=== PATIENT | male | born 1980 | race American Indian/Alaskan Native ===

== ENCOUNTER 2017-05-19 17:45 | Emergency (ER) | payer MEDICAID, OTHER ==
[2017-05-19 17:52] VITALS: BP 133/86
--- NOTE | 2017-05-19 18:24 | EDM.PDOC ---
ED HPI GENERAL MEDICAL PROBLEM - General Chief Complaint: Lower Extremity Injury/Pain Stated Complaint: [facility] Time Seen by Provider: 05/19/17 18:10 Source of Information: Reports: Patient, Provider History Limitations: Reports: No Limitations - History of Present Illness INITIAL COMMENTS - FREE TEXT/NARRATIVE: This 36 yo male patient was brought to the ED by [facility] due to swelling, pain and redness in his right lower extremity. The patient was seen in the [facility] prior to transport by Dr. Vale (Podiatry). The patient reports he noticed some swelling starting on his medial right foot on Thursday Evening. Since that time the patient has noticed increased swelling and redness to his foot and ankle. The patient denies any history of trauma or injury to the area. Dr. Vale reports the patient had a CBC, BMP, x-rays (negative for fractures) of his ankle and and ultrasound of the right lower extremity (negative for blood clots). Dr. Vale diagnosed the patient with compartment syndrome, but also reported some question about the quality of the ultrasound results. Dr. Vale transferred care of the patient to [facility] in [place] for continued evaluation and management. The CBC results demonstrated a WBC of 4.7 ( 65.9% neut). Onset: Gradual Onset Date: 05/17/17 Duration: Constant, Getting Worse Location: Reports: Lower Extremity, Right Quality: Reports: Ache, Dull Severity: Moderate Improves with: Reports: None Worsens with: Reports: None Associated Symptoms: Reports: No Other Symptoms Right Lower Leg Pain Score (Numeric/FACES): 6 - Related Data Allergies Allergy/AdvReac Type Severity Reaction Status Date / Time aspirin Allergy Cannot Verified 05/19/17 18:41 Remember cephalexin Allergy Rash Verified 05/19/17 17:45 Home Meds: Home Meds . [No Known Home Meds] 03/30/15 [History] Past Medical History - Past Health History Medical/Surgical History: Denies Medical/Surgical History Social & Family History - Tobacco Use Smoking Status *Q: Former Smoker Years of Tobacco use: 20 Used Tobacco, but Quit: Yes Month Tobacco Last Used: apr Second Hand Smoke Exposure: No - Alcohol Use Days Per Week of Alcohol Use: 3 Number of Drinks Per Day: 2 Total Drinks Per Week: 6 - Recreational Drug Use Recreational Drug Use: No Review of Systems - Review of Systems Review Of Systems: ROS reveals no pertinent complaints other than HPI. ED EXAM, GENERAL - Physical Exam Exam: See Below Exam Limited By: No Limitations General Appearance: Alert, WD/WN, Mild Distress Eye Exam: Bilateral Eye: EOMI, Normal Inspection, PERRL Ears: Normal External Exam, Normal Canal, Hearing Grossly Normal, Normal TMs Nose: Normal Inspection, Normal Mucosa, No Blood Throat/Mouth: Normal Inspection, Normal Lips, Normal Teeth, Normal Gums, Normal Oropharynx, Normal Voice, No Airway Compromise Head: Atraumatic, Normocephalic Neck: Normal Inspection, Supple, Non-Tender, Full Range of Motion Respiratory/Chest: No Respiratory Distress, Lungs Clear, Normal Breath Sounds, No Accessory Muscle Use, Chest Non-Tender Cardiovascular: Normal Peripheral Pulses, Regular Rate, Rhythm, No Edema, No Gallop, No JVD, No Murmur, No Rub GI/Abdominal: Normal Bowel Sounds, Soft, Non-Tender, No Organomegaly, No Distention, No Abnormal Bruit, No Mass (Male) Exam: Deferred Rectal (Males) Exam: Deferred Back Exam: Normal Inspection, Full Range of Motion, NT Extremities: Leg Pain (right lower extremity with erythema from the medial foot through the knee) Neurological: Alert, Oriented, CN II-XII Intact, Normal Cognition, Normal Reflexes, No Motor/Sensory Deficits Psychiatric: Normal Affect, Normal Mood Skin Exam: Erythema (right lower extremity), Increased Warmth (right lower extremity) Lymphatic: No Adenopathy Course - Vital Signs Last Recorded V/S: Last Vital Signs Temp 35.8 C 05/19/17 17:51 Pulse 84 05/19/17 17:51 Resp 16 05/19/17 17:51 BP 133/86 05/19/17 17:51 Pulse Ox 98 05/19/17 17:51 - Orders/Labs/Meds Labs: Laboratory Tests 05/19/17 Range/Units 18:10 D-Dimer, Quantitative 649 H (0-400) ng/mL Departure - Departure Time of Disposition: 18:55 Disposition: DC/Tfer to Acute Hospital 02 Condition: Fair Clinical Impression: Right leg swelling - Discharge Information Forms: Interfacility Transfer EMTALA Care Plan Goals: Discussed the examination, lab, x-ray and ultrasound results with Dr. Quinteros ([facility] in [place]). Dr. Quinteros accepted the patient for continued evaluation and management. The patient will be transported by [facility].
== END 2017-05-19 19:15 ==
LOC: DL.ED 17:45
DX: R22.41 Localized swelling, mass and lump, right lower limb (principal); Z88.6 Allergy status to analgesic agent; Z88.1 Allergy status to other antibiotic agents; Z87.891 Personal history of nicotine dependence
CPT/HCPCS: 36415; 85379; 99283

== ENCOUNTER 2018-08-16 17:34 | Emergency (ER) | payer OTHER ==
[2018-08-16 18:05] VITALS: BP 140/80
== END 2018-08-16 19:00 | disposition left against medical advice (07) ==
LOC: DL.ED 17:34
DX: Z53.21 Procedure and treatment not carried out due to patient leaving prior to being seen by health care provider (principal)

== ENCOUNTER → 2019-04-15 | Outpatient (CLI) | payer MEDICAID ==
--- NOTE | 2019-04-15 15:54 | US ---
Clinical history: 38-year-old male with calf pain, swelling and tenderness. Interpretation: No sign of deep vein thrombosis right lower extremity but there is evidence of superficial venous thrombosis (SVT) greater saphenous vein below the knee (greater saphenous vein proximally, above the knee, is patent). Several large inguinal lymph nodes right groin. No Astudillo's cyst or popliteal artery aneurysm. No sign of intraluminal echogenic thrombus and normal compressibility deep veins of the right thigh, knee and calf with satisfactory augmentation and venous waveforms demonstrated respectively in the posterior tibial/peroneal veins of the right calf, popliteal vein behind the right knee, and proximally in the femoral veins of the right thigh/groin. CONCLUSION: Superficial vein thrombosis right calf. *No DVT right lower extremity.
== END ==
LOC: DL.US 13:24
PROVIDERS: ATTEND Nurse Practitioner Family
DX: M79.661 Pain in right lower leg (principal); M79.89 Other specified soft tissue disorders; I82.4Z1 Acute embolism and thrombosis of unspecified deep veins of right distal lower extremity
CPT/HCPCS: 93971

== ENCOUNTER 2019-08-13 08:49 | Emergency (ER) | payer MEDICAID ==
[~2019-08-13 08:49] MED LIST: Sodium Chloride 0.9% 10 ML Syringe FLUSH PRN
[2019-08-13] MEDS ORDERED: Octreotide 100 MCG/ML SDV IVPUSH ONE (08:55)
[2019-08-13] MEDS ORDERED: Octreotide 500 MCG in Sodium Chloride 0.9% 250 ML IV SCH (09:00)
--- NOTE | 2019-08-13 09:08 | EDM.PDOC ---
ED HPI GENERAL MEDICAL PROBLEM - General Chief Complaint: Gastrointestinal Problem Stated Complaint: AMBULANCE Time Seen by Provider: 08/13/19 08:54 Source of Information: Reports: Patient, EMS, EMS Notes Reviewed, Family, RN, RN Notes Reviewed History Limitations: Reports: No Limitations - History of Present Illness INITIAL COMMENTS - FREE TEXT/NARRATIVE: Pt to ER per [facility] with c/o coughing up dark red/black blood this morning. Patient states he has a hx of upper GI bleeding, esophageal varices, and has bands in the esophagus. Pt is unsure when the last time this happened was. Patient states hx of ulcers on both legs that he has been dealing with for 2 years. Also states hx of asthma. States he used to drink large amounts of alcohol, but denies drinking alcohol recently. Onset: Today, Sudden - Related Data Allergies Allergy/AdvReac Type Severity Reaction Status Date / Time aspirin Allergy Cannot Verified 09/12/18 19:07 Remember cephalexin Allergy Rash Verified 09/12/18 19:07 clindamycin Allergy Cannot Verified 08/13/19 08:55 Remember Home Meds: Home Meds . [No Known Home Meds] 03/30/15 [History] Past Medical History - Past Health History Medical/Surgical History: Denies Medical/Surgical History HEENT History: Reports: None Cardiovascular History: Reports: Hypertension Respiratory History: Reports: Asthma Gastrointestinal History: Reports: GERD, GI Bleed, Other (See Below) Other Gastrointestinal History: acities, esophageal varices Genitourinary History: Reports: Chronic Renal Insuffiency, Other (See Below) Other Genitourinary History: chronic kidney disease Neurological History: Reports: None Psychiatric History: Reports: None Hematologic History: Reports: Anemia Immunologic History: Reports: None Oncologic (Cancer) History: Reports: None Dermatologic History: Reports: Cellulitis, Psoriasis - Past Surgical History Cardiovascular Surgical History: Reports: Other (See Below) Other Cardiovascular Surgeries/Procedures: chronic edema with leg ulcers Social & Family History - Caffeine Use Caffeine Use: Reports: Soda ED ROS GENERAL - Review of Systems Review Of Systems: ROS reveals no pertinent complaints other than HPI. ED EXAM, GI/ABD - Physical Exam Exam: See Below Exam Limited By: No Limitations General Appearance: Alert, WD/WN, Mild Distress Eyes: Bilateral: Normal Appearance (Scleral icterus), EOMI Ears: Normal External Exam, Hearing Grossly Normal Nose: Normal Inspection Throat/Mouth: Normal Inspection, Normal Voice, No Airway Compromise, Other ( Dark blood in the back of the throat) Head: Atraumatic, Normocephalic Neck: Normal Inspection, Supple, Non-Tender, Full Range of Motion Respiratory/Chest: No Respiratory Distress, Lungs Clear, Normal Breath Sounds, No Accessory Muscle Use, Chest Non-Tender Cardiovascular: Normal Peripheral Pulses, Regular Rate, Rhythm, No Edema, No Gallop, No JVD, No Murmur, No Rub GI/Abdominal Exam: Normal Bowel Sounds, Non-Tender, Distended, Other (Firm). No : Soft (Male) Exam: Deferred Rectal (Males) Exam: Deferred Back Exam: Normal Inspection, Full Range of Motion, NT Extremities: Normal Capillary Refill, Limited Range of Motion, Other (Bilateral legs wrapped in WIL[place] wraps, patient states ulcers to both legs for 2 years) Neurological: Alert, Oriented, CN II-XII Intact, Normal Cognition, Normal Gait, Normal Reflexes, No Motor/Sensory Deficits Psychiatric: Normal Affect, Normal Mood Skin Exam: Warm, Dry, Intact, No Rash, Jaundice Lymphatic: No Adenopathy Course - Vital Signs Last Recorded V/S: Last Vital Signs Temp 99.1 F 08/13/19 10:08 Pulse 118 H 08/13/19 10:08 Resp 16 08/13/19 10:08 BP 123/65 08/13/19 10:08 Pulse Ox 98 08/13/19 08:54 - Orders/Labs/Meds Orders: Active Orders 24 hr Category Date Time Status Peripheral IV Care [RC] . DIRECTED Care 08/13/19 08:46 Active Peripheral IV Insertion Adult [OM.PC] Stat Ot 08/13/19 08:45 Ordered Transfuse Red Blood Cells [COMM] Stat Ot 08/13/19 08:45 Ordered Labs: Laboratory Tests 08/13/19 08/13/19 08/13/19 Range/Units 09:04 09:04 09:04 WBC 10.0 (5.0-10.0) 10^3/uL RBC 2.39 L (4.6-6.2) 10^6/uL Hgb 6.1 L* D (14.0-18.0) g/dL Hct 20.1 L* (40.0-54.0) % MCV 84.1 (80-100) fL MCH 25.5 L (27.0-34.0) pg MCHC 30.3 L (33.0-35.0) g/dL Plt Count 61 L (150-450) 10^3/uL Neut % (Auto) 73.3 (42.2-75.2) % Lymph % (Auto) 13.3 L (20.5-50.1) % [place] % (Auto) 10.7 H (2-8) % Eos % (Auto) 2.3 (1.0-3.0) % Baso % (Auto) 0.4 (0.0-1.0) % PT 21.0 H (9.0-12.0) SEC INR 2.1 H (0.9-1.2) Sodium 138 (135-145) mmol/L Potassium 3.1 L (3.6-5.0) mmol/L Chloride 106 (101-111) mmol/L Carbon Dioxide 22.0 (21.0-31.0) mmol/L Anion Gap 13.1 BUN 9 (7-18) mg/dL Creatinine 0.9 (0.6-1.3) mg/dL Est Cr Clr Drug Dosing TNP Estimated GFR (MDRD) > 60 BUN/Creatinine Ratio 10.00 Glucose 204 H (74-105) mg/dL Calcium 6.9 L D (8.4-10.2) mg/dl Total Bilirubin 3.3 H (0.2-1.0) mg/dL AST 110 H (10-42) IU/L ALT 37 (10-60) IU/L Alkaline Phosphatase 79 (42-121) IU/L Total Protein 6.4 L (6.7-8.2) g/dl Albumin 1.4 L (3.2-5.5) g/dl Globulin 5.0 Albumin/Globulin Ratio 0.28 Ethyl Alcohol 232 mg/dL Blood Type Gel Antibody Screen Crossmatch 08/13/19 Range/Units 09:04 WBC (5.0-10.0) 10^3/uL RBC (4.6-6.2) 10^6/uL Hgb (14.0-18.0) g/dL Hct (40.0-54.0) % MCV (80-100) fL MCH (27.0-34.0) pg MCHC (33.0-35.0) g/dL Plt Count (150-450) 10^3/uL Neut % (Auto) (42.2-75.2) % Lymph % (Auto) (20.5-50.1) % [place] % (Auto) (2-8) % Eos % (Auto) (1.0-3.0) % Baso % (Auto) (0.0-1.0) % PT (9.0-12.0) SEC INR (0.9-1.2) Sodium (135-145) mmol/L Potassium (3.6-5.0) mmol/L Chloride (101-111) mmol/L Carbon Dioxide (21.0-31.0) mmol/L Anion Gap BUN (7-18) mg/dL Creatinine (0.6-1.3) mg/dL Est Cr Clr Drug Dosing Estimated GFR (MDRD) BUN/Creatinine Ratio Glucose (74-105) mg/dL Calcium (8.4-10.2) mg/dl Total Bilirubin (0.2-1.0) mg/dL AST (10-42) IU/L ALT (10-60) IU/L Alkaline Phosphatase (42-121) IU/L Total Protein (6.7-8.2) g/dl Albumin (3.2-5.5) g/dl Globulin Albumin/Globulin Ratio Ethyl Alcohol mg/dL Blood Type O POSITIVE Gel Antibody Screen Negative Crossmatch See Detail Meds: Medications Discontinued Medications Generic Name Dose Route Start Last Admin Trade Name Freq PRN Reason Stop Dose Admin Octreotide Acetate 500 mcg/ 255 mls @ 20 mls/hr 08/13/19 09:00 08/13/19 09:11 Sodium Chloride IV 20 mls/hr ASDIRECTED AMIE Administration Octreotide Acetate 100 mcg 08/13/19 08:55 08/13/19 09:02 Sandostatin IVPUSH 08/13/19 08:56 100 mcg ONETIME ONE Administration Sodium Chloride 10 ml 08/13/19 08:45 08/13/19 09:02 Saline Flush FLUSH 10 ml ASDIRECTED PRN Administration Keep Vein Open Departure - Departure Time of Disposition: 10:15 Disposition: DC/Tfer to Acute Hospital 02 Condition: Poor, Serious Clinical Impression: Upper GI bleed Esophageal varices Qualifiers: Esophageal varices type: unspecified type Esophageal varices bleeding: with bleeding Qualified Code(s): I85.01 - Esophageal varices with bleeding Anemia Qualifiers: Anemia type: unspecified type Qualified Code(s): D64.9 - Anemia, unspecified - Discharge Information *PRESCRIPTION DRUG MONITORING PROGRAM REVIEWED*: No *COPY OF PRESCRIPTION DRUG MONITORING REPORT IN PATIENT NARCISA: No Referrals: PCP,None [Primary Care Provider] - Forms: ED Department Discharge, Interfacility Transfer [facility] - My Orders Last 24 Hours: My Active Orders 08/13/19 08:45 Peripheral IV Insertion Adult [OM.PC] Stat Transfuse Red Blood Cells [COMM] Stat 08/13/19 08:46 Peripheral IV Care [RC] . DIRECTED - Assessment/Plan Last 24 Hours: My Active Orders 08/13/19 08:45 Peripheral IV Insertion Adult [OM.PC] Stat Transfuse Red Blood Cells [COMM] Stat 08/13/19 08:46 Peripheral IV Care [RC] . DIRECTED
[2019-08-13 09:31] LABS: ANION GAP 13.1; CHLORIDE,CL 106 mmol/L (101-111); SODIUM,NA 138 mmol/L (135-145)
[2019-08-13 10:08] VITALS: BP 123/65; PULSE 118
== END 2019-08-13 10:30 ==
LOC: DL.ED 08:49
DX: I85.01 Esophageal varices with bleeding (principal); I13.10 Hypertensive heart and chronic kidney disease without heart failure, with stage 1 through stage 4 chronic kidney disease, or unspecified chronic kidney disease; N18.9 Chronic kidney disease, unspecified; D63.8 Anemia in other chronic diseases classified elsewhere; Z88.1 Allergy status to other antibiotic agents; Z88.8 Allergy status to other drugs, medicaments and biological substances
CPT/HCPCS: 36415; 36430; 80053; 80320; 85025; 85610; 86850; 86900; 86901; 86920; 86922; 96365; 96376; 99285; G0390; J2354; J7050; P9016; G0480

== ENCOUNTER 2020-04-06 12:43 | Emergency (ER) | payer MEDICARE, MEDICAID ==
[2020-04-06 12:56] VITALS: BP 127/77; PULSE 97
--- NOTE | 2020-04-06 13:04 | EDM.PDOC ---
ED HPI GENERAL MEDICAL PROBLEM - General Chief Complaint: Lower Extremity Injury/Pain Stated Complaint: LEG INFECTED Time Seen by Provider: 04/06/20 13:04 Source of Information: Reports: Patient, Old Records, RN, RN Notes Reviewed History Limitations: Reports: No Limitations - History of Present Illness INITIAL COMMENTS - FREE TEXT/NARRATIVE: Pt presents to ER from home by POV after he called the clinic and was sent here for left leg feeling like getting infection. The patient states his left thigh is painful to touch, feels hot, looks red and is exactly the same as when he developed cellulitis in the past. He has psoriasis which is not currently under treatment. He rates pain 9/10. He took 325mg of Tylenol at 1000HRS today. Onset: Gradual Duration: Constant, Getting Worse Location: Reports: Lower Extremity, Left Quality: Reports: Ache Severity: Severe Worsens with: Reports: None Associated Symptoms: Reports: No Other Symptoms Treatments DELPHI PROGRAMMER: Reports: Acetaminophen Left Leg Pain Score (Numeric/FACES): 9 - Related Data Allergies Allergy/AdvReac Type Severity Reaction Status Date / Time aspirin Allergy Cannot Verified 04/06/20 12:56 Remember cephalexin Allergy Rash Verified 04/06/20 12:56 clindamycin Allergy Cannot Verified 04/06/20 12:56 Remember Home Meds: Home Meds . [No Known Home Meds] 03/30/15 [History] Past Medical History - Past Health History Medical/Surgical History: Denies Medical/Surgical History HEENT History: Reports: None Cardiovascular History: Reports: Hypertension Respiratory History: Reports: Asthma Gastrointestinal History: Reports: GERD, GI Bleed, Other (See Below) Other Gastrointestinal History: acities, esophageal varices Genitourinary History: Reports: Chronic Renal Insuffiency, Other (See Below) Other Genitourinary History: chronic kidney disease Musculoskeletal History: Reports: None Neurological History: Reports: None Psychiatric History: Reports: None Endocrine/Metabolic History: Reports: Obesity/BMI 30+ Hematologic History: Reports: Anemia Immunologic History: Reports: None Oncologic (Cancer) History: Reports: None Dermatologic History: Reports: Cellulitis, Psoriasis - Past Surgical History Head Surgeries/Procedures: Reports: None Cardiovascular Surgical History: Reports: Other (See Below) Other Cardiovascular Surgeries/Procedures: chronic edema with leg ulcers Social & Family History - Tobacco Use Smoking Status *Q: Never Smoker Second Hand Smoke Exposure: No - Caffeine Use Caffeine Use: Reports: Soda - Recreational Drug Use Recreational Drug Use: No - Living Situation & Occupation Living situation: Reports: with Family Review of Systems - Review of Systems Review Of Systems: Comprehensive ROS is negative, except as noted in HPI. ED EXAM, GENERAL - Physical Exam Exam: See Below Exam Limited By: No Limitations General Appearance: Alert, WD/WN, No Apparent Distress Eye Exam: Bilateral Eye: Normal Inspection (No scleral icterus) Head: Atraumatic, Normocephalic Neck: Normal Inspection Respiratory/Chest: No Respiratory Distress, Lungs Clear, Normal Breath Sounds, No Accessory Muscle Use, Chest Non-Tender Cardiovascular: Regular Rate, Rhythm, No Edema GI/Abdominal: Normal Bowel Sounds, Soft, Non-Tender Back Exam: Normal Inspection Extremities: Normal Range of Motion, No Pedal Edema. No: Joint Swelling, Maycol' s Sign Neurological: Alert, Oriented, No Motor/Sensory Deficits Psychiatric: Normal Mood Skin Exam: Warm, Dry, Other (Chronic plaque psoriasis. Left medial and anterior thight with increased warmth, tenderness, and erythema, no abscess.) Lymphatic: No Adenopathy Course - Vital Signs Last Recorded V/S: Last Vital Signs Temp 97.8 F 04/06/20 12:49 Pulse 97 04/06/20 12:49 Resp 16 04/06/20 12:49 BP 127/77 04/06/20 12:49 Pulse Ox 100 04/06/20 12:49 - Orders/Labs/Meds Orders: Active Orders 24 hr Category Date Time Status LACTIC ACID [CHEM] Stat Lab 04/06/20 13:26 Received Labs: Laboratory Tests 04/06/20 04/06/20 Range/Units 13:26 13:26 WBC 4.5 L (5.0-10.0) 10^3/uL RBC 3.64 L (4.6-6.2) 10^6/uL Hgb 9.1 L D (14.0-18.0) g/dL Hct 28.4 L (40.0-54.0) % MCV 78.0 L D (80-100) fL MCH 25.0 L (27.0-34.0) pg MCHC 32.0 L (33.0-35.0) g/dL Plt Count 53 L (150-450) 10^3/uL Neut % (Auto) 69.6 (42.2-75.2) % Lymph % (Auto) 13.7 L (20.5-50.1) % [place] % (Auto) 15.2 H (2-8) % Eos % (Auto) 1.3 (1.0-3.0) % Baso % (Auto) 0.2 (0.0-1.0) % C-Reactive Protein 7.0 H (0.0-0.9) mg/dL Meds: Medications Discontinued Medications Generic Name Dose Route Start Last Admin Trade Name Freq PRN Reason Stop Dose Admin Doxycycline Hyclate 100 mg 04/06/20 13:43 Vibramycin PO 04/06/20 13:44 ONETIME ONE Trimethoprim/Sulfamethoxazole 1 tab 04/06/20 13:44 Septra Ds PO 04/06/20 13:45 ONETIME ONE Departure - Departure Time of Disposition: 13:48 Disposition: Home, Self-Care 01 Condition: Good Clinical Impression: Cellulitis of left thigh, Pancytopenia, History of psoriasis - Discharge Information *PRESCRIPTION DRUG MONITORING PROGRAM REVIEWED*: Not Applicable *COPY OF PRESCRIPTION DRUG MONITORING REPORT IN PATIENT NARCISA: Not Applicable Instructions: Cellulitis, Adult, [id number] Forms: ED Department Discharge Additional Instructions: Rx: Bactrim DS Rx: Doxycycline 100mg Rx: Bactroban Ointment Follow up in clinic in 3 to 5 days for recheck of leg and blood count ( pancytopenia). Sepsis Event Note - Evaluation Sepsis Screening Result: No Definite Risk - Focused Exam Vital Signs: Vital Signs Temp Pulse Resp BP Pulse Ox 04/06/20 12:49 97.8 F 97 16 127/77 100 Date Exam was Performed: 04/06/20 Time Exam was Performed: 13:53 - My Orders Last 24 Hours: My Active Orders 04/06/20 13:26 LACTIC ACID [CHEM] Stat - Assessment/Plan Last 24 Hours: My Active Orders 04/06/20 13:26 LACTIC ACID [CHEM] Stat
[2020-04-06] MEDS ORDERED: Doxycycline 100 MG Cap PO ONE (13:43)
[2020-04-06] MEDS ORDERED: Sulfamethoxazole/Trimethoprim 800-160 MG Tab PO ONE (13:44)
== END 2020-04-06 14:03 | disposition home or self-care (01) ==
LOC: DL.ED 12:43
DX: L03.116 Cellulitis of left lower limb (principal); D61.818 Other pancytopenia; J45.909 Unspecified asthma, uncomplicated; I12.9 Hypertensive chronic kidney disease with stage 1 through stage 4 chronic kidney disease, or unspecified chronic kidney disease; N18.9 Chronic kidney disease, unspecified; E66.9 Obesity, unspecified; Z68.38 Body mass index [BMI] 38.0-38.9, adult; Z87.2 Personal history of diseases of the skin and subcutaneous tissue; Z88.6 Allergy status to analgesic agent; Z88.1 Allergy status to other antibiotic agents
CPT/HCPCS: 36415; 83605; 85025; 86140; 99283; A9270

== ENCOUNTER 2020-05-21 17:24 | Emergency (ER) | payer MEDICARE, MEDICAID ==
[2020-05-21 17:36] VITALS: BP 125/65; PULSE 98
--- NOTE | 2020-05-21 17:50 | EDM.PDOC ---
<Lynnette Ho - Last Filed: 05/21/20 18:46> ED HPI GENERAL MEDICAL PROBLEM - General Chief Complaint: Skin Complaint Stated Complaint: POSSIBLE STAFF INFECTION Time Seen by Provider: 05/21/20 17:50 Source of Information: Reports: Patient, Family, RN, RN Notes Reviewed History Limitations: Reports: No Limitations - History of Present Illness INITIAL COMMENTS - FREE TEXT/NARRATIVE: Patient presents to ER with complaint of pain, erythema, swelling to the right lower extremity for the past 2 days. Patient states he does have a history of eczema, with plaques on the knees. Patient states he has had cellulitis of the lower extremities in the past, states he generally tries to keep them wrapped. Patient also states he has had a blood clot in the right lower leg in the past. Patient admits to history of esophageal varices with banding, as well as cirrhosis of the liver. Patient states he does not currently drink alcohol. Patient admits to fever and chills beginning last night. Denies any nausea, vomiting, diarrhea. Onset: Gradual Left Leg Pain Score (Numeric/FACES): 5 - Related Data Allergies Allergy/AdvReac Type Severity Reaction Status Date / Time aspirin Allergy Cannot Verified 05/21/20 17:30 Remember cephalexin Allergy Rash Verified 05/21/20 17:30 clindamycin Allergy Cannot Verified 05/21/20 17:30 Remember Home Meds: Home Meds . [No Known Home Meds] 03/30/15 [History] Past Medical History - Past Health History Medical/Surgical History: Denies Medical/Surgical History HEENT History: Reports: None Cardiovascular History: Reports: Hypertension Respiratory History: Reports: Asthma Gastrointestinal History: Reports: Cirrhosis, GERD, GI Bleed, Other (See Below) Other Gastrointestinal History: acities, esophageal varices Genitourinary History: Reports: Chronic Renal Insuffiency, Other (See Below) Other Genitourinary History: chronic kidney disease Musculoskeletal History: Reports: None Neurological History: Reports: None Psychiatric History: Reports: Addiction Endocrine/Metabolic History: Reports: Obesity/BMI 30+ Hematologic History: Reports: Anemia Immunologic History: Reports: None Oncologic (Cancer) History: Reports: None Dermatologic History: Reports: Cellulitis, Psoriasis - Infectious Disease History Infectious Disease History: Reports: None - Past Surgical History Head Surgeries/Procedures: Reports: None Cardiovascular Surgical History: Reports: Other (See Below) Other Cardiovascular Surgeries/Procedures: chronic edema with leg ulcers Social & Family History - Family History Family Medical History: Noncontributory - Tobacco Use Smoking Status *Q: Current Every Day Smoker Years of Tobacco use: 20 Packs/Tins Daily: 1 - Caffeine Use Caffeine Use: Reports: Soda - Recreational Drug Use Recreational Drug Use: No - Living Situation & Occupation Living situation: Reports: with Family ED ROS GENERAL - Review of Systems Review Of Systems: Comprehensive ROS is negative, except as noted in HPI. ED EXAM, SKIN/RASH Exam: See Below Exam Limited By: No Limitations General Appearance: Alert, WD/WN, Mild Distress Eye Exam: Bilateral Eye: EOMI, Normal Inspection Ears: Normal External Exam, Hearing Grossly Normal Nose: Normal Inspection Throat/Mouth: Normal Inspection, Normal Voice, No Airway Compromise Head: Atraumatic, Normocephalic Neck: Normal Inspection, Supple, Non-Tender, Full Range of Motion Respiratory/Chest: No Respiratory Distress, No Accessory Muscle Use, Chest Non-Tender, Crackles (Left upper and lower lobes), Rhonchi (Left upper and lower lobes) Cardiovascular: Normal Peripheral Pulses, Regular Rate, Rhythm, No Edema, No Gallop, No JVD, No Murmur, No Rub Peripheral Pulses: 2+: Dorsalis Pedis (L), Dorsalis Pedis (R) GI/Abdominal: Normal Bowel Sounds, Soft, Non-Tender (Male) Exam: Deferred Rectal (Males) Exam: Deferred Back Exam: Normal Inspection, Full Range of Motion, NT Extremities: Leg Pain (Right lower leg), Increased Warmth (Right lower leg), Redness (Right lower leg) Neurological: Alert, Oriented, CN II-XII Intact, Normal Cognition, Normal Reflexes, No Motor/Sensory Deficits Psychiatric: Normal Affect, Normal Mood Skin: Warm, Dry, Intact, Erythema (Right lower leg), Increased Warmth (Right lower leg), Other Location, Skin: Lower Extremity, Right Associated features: Warmth, Tenderness, Swelling, Inflammation Lymphatic: No Adenopathy Course - Radiology Interpretation Free Text/Narrative:: Chest x-ray: PROCEDURE INFORMATION: Exam: XR Chest, 2 Views Exam date and time: 05/21/2020 6:04 PM Age: 39 years old Clinical indication: Other: Rhonchi/crackles TECHNIQUE: Imaging protocol: XR of the chest Views: 2 views. COMPARISON: CR Chest 1V Frontal 09/12/2018 7:39 PM FINDINGS: Lungs: Patchy airspace opacity present within the right lung base consistent with pneumonia. Mild bilateral hyperinflation. Pleural space: Unremarkable. No pleural effusion. No pneumothorax. Heart/Mediastinum: Unremarkable. No cardiomegaly. Bones/joints: Developmental changes of the upper left ribs again noted. IMPRESSION: 1. Patchy airspace opacity present within the right lung base consistent with pneumonia. 2. Mild bilateral hyperinflation. Thank you for allowing us to participate in the care of your patient. Dictated and Authenticated by: Ambrosio Gardner DO 05/21/2020 6:36 PM Central Time ([place] & [place]) See radiologist report - Re-Assessments/Exams Free Text/Narrative Re-Assessment/Exam: 05/21/20 18:46 Patient care turned over to TATE Reese, upon shift change. Departure - Departure Disposition: Home, Self-Care 01 Clinical Impression: Cellulitis of right lower extremity without foot - Discharge Information Instructions: Cellulitis, Adult, [id number] Forms: ED Department Discharge Care Plan Goals: The patient was advised of the examination and lab results during the visit. The patient was given an oral dose of Augmentin while in th eED. The patient was discharged with a script for Augmentin (875/125) #20to take 1 by mouth 2 times per day for 10 days. The patient was encouraged to follow-up with his primary ca re facility within the week. If the patient has any additional symptoms or concerns, the patient should either return to the emergency department or visit his primary care facility. Sepsis Event Note (ED) - Evaluation Sepsis Screening Result: No Definite Risk <Yann Balderrama - Last Filed: 05/21/20 19:58> Course - Vital Signs Last Recorded V/S: Last Vital Signs Temp 37.4 C 05/21/20 17:33 Pulse 98 05/21/20 17:33 Resp 16 05/21/20 17:33 BP 125/65 05/21/20 17:33 Pulse Ox 99 05/21/20 17:33 - Orders/Labs/Meds Orders: Active Orders 24 hr Category Date Time Status Peripheral IV Care [RC] . DIRECTED Care 05/21/20 18:03 Active CULTURE BLOOD [BC] Stat Lab 05/21/20 18:12 Received CULTURE BLOOD [BC] Stat Lab 05/21/20 18:17 Received REFLEX LACTIC ACID YES OR NO [CHEM] Routine Lab 05/21/20 18:51 Received Amoxicillin/Clavulanate K [Augmentin 875 MG/125 MG] Med 05/21/20 19:54 Once 1 tab PO ONETIME ONE Sodium Chloride 0.9% [Saline Flush] Med 05/21/20 18:01 Active 10 ml FLUSH ASDIRECTED PRN Blood Culture x2 Reflex Set [OM.PC] Stat Oth 05/21/20 18:03 Ordered Peripheral IV Insertion Adult [OM.PC] Stat Oth 05/21/20 18:01 Ordered Medication Orders Sodium Chloride (Saline Flush) 10 ml FLUSH ASDIRECTED PRN PRN Reason: Keep Vein Open Last Admin: 05/21/20 18:50 Dose: 10 ml Documented by: M[place] Labs: Laboratory Tests 05/21/20 05/21/20 05/21/20 Range/Units 18:12 18:12 18:12 WBC 3.9 L (5.0-10.0) 10^3/uL RBC 4.22 L (4.6-6.2) 10^6/uL Hgb 10.7 L D (14.0-18.0) g/dL Hct 33.7 L (40.0-54.0) % MCV 79.9 L (80-100) fL MCH 25.4 L (27.0-34.0) pg MCHC 31.8 L (33.0-35.0) g/dL Plt Count 39 L* (150-450) 10^3/uL Neut % (Auto) 75.1 (42.2-75.2) % Lymph % (Auto) 11.0 L (20.5-50.1) % Patrick % (Auto) 13.1 H (2-8) % Eos % (Auto) 0.5 L (1.0-3.0) % Baso % (Auto) 0.3 (0.0-1.0) % D-Dimer, Quantitative 1050 H (0-400) ng/mL Sodium 135 L (136-145) mmol/L Potassium 3.4 L (3.5-5.1) mmol/L Chloride 101 (98-107) mmol/L Carbon Dioxide 26 (21-32) mmol/L Anion Gap 11.4 (7-13) mEq/L BUN 13 (7-18) mg/dL Creatinine 1.17 (0.70-1.30) mg/dL Est Cr Clr Drug Dosing 77.68 mL/min Estimated GFR (MDRD) > 60 BUN/Creatinine Ratio 11.1 (No establ ref range) Glucose 93 (74-99) mg/dL Lactic Acid (0.4-2.0) mmol/L Calcium 8.1 L (8.5-10.1) mg/dL Total Bilirubin 3.8 H (0.2-1.0) mg/dL AST 79 H (15-37) U/L ALT 51 (16-63) U/L Alkaline Phosphatase 88 (46-116) U/L B-Natriuretic Peptide 114 H (0-100) pg/ml Total Protein 7.5 (6.4-8.2) g/dL Albumin 2.0 L (3.4-5.0) g/dL Globulin 5.5 Albumin/Globulin Ratio 0.36 06/22/20 Range/Units 18:12 WBC (5.0-10.0) 10^3/uL RBC (4.6-6.2) 10^6/uL Hgb (14.0-18.0) g/dL Hct (40.0-54.0) % MCV (80-100) fL MCH (27.0-34.0) pg MCHC (33.0-35.0) g/dL Plt Count (150-450) 10^3/uL Neut % (Auto) (42.2-75.2) % Lymph % (Auto) (20.5-50.1) % Patrick % (Auto) (2-8) % Eos % (Auto) (1.0-3.0) % Baso % (Auto) (0.0-1.0) % D-Dimer, Quantitative (0-400) ng/mL Sodium (136-145) mmol/L Potassium (3.5-5.1) mmol/L Chloride (98-107) mmol/L Carbon Dioxide (21-32) mmol/L Anion Gap (7-13) mEq/L BUN (7-18) mg/dL Creatinine (0.70-1.30) mg/dL Est Cr Clr Drug Dosing mL/min Estimated GFR (MDRD) BUN/Creatinine Ratio (No establ ref range) Glucose (74-99) mg/dL Lactic Acid 2.6 H* (0.4-2.0) mmol/L Calcium (8.5-10.1) mg/dL Total Bilirubin (0.2-1.0) mg/dL AST (15-37) U/L ALT (16-63) U/L Alkaline Phosphatase (46-116) U/L B-Natriuretic Peptide (0-100) pg/ml Total Protein (6.4-8.2) g/dL Albumin (3.4-5.0) g/dL Globulin Albumin/Globulin Ratio Meds: Medications Generic Name Dose Route Start Last Admin Trade Name Freq PRN Reason Stop Dose Admin Sodium Chloride 10 ml 05/21/20 18:01 05/21/20 18:50 Saline Flush FLUSH 10 ml ASDIRECTED PRN Administration Keep Vein Open Departure - Departure Time of Disposition: 19:57 Condition: Fair - Discharge Information *PRESCRIPTION DRUG MONITORING PROGRAM REVIEWED*: Not Applicable *COPY OF PRESCRIPTION DRUG MONITORING REPORT IN PATIENT NARCISA: Not Applicable Sepsis Event Note (ED) - Focused Exam Vital Signs: Vital Signs Temp Pulse Resp BP Pulse Ox 05/21/20 17:33 37.4 C 98 16 125/65 99 - My Orders Last 24 Hours: My Active Orders 05/21/20 19:54 Amoxicillin/Clavulanate K [Augmentin 875 MG/125 MG] 1 tab PO ONETIME ONE - Assessment/Plan Last 24 Hours: My Active Orders 05/21/20 19:54 Amoxicillin/Clavulanate K [Augmentin 875 MG/125 MG] 1 tab PO ONETIME ONE
[2020-05-21] MEDS ORDERED: Sodium Chloride 0.9% 10 ML Syringe FLUSH PRN (18:01)
--- NOTE | 2020-05-21 18:37 | CR ---
PROCEDURE INFORMATION: Exam: XR Chest, 2 Views Exam date and time: 05/21/2020 6:04 PM Age: 39 years old Clinical indication: Other: Rhonchi/crackles TECHNIQUE: Imaging protocol: XR of the chest Views: 2 views. COMPARISON: CR Chest 1V Frontal 09/12/2018 7:39 PM FINDINGS: Lungs: Patchy airspace opacity present within the right lung base consistent with pneumonia. Mild bilateral hyperinflation. Pleural space: Unremarkable. No pleural effusion. No pneumothorax. Heart/Mediastinum: Unremarkable. No cardiomegaly. Bones/joints: Developmental changes of the upper left ribs again noted. IMPRESSION: 1. Patchy airspace opacity present within the right lung base consistent with pneumonia. 2. Mild bilateral hyperinflation.
[2020-05-21 18:44] LABS: ANION GAP 11.4 mEq/L (7-13); CHLORIDE,CL 101 mmol/L (98-107); SODIUM,NA 135 mmol/L (136-145)
--- NOTE | 2020-05-21 19:51 | US ---
PROCEDURE INFORMATION: Exam: US Duplex Right Lower Extremity Veins, Limited Exam date and time: 05/21/2020 7:22 PM Age: 39 years old Clinical indication: Edema, localized and swelling (edema) of limb and other: Redness, d-dimer 1050; Lower extremity, right; Additional info: Rle swelling, redness, ddimer 1050 TECHNIQUE: Imaging protocol: Real-time Duplex ultrasound of the Right Lower Extremity with 2-D anderson scale, color Doppler flow and spectral waveform analysis with image documentation. Limited exam was focused on the right lower extremity veins. COMPARISON: No relevant prior studies available. FINDINGS: Right deep veins: Unremarkable. The common femoral, femoral, proximal profunda femoral and popliteal veins are patent without thrombus. Normal Doppler waveforms. Normal compressibility and/or augmentation response. Right superficial veins: Unremarkable. Saphenofemoral junction is patent without thrombus. Soft tissues: Mild lymphadenopathy is present measuring up to 2.8 cm. IMPRESSION: 1. No evidence of deep vein thrombosis. 2. Mild lymphadenopathy.
[2020-05-21] MEDS ORDERED: Amoxicillin/Clavulanate K 875-125 MG Tab PO ONE (19:54)
== END 2020-05-21 20:06 | disposition home or self-care (01) ==
LOC: DL.ED 17:24
DX: L03.115 Cellulitis of right lower limb (principal); J45.909 Unspecified asthma, uncomplicated; I12.9 Hypertensive chronic kidney disease with stage 1 through stage 4 chronic kidney disease, or unspecified chronic kidney disease; N18.9 Chronic kidney disease, unspecified; E66.9 Obesity, unspecified; F17.210 Nicotine dependence, cigarettes, uncomplicated; Z88.6 Allergy status to analgesic agent; Z88.1 Allergy status to other antibiotic agents; Z68.37 Body mass index [BMI] 37.0-37.9, adult
CPT/HCPCS: 36415; 71046; 80053; 83605; 83880; 85025; 85379; 87040; 93971; 99284; A9270

== ENCOUNTER 2020-08-27 07:49 | Emergency (ER) | payer MEDICARE, MEDICAID, OTHER ==
[2020-08-27 08:21] VITALS: BP 129/57; PULSE 106
[2020-08-27] MEDS ORDERED: Sodium Chloride 0.9% 1,000 ML IV ONE (08:41)
[2020-08-27] MEDS ORDERED: Sodium Chloride 0.9% 10 ML Syringe FLUSH PRN (08:43)
--- NOTE | 2020-08-27 09:05 | EDM.PDOC ---
ED HPI GENERAL MEDICAL PROBLEM - General Chief Complaint: Gastrointestinal Problem Stated Complaint: diarrhea Time Seen by Provider: 08/27/20 08:15 Source of Information: Reports: Patient History Limitations: Reports: No Limitations - History of Present Illness INITIAL COMMENTS - FREE TEXT/NARRATIVE: Patient comes emergency department today from home with complaints of diarrhea. Over the past 4 hours the patient has had quite a bit of increased to his diarrhea. To the point where he is unable to control it and continent of stool. He does have a known history of alcoholic cirrhosis. Also known history of upper GI bleed due to esophageal varices. He has had multiple bouts of diarrhea in the past 24 hours. He has not noticed any blood in his stool. He has no abdominal pain. No nausea or vomiting. His appetite is been okay. No fever but subjective chills. He has been taking his lactulose as prescribed. No other changes in his medications. He has not been on antibiotics recently. Nor has he had any travel outside of his normal area. Said no chest pain shortness of breath or difficulty breathing. No cough or congestion. No palpitations. He does not complain of any generalized weakness. He denies any syncope. No lightheadedness or dizziness. - Related Data Allergies Allergy/AdvReac Type Severity Reaction Status Date / Time aspirin Allergy Cannot Verified 08/27/20 08:20 Remember cephalexin Allergy Rash Verified 08/27/20 08:20 clindamycin Allergy Cannot Verified 08/27/20 08:20 Remember Home Meds: Home Meds . [No Known Home Meds] 03/30/15 [History] Past Medical History - Past Health History Medical/Surgical History: Denies Medical/Surgical History HEENT History: Reports: None Cardiovascular History: Reports: Hypertension Respiratory History: Reports: Asthma Gastrointestinal History: Reports: Cirrhosis, GERD, GI Bleed, Other (See Below) Other Gastrointestinal History: acities, esophageal varices Genitourinary History: Reports: Chronic Renal Insuffiency, Other (See Below) Other Genitourinary History: chronic kidney disease Musculoskeletal History: Reports: None Neurological History: Reports: None Psychiatric History: Reports: Addiction Endocrine/Metabolic History: Reports: Obesity/BMI 30+ Hematologic History: Reports: Anemia Immunologic History: Reports: None Oncologic (Cancer) History: Reports: None Dermatologic History: Reports: Cellulitis, Psoriasis - Infectious Disease History Infectious Disease History: Reports: None - Past Surgical History Head Surgeries/Procedures: Reports: None Cardiovascular Surgical History: Reports: Other (See Below) Other Cardiovascular Surgeries/Procedures: chronic edema with leg ulcers Social & Family History - Family History Family Medical History: Noncontributory - Tobacco Use Smoking Status *Q: Never Smoker - Caffeine Use Caffeine Use: Reports: Soda - Recreational Drug Use Recreational Drug Use: No - Living Situation & Occupation Living situation: Reports: with Family ED ROS GENERAL - Review of Systems Review Of Systems: Comprehensive ROS is negative, except as noted in HPI. ED EXAM, GI/ABD - Physical Exam Exam: See Below Text/Narrative:: scleral icterus Exam Limited By: No Limitations General Appearance: Alert, WD/WN, No Apparent Distress, Obese Ears: Normal External Exam Nose: Normal Inspection Head: Atraumatic, Normocephalic Respiratory/Chest: No Respiratory Distress, Lungs Clear, Normal Breath Sounds, No Accessory Muscle Use, Chest Non-Tender Cardiovascular: Normal Peripheral Pulses, Regular Rate, Rhythm, No Murmur GI/Abdominal Exam: Normal Bowel Sounds, Distended, Hepatomegaly, Other (firm no fluid wave. ). No: Rebound, Tender, Hernia (Male) Exam: Deferred Rectal (Males) Exam: Deferred Extremities: Normal Capillary Refill, Pedal Edema (2+ pitting edema to the lower extremities with open none infectious sores on the lower extremities. ) Neurological: Alert, Oriented Psychiatric: Normal Affect, Normal Mood Skin Exam: Warm, Intact, Normal Color, Rash (He has multiple scattered areas of psoriasis on his lower extremities as well as his abd. ) Course - Vital Signs Last Recorded V/S: Last Vital Signs Temp 98.8 F 08/27/20 08:20 Pulse 106 H 08/27/20 08:20 Resp 14 08/27/20 08:20 BP 129/57 L 08/27/20 08:20 Pulse Ox 100 08/27/20 08:20 - Orders/Labs/Meds Orders: Active Orders 24 hr Category Date Time Status CLOSTRIDIUM DIFFICILE TOX RFLX [MREF] Stat Lab 08/27/20 09:16 Ordered Isolation [COMM] Stat Oth 08/27/20 09:16 Active Peripheral IV Insertion Adult [OM.PC] Stat Oth 08/27/20 08:38 Ordered Labs: Laboratory Tests 09/28/20 09/28/20 09/28/20 Range/Units 08:35 09:00 09:00 WBC 5.4 (5.0-10.0) 10^3/uL RBC 2.93 L (4.6-6.2) 10^6/uL Hgb 8.6 L D (14.0-18.0) g/dL Hct 27.3 L (40.0-54.0) % MCV 93.2 D (80-100) fL MCH 29.4 (27.0-34.0) pg MCHC 31.5 L (33.0-35.0) g/dL Plt Count 36 L* (150-450) 10^3/uL Neut % (Auto) 85.6 H (42.2-75.2) % Lymph % (Auto) 5.7 L (20.5-50.1) % [place] % (Auto) 8.3 H (2-8) % Eos % (Auto) 0.2 L (1.0-3.0) % Baso % (Auto) 0.2 (0.0-1.0) % PT (9.0-12.0) SEC INR (0.9-1.2) APTT (22.0-34.0) SEC Sodium 135 L (136-145) mmol/L Potassium 3.0 L (3.5-5.1) mmol/L Chloride 101 (98-107) mmol/L Carbon Dioxide 24 (21-32) mmol/L Anion Gap 13.0 (7-13) mEq/L BUN 7 (7-18) mg/dL Creatinine 1.28 (0.70-1.30) mg/dL Est Cr Clr Drug Dosing TNP Estimated GFR (MDRD) > 60 BUN/Creatinine Ratio 5.5 (No establ ref range) Glucose 111 H (74-99) mg/dL Lactic Acid (0.4-2.0) mmol/L Calcium 7.7 L (8.5-10.1) mg/dL Magnesium 1.5 L (1.8-2.4) mg/dL Total Bilirubin 6.3 H (0.2-1.0) mg/dL AST 101 H (15-37) U/L ALT 43 (16-63) U/L Alkaline Phosphatase 91 (46-116) U/L Ammonia (11-32) umol/L C-Reactive Protein 5.3 H (0.0-0.9) mg/dL Total Protein 7.6 (6.4-8.2) g/dL Albumin 1.7 L (3.4-5.0) g/dL Globulin 5.9 Albumin/Globulin Ratio 0.29 Lipase 53 L (73-393) U/L Ethyl Alcohol < 3 (0) mg/dL SARS CoV-2 RNA Rapid CYNTHIA Negative (NEGATIVE) 08/27/20 08/27/20 08/27/20 Range/Units 09:00 09:00 09:00 WBC (5.0-10.0) 10^3/uL RBC (4.6-6.2) 10^6/uL Hgb (14.0-18.0) g/dL Hct (40.0-54.0) % MCV (80-100) fL MCH (27.0-34.0) pg MCHC (33.0-35.0) g/dL Plt Count (150-450) 10^3/uL Neut % (Auto) (42.2-75.2) % Lymph % (Auto) (20.5-50.1) % [place] % (Auto) (2-8) % Eos % (Auto) (1.0-3.0) % Baso % (Auto) (0.0-1.0) % PT 22.2 H (9.0-12.0) SEC INR 2.4 H (0.9-1.2) APTT 35.3 H (22.0-34.0) SEC Sodium (136-145) mmol/L Potassium (3.5-5.1) mmol/L Chloride (98-107) mmol/L Carbon Dioxide (21-32) mmol/L Anion Gap (7-13) mEq/L BUN (7-18) mg/dL Creatinine (0.70-1.30) mg/dL Est Cr Clr Drug Dosing Estimated GFR (MDRD) BUN/Creatinine Ratio (No establ ref range) Glucose (74-99) mg/dL Lactic Acid 3.5 H* (0.4-2.0) mmol/L Calcium (8.5-10.1) mg/dL Magnesium (1.8-2.4) mg/dL Total Bilirubin (0.2-1.0) mg/dL AST (15-37) U/L ALT (16-63) U/L Alkaline Phosphatase (46-116) U/L Ammonia 53 H (11-32) umol/L C-Reactive Protein (0.0-0.9) mg/dL Total Protein (6.4-8.2) g/dL Albumin (3.4-5.0) g/dL Globulin Albumin/Globulin Ratio Lipase (73-393) U/L Ethyl Alcohol (0) mg/dL SARS CoV-2 RNA Rapid CYNTHIA (NEGATIVE) 08/27/20 Range/Units 15:44 WBC (5.0-10.0) 10^3/uL RBC (4.6-6.2) 10^6/uL Hgb (14.0-18.0) g/dL Hct (40.0-54.0) % MCV (80-100) fL MCH (27.0-34.0) pg MCHC (33.0-35.0) g/dL Plt Count (150-450) 10^3/uL Neut % (Auto) (42.2-75.2) % Lymph % (Auto) (20.5-50.1) % [place] % (Auto) (2-8) % Eos % (Auto) (1.0-3.0) % Baso % (Auto) (0.0-1.0) % PT (9.0-12.0) SEC INR (0.9-1.2) APTT (22.0-34.0) SEC Sodium 136 (136-145) mmol/L Potassium 3.9 (3.5-5.1) mmol/L Chloride 104 (98-107) mmol/L Carbon Dioxide 26 (21-32) mmol/L Anion Gap 9.9 (7-13) mEq/L BUN 9 (7-18) mg/dL Creatinine 1.25 (0.70-1.30) mg/dL Est Cr Clr Drug Dosing TNP Estimated GFR (MDRD) > 60 BUN/Creatinine Ratio 7.2 (No establ ref range) Glucose 120 H (74-99) mg/dL Lactic Acid (0.4-2.0) mmol/L Calcium 7.7 L (8.5-10.1) mg/dL Magnesium 2.0 (1.8-2.4) mg/dL Total Bilirubin 5.9 H (0.2-1.0) mg/dL AST 98 H (15-37) U/L ALT 43 (16-63) U/L Alkaline Phosphatase 89 (46-116) U/L Ammonia (11-32) umol/L C-Reactive Protein (0.0-0.9) mg/dL Total Protein 7.8 (6.4-8.2) g/dL Albumin 1.6 L (3.4-5.0) g/dL Globulin 6.2 Albumin/Globulin Ratio 0.26 Lipase (73-393) U/L Ethyl Alcohol (0) mg/dL SARS CoV-2 RNA Rapid CYNTHIA (NEGATIVE) Meds: Medications Discontinued Medications Generic Name Dose Route Start Last Admin Trade Name Freq PRN Reason Stop Dose Admin Sodium Chloride 1,000 mls @ 999 mls/hr 08/27/20 08:41 08/27/20 09:04 Normal Saline IV 08/27/20 09:41 999 mls/hr .BOLUS ONE Administration Magnesium Sulfate 2 gm/ Premix 50 mls @ 25 mls/hr 08/27/20 09:42 08/27/20 10:06 IV 08/27/20 11:41 25 mls/hr ONETIME ONE Administration Potassium Chloride/Sodium Chloride 1,000 mls @ 250 mls/hr 08/27/20 09:45 08/27/20 10:50 Normal Saline With 40 Meq Kcl IV 250 mls/hr ASDIRECTED AMIE Infusion Potassium Chloride 40 meq 08/27/20 12:00 Potassium Chloride Solution PO TIDMEALS AMIE Potassium Chloride 40 meq 08/27/20 10:39 08/27/20 11:12 Potassium Chloride Solution PO 08/27/20 10:40 40 meq NOW STA Administration Sodium Chloride 10 ml 08/27/20 08:43 08/27/20 09:04 Saline Flush FLUSH 10 ml ASDIRECTED PRN Administration Keep Vein Open - Re-Assessments/Exams Free Text/Narrative Re-Assessment/Exam: 08/27/20 10:02 Labs drawn. IV NS 1 liter wide open. Stool culture pending. Ammonia minimally elevated in the mid 50's. No previous Ammonia level to compare. His T Tio is elevated from baseline of the mid 3's to 6.8. Ast elevating. Hgb down 2 points in the last 3 months to 8.6. Potassium 3.0 and magnesium 1.5. Lactic acid 3.5 aprox. NS with 40kcl at 125mls/hr and magnesium 2 gram piggy back. Hemoccult negative. I called and spoke with Dr. Ayaan hendrickson in [place] and relayed my concerns as above and unknown cause for diarrhea and my concern of worsening liver failure sequelae. Without the presence or signs of GI bleed no fever and no abd pain. Dr. Ford guidance at this time is hydrate replace electrolytes and send home on Loperamide for diarrhea. Still get the stool studies and have follow up with PCP in the next 2 days. Oral potassium 40meq once in the ED. 08/27/20 18:09 The patient received the entire bag of NS with Kcl. He had a few stools here and they were hemoccult negative per nursing and stool culture obtained. Repeat electrolyte shows improvement of his K as well as magnesium. He is still without abd pain or fever. He does feel much better. He was able to urinate while he was here nursing did not get a urine sample although. We will discharge home with close follow up with PCP for recheck of labs in 2 days. He is comfortable with this plan and his questions answered. Departure - Departure Time of Disposition: 11:30 Disposition: Home, Self-Care 01 Clinical Impression: Hypokalemia, Hypomagnesemia Diarrhea Qualifiers: Diarrhea type: unspecified type Qualified Code(s): R19.7 - Diarrhea, unspecified Anemia Qualifiers: Anemia type: unspecified type Qualified Code(s): D64.9 - Anemia, unspecified Alcoholic cirrhosis of liver Qualifiers: Ascites presence: unspecified Qualified Code(s): K70.30 - Alcoholic cirrhosis of liver without ascites - Discharge Information Instructions: Hypomagnesemia, Hypokalemia, Diarrhea, Adult, [id number] Referrals: PCP,None [Primary Care Provider] - Forms: ED Department Discharge Additional Instructions: Lots of fluids over the next few days especially electrolyte containing materials such as Gatorade and or Powerade. Eat a banana a day. No dairy products until the resolution of diarrhea for 48 hrs. Yogurt with live cultures is the only dairy that is okay until symptoms have resolved. Potassium tabs 1 tablet daily for the next 5 days. RX given to the patient start 08/28/20. Magnesium Oxide, 1 tablet daily for the next 5 days. RX given to the patient. Start 08/28/20. OTC Loperamide Immodium as per OTC instructions for the diarrhea. We sent home stool collection supplies to get a stool culture. Please return NICKY so that we can analyze the stool. Return to the ED if new or worsening symptoms. Especially the development of a fever or abdominal pain. Follow up with your PCP in the next two days for recheck. Sepsis Event Note (ED) - Evaluation Sepsis Screening Result: No Definite Risk - Focused Exam Vital Signs: Vital Signs Temp Pulse Resp BP Pulse Ox 08/27/20 08:20 98.8 F 106 H 14 129/57 L 100 - My Orders Last 24 Hours: My Active Orders 08/27/20 08:38 Peripheral IV Insertion Adult [OM.PC] Stat 08/27/20 09:16 CLOSTRIDIUM DIFFICILE TOX RFLX [MREF] Stat Isolation [COMM] Stat - Assessment/Plan Last 24 Hours: My Active Orders 08/27/20 08:38 Peripheral IV Insertion Adult [OM.PC] Stat 08/27/20 09:16 CLOSTRIDIUM DIFFICILE TOX RFLX [MREF] Stat Isolation [COMM] Stat
[2020-08-27 09:27] LABS: CHLORIDE,CL 101 mmol/L (98-107); SODIUM,NA 135 mmol/L (136-145)
[2020-08-27] MEDS ORDERED: Magnesium Sulfate/Water 2 GM in Premix Bag 1 BAG IV ONE (09:42)
[2020-08-27 09:44] LABS: PTT,PARTIAL THROMBOPLSTIN TIME 35.3 SEC (22.0-34.0)
[2020-08-27] MEDS ORDERED: Sodium Chloride 0.9% with KCl 1,000 ML IV SCH (09:45)
[2020-08-27] MEDS ORDERED: Potassium Chloride 10% 20 MEQ/15 ML Soln 15 ML UD Cup PO STA (10:39)
[2020-08-27] MEDS ORDERED: Potassium Chloride 10% 20 MEQ/15 ML Soln 15 ML UD Cup PO SCH (12:00)
[2020-08-27 16:10] LABS: ANION GAP 9.9 mEq/L (7-13); CHLORIDE,CL 104 mmol/L (98-107); SODIUM,NA 136 mmol/L (136-145)
== END 2020-08-27 16:50 | disposition home or self-care (01) ==
LOC: DL.ED 07:49
DX: R19.7 Diarrhea, unspecified (principal); E87.6 Hypokalemia; E83.42 Hypomagnesemia; D64.9 Anemia, unspecified; K70.30 Alcoholic cirrhosis of liver without ascites; I12.9 Hypertensive chronic kidney disease with stage 1 through stage 4 chronic kidney disease, or unspecified chronic kidney disease; N18.9 Chronic kidney disease, unspecified; J45.909 Unspecified asthma, uncomplicated; Z20.828 Contact with and (suspected) exposure to other viral communicable diseases; Z88.6 Allergy status to analgesic agent; Z88.1 Allergy status to other antibiotic agents
CPT/HCPCS: 36415; 80053; 80307; 82140; 82272; 83605; 83690; 83735; 85025; 85610; 85730; 86140; 87324; 87493; 96361; 96365; 96366; 96368; 99284; A9270; J3475; J3480; J7030; U0002

== ENCOUNTER 2020-08-30 19:12 | Emergency (ER) | payer MEDICARE, MEDICAID ==
--- NOTE | 2020-08-30 19:35 | EDM.PDOC ---
ED HPI GENERAL MEDICAL PROBLEM - General Chief Complaint: Respiratory Problem Stated Complaint: HARD FOR PATIENT TO BREATH/SOB Time Seen by Provider: 08/30/20 19:34 Source of Information: Reports: Patient, RN, RN Notes Reviewed History Limitations: Reports: No Limitations - History of Present Illness INITIAL COMMENTS - FREE TEXT/NARRATIVE: Patient presents to ER with significant other with complaint of shortness of breath. Patient states he woke up this morning beginning to feel short of breath. States he feels when he takes a few steps, it is like running a marathon. States lower extremities are very swollen, and painful to walk on. Also states abdomen is more distended than usual, feels as though it is pushing up on his lungs. Patient denies any exposure to COVID. Denies chest pains, nausea, vomiting, diarrhea. Patient states he does have more stools than normal, states he uses lactulose for his alcoholic cirrhosis of the liver. Patient was seen in the ER on 08/27/2020 for increased diarrhea. Stool cultures were obtained. Patient was Hemoccult negative at that time. Also hypo- magnesium, and hypo-kalemia. Patient was given IV magnesium and potassium and discharged home. Patient denies any blood in vomit or stool. Denies any fevers. States he is cold all the time. Patient has psoriasis, with plaque and sores on the arms and legs. Patient states he was switched from Medicaid to Medicare, and they no longer pay for his leg wraps. Significant other states she takes care of his legs, and they have not been improving as well since he has not had his wraps. Onset: Today, Gradual Bilateral Lower Leg Pain Score (Numeric/FACES): 8 - Related Data Allergies Allergy/AdvReac Type Severity Reaction Status Date / Time aspirin Allergy Cannot Verified 08/30/20 20:32 Remember cephalexin Allergy Rash Verified 08/30/20 20:32 clindamycin Allergy Cannot Verified 08/30/20 20:32 Remember Home Meds: Home Meds . [Unable to Verify Home Med List] 08/30/20 [History] Past Medical History - Past Health History Medical/Surgical History: Denies Medical/Surgical History HEENT History: Reports: None Cardiovascular History: Reports: Hypertension Respiratory History: Reports: Asthma Gastrointestinal History: Reports: Cirrhosis, GERD, GI Bleed, Other (See Below) Other Gastrointestinal History: acities, esophageal varices Genitourinary History: Reports: Chronic Renal Insuffiency, Other (See Below) Other Genitourinary History: chronic kidney disease Musculoskeletal History: Reports: None Neurological History: Reports: None Psychiatric History: Reports: Addiction Endocrine/Metabolic History: Reports: Obesity/BMI 30+ Hematologic History: Reports: Anemia Immunologic History: Reports: None Oncologic (Cancer) History: Reports: None Dermatologic History: Reports: Cellulitis, Psoriasis - Infectious Disease History Infectious Disease History: Reports: None - Past Surgical History Head Surgeries/Procedures: Reports: None Cardiovascular Surgical History: Reports: Other (See Below) Other Cardiovascular Surgeries/Procedures: chronic edema with leg ulcers Social & Family History - Family History Family Medical History: Noncontributory - Caffeine Use Caffeine Use: Reports: Soda - Living Situation & Occupation Living situation: Reports: with Family ED ROS GENERAL - Review of Systems Review Of Systems: Comprehensive ROS is negative, except as noted in HPI. ED EXAM, GENERAL - Physical Exam Exam: See Below Exam Limited By: No Limitations General Appearance: Alert, WD/WN, Mild Distress Eye Exam: Bilateral Eye: EOMI, Other (Scleral Icterus) Ears: Normal External Exam, Hearing Grossly Normal Nose: Normal Inspection Throat/Mouth: Normal Inspection, Normal Voice, No Airway Compromise Head: Atraumatic, Normocephalic Neck: Normal Inspection, Supple, Non-Tender, Full Range of Motion Respiratory/Chest: No Accessory Muscle Use, Chest Non-Tender, Decreased Breath Sounds, Crackles (bases bilaterally) Cardiovascular: Normal Peripheral Pulses, Tachycardia, Other (bilateral lower leg edema +3-4 pitting) Peripheral Pulses: 1+: Dorsalis Pedis (L), Dorsalis Pedis (R), 2+: Radial (L), Radial (R) GI/Abdominal: Normal Bowel Sounds, Distended, Tender (RUQ), Other (firm) (Male) Exam: Deferred Rectal (Males) Exam: Deferred Back Exam: Normal Inspection, Full Range of Motion, NT Extremities: Pedal Edema (+3-4 pedal edema), Leg Pain (bilateral lower legs) Neurological: Alert, Oriented, CN II-XII Intact, Normal Cognition Psychiatric: Normal Affect, Normal Mood Skin Exam: Other (psoriasis, several areas of open wounds on arms and legs) Lymphatic: No Adenopathy Course - Vital Signs Last Recorded V/S: Last Vital Signs Temp 99.3 F 08/30/20 19:43 Pulse 109 H 08/30/20 19:43 Resp 16 08/30/20 19:43 BP 154/76 H 08/30/20 19:43 Pulse Ox 98 08/30/20 19:43 - Orders/Labs/Meds Orders: Active Orders 24 hr Category Date Time Status EKG Documentation Completion [RC] STAT Care 08/30/20 19:52 Active DRUG SCREEN URINE BIORAD [URCHEM] Stat Lab 08/30/20 19:53 Ordered UA RFX GENEVA AND CULT IF INDIC [URIN] Stat Lab 08/30/20 19:53 Ordered Potassium Chloride [KCL 20 MEQ in Water 100 ML] 20 meq Med 08/30/20 20:33 Active Premix Bag 1 bag IV ONETIME Medication Orders Potassium Chloride 20 meq/ (Premix) 100 mls @ 50 mls/hr IV ONETIME ONE Stop: 08/30/20 22:32 Last Admin: 08/30/20 20:38 Dose: 50 mls/hr Documented by: [place] Labs: Laboratory Tests 08/30/20 08/30/20 08/30/20 Range/Units 19:35 19:35 19:35 WBC 8.0 (5.0-10.0) 10^3/uL RBC 3.18 L (4.6-6.2) 10^6/uL Hgb 9.4 L (14.0-18.0) g/dL Hct 29.5 L (40.0-54.0) % MCV 92.8 (80-100) fL MCH 29.6 (27.0-34.0) pg MCHC 31.9 L (33.0-35.0) g/dL Plt Count 58 L (150-450) 10^3/uL Neut % (Auto) 73.4 (42.2-75.2) % Lymph % (Auto) 8.1 L (20.5-50.1) % [place] % (Auto) 16.2 H (2-8) % Eos % (Auto) 2.0 (1.0-3.0) % Baso % (Auto) 0.3 (0.0-1.0) % Add Manual Diff Yes Neutrophils % (Manual) 75 (42-75) % Band Neutrophils % 10 % Lymphocytes % (Manual) 11 L (20-50) % Atypical Lymphs % 0 % Monocytes % (Manual) 1 L (2-8) % Eosinophils % (Manual) 2 (1-3) % Basophils % (Manual) 0 Metamyelocytes % 1 Platelet Estimate Marked dec Hypochromasia 1+ slight Poikilocytosis 1+ slight PT 16.3 H (9.0-12.0) SEC INR 1.7 H (0.9-1.2) Sodium 132 L (136-145) mmol/L Potassium 3.0 L (3.5-5.1) mmol/L Chloride 99 (98-107) mmol/L Carbon Dioxide 25 (21-32) mmol/L Anion Gap 11.0 (7-13) mEq/L BUN 10 (7-18) mg/dL Creatinine 1.27 (0.70-1.30) mg/dL Est Cr Clr Drug Dosing 70.84 mL/min Estimated GFR (MDRD) > 60 BUN/Creatinine Ratio 7.9 (No establ ref range) Glucose 111 H (74-99) mg/dL Calcium 7.6 L (8.5-10.1) mg/dL Magnesium 1.8 (1.8-2.4) mg/dL Total Bilirubin 8.9 H (0.2-1.0) mg/dL AST 78 H (15-37) U/L ALT 39 (16-63) U/L Alkaline Phosphatase 120 H (46-116) U/L Troponin I 0.025 (0.000-0.056) ng/mL B-Natriuretic Peptide 477 H (0-100) pg/ml Total Protein 8.3 H (6.4-8.2) g/dL Albumin 1.8 L (3.4-5.0) g/dL Globulin 6.5 Albumin/Globulin Ratio 0.28 Ethyl Alcohol < 3 (0) mg/dL Meds: Medications Generic Name Dose Route Start Last Admin Trade Name Freq PRN Reason Stop Dose Admin Potassium Chloride 20 meq/ 100 mls @ 50 mls/hr 08/30/20 20:33 08/30/20 20:38 Premix IV 08/30/20 22:32 50 mls/hr ONETIME ONE Administration Discontinued Medications Generic Name Dose Route Start Last Admin Trade Name Freq PRN Reason Stop Dose Admin Potassium Chloride/Dextrose/Sod Cl 1,000 mls @ 150 mls/hr 08/30/20 20:30 D5 1/2 Ns W/ 20 Meq/L Kcl IV ASDIRECTED AMIE Potassium Chloride 40 meq 08/30/20 20:26 08/30/20 20:36 Klor-Con 10 PO 08/30/20 20:27 40 meq ONETIME ONE Administration - Radiology Interpretation Free Text/Narrative:: Chest xray: PROCEDURE INFORMATION: Exam: XR Chest, 1 View Exam date and time: 08/30/2020 8:08 PM Age: 40 years old Clinical indication: Shortness of breath; Additional info: SOB TECHNIQUE: Imaging protocol: XR of the chest Views: 1 view. COMPARISON: CR Chest 2V 05/21/2020 6:04 PM FINDINGS: Lungs: Low lung volumes causes crowding of the bronchovascular structures. Bilateral perihilar haziness and streaky-like opacities. Mild segmental bronchial wall thickening. Remainder of the lungs are clear. Pleural space: Unremarkable. No pleural effusion. No pneumothorax. Heart/Mediastinum: Cardiomediastinal silhouette is magnified due to technique. Bones/joints: No acute abnormality or aggressive osseous lesion. IMPRESSION: Bilateral perihilar findings may be related to artifact from crowding of bronchovascular structures versus an acute viral illness in the appropriate clinical setting. Thank you for allowing us to participate in the care of your patient. Dictated and Authenticated by: Gordo Renae MD 08/30/2020 8:31 PM Central Time ([place] & [place]) See rad report - Re-Assessments/Exams Free Text/Narrative Re-Assessment/Exam: 08/30/20 21:03 Discussed patient case with Dr. Helm who agreed to accept the patient for transfer to [facility] in [place]. Departure - Departure Time of Disposition: 21:38 Disposition: DC/Tfer to Acute Hospital 02 Condition: Fair Clinical Impression: Ascites due to alcoholic cirrhosis, Hypokalemia - Discharge Information *PRESCRIPTION DRUG MONITORING PROGRAM REVIEWED*: No *COPY OF PRESCRIPTION DRUG MONITORING REPORT IN PATIENT NARCISA: No Forms: ED Department Discharge, Interfacility Transfer [facility] Sepsis Event Note (ED) - Focused Exam Vital Signs: Vital Signs Temp Pulse Resp BP Pulse Ox 08/30/20 19:43 99.3 F 109 H 16 154/76 H 98 - My Orders Last 24 Hours: My Active Orders 08/30/20 19:52 EKG Documentation Completion [RC] STAT 08/30/20 19:53 DRUG SCREEN URINE BIORAD [URCHEM] Stat UA RFX GENEVA AND CULT IF INDIC [URIN] Stat 08/30/20 20:33 Potassium Chloride [KCL 20 MEQ in Water 100 ML] 20 meq Premix Bag 1 bag IV ONETIME - Assessment/Plan Last 24 Hours: My Active Orders 08/30/20 19:52 EKG Documentation Completion [RC] STAT 08/30/20 19:53 DRUG SCREEN URINE BIORAD [URCHEM] Stat UA RFX GENEVA AND CULT IF INDIC [URIN] Stat 08/30/20 20:33 Potassium Chloride [KCL 20 MEQ in Water 100 ML] 20 meq Premix Bag 1 bag IV ONETIME
[2020-08-30 19:44] VITALS: BP 154/76; PULSE 109
[2020-08-30 20:14] LABS: CHLORIDE,CL 99 mmol/L (98-107); SODIUM,NA 132 mmol/L (136-145)
[2020-08-30] MEDS ORDERED: Potassium Chloride 10 MEQ Tab.ER PO ONE (20:26)
[2020-08-30] MEDS ORDERED: D5 1/2 NS w/ 20 mEq/L KCl 1,000 ML IV SCH (20:30)
--- NOTE | 2020-08-30 20:31 | CR ---
PROCEDURE INFORMATION: Exam: XR Chest, 1 View Exam date and time: 08/30/2020 8:08 PM Age: 40 years old Clinical indication: Shortness of breath; Additional info: SOB TECHNIQUE: Imaging protocol: XR of the chest Views: 1 view. COMPARISON: CR Chest 2V 05/21/2020 6:04 PM FINDINGS: Lungs: Low lung volumes causes crowding of the bronchovascular structures. Bilateral perihilar haziness and streaky-like opacities. Mild segmental bronchial wall thickening. Remainder of the lungs are clear. Pleural space: Unremarkable. No pleural effusion. No pneumothorax. Heart/Mediastinum: Cardiomediastinal silhouette is magnified due to technique. Bones/joints: No acute abnormality or aggressive osseous lesion. IMPRESSION: Bilateral perihilar findings may be related to artifact from crowding of bronchovascular structures versus an acute viral illness in the appropriate clinical setting.
[2020-08-30] MEDS ORDERED: Potassium Chloride 20 MEQ in Premix Bag 1 BAG IV ONE (20:33)
== END 2020-08-30 22:00 ==
LOC: DL.ED 19:12
DX: K70.31 Alcoholic cirrhosis of liver with ascites (principal); E87.6 Hypokalemia; J45.909 Unspecified asthma, uncomplicated; I12.9 Hypertensive chronic kidney disease with stage 1 through stage 4 chronic kidney disease, or unspecified chronic kidney disease; N18.9 Chronic kidney disease, unspecified; E66.9 Obesity, unspecified; Z88.6 Allergy status to analgesic agent; Z88.1 Allergy status to other antibiotic agents; Z68.41 Body mass index [BMI] 40.0-44.9, adult
CPT/HCPCS: 36415; 71045; 80053; 80307; 83735; 83880; 84484; 85025; 85610; 93005; 96365; 99285; A9270; J3480; 99284

== ENCOUNTER 2020-10-06 02:24 | Emergency (ER) | payer MEDICAID, MEDICARE ==
[2020-10-06 02:33] VITALS: BP 151/77; PULSE 115
[2020-10-06] MEDS ORDERED: Amoxicillin/Clavulanate K 875-125 MG Tab PO ONE (02:39)
--- NOTE | 2020-10-06 02:44 | EDM.PDOC ---
ED HPI GENERAL MEDICAL PROBLEM - General Chief Complaint: Wound Recheck Stated Complaint: RIGHT LEG ON FIRE, CELLULITUS Time Seen by Provider: 10/06/20 02:35 Source of Information: Reports: Patient History Limitations: Reports: No Limitations - History of Present Illness INITIAL COMMENTS - FREE TEXT/NARRATIVE: This 40 yo male patient reports to the ED with right lower extremity swelling, redness and pain. The patient reports his symptoms started yesterday and have been getting worse. The patient has a history of cellulitis in his lower extremities and eczema. The patient reports the last antibiotic improved his symptoms quickly (augmentin). 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) Right Leg Pain Score (Numeric/FACES): 7 - Related Data Allergies Allergy/AdvReac Type Severity Reaction Status Date / Time aspirin Allergy Cannot Verified 10/06/20 02:33 Remember cephalexin Allergy Rash Verified 10/06/20 02:33 clindamycin Allergy Cannot Verified 10/06/20 02:33 Remember Home Meds: Home Meds Cyclobenzaprine [Flexeril] 10 mg PO TID PRN 10/06/20 [History] Furosemide [Lasix] 40 mg PO TID 10/06/20 [History] Gabapentin [Neurontin] 100 mg PO TID 10/06/20 [History] Lactulose 30 ml PO DAILY 10/06/20 [History] Pantoprazole Sodium [Protonix] 40 mg PO DAILY 10/06/20 [History] Potassium Chloride [Klor-Con 10] 40 meq PO DAILY 10/06/20 [History] Spironolactone [Aldactone] 100 mg PO DAILY 10/06/20 [History] oxyCODONE 5 mg PO QID 10/06/20 [History] Past Medical History - Past Health History Medical/Surgical History: Denies Medical/Surgical History HEENT History: Reports: None Cardiovascular History: Reports: Heart Failure, Hypertension Respiratory History: Reports: Asthma Gastrointestinal History: Reports: Cirrhosis, GERD, GI Bleed, Other (See Below) Other Gastrointestinal History: acities, esophageal varices Genitourinary History: Reports: Chronic Renal Insuffiency, Other (See Below) Other Genitourinary History: chronic kidney disease Musculoskeletal History: Reports: None Neurological History: Reports: None Psychiatric History: Reports: Addiction Endocrine/Metabolic History: Reports: Obesity/BMI 30+ Hematologic History: Reports: Anemia Immunologic History: Reports: None Oncologic (Cancer) History: Reports: None Dermatologic History: Reports: Cellulitis, Psoriasis - Infectious Disease History Infectious Disease History: Reports: None - Past Surgical History Head Surgeries/Procedures: Reports: None Cardiovascular Surgical History: Reports: Other (See Below) Other Cardiovascular Surgeries/Procedures: chronic edema with leg ulcers Social & Family History - Family History Family Medical History: Noncontributory - Tobacco Use Tobacco Use Status *Q: Never Tobacco User Second Hand Smoke Exposure: No - Caffeine Use Caffeine Use: Reports: None - Recreational Drug Use Recreational Drug Use: No - Living Situation & Occupation Living situation: Reports: with Family ED ROS GENERAL - Review of Systems Review Of Systems: Comprehensive ROS is negative, except as noted in HPI. ED EXAM, SKIN/RASH Exam: See Below Exam Limited By: No Limitations General Appearance: Alert, WD/WN, Mild Distress Eye Exam: Bilateral Eye: EOMI, Normal Inspection, PERRL Ears: Normal External Exam, Normal Canal, Hearing Grossly Normal, Normal TMs Nose: Normal Inspection, Normal Mucosa, No Blood Throat/Mouth: Normal Inspection, Normal Lips, Normal Teeth, Normal Gums, Normal Oropharynx, Normal Voice, No Airway Compromise Head: Atraumatic, Normocephalic Neck: Normal Inspection, Supple, Non-Tender, Full Range of Motion Respiratory/Chest: No Respiratory Distress, Lungs Clear, Normal Breath Sounds, No Accessory Muscle Use, Chest Non-Tender Cardiovascular: Normal Peripheral Pulses, Regular Rate, Rhythm, No Edema, No Gallop, No JVD, No Murmur, No Rub GI/Abdominal: Normal Bowel Sounds, Soft, Non-Tender, No Organomegaly, No Distention, No Abnormal Bruit, No Mass (Male) Exam: Deferred Rectal (Males) Exam: Deferred Back Exam: Normal Inspection, Full Range of Motion, NT Extremities: Leg Pain (Right leg pain with erythema and ulcerations) Neurological: Alert, Oriented, CN II-XII Intact, Normal Cognition, Normal Gait, Normal Reflexes, No Motor/Sensory Deficits Psychiatric: Normal Affect, Normal Mood Skin: Erythema, Excoriations, Increased Warmth Location, Skin: Lower Extremity, Right Characteristics: Erythematous Associated features: Warmth, Tenderness, Swelling, Inflammation Lymphatic: No Adenopathy Course - Vital Signs Last Recorded V/S: Last Vital Signs Temp 36.6 C 10/06/20 02:29 Pulse 115 H 10/06/20 02:29 Resp 21 H 10/06/20 02:29 BP 151/77 H 10/06/20 02:29 Pulse Ox 100 10/06/20 02:29 - Orders/Labs/Meds Orders: Active Orders 24 hr Category Date Time Status COMPREHENSIVE METABOLIC PN,CMP [CHEM] Stat Lab 10/06/20 02:27 Ordered CULTURE BLOOD [BC] Stat Lab 10/06/20 02:27 Ordered CULTURE BLOOD [BC] Stat Lab 10/06/20 02:27 Ordered Blood Culture x2 Reflex Set [OM.PC] Stat Oth 10/06/20 02:27 Ordered Labs: Laboratory Tests 10/06/20 10/06/20 10/06/20 Range/Units 02:37 02:37 02:37 WBC 4.8 L (5.0-10.0) 10^3/uL RBC 3.24 L (4.6-6.2) 10^6/uL Hgb 9.6 L (14.0-18.0) g/dL Hct 29.3 L (40.0-54.0) % MCV 90.4 (80-100) fL MCH 29.6 (27.0-34.0) pg MCHC 32.8 L (33.0-35.0) g/dL Plt Count 48 L* (150-450) 10^3/uL Neut % (Auto) 67.9 (42.2-75.2) % Lymph % (Auto) 15.0 L (20.5-50.1) % [place] % (Auto) 14.2 H (2-8) % Eos % (Auto) 2.3 (1.0-3.0) % Baso % (Auto) 0.6 (0.0-1.0) % D-Dimer, Quantitative 742 H (0-400) ng/mL Lactic Acid 1.9 (0.4-2.0) mmol/L Meds: Medications Discontinued Medications Generic Name Dose Route Start Last Admin Trade Name Freq PRN Reason Stop Dose Admin Amoxicillin/Clavulanate Potassium 1 tab 10/06/20 02:39 10/06/20 02:44 Augmentin 875 Mg/125 Mg PO 10/06/20 02:40 1 tab ONETIME ONE Administration Departure - Departure Time of Disposition: 03:14 Disposition: Home, Self-Care 01 Condition: Fair Clinical Impression: Cellulitis Qualifiers: Site of cellulitis: extremity Site of cellulitis of extremity: lower extremity Laterality: right Qualified Code(s): L03.115 - Cellulitis of right lower limb - Discharge Information Instructions: Cellulitis, Adult, [id number] Forms: ED Department Discharge Care Plan Goals: The patient was advised of the examination and lab results during the visit. The patient was given an oral dose of Augmentin (875/125) while in the ED. The patient was discharged with a script for Augmentin (500/125) #20 to take 1 by mouth 2 times per day for 10 days. The patient was encouraged to follow-up with his primary care facility. If the patient has any additional symptoms or concerns, the patient should either return to the emergency department or visit his primary care facility. Sepsis Event Note (ED) - Evaluation Sepsis Screening Result: No Definite Risk - Focused Exam Vital Signs: Vital Signs Temp Pulse Resp BP Pulse Ox 10/06/20 02:29 36.6 C 115 H 21 H 151/77 H 100 - My Orders Last 24 Hours: My Active Orders 10/06/20 02:27 COMPREHENSIVE METABOLIC PN,CMP [CHEM] Stat CULTURE BLOOD [BC] Stat CULTURE BLOOD [BC] Stat Blood Culture x2 Reflex Set [OM.PC] Stat - Assessment/Plan Last 24 Hours: My Active Orders 10/06/20 02:27 COMPREHENSIVE METABOLIC PN,CMP [CHEM] Stat CULTURE BLOOD [BC] Stat CULTURE BLOOD [BC] Stat Blood Culture x2 Reflex Set [OM.PC] Stat
[2020-10-06 03:14] LABS: ANION GAP 11.1 mEq/L (7-13); CHLORIDE,CL 96 mmol/L (98-107); SODIUM,NA 129 mmol/L (136-145)
== END 2020-10-06 03:25 | disposition home or self-care (01) ==
LOC: DL.ED 02:24
DX: L03.115 Cellulitis of right lower limb (principal); I13.0 Hypertensive heart and chronic kidney disease with heart failure and stage 1 through stage 4 chronic kidney disease, or unspecified chronic kidney disease; I50.9 Heart failure, unspecified; N18.9 Chronic kidney disease, unspecified; J45.909 Unspecified asthma, uncomplicated; K21.9 Gastro-esophageal reflux disease without esophagitis; E66.9 Obesity, unspecified; Z88.8 Allergy status to other drugs, medicaments and biological substances; Z88.1 Allergy status to other antibiotic agents; Z68.37 Body mass index [BMI] 37.0-37.9, adult; Z79.899 Other long term (current) drug therapy
CPT/HCPCS: 36415; 80053; 83605; 85025; 85379; 87040; 99283; A9270

== ENCOUNTER 2021-01-11 14:51 | Observation (INO) | payer MEDICARE ==
[2021-01-11] MEDS ORDERED: Sodium Chloride 0.9% 10 ML Syringe FLUSH PRN (15:02)
--- NOTE | 2021-01-11 15:13 | EDM.PDOC ---
ED HPI GENERAL MEDICAL PROBLEM - General Chief Complaint: Respiratory Problem Stated Complaint: DIFFICULTY BREATHING Time Seen by Provider: 01/11/21 15:07 Source of Information: Reports: Patient, Old Records, RN, RN Notes Reviewed History Limitations: Reports: No Limitations - History of Present Illness INITIAL COMMENTS - FREE TEXT/NARRATIVE: Pt presents to ER from home by POV with c/o worsening shortness of breath and edema over the last 3 days. Pt states he underwent banding of esophageal varices on 01/08/21. Pt denies fever, chills, N/V, abdominal pain, or chest pain. He ad mits to wheezing, and a non-productive cough, but feels that he should be bringing up sputum. Onset: Gradual Duration: Constant, Getting Worse Location: Reports: Chest Quality: Reports: Ache (from coughing) Severity: Mild Improves with: Reports: None Worsens with: Reports: Other (laying flat) Associated Symptoms: Reports: No Other Symptoms Throat Pain Score (Numeric/FACES): 7 - Related Data Allergies Allergy/AdvReac Type Severity Reaction Status Date / Time aspirin Allergy Cannot Verified 01/11/21 15:02 Remember cephalexin Allergy Rash Verified 01/11/21 15:02 clindamycin Allergy Cannot Verified 01/11/21 15:02 Remember Home Meds: Home Meds Cyclobenzaprine [Flexeril] 10 mg PO TID PRN 10/06/20 [History] Furosemide [Lasix] 40 mg PO TID 10/06/20 [History] Gabapentin [Neurontin] 100 mg PO TID 10/06/20 [History] Lactulose 30 ml PO DAILY 10/06/20 [History] Pantoprazole Sodium [Protonix] 40 mg PO DAILY 10/06/20 [History] Potassium Chloride [Klor-Con 10] 40 meq PO DAILY 10/06/20 [History] Spironolactone [Aldactone] 100 mg PO DAILY 10/06/20 [History] oxyCODONE 5 mg PO QID 10/06/20 [History] Past Medical History - Past Health History Medical/Surgical History: Denies Medical/Surgical History HEENT History: Reports: None Cardiovascular History: Reports: Heart Failure, Hypertension Respiratory History: Reports: Asthma Gastrointestinal History: Reports: Cirrhosis, GERD, GI Bleed, Other (See Below) Other Gastrointestinal History: acities, esophageal varices Genitourinary History: Reports: Chronic Renal Insuffiency, Other (See Below) Other Genitourinary History: chronic kidney disease Musculoskeletal History: Reports: None Neurological History: Reports: None Psychiatric History: Reports: Addiction Endocrine/Metabolic History: Reports: Obesity/BMI 30+ Hematologic History: Reports: Anemia Immunologic History: Reports: None Oncologic (Cancer) History: Reports: None Dermatologic History: Reports: Cellulitis, Psoriasis - Infectious Disease History Infectious Disease History: Reports: None - Past Surgical History Head Surgeries/Procedures: Reports: None Cardiovascular Surgical History: Reports: Other (See Below) Other Cardiovascular Surgeries/Procedures: chronic edema with leg ulcers GI Surgical History: Reports: EGD, Other (See Below) (Banding of esophageal va rices 01/08/21) Social & Family History - Family History Family Medical History: No Pertinent Family History - Caffeine Use Caffeine Use: Reports: None - Living Situation & Occupation Living situation: Reports: with Family ED ROS GENERAL - Review of Systems Review Of Systems: Comprehensive ROS is negative, except as noted in HPI. ED EXAM, GENERAL - Physical Exam Exam: See Below Exam Limited By: No Limitations General Appearance: Alert, No Apparent Distress, Obese, Other (Chronically ill appearing) Eye Exam: Bilateral Eye: Normal Inspection (No scleral icterus) Nose: Normal Inspection, No Blood Throat/Mouth: Normal Lips, Normal Voice, No Airway Compromise Head: Atraumatic Neck: Normal Inspection, Supple, Non-Tender, Full Range of Motion Respiratory/Chest: No Respiratory Distress, No Accessory Muscle Use, Chest Non- Tender, Decreased Breath Sounds, Crackles, Rales, Wheezing. No: Rhonchi Cardiovascular: Regular Rate, Rhythm, Tachycardia, Other (+2 edema to B/L knees) GI/Abdominal: Normal Bowel Sounds, Soft, Non-Tender, Hepatomegaly. No: Guarding, Rigid, Rebound Back Exam: Normal Inspection Extremities: Normal Range of Motion, Normal Capillary Refill, Pedal Edema. No: Increased Warmth, Redness Neurological: Alert, Oriented, CN II-XII Intact, Normal Cognition, No Motor/Sensory Deficits Psychiatric: Normal Mood Skin Exam: Warm, Dry, Intact #1 Interpretation EKG Date: 01/11/21 Time: 15:16 Rhythm: Other (Sinus tach) Rate (Beats/Min): 106 [place]: Normal P-Wave: Present QRS: Normal ST-T: Normal QT: Prolonged Comparison: No Change Course - Vital Signs Last Recorded V/S: Last Vital Signs Temp 98.3 F 01/11/21 15:03 Pulse 100 01/11/21 16:27 Resp 20 01/11/21 15:03 BP 141/76 H 01/11/21 15:03 Pulse Ox 96 01/11/21 16:27 - Orders/Labs/Meds Orders: Active Orders 24 hr Category Date Time Status EKG 12 Lead [EKG Documentation Completion] [RC] STAT Care 01/11/21 15:03 Active Peripheral IV Care [RC] . DIRECTED Care 01/11/21 15:04 Active RT Aerosol Therapy [RC] ASDIRECTED Care 01/11/21 16:27 Active Sodium Chloride 0.9% [Saline Flush] Med 01/11/21 15:02 Active 10 ml FLUSH ASDIRECTED PRN Peripheral IV Insertion Adult [OM.PC] Stat Oth 01/11/21 15:03 Ordered Medication Orders Sodium Chloride (Saline Flush) 10 ml FLUSH ASDIRECTED PRN PRN Reason: Keep Vein Open Last Admin: 01/11/21 16:34 Dose: 10 ml Documented by: DELGADO Labs: Laboratory Tests 01/11/21 01/11/21 01/11/21 Range/Units 15:17 15:17 15:17 WBC 4.3 L (5.0-10.0) 10^3/uL RBC 3.17 L (4.6-6.2) 10^6/uL Hgb 8.4 L (14.0-18.0) g/dL Hct 27.0 L (40.0-54.0) % MCV 85.2 D (80-100) fL MCH 26.5 L (27.0-34.0) pg MCHC 31.1 L (33.0-35.0) g/dL Plt Count 56 L (150-450) 10^3/uL Neut % (Auto) 67.0 (42.2-75.2) % Lymph % (Auto) 18.3 L (20.5-50.1) % [place] % (Auto) 10.7 H (2-8) % Eos % (Auto) 2.6 (1.0-3.0) % Baso % (Auto) 1.4 H (0.0-1.0) % PT 16.7 H (9.0-12.0) SEC INR 1.8 H (0.9-1.2) APTT 36.1 H (22.0-34.0) SEC Sodium 136 (136-145) mmol/L Potassium 3.4 L (3.5-5.1) mmol/L Chloride 104 (98-107) mmol/L Carbon Dioxide 24 (21-32) mmol/L Anion Gap 11.4 (7-13) mEq/L BUN 11 (7-18) mg/dL Creatinine 1.02 (0.70-1.30) mg/dL Est Cr Clr Drug Dosing 88.21 mL/min Estimated GFR (MDRD) > 60 BUN/Creatinine Ratio 10.8 (No establ ref range) Glucose 85 (74-99) mg/dL Calcium 7.6 L (8.5-10.1) mg/dL Total Bilirubin 6.5 H (0.2-1.0) mg/dL AST 60 H (15-37) U/L ALT 28 (16-63) U/L Alkaline Phosphatase 138 H (46-116) U/L B-Natriuretic Peptide 17 (0-100) pg/ml Total Protein 7.6 (6.4-8.2) g/dL Albumin 1.8 L (3.4-5.0) g/dL Globulin 5.8 Albumin/Globulin Ratio 0.31 Ethyl Alcohol < 3 (0) mg/dL Meds: Medications Generic Name Dose Route Start Last Admin Trade Name Freq PRN Reason Stop Dose Admin Sodium Chloride 10 ml 01/11/21 15:02 01/11/21 16:34 Saline Flush FLUSH 10 ml ASDIRECTED PRN Administration Keep Vein Open Discontinued Medications Generic Name Dose Route Start Last Admin Trade Name Freq PRN Reason Stop Dose Admin Albuterol/Ipratropium 3 ml 01/11/21 16:27 01/11/21 16:31 Duoneb 3.0-0.5 Mg/3 Ml NEB 01/11/21 16:28 3 ml ONETIME ONE Administration Methylprednisolone Sodium Succinate 125 mg 01/11/21 16:28 01/11/21 16:34 Solu-Medrol IVPUSH 01/11/21 16:29 125 mg ONETIME ONE Administration - Radiology Interpretation Free Text/Narrative:: XR Chest: I questioned a RML infiltrate, but radiologist reports no acute process. Departure - Departure Time of Disposition: 16:38 (admitted to Dr. Borjas) Disposition: Refer to Observation Condition: Good Clinical Impression: Acute exacerbation of chronic obstructive pulmonary disease (COPD), Peripheral edema, History of cirrhosis, Edema due to hypoalbuminemia - Discharge Information *PRESCRIPTION DRUG MONITORING PROGRAM REVIEWED*: Not Applicable *COPY OF PRESCRIPTION DRUG MONITORING REPORT IN PATIENT NARCISA: Not Applicable Forms: ED Department Discharge Sepsis Event Note (ED) - Evaluation Sepsis Screening Result: No Definite Risk - Focused Exam Vital Signs: Vital Signs Temp Pulse Resp BP Pulse Ox Pulse Ox 01/11/21 16:27 100 96 01/11/21 15:03 98.3 F 108 H 20 141/76 H 99 - My Orders Last 24 Hours: My Active Orders 01/11/21 15:02 Sodium Chloride 0.9% [Saline Flush] 10 ml FLUSH ASDIRECTED PRN 01/11/21 15:03 EKG 12 Lead [EKG Documentation Completion] [RC] STAT Peripheral IV Insertion Adult [OM.PC] Stat 01/11/21 15:04 Peripheral IV Care [RC] . DIRECTED 01/11/21 16:27 RT Aerosol Therapy [RC] ASDIRECTED - Assessment/Plan Last 24 Hours: My Active Orders 01/11/21 15:02 Sodium Chloride 0.9% [Saline Flush] 10 ml FLUSH ASDIRECTED PRN 01/11/21 15:03 EKG 12 Lead [EKG Documentation Completion] [RC] STAT Peripheral IV Insertion Adult [OM.PC] Stat 01/11/21 15:04 Peripheral IV Care [RC] . DIRECTED 01/11/21 16:27 RT Aerosol Therapy [RC] ASDIRECTED
[2021-01-11 15:50] LABS: ANION GAP 11.4 mEq/L (7-13); CHLORIDE,CL 104 mmol/L (98-107); PTT,PARTIAL THROMBOPLSTIN TIME 36.1 SEC (22.0-34.0); SODIUM,NA 136 mmol/L (136-145)
--- NOTE | 2021-01-11 15:52 | CR ---
EXAMINATION: Chest 2V SEX: Male AGE: 40 years CLINICAL HISTORY: 40-year-old male with shortness of breath and increasing "edema". Comparison exam 30 August 2020. Interpretation: Better inspiratory effort in this patient with chronic deformity of the left fourth rib. Normal cardiac silhouette. No new cephalization of flow, alveolar edema or dependent pleural effusion. No new lung mass, hilar lymphadenopathy or focal lobar alveolar consolidation. No air bronchograms or new peripheral "groundglass" interstitial lung densities. No pneumothorax or pneumomediastinum. No free subdiaphragmatic air. CONCLUSION: No acute new cardiopulmonary abnormality.
[2021-01-11] MEDS ORDERED: Albuterol/Ipratropium 3.0-0.5 MG/3 ML Neb Soln NEB ONE (16:27)
[2021-01-11] MEDS ORDERED: methylPREDNISolone Sodium Succinate 125 MG/2 ML SDV IVPUSH ONE (16:28)
[2021-01-11] MEDS ORDERED: Albuterol/Ipratropium 3.0-0.5 MG/3 ML Neb Soln NEB PRN (18:43)
[2021-01-11] MEDS ORDERED: Iopamidol 612 MG/ML 100 ML Bottle IVPUSH ONE (18:53)
[2021-01-11] MEDS ORDERED: Potassium Chloride 10 MEQ Tab.ER PO ONE (18:54)
[2021-01-11] MEDS ORDERED: Temazepam 15 MG Cap PO PRN (18:58)
[2021-01-11] MEDS ORDERED: Ondansetron 4 MG Tab.DIS PO PRN (18:58)
[2021-01-11] MEDS ORDERED: Acetaminophen 325 MG Tab PO PRN (18:58)
[2021-01-11] MEDS ORDERED: Iopamidol 755 Mg/ML 100 ML Bottle IVPUSH ONE (19:01)
--- NOTE | 2021-01-11 19:11 | PCM.HP ---
H&P History of Present Illness - General Date of Service: 01/11/21 Admit Problem/Dx: Admission Diagnosis/Problem Admission Diagnosis/Problem COPD, Mild chronic obstructive pulmonary disease Source of Information: Patient, Provider - History of Present Illness Initial Comments - Free Text/Narative: 40-year-old with a history of all chronic liver cirrhosis, portal hypertension with the esophageal varices. Has a history of asthma. Patient had esophageal banding about 3 days prior to this admission. He developed cough. Some mucus production. No associated fever. Cough is moderate. No blood in sputum. Has chronic leg edema, ascites, which has been stable in the past days according to patient. Has been using Rei wraps on the lower extremities. There is moderate shortness of breath associated with the cough. In the emergency room the patient was noted to have a reasonable oxygen saturations at rest but with activity today her oxygen saturation was dropping to 88% Throat Pain Score (Numeric/FACES): 6 Bilateral Leg Pain Score (Numeric/FACES): 7 - Related Data Allergies/Adverse Reactions: Allergies Allergy/AdvReac Type Severity Reaction Status Date / Time aspirin Allergy Cannot Verified 01/11/21 15:02 Remember cephalexin Allergy Rash Verified 01/11/21 15:02 clindamycin Allergy Cannot Verified 01/11/21 15:02 Remember Home Medications: Home Meds Cyclobenzaprine [Flexeril] 10 mg PO TID PRN 10/06/20 [History] Furosemide [Lasix] 40 mg PO TID 10/06/20 [History] Gabapentin [Neurontin] 100 mg PO TID 10/06/20 [History] Lactulose 30 ml PO BID 10/06/20 [History] Pantoprazole Sodium [Protonix] 40 mg PO DAILY 10/06/20 [History] Potassium Chloride [Klor-Con 10] 40 meq PO TID 10/06/20 [History] Spironolactone [Aldactone] 100 mg PO DAILY 10/06/20 [History] oxyCODONE 5 mg PO QID PRN 10/06/20 [History] Past Medical History - Past Health History Medical/Surgical History: Denies Medical/Surgical History HEENT History: Reports: Other (See Below) Other HEENT History: wears corrective lenses Cardiovascular History: Reports: Heart Failure, Hypertension Respiratory History: Reports: Asthma Gastrointestinal History: Reports: Cirrhosis, GERD, GI Bleed, Other (See Below) Other Gastrointestinal History: acities, esophageal varices Genitourinary History: Reports: Chronic Renal Insuffiency, Other (See Below) Other Genitourinary History: chronic kidney disease Musculoskeletal History: Reports: None Neurological History: Reports: None Psychiatric History: Reports: Addiction Endocrine/Metabolic History: Reports: Obesity/BMI 30+ Hematologic History: Reports: Anemia Immunologic History: Reports: None Oncologic (Cancer) History: Reports: None Dermatologic History: Reports: Cellulitis, Psoriasis - Infectious Disease History Infectious Disease History: Reports: None - Past Surgical History Head Surgeries/Procedures: Reports: None Cardiovascular Surgical History: Reports: Other (See Below) Other Cardiovascular Surgeries/Procedures: chronic edema with leg ulcers GI Surgical History: Reports: EGD, Other (See Below) Other GI Surgeries/Procedures: bands placed on varices Social & Family History - Family History Family Medical History: No Pertinent Family History - Tobacco Use Tobacco Use Status *Q: Never Tobacco User Second Hand Smoke Exposure: Yes - Caffeine Use Caffeine Use: Reports: Soda - Recreational Drug Use Recreational Drug Use: No - Living Situation & Occupation Living situation: Reports: with Family H&P Review of Systems - Review of Systems: Review Of Systems: See Below General: Denies: Fever, Chills, Weakness Pulmonary: Reports: Shortness of Breath, Wheezing, Cough, Sputum Cardiovascular: Reports: Edema. Denies: Chest Pain Gastrointestinal: Denies: Abdominal Pain Musculoskeletal: Denies: Neck Pain Psychiatric: Denies: Confusion Neurological: Denies: Dizziness Exam - Exam Exam: See Below - Vital Signs Vital Signs: Last Vital Signs Temp 99.0 F 01/11/21 16:50 Pulse 109 H 01/11/21 16:50 Resp 22 H 01/11/21 16:50 BP 109/79 01/11/21 16:50 Pulse Ox 98 01/11/21 16:50 Weight: 264 lb 6.4 oz - Exam General: Alert, Oriented Neck: Supple Lungs: Wheezing Cardiovascular: Regular Rate, Regular Rhythm GI/Abdominal Exam: Normal Bowel Sounds, Soft, Non-Tender, Other (obese versus ascites) Extremities: Pedal Edema (bilateral 2+) Skin: Warm, Dry Neuro Extensive - Mental Status: Alert, Oriented x3, Normal Mood/Affect Psychiatric: Alert, Normal Affect, Normal Mood - Patient Data Lab Results Last 24 hrs: Laboratory Results - last 24 hr 01/11/21 01/11/21 01/11/21 Range/Units 15:17 15:17 15:17 WBC 4.3 L (5.0-10.0) 10^3/uL RBC 3.17 L (4.6-6.2) 10^6/uL Hgb 8.4 L (14.0-18.0) g/dL Hct 27.0 L (40.0-54.0) % MCV 85.2 D (80-100) fL MCH 26.5 L (27.0-34.0) pg MCHC 31.1 L (33.0-35.0) g/dL Plt Count 56 L (150-450) 10^3/uL Neut % (Auto) 67.0 (42.2-75.2) % Lymph % (Auto) 18.3 L (20.5-50.1) % Giles % (Auto) 10.7 H (2-8) % Eos % (Auto) 2.6 (1.0-3.0) % Baso % (Auto) 1.4 H (0.0-1.0) % PT 16.7 H (9.0-12.0) SEC INR 1.8 H (0.9-1.2) APTT 36.1 H (22.0-34.0) SEC Sodium 136 (136-145) mmol/L Potassium 3.4 L (3.5-5.1) mmol/L Chloride 104 (98-107) mmol/L Carbon Dioxide 24 (21-32) mmol/L Anion Gap 11.4 (7-13) mEq/L BUN 11 (7-18) mg/dL Creatinine 1.02 (0.70-1.30) mg/dL Est Cr Clr Drug Dosing 88.21 mL/min Estimated GFR (MDRD) > 60 BUN/Creatinine Ratio 10.8 (No establ ref range) Glucose 85 (74-99) mg/dL Calcium 7.6 L (8.5-10.1) mg/dL Total Bilirubin 6.5 H (0.2-1.0) mg/dL AST 60 H (15-37) U/L ALT 28 (16-63) U/L Alkaline Phosphatase 138 H (46-116) U/L B-Natriuretic Peptide 17 (0-100) pg/ml Total Protein 7.6 (6.4-8.2) g/dL Albumin 1.8 L (3.4-5.0) g/dL Globulin 5.8 Albumin/Globulin Ratio 0.31 Ethyl Alcohol < 3 (0) mg/dL SARS-CoV-2 RNA (CYNTHIA) (NEGATIVE) 01/11/21 Range/Units 16:55 WBC (5.0-10.0) 10^3/uL RBC (4.6-6.2) 10^6/uL Hgb (14.0-18.0) g/dL Hct (40.0-54.0) % MCV (80-100) fL MCH (27.0-34.0) pg MCHC (33.0-35.0) g/dL Plt Count (150-450) 10^3/uL Neut % (Auto) (42.2-75.2) % Lymph % (Auto) (20.5-50.1) % Giles % (Auto) (2-8) % Eos % (Auto) (1.0-3.0) % Baso % (Auto) (0.0-1.0) % PT (9.0-12.0) SEC INR (0.9-1.2) APTT (22.0-34.0) SEC Sodium (136-145) mmol/L Potassium (3.5-5.1) mmol/L Chloride (98-107) mmol/L Carbon Dioxide (21-32) mmol/L Anion Gap (7-13) mEq/L BUN (7-18) mg/dL Creatinine (0.70-1.30) mg/dL Est Cr Clr Drug Dosing mL/min Estimated GFR (MDRD) BUN/Creatinine Ratio (No establ ref range) Glucose (74-99) mg/dL Calcium (8.5-10.1) mg/dL Total Bilirubin (0.2-1.0) mg/dL AST (15-37) U/L ALT (16-63) U/L Alkaline Phosphatase (46-116) U/L B-Natriuretic Peptide (0-100) pg/ml Total Protein (6.4-8.2) g/dL Albumin (3.4-5.0) g/dL Globulin Albumin/Globulin Ratio Ethyl Alcohol (0) mg/dL SARS-CoV-2 RNA (CYNTHIA) Negative (NEGATIVE) Result Diagrams: 01/11/21 15:17 01/11/21 15:17 *Q Meaningful Use (ADM) - VTE *Q VTE Anticoagulation Contraindications: Medical/Procedure Contrai - Problem List (1) Acute exacerbation of extrinsic asthma SNOMED Code(s): 348673706 ICD Code: J45.901 - UNSPECIFIED ASTHMA WITH (ACUTE) EXACERBATION Status: Acute Current Visit: Yes (2) Acute bronchitis with bronchospasm SNOMED Code(s): 49104112 ICD Code: J20.9 - ACUTE BRONCHITIS, UNSPECIFIED Status: Acute Current Visit: No (3) Alcoholic cirrhosis of liver SNOMED Code(s): 230899142 ICD Code: K70.30 - ALCOHOLIC CIRRHOSIS OF LIVER WITHOUT ASCITES Status: Acute Current Visit: No Qualifiers: Ascites presence: unspecified Qualified Code(s): K70.30 - Alcoholic cirrhosis of liver without ascites (4) Ascites due to alcoholic cirrhosis SNOMED Code(s): 4919641504403851 ICD Code: K70.31 - ALCOHOLIC CIRRHOSIS OF LIVER WITH ASCITES Status: Acute Current Visit: No (5) Esophageal varices SNOMED Code(s): 71069082 ICD Code: I85.00 - ESOPHAGEAL VARICES WITHOUT BLEEDING Status: Acute Current Visit: No Qualifiers: Esophageal varices type: unspecified type Esophageal varices bleeding: with bleeding Qualified Code(s): I85.01 - Esophageal varices with bleeding (6) Hypokalemia SNOMED Code(s): 15434838 ICD Code: E87.6 - HYPOKALEMIA Status: Acute Current Visit: No (7) Pancytopenia SNOMED Code(s): 277966588 ICD Code: D61.818 - OTHER PANCYTOPENIA Status: Acute Current Visit: No (8) Peripheral edema SNOMED Code(s): 642531343 ICD Code: R60.9 - EDEMA, UNSPECIFIED Status: Acute Current Visit: No Problem List Initiated/Reviewed/Updated: Yes Orders Last 24hrs: Active Orders 24 hr Category Date Time Status Admission Diagnosis [ADT] Routine ADT 01/11/21 16:40 Ordered Patient Status [ADT] Routine ADT 01/11/21 16:40 Active Antiembolic Devices [RC] PER UNIT ROUTINE Care 01/11/21 19:00 Ordered Communication Order [RC] DAILY Care 01/11/21 18:54 Active Oxygen Therapy [RC] PRN Care 01/11/21 18:59 Ordered RT Aerosol Therapy [RC] ASDIRECTED Care 01/11/21 18:44 Active RT Aerosol Therapy [RC] ASDIRECTED Care 01/11/21 18:45 Active Up With Assistance [RC] ASDIRECTED Care 01/11/21 18:58 Ordered VTE/DVT Education [RC] PER UNIT ROUTINE Care 01/11/21 18:59 Ordered Vital Signs [RC] Q4H Care 01/11/21 18:59 Ordered Regular Diet [DIET] Diet 01/11/21 Breakfast Ordered Chest w Cont [CT] Routine Exams 01/11/21 18:51 Ordered BASIC METABOLIC PANEL,BMP [CHEM] AM Lab 01/12/21 05:15 Ordered CBC WITH AUTO DIFF [HEME] AM Lab 01/12/21 05:15 Ordered HEPATIC FUNCTION PANEL,HFP [CHEM] AM Lab 01/12/21 05:11 Ordered PROCALCITONIN [REF] Routine Lab 01/11/21 18:52 Ordered Acetaminophen [TylenoL] Med 01/11/21 18:58 Ordered 650 mg PO Q4H PRN Acetaminophen/HYDROcodone [[place] 325-10 MG] Med 01/11/21 18:58 Ordered 1 tab PO Q4H PRN Albuterol/Ipratropium [DuoNeb 3.0-0.5 MG/3 ML] Med 01/11/21 18:43 Active 3 ml NEB Q2H PRN Albuterol/Ipratropium [DuoNeb 3.0-0.5 MG/3 ML] Med 01/12/21 01:00 Active 3 ml NEB Q6HRRT Azithromycin [Zithromax] 500 mg Med 01/11/21 19:00 Ordered Sodium Chloride 0.9% [Normal Saline (AdvBag)] 250 ml IV Q24H Budesonide [Pulmicort] Med 01/12/21 07:00 Active 0.5 mg NEB BIDRT Cyclobenzaprine [Flexeril] Med 01/11/21 18:56 Ordered 10 mg PO TID PRN Dextromethorphan/guaiFENesin [Robitussin DM] Med 01/11/21 18:31 Active 5 ml PO Q4H PRN Furosemide [Lasix] Med 01/11/21 21:00 Ordered 40 mg PO TID Gabapentin [Neurontin] Med 01/11/21 21:00 Ordered 100 mg PO TID Lactulose Med 01/11/21 21:00 Ordered 30 ml PO BID Ondansetron [Zofran ODT] Med 01/11/21 18:58 Ordered 4 mg PO Q6H PRN Pantoprazole [ProTONIX] Med 01/12/21 09:00 Ordered 40 mg PO DAILY Potassium Chloride [Klor-Con 10] Med 01/11/21 21:00 Ordered 40 meq PO TID Rifaximin [Xifaxan] Med 01/11/21 21:00 Ordered 550 mg PO BID Sodium Chloride 0.9% [Saline Flush] Med 01/11/21 15:02 Active 10 ml FLUSH ASDIRECTED PRN Spironolactone [Aldactone] Med 01/12/21 09:00 Ordered 100 mg PO DAILY Temazepam [Restoril] Med 01/11/21 18:58 Ordered 15 mg PO BEDTIME PRN methylPREDNISolone Sod Succ [Solu-MEDROL] Med 01/11/21 18:45 Active 40 mg IVPUSH Q8H oxyCODONE Med 01/11/21 18:56 Ordered 5 mg PO QID PRN Anticoagulation Contraindications VTE [AST] Click to Oth 01/11/21 19:02 Ordered Edit Peripheral IV Insertion Adult [OM.PC] Stat Oth 01/11/21 15:03 Ordered Sequential Compression Device [OM.PC] Per Unit Routine Oth 01/11/21 18:59 Ordered Resuscitation Status Routine Resus Stat 01/11/21 18:58 Ordered Medication Orders Acetaminophen (Tylenol) 650 mg PO Q4H PRN PRN Reason: Pain (Mild 1-3)/fever Hydrocodone Bitart/Acetaminophen ([place] 325-10 Mg) 1 tab PO Q4H PRN PRN Reason: Pain (moderate 4-6) Albuterol/Ipratropium (Duoneb 3.0-0.5 Mg/3 Ml) 3 ml NEB Q2H PRN PRN Reason: sob Albuterol/Ipratropium (Duoneb 3.0-0.5 Mg/3 Ml) 3 ml NEB Q6HRRT AMIE Budesonide (Pulmicort) 0.5 mg NEB BIDRT AMIE Cyclobenzaprine HCl (Flexeril) 10 mg PO TID PRN PRN Reason: Muscle Spasm Furosemide (Lasix) 40 mg PO TID AMIE Gabapentin (Neurontin) 100 mg PO TID AMIE Guaifenesin/Phenylephrine HCl (Robitussin Dm) 5 ml PO Q4H PRN PRN Reason: Cough Azithromycin 500 mg/ Sodium (Chloride) 250 mls @ 250 mls/hr IV Q24H AMIE Methylprednisolone Sodium Succinate (Solu-Medrol) 40 mg IVPUSH Q8H AMIE Non-Formulary Medication (Lactulose) 30 ml PO BID AMIE Non-Formulary Medication (Spironolactone [Aldactone]) 100 mg PO DAILY AMIE Ondansetron HCl (Zofran Odt) 4 mg PO Q6H PRN PRN Reason: nausea, able to take PO Oxycodone HCl (Oxycodone) 5 mg PO QID PRN PRN Reason: Pain (severe 7-10) Pantoprazole Sodium (Protonix) 40 mg PO DAILY AMIE Potassium Chloride (Klor-Con 10) 40 meq PO TID AMIE Rifaximin (Xifaxan) 550 mg PO BID [facility] Sodium Chloride (Saline Flush) 10 ml FLUSH ASDIRECTED PRN PRN Reason: Keep Vein Open Last Admin: 01/11/21 16:34 Dose: 10 ml Documented by: DELGADO Temazepam (Restoril) 15 mg PO BEDTIME PRN PRN Reason: Sleep Assessment/Plan Comment:: Shortness of breath Acute hypoxemic respiratory failure The patient quickly desaturates with activity to oxygen saturations of 88-89% on room air On Chest x-ray there is no acute cardiopulmonary abnormality We will obtain CT chest to rule out pulmonary embolism h/o Asthma now with acute exacerbation with wheezing will treat with IV Solu-Medrol Treat with scheduled and as needed DuoNeb Start pulmicort nebulizer Check pro-calcitonin level, until it is resulted well give IV azithromycin for possible bacterial bronchitis Pancytopenia Baseline White blood cell count around 2.4, hemoglobin 9.0-9.8, platelet count 38, 45 Likely secondary to portal hypertension Well monitor blood counts 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 history of esophageal varices Total bilirubin 6.5, baseline 5.1 in October 2020 Continue Lasix and spironolactone Propranolol and nadolol in the past was used but discontinued due to shortness of breath and hypotension History of hepatic encephalopathy Continue lactulose and rifaximin Hypokalemia Well replace with oral supplement Continue spironolactone, potassium supplement with Lasix Monitor and adjust as needed Chronic lower extremity pain Continue gabapentin Lower extremity edema, likely related to chronic diastolic heart failure, portal hypertension, low albumin Last echo 08/2020 ef: 50-55%, RVSP 35 mmHg Continue diuretics Continue rei wrap Discussed limiting oral fluid intake DVT prophylaxis will be with SCDs We will not use heparin, Lovenox due to thrombocytopenia
[2021-01-11] MEDS: Gabapentin 100 MG Cap PO SCH (20:18)
[2021-01-11] MEDS: Rifaximin 550 MG Tab PO SCH (20:18)
[2021-01-11] MEDS: Furosemide 40 MG Tab PO SCH (20:18)
[2021-01-11] MEDS: Potassium Chloride 10 MEQ Tab.ER PO SCH (20:18)
[2021-01-11] MEDS: Azithromycin 500 MG in Sodium Chloride 0.9% 250 ML IV SCH (20:19)
[2021-01-11] MEDS: methylPREDNISolone Sodium Succinate 40 MG/1 ML SDV IVPUSH SCH (20:19)
[2021-01-11] MEDS: Lactulose Soln 10 GM/15 ML 30 ML UD Cup PO SCH (20:19)
--- NOTE | 2021-01-11 20:32 | CT ---
PROCEDURE INFORMATION: Exam: CT Chest With Contrast; Diagnostic Exam date and time: 01/11/2021 7:40 PM Age: 40 years old Clinical indication: Shortness of breath and other: Pain, pe study; Additional info: Hypoxemia TECHNIQUE: Imaging protocol: Diagnostic computed tomography of the chest with contrast. Radiation optimization: All CT scans at this facility use at least one of these dose optimization techniques: automated exposure control; mA and/or kV adjustment per patient size (includes targeted exams where dose is matched to clinical indication); or iterative reconstruction. Contrast material: [id number]; Contrast volume: 92 ml; Contrast route: INTRAVENOUS (IV); COMPARISON: CR Chest 2V 05/21/2020 6:04 PM FINDINGS: Limitations: Suboptimal opacification of the pulmonary arterial tree. Lungs: There are no suspicious pulmonary nodules or areas of lung consolidation. Pleural spaces: There is no significant effusion. No pneumothorax. No mass, plaque or calcification. Heart: Heart is normal in size. No pericardial effusion. Mediastinal space: Thickening of the wall of the distal esophagus at gastroesophageal junction. There are gastroesophageal varices and varicoid recanalization of umbilical vein. Aorta: No aortic aneurysm. Lymph nodes: No enlarged axillary, mediastinal, or hilar lymph nodes. Liver: Liver appears cirrhotic. Spleen: The spleen is partially a included in the field of view and is enlarged. Intraperitoneal space: Moderate amount of ascites in the visible abdomen. Bones/joints: Age appropriate. No acute fracture. No suspicious lytic or osteosclerotic lesions. Soft tissues: There is gynecomastia. IMPRESSION: 1. No pulmonary emboli are seen. 2. Thickening of the wall of the distal esophagus at gastroesophageal junction. This could be esophagitis. 3. Liver appears cirrhotic. 4. Splenomegaly. 5. Moderate amount of ascites in the visible abdomen. 6. There are gastroesophageal varices and varicoid recanalization of umbilical vein.
[2021-01-11] MEDS: oxyCODONE 5 MG Tab PO PRN (20:36)
[2021-01-11] MEDS: guaiFENesin/Dextromethorphan 100-10 MG/5 ML Soln 5 ML Cup PO PRN (23:19)
[2021-01-11] MEDS: Acetaminophen/HYDROcodone 325-10 MG Tab PO PRN (23:26)
[2021-01-11] MEDS: Cyclobenzaprine 10 MG Tab PO PRN (23:26)
[2021-01-11] MEDS: Albuterol/Ipratropium 3.0-0.5 MG/3 ML Neb Soln NEB SCH (23:27)
[2021-01-12] MEDS: Albuterol/Ipratropium 3.0-0.5 MG/3 ML Neb Soln NEB SCH ×5 (01:00→17:54)
[2021-01-12] MEDS: methylPREDNISolone Sodium Succinate 40 MG/1 ML SDV IVPUSH SCH ×4 (03:52→17:54)
[2021-01-12] MEDS: Pantoprazole 40 MG Tab.CR PO SCH (05:39)
[2021-01-12] MEDS: Budesonide 0.5 MG/2 ML Neb Susp NEB SCH ×3 (05:53→17:54)
[2021-01-12 06:35] LABS: ANION GAP 13.5 mEq/L (7-13); CHLORIDE,CL 102 mmol/L (98-107); SODIUM,NA 134 mmol/L (136-145)
[2021-01-12] MEDS: Spironolactone 25 MG Tab PO SCH (08:40)
[2021-01-12] MEDS: Lactulose Soln 10 GM/15 ML 30 ML UD Cup PO SCH ×2 (08:41→21:16)
[2021-01-12] MEDS: Potassium Chloride 10 MEQ Tab.ER PO SCH ×3 (08:41→21:14)
[2021-01-12] MEDS: Gabapentin 100 MG Cap PO SCH ×3 (08:42→21:16)
[2021-01-12] MEDS: Furosemide 40 MG Tab PO SCH ×3 (08:42→21:16)
[2021-01-12] MEDS: Rifaximin 550 MG Tab PO SCH ×2 (08:43→21:16)
[2021-01-12] MEDS: oxyCODONE 5 MG Tab PO PRN ×3 (09:36→21:15)
--- NOTE | 2021-01-12 11:24 | PCM.PN ---
- General Info Date of Service: 01/12/21 Subjective Update: less sob did not get out of bed yet no fever continued to have edema, no cp, no abd pain Functional Status: Reports: Pain Controlled - Review of Systems General: Denies: Fever Cardiovascular: Reports: Edema. Denies: Chest Pain Gastrointestinal: Denies: Abdominal Pain Genitourinary: Denies: Dysuria Neurological: Denies: Confusion - Patient Data Vitals - Most Recent: Last Vital Signs Temp 99.0 F 01/12/21 08:11 Pulse 108 H 01/12/21 08:11 Resp 20 01/12/21 08:11 BP 141/68 H 01/12/21 08:11 Pulse Ox 97 01/12/21 08:11 Weight - Most Recent: 264 lb 6.4 oz I&O - Last 24 Hours: Intake & Output 01/11/21 01/12/21 01/12/21 22:59 06:59 14:59 Intake Total 790 Balance 790 Lab Results Last 24 Hours: Laboratory Results - last 24 hr 01/11/21 01/11/21 01/11/21 Range/Units 15:17 15:17 15:17 WBC 4.3 L (5.0-10.0) 10^3/uL RBC 3.17 L (4.6-6.2) 10^6/uL Hgb 8.4 L (14.0-18.0) g/dL Hct 27.0 L (40.0-54.0) % MCV 85.2 D (80-100) fL MCH 26.5 L (27.0-34.0) pg MCHC 31.1 L (33.0-35.0) g/dL Plt Count 56 L (150-450) 10^3/uL Neut % (Auto) 67.0 (42.2-75.2) % Lymph % (Auto) 18.3 L (20.5-50.1) % Love % (Auto) 10.7 H (2-8) % Eos % (Auto) 2.6 (1.0-3.0) % Baso % (Auto) 1.4 H (0.0-1.0) % PT 16.7 H (9.0-12.0) SEC INR 1.8 H (0.9-1.2) APTT 36.1 H (22.0-34.0) SEC Sodium 136 (136-145) mmol/L Potassium 3.4 L (3.5-5.1) mmol/L Chloride 104 (98-107) mmol/L Carbon Dioxide 24 (21-32) mmol/L Anion Gap 11.4 (7-13) mEq/L BUN 11 (7-18) mg/dL Creatinine 1.02 (0.70-1.30) mg/dL Est Cr Clr Drug Dosing 88.21 mL/min Estimated GFR (MDRD) > 60 BUN/Creatinine Ratio 10.8 (No establ ref range) Glucose 85 (74-99) mg/dL Calcium 7.6 L (8.5-10.1) mg/dL Total Bilirubin 6.5 H (0.2-1.0) mg/dL Direct Bilirubin (0.0-0.2) mg/dL Indirect Bilirubin AST 60 H (15-37) U/L ALT 28 (16-63) U/L Alkaline Phosphatase 138 H (46-116) U/L B-Natriuretic Peptide 17 (0-100) pg/ml Total Protein 7.6 (6.4-8.2) g/dL Albumin 1.8 L (3.4-5.0) g/dL Globulin 5.8 Albumin/Globulin Ratio 0.31 Ethyl Alcohol < 3 (0) mg/dL SARS-CoV-2 RNA (CYNTHIA) (NEGATIVE) 01/11/21 01/12/21 01/12/21 Range/Units 16:55 06:05 06:05 WBC 5.3 (5.0-10.0) 10^3/uL RBC 3.03 L (4.6-6.2) 10^6/uL Hgb 8.1 L (14.0-18.0) g/dL Hct 26.0 L (40.0-54.0) % MCV 85.8 (80-100) fL MCH 26.7 L (27.0-34.0) pg MCHC 31.2 L (33.0-35.0) g/dL Plt Count 49 L (150-450) 10^3/uL Neut % (Auto) 86.8 H (42.2-75.2) % Lymph % (Auto) 10.1 L (20.5-50.1) % Love % (Auto) 2.7 (2-8) % Eos % (Auto) 0.0 L (1.0-3.0) % Baso % (Auto) 0.4 (0.0-1.0) % PT (9.0-12.0) SEC INR (0.9-1.2) APTT (22.0-34.0) SEC Sodium 134 L (136-145) mmol/L Potassium 3.5 (3.5-5.1) mmol/L Chloride 102 (98-107) mmol/L Carbon Dioxide 22 (21-32) mmol/L Anion Gap 13.5 H (7-13) mEq/L BUN 12 (7-18) mg/dL Creatinine 1.20 (0.70-1.30) mg/dL Est Cr Clr Drug Dosing 74.97 mL/min Estimated GFR (MDRD) > 60 BUN/Creatinine Ratio (No establ ref range) Glucose 129 H (74-99) mg/dL Calcium 7.9 L (8.5-10.1) mg/dL Total Bilirubin 5.8 H (0.2-1.0) mg/dL Direct Bilirubin 3.2 H (0.0-0.2) mg/dL Indirect Bilirubin 2.6 AST 51 H (15-37) U/L ALT 28 (16-63) U/L Alkaline Phosphatase 145 H (46-116) U/L B-Natriuretic Peptide (0-100) pg/ml Total Protein 7.8 (6.4-8.2) g/dL Albumin 1.8 L (3.4-5.0) g/dL Globulin 6.0 Albumin/Globulin Ratio 0.30 Ethyl Alcohol (0) mg/dL SARS-CoV-2 RNA (CYNTHIA) Negative (NEGATIVE) Med Orders - Current: Current Medications Acetaminophen (Tylenol) 650 mg PO Q4H PRN PRN Reason: Pain (Mild 1-3)/fever Hydrocodone Bitart/Acetaminophen ([place] 325-10 Mg) 1 tab PO Q4H PRN PRN Reason: Pain (moderate 4-6) Last Admin: 01/11/21 23:26 Dose: 1 tab Documented by: Albuterol/Ipratropium (Duoneb 3.0-0.5 Mg/3 Ml) 3 ml NEB Q2H PRN PRN Reason: sob Albuterol/Ipratropium (Duoneb 3.0-0.5 Mg/3 Ml) 3 ml NEB Q6HRRT [facility] Last Admin: 01/12/21 06:43 Dose: Not Given Documented by: Budesonide (Pulmicort) 0.5 mg NEB BIDRT [facility] Last Admin: 01/12/21 06:43 Dose: Not Given Documented by: Cyclobenzaprine HCl (Flexeril) 10 mg PO TID PRN PRN Reason: Muscle Spasm Last Admin: 01/11/21 23:26 Dose: 10 mg Documented by: Furosemide (Lasix) 40 mg PO TID [facility] Last Admin: 01/12/21 08:42 Dose: 40 mg Documented by: Gabapentin (Neurontin) 100 mg PO TID [facility] Last Admin: 01/12/21 08:42 Dose: 100 mg Documented by: Guaifenesin/Phenylephrine HCl (Robitussin Dm) 5 ml PO Q4H PRN PRN Reason: Cough Last Admin: 01/11/21 23:19 Dose: 5 ml Documented by: Azithromycin 500 mg/ Sodium (Chloride) 250 mls @ 250 mls/hr IV Q24H [facility] Last Infusion: 01/11/21 21:25 Dose: Infused Documented by: Lactulose (Cephulac) 20 gm PO BID [facility] Last Admin: 01/12/21 08:41 Dose: 20 gm Documented by: Methylprednisolone Sodium Succinate (Solu-Medrol) 40 mg IVPUSH Q8H [facility] Last Admin: 01/12/21 11:10 Dose: Not Given Documented by: Ondansetron HCl (Zofran Odt) 4 mg PO Q6H PRN PRN Reason: nausea, able to take PO Oxycodone HCl (Oxycodone) 5 mg PO QID PRN PRN Reason: Pain (severe 7-10) Last Admin: 01/12/21 09:36 Dose: 5 mg Documented by: Pantoprazole Sodium (Protonix) 40 mg PO ACBREAKFAST [facility] Last Admin: 01/12/21 05:39 Dose: 40 mg Documented by: Potassium Chloride (Klor-Con 10) 40 meq PO TID [facility] Last Admin: 01/12/21 08:41 Dose: 40 meq Documented by: Rifaximin (Xifaxan) 550 mg PO BID [facility] Last Admin: 01/12/21 08:43 Dose: 550 mg Documented by: Sodium Chloride (Saline Flush) 10 ml FLUSH ASDIRECTED PRN PRN Reason: Keep Vein Open Last Admin: 01/11/21 16:34 Dose: 10 ml Documented by: Spironolactone (Aldactone) 100 mg PO DAILY [facility] Last Admin: 01/12/21 08:40 Dose: 100 mg Documented by: Temazepam (Restoril) 15 mg PO BEDTIME PRN PRN Reason: Sleep Discontinued Medications Albuterol/Ipratropium (Duoneb 3.0-0.5 Mg/3 Ml) 3 ml NEB ONETIME ONE Stop: 01/11/21 16:28 Last Admin: 01/11/21 16:31 Dose: 3 ml Documented by: Iopamidol (Isovue-300 (61%)) 100 ml IVPUSH ONETIME ONE Stop: 01/11/21 18:54 Last Admin: 01/12/21 07:34 Dose: Not Given Documented by: Iopamidol (Isovue-370 (76%)) 100 ml IVPUSH ONETIME ONE Stop: 01/11/21 19:02 Last Admin: 01/11/21 19:10 Dose: 100 ml Documented by: Methylprednisolone Sodium Succinate (Solu-Medrol) 125 mg IVPUSH ONETIME ONE Stop: 01/11/21 16:29 Last Admin: 01/11/21 16:34 Dose: 125 mg Documented by: Potassium Chloride (Klor-Con 10) 40 meq PO ONETIME ONE Stop: 01/11/21 18:55 Last Admin: 01/11/21 23:13 Dose: Not Given Documented by: - Exam General: Alert, Oriented Neck: Supple Lungs: Rhonchi. No: Wheezing Cardiovascular: Regular Rate, Regular Rhythm GI/Abdominal Exam: Normal Bowel Sounds, Soft, Non-Tender, Other (obese and/or ascites) Back Exam: Normal Inspection Extremities: Pedal Edema Psy/Mental Status: Alert, Normal Affect, Normal Mood Sepsis Event Note - Evaluation Sepsis Screening Result: No Definite Risk - Focused Exam Vital Signs: Vital Signs Temp Pulse Resp BP BP Pulse Ox Pulse Ox 01/12/21 08:11 99.0 F 108 H 20 141/68 H 97 01/12/21 05:53 99 01/12/21 05:44 99 01/12/21 03:58 98.9 F 107 H 20 141/92 H 98 01/11/21 23:43 98.8 F 104 H 20 153/78 H 99 01/11/21 23:27 98 - Problem List & Annotations (1) Acute exacerbation of extrinsic asthma SNOMED Code(s): 071342721 Code(s): J45.901 - UNSPECIFIED ASTHMA WITH (ACUTE) EXACERBATION Status: Acute Current Visit: Yes (2) Acute bronchitis with bronchospasm SNOMED Code(s): 72759824 Code(s): J20.9 - ACUTE BRONCHITIS, UNSPECIFIED Status: Acute Current Visit: No (3) Alcoholic cirrhosis of liver SNOMED Code(s): 698828106 Code(s): K70.30 - ALCOHOLIC CIRRHOSIS OF LIVER WITHOUT ASCITES Status: Acute Current Visit: No Qualifiers: Ascites presence: unspecified Qualified Code(s): K70.30 - Alcoholic cirrhosis of liver without ascites (4) Ascites due to alcoholic cirrhosis SNOMED Code(s): 8995021243345361 Code(s): K70.31 - ALCOHOLIC CIRRHOSIS OF LIVER WITH ASCITES Status: Acute Current Visit: No (5) Esophageal varices SNOMED Code(s): 50279269 Code(s): I85.00 - ESOPHAGEAL VARICES WITHOUT BLEEDING Status: Acute Current Visit: No Qualifiers: Esophageal varices type: unspecified type Esophageal varices bleeding: with bleeding Qualified Code(s): I85.01 - Esophageal varices with bleeding (6) Hypokalemia SNOMED Code(s): 69240553 Code(s): E87.6 - HYPOKALEMIA Status: Acute Current Visit: No (7) Pancytopenia SNOMED Code(s): 834777391 Code(s): D61.818 - OTHER PANCYTOPENIA Status: Acute Current Visit: No (8) Peripheral edema SNOMED Code(s): 672859096 Code(s): R60.9 - EDEMA, UNSPECIFIED Status: Acute Current Visit: No - Problem List Review Problem List Initiated/Reviewed/Updated: Yes - My Orders Last 24 Hours: My Active Orders 01/11/21 16:40 Admission Diagnosis [ADT] Routine Patient Status [ADT] Routine 01/11/21 18:31 Dextromethorphan/guaiFENesin [Robitussin DM] 5 ml PO Q4H PRN 01/11/21 18:43 Albuterol/Ipratropium [DuoNeb 3.0-0.5 MG/3 ML] 3 ml NEB Q2H PRN 01/11/21 18:44 RT Aerosol Therapy [RC] ASDIRECTED 01/11/21 18:45 methylPREDNISolone Sod Succ [Solu-MEDROL] 40 mg IVPUSH Q8H 01/11/21 18:52 PROCALCITONIN [REF] Routine 01/11/21 18:54 Communication Order [RC] DAILY 01/11/21 18:56 Cyclobenzaprine [Flexeril] 10 mg PO TID PRN oxyCODONE 5 mg PO QID PRN 01/11/21 18:58 Up With Assistance [RC] Acetaminophen [TylenoL] 650 mg PO Q4H PRN Acetaminophen/HYDROcodone [Veneta 325-10 MG] 1 tab PO Q4H PRN Ondansetron [Zofran ODT] 4 mg PO Q6H PRN Temazepam [Restoril] 15 mg PO BEDTIME PRN Resuscitation Status Routine 01/11/21 18:59 Oxygen Therapy [RC] PRN VTE/DVT Education [RC] PER UNIT ROUTINE Vital Signs [RC] 00,04,08,12,16,20 Sequential Compression Device [OM.PC] Per Unit Routine 01/11/21 19:00 Antiembolic Devices [RC] 08,20 Azithromycin [Zithromax] 500 mg Sodium Chloride 0.9% [Normal Saline (AdvBag)] 250 ml IV Q24H 01/11/21 19:02 Anticoagulation Contraindications VTE [AST] Click to Edit 01/11/21 21:00 Furosemide [Lasix] 40 mg PO TID Gabapentin [Neurontin] 100 mg PO TID Lactulose [Cephulac] 20 gm PO BID Potassium Chloride [Klor-Con 10] 40 meq PO TID Rifaximin [Xifaxan] 550 mg PO BID 01/12/21 01:00 Albuterol/Ipratropium [DuoNeb 3.0-0.5 MG/3 ML] 3 ml NEB Q6HRRT 01/12/21 06:00 Pantoprazole [ProTONIX] 40 mg PO ACBREAKFAST 01/12/21 07:00 Budesonide [Pulmicort] 0.5 mg NEB BIDRT 01/12/21 09:00 Spironolactone [Aldactone] 100 mg PO DAILY 01/13/21 05:15 BASIC METABOLIC PANEL,BMP [CHEM] AM CBC WITH AUTO DIFF [HEME] AM - Plan Plan:: Shortness of breath Acute hypoxemic respiratory failure The patient quickly desaturates with activity to oxygen saturations of 88-89% on room air On Chest x-ray there is no acute cardiopulmonary abnormality CT chest showed no PE h/o Asthma with acute exacerbation with wheezing improving treat with IV Solu-Medrol Treat with scheduled and as needed DuoNeb cont pulmicort nebulizer Check pro-calcitonin level, until it is resulted well give IV azithromycin for possible bacterial bronchitis Pancytopenia Baseline White blood cell count around 2.4, hemoglobin 9.0-9.8, platelet count 38, 45 Likely secondary to portal hypertension Well monitor blood counts 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 history of esophageal varices Total bilirubin 6.5, baseline 5.1 in October 2020 Continue Lasix and spironolactone Propranolol and nadolol in the past was used but discontinued due to shortness of breath and hypotension History of hepatic encephalopathy Continue lactulose and rifaximin Hypokalemia resolved Continue spironolactone, potassium supplement with Lasix Monitor and adjust as needed Chronic lower extremity pain Continue gabapentin Lower extremity edema, likely related to chronic diastolic heart failure, portal hypertension, low albumin Last echo 08/2020 ef: 50-55%, RVSP 35 mmHg Continue diuretics Continue sujata wrap Discussed limiting oral fluid intake DVT prophylaxis will be with SCDs We will not use heparin, Lovenox due to thrombocytopenia
[2021-01-12] MEDS: guaiFENesin/Dextromethorphan 100-10 MG/5 ML Soln 5 ML Cup PO PRN ×2 (15:14→21:16)
[2021-01-12] MEDS: Azithromycin 500 MG in Sodium Chloride 0.9% 250 ML IV SCH ×2 (17:55→18:00)
[2021-01-12] MEDS: Benzocaine/Cetylpyridinium/Menthol Lozenge MUCMEM PRN (21:16)
[2021-01-12] MEDS: Cyclobenzaprine 10 MG Tab PO PRN (21:16)
[2021-01-13] MEDS: Albuterol/Ipratropium 3.0-0.5 MG/3 ML Neb Soln NEB SCH ×4 (00:12→21:17)
[2021-01-13] MEDS: methylPREDNISolone Sodium Succinate 40 MG/1 ML SDV IVPUSH SCH ×3 (04:21→21:16)
[2021-01-13 07:05] LABS: CHLORIDE,CL 104 mmol/L (98-107); SODIUM,NA 135 mmol/L (136-145)
[2021-01-13] MEDS: Budesonide 0.5 MG/2 ML Neb Susp NEB SCH ×2 (07:12→18:14)
[2021-01-13] MEDS: Pantoprazole 40 MG Tab.CR PO SCH (07:20)
[2021-01-13] MEDS: Rifaximin 550 MG Tab PO SCH ×2 (10:04→21:16)
[2021-01-13] MEDS: Gabapentin 100 MG Cap PO SCH ×3 (10:04→21:17)
[2021-01-13] MEDS: Spironolactone 25 MG Tab PO SCH (10:04)
[2021-01-13] MEDS: Potassium Chloride 10 MEQ Tab.ER PO SCH ×3 (10:04→21:17)
[2021-01-13] MEDS: Furosemide 40 MG Tab PO SCH ×3 (10:05→21:18)
[2021-01-13] MEDS: oxyCODONE 5 MG Tab PO PRN ×2 (10:06→16:19)
[2021-01-13] MEDS: Cyclobenzaprine 10 MG Tab PO PRN ×2 (10:06→18:14)
[2021-01-13] MEDS: Benzocaine/Cetylpyridinium/Menthol Lozenge MUCMEM PRN ×3 (10:06→21:28)
[2021-01-13] MEDS: Lactulose Soln 10 GM/15 ML 30 ML UD Cup PO SCH ×2 (10:07→21:16)
--- NOTE | 2021-01-13 12:57 | PCM.PN ---
- General Info Date of Service: 01/13/21 Admission Dx/Problem (Free Text): Admission Diagnosis/Problem Admission Diagnosis/Problem COPD, Mild chronic obstructive pulmonary disease Subjective Update: less sob has been up and trying to walk with a walker no fever continued to have edema, no cp, no abd pain tachycardia noted overnight - Review of Systems General: Reports: Weakness Pulmonary: Reports: Shortness of Breath Cardiovascular: Denies: Chest Pain Gastrointestinal: Denies: Abdominal Pain Genitourinary: Denies: Dysuria Neurological: Denies: Dizziness Psychiatric: Denies: Confusion - Patient Data Vitals - Most Recent: Last Vital Signs Temp 98.2 F 01/13/21 08:27 Pulse 114 H 01/13/21 08:27 Resp 16 01/13/21 04:21 BP 133/71 01/13/21 08:27 Pulse Ox 96 01/13/21 07:16 Weight - Most Recent: 264 lb 6.4 oz I&O - Last 24 Hours: Intake & Output 01/12/21 01/13/21 01/13/21 22:59 06:59 14:59 Intake Total 490 840 Balance 490 840 Lab Results Last 24 Hours: Laboratory Results - last 24 hr 01/13/21 01/13/21 Range/Units 06:15 06:15 WBC 11.7 H (5.0-10.0) 10^3/uL RBC 2.84 L (4.6-6.2) 10^6/uL Hgb 7.6 L (14.0-18.0) g/dL Hct 24.9 L (40.0-54.0) % MCV 87.7 (80-100) fL MCH 26.8 L (27.0-34.0) pg MCHC 30.5 L (33.0-35.0) g/dL Plt Count 50 L (150-450) 10^3/uL Neut % (Auto) 88.5 H (42.2-75.2) % Lymph % (Auto) 5.1 L (20.5-50.1) % [place] % (Auto) 6.2 (2-8) % Eos % (Auto) 0.0 L (1.0-3.0) % Baso % (Auto) 0.2 (0.0-1.0) % Sodium 135 L (136-145) mmol/L Potassium 4.0 (3.5-5.1) mmol/L Chloride 104 (98-107) mmol/L Carbon Dioxide 25 (21-32) mmol/L Anion Gap 10.0 (7-13) mEq/L BUN 14 (7-18) mg/dL Creatinine 1.10 (0.70-1.30) mg/dL Est Cr Clr Drug Dosing 81.79 mL/min Estimated GFR (MDRD) > 60 Glucose 149 H (74-99) mg/dL Calcium 7.9 L (8.5-10.1) mg/dL Med Orders - Current: Current Medications Acetaminophen (Tylenol) 650 mg PO Q4H PRN PRN Reason: Pain (Mild 1-3)/fever Hydrocodone Bitart/Acetaminophen ([place]odosia 325-10 Mg) 1 tab PO Q4H PRN PRN Reason: Pain (moderate 4-6) Last Admin: 01/11/21 23:26 Dose: 1 tab Documented by: Albuterol/Ipratropium (Duoneb 3.0-0.5 Mg/3 Ml) 3 ml NEB Q2H PRN PRN Reason: sob Albuterol/Ipratropium (Duoneb 3.0-0.5 Mg/3 Ml) 3 ml NEB TID [facility] Benzocaine/Menthol (Cepacol Sore Throat) 1 lozenge MUCMEM Q3H PRN PRN Reason: Sore Throat Last Admin: 01/13/21 10:06 Dose: 1 lozenge Documented by: Budesonide (Pulmicort) 0.5 mg NEB BIDRT [facility] Last Admin: 01/13/21 07:12 Dose: 0.5 mg Documented by: Cyclobenzaprine HCl (Flexeril) 10 mg PO TID PRN PRN Reason: Muscle Spasm Last Admin: 01/13/21 10:06 Dose: 10 mg Documented by: Furosemide (Lasix) 40 mg PO TID [facility] Last Admin: 01/13/21 10:05 Dose: 40 mg Documented by: Gabapentin (Neurontin) 100 mg PO TID [facility] Last Admin: 01/13/21 10:04 Dose: 100 mg Documented by: Guaifenesin/Phenylephrine HCl (Robitussin Dm) 5 ml PO Q4H PRN PRN Reason: Cough Last Admin: 01/12/21 21:16 Dose: 5 ml Documented by: Azithromycin 500 mg/ Sodium (Chloride) 250 mls @ 250 mls/hr IV Q24H [facility] Last Infusion: 01/12/21 19:00 Dose: Infused Documented by: Lactulose (Cephulac) 20 gm PO BID [facility] Last Admin: 01/13/21 10:07 Dose: 20 gm Documented by: Methylprednisolone Sodium Succinate (Solu-Medrol) 40 mg IVPUSH BID [facility] Ondansetron HCl (Zofran Odt) 4 mg PO Q6H PRN PRN Reason: nausea, able to take PO Oxycodone HCl (Oxycodone) 5 mg PO QID PRN PRN Reason: Pain (severe 7-10) Last Admin: 01/13/21 10:06 Dose: 5 mg Documented by: Pantoprazole Sodium (Protonix) 40 mg PO ACBREAKFAST [facility] Last Admin: 01/13/21 07:20 Dose: 40 mg Documented by: Potassium Chloride (Klor-Con 10) 40 meq PO TID [facility] Last Admin: 01/13/21 10:04 Dose: 40 meq Documented by: Rifaximin (Xifaxan) 550 mg PO BID [facility] Last Admin: 01/13/21 10:04 Dose: 550 mg Documented by: Sodium Chloride (Saline Flush) 10 ml FLUSH ASDIRECTED PRN PRN Reason: Keep Vein Open Last Admin: 01/11/21 16:34 Dose: 10 ml Documented by: Spironolactone (Aldactone) 100 mg PO DAILY [facility] Last Admin: 01/13/21 10:04 Dose: 100 mg Documented by: Temazepam (Restoril) 15 mg PO BEDTIME PRN PRN Reason: Sleep Last Admin: 01/12/21 21:15 Dose: 15 mg Documented by: Discontinued Medications Albuterol/Ipratropium (Duoneb 3.0-0.5 Mg/3 Ml) 3 ml NEB ONETIME ONE Stop: 01/11/21 16:28 Last Admin: 01/11/21 16:31 Dose: 3 ml Documented by: Albuterol/Ipratropium (Duoneb 3.0-0.5 Mg/3 Ml) 3 ml NEB Q6HRRT [facility] Last Admin: 01/13/21 07:12 Dose: 3 ml Documented by: Iopamidol (Isovue-300 (61%)) 100 ml IVPUSH ONETIME ONE Stop: 01/11/21 18:54 Last Admin: 01/12/21 07:34 Dose: Not Given Documented by: Iopamidol (Isovue-370 (76%)) 100 ml IVPUSH ONETIME ONE Stop: 01/11/21 19:02 Last Admin: 01/11/21 19:10 Dose: 100 ml Documented by: Methylprednisolone Sodium Succinate (Solu-Medrol) 125 mg IVPUSH ONETIME ONE Stop: 01/11/21 16:29 Last Admin: 01/11/21 16:34 Dose: 125 mg Documented by: Methylprednisolone Sodium Succinate (Solu-Medrol) 40 mg IVPUSH Q8H [facility] Last Admin: 01/13/21 10:11 Dose: 40 mg Documented by: Potassium Chloride (Klor-Con 10) 40 meq PO ONETIME ONE Stop: 01/11/21 18:55 Last Admin: 01/11/21 23:13 Dose: Not Given Documented by: - Exam General: Alert, Oriented Neck: Supple Lungs: Wheezing Cardiovascular: Regular Rate, Regular Rhythm, Tachycardia GI/Abdominal Exam: Normal Bowel Sounds, Soft, Non-Tender, Other (obese versus sinusitis) Extremities: Pedal Edema Neurological: No New Focal Deficit Psy/Mental Status: Alert, Normal Affect Sepsis Event Note - Evaluation Sepsis Screening Result: No Definite Risk - Focused Exam Vital Signs: Vital Signs Temp Pulse Resp BP Pulse Ox 01/13/21 08:27 98.2 F 114 H 133/71 01/13/21 07:16 116 H 96 01/13/21 04:21 16 - Problem List & Annotations (1) Acute exacerbation of extrinsic asthma SNOMED Code(s): 904127410 Code(s): J45.901 - UNSPECIFIED ASTHMA WITH (ACUTE) EXACERBATION Status: Acute Current Visit: Yes (2) Acute bronchitis with bronchospasm SNOMED Code(s): 73103732 Code(s): J20.9 - ACUTE BRONCHITIS, UNSPECIFIED Status: Acute Current Visit: No (3) Alcoholic cirrhosis of liver SNOMED Code(s): 042034107 Code(s): K70.30 - ALCOHOLIC CIRRHOSIS OF LIVER WITHOUT ASCITES Status: Acute Current Visit: No Qualifiers: Ascites presence: unspecified Qualified Code(s): K70.30 - Alcoholic cirrhosis of liver without ascites (4) Ascites due to alcoholic cirrhosis SNOMED Code(s): 3274667532210659 Code(s): K70.31 - ALCOHOLIC CIRRHOSIS OF LIVER WITH ASCITES Status: Acute Current Visit: No (5) Esophageal varices SNOMED Code(s): 25424427 Code(s): I85.00 - ESOPHAGEAL VARICES WITHOUT BLEEDING Status: Acute Current Visit: No Qualifiers: Esophageal varices type: unspecified type Esophageal varices bleeding: with bleeding Qualified Code(s): I85.01 - Esophageal varices with bleeding (6) Hypokalemia SNOMED Code(s): 38347037 Code(s): E87.6 - HYPOKALEMIA Status: Acute Current Visit: No (7) Pancytopenia SNOMED Code(s): 895957755 Code(s): D61.818 - OTHER PANCYTOPENIA Status: Acute Current Visit: No (8) Peripheral edema SNOMED Code(s): 323389125 Code(s): R60.9 - EDEMA, UNSPECIFIED Status: Acute Current Visit: No - Problem List Review Problem List Initiated/Reviewed/Updated: Yes - My Orders Last 24 Hours: My Active Orders 01/12/21 Lunch Soft Diet [DIET] 01/12/21 15:23 Benzocaine/Cetylpyrd/Menthol [Cepacol Sore Throat] 1 lozenge MUCMEM Q3H PRN 01/13/21 14:00 Albuterol/Ipratropium [DuoNeb 3.0-0.5 MG/3 ML] 3 ml NEB TID 01/13/21 21:00 methylPREDNISolone Sod Succ [Solu-MEDROL] 40 mg IVPUSH BID 01/14/21 05:15 BASIC METABOLIC PANEL,BMP [CHEM] AM CBC WITH AUTO DIFF [HEME] AM - Plan Plan:: Shortness of breath Acute hypoxemic respiratory failure The patient quickly desaturates with activity to oxygen saturations of 88-89% on room air On Chest x-ray there is no acute cardiopulmonary abnormality CT chest showed no PE h/o Asthma with acute exacerbation with wheezing improving treat with IV Solu-Medrol - taper dose Treat with scheduled and as needed DuoNeb tachycardia is related to the nebulizers, taper scheduled DuoNeb cont pulmicort nebulizer Check pro-calcitonin level, until it is resulted well give IV azithromycin for possible bacterial bronchitis Pancytopenia Baseline White blood cell count around 2.4, hemoglobin 9.0-9.8, platelet count 38, 45 Likely secondary to portal hypertension Well monitor blood counts 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 history of esophageal varices Total bilirubin 6.5, baseline 5.1 in October 2020 Continue Lasix and spironolactone Propranolol and nadolol in the past was used but discontinued due to shortness of breath and hypotension History of hepatic encephalopathy Continue lactulose and rifaximin Hypokalemia resolved Continue spironolactone, potassium supplement with Lasix Monitor and adjust as needed with diuretics Chronic lower extremity pain Continue gabapentin Lower extremity edema, likely related to chronic diastolic heart failure, portal hypertension, low albumin Last echo 08/2020 ef: 50-55%, RVSP 35 mmHg still massively fluid overloaded Continue diuretics Continue sujata wrap Discussed limiting oral fluid intake add Zaroxolyn DVT prophylaxis will be with SCDs We will not use heparin, Lovenox due to thrombocytopenia
[2021-01-13] MEDS: Metolazone 2.5 MG Tab PO SCH (13:57)
[2021-01-13] MEDS: Azithromycin 500 MG in Sodium Chloride 0.9% 250 ML IV SCH (19:47)
[2021-01-13] MEDS: guaiFENesin/Dextromethorphan 100-10 MG/5 ML Soln 5 ML Cup PO PRN (21:28)
[2021-01-14] MEDS: Pantoprazole 40 MG Tab.CR PO SCH (06:27)
[2021-01-14 06:48] LABS: ANION GAP 9.5 mEq/L (7-13); CHLORIDE,CL 98 mmol/L (98-107); SODIUM,NA 133 mmol/L (136-145)
[2021-01-14] MEDS: Metolazone 2.5 MG Tab PO SCH (08:57)
[2021-01-14] MEDS: Benzocaine/Cetylpyridinium/Menthol Lozenge MUCMEM PRN (08:57)
[2021-01-14 09:04] VITALS: BP 137/65; PULSE 112
[2021-01-14] MEDS: Budesonide 0.5 MG/2 ML Neb Susp NEB SCH (09:18)
[2021-01-14] MEDS: Albuterol/Ipratropium 3.0-0.5 MG/3 ML Neb Soln NEB SCH (09:18)
[2021-01-14] MEDS: Lactulose Soln 10 GM/15 ML 30 ML UD Cup PO SCH (09:31)
[2021-01-14] MEDS: Spironolactone 25 MG Tab PO SCH (09:31)
[2021-01-14] MEDS: Rifaximin 550 MG Tab PO SCH (09:32)
[2021-01-14] MEDS: Gabapentin 100 MG Cap PO SCH (09:32)
[2021-01-14] MEDS: Furosemide 40 MG Tab PO SCH (09:32)
[2021-01-14] MEDS: Potassium Chloride 10 MEQ Tab.ER PO SCH (09:32)
[2021-01-14] MEDS: methylPREDNISolone Sodium Succinate 40 MG/1 ML SDV IVPUSH SCH (09:34)
--- NOTE | 2021-01-14 10:54 | PCM.DCSUM1 ---
Discharge Summary - Hospital Course Free Text/Narrative:: Shortness of breath Acute hypoxemic respiratory failure The patient quickly desaturated with activity to oxygen saturations of 88-89% on room air On Chest x-ray there was no acute cardiopulmonary abnormality CT chest showed no PE resolved h/o Asthma with acute exacerbation with wheezing improving treated with IV Solu-Medrol - transition to PO Prednisone Treat with scheduled and as needed DuoNeb tachycardia is related to the nebulizers, taper scheduled DuoNeb cont pulmicort nebulizer was treated with azithromycin Pancytopenia Baseline White blood cell count around 2.4, hemoglobin 9.0-9.8, platelet count 38, 45 Likely secondary to portal hypertension monitor blood counts as out pt periodically 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 history of esophageal varices Total bilirubin 6.5, baseline 5.1 in October 2020 Continue Lasix and spironolactone Propranolol and nadolol in the past was used but discontinued due to shortness of breath and hypotension History of hepatic encephalopathy Continue lactulose and rifaximin Hypokalemia resolved Continue spironolactone, potassium supplement with Lasix Monitor and adjust as needed with diuretics Chronic lower extremity pain Continue gabapentin Lower extremity edema, likely related to chronic diastolic heart failure, portal hypertension, low albumin Last echo 08/2020 ef: 50-55%, RVSP 35 mmHg still massively fluid overloaded Continue diuretics Continue sujata wrap Discussed limiting oral fluid intake added Zaroxolyn Diagnosis: Stroke: No - Discharge Data Discharge Date: 01/14/21 Discharge Disposition: Home, Self-Care 01 Condition: Good - Referral to Home Health Primary Care Physician: Bren Saravia NP - Discharge Diagnosis/Problem(s) (1) Acute exacerbation of extrinsic asthma SNOMED Code(s): 607402007 ICD Code: J45.901 - UNSPECIFIED ASTHMA WITH (ACUTE) EXACERBATION Status: Acute Current Visit: Yes (2) Acute bronchitis with bronchospasm SNOMED Code(s): 68844457 ICD Code: J20.9 - ACUTE BRONCHITIS, UNSPECIFIED Status: Acute Current Vis it: No (3) Alcoholic cirrhosis of liver SNOMED Code(s): 622761094 ICD Code: K70.30 - ALCOHOLIC CIRRHOSIS OF LIVER WITHOUT ASCITES Status: Acute Current Visit: No Qualifiers: Ascites presence: unspecified Qualified Code(s): K70.30 - Alcoholic cirrhosis of liver without ascites (4) Ascites due to alcoholic cirrhosis SNOMED Code(s): 6857603550480396 ICD Code: K70.31 - ALCOHOLIC CIRRHOSIS OF LIVER WITH ASCITES Status: Acute Current Visit: No (5) Esophageal varices SNOMED Code(s): 37199181 ICD Code: I85.00 - ESOPHAGEAL VARICES WITHOUT BLEEDING Status: Acute Current Visit: No Qualifiers: Esophageal varices type: unspecified type Esophageal varices bleeding: with bleeding Qualified Code(s): I85.01 - Esophageal varices with bleeding (6) Hypokalemia SNOMED Code(s): 77738126 ICD Code: E87.6 - HYPOKALEMIA Status: Acute Current Visit: No (7) Pancytopenia SNOMED Code(s): 288044422 ICD Code: D61.818 - OTHER PANCYTOPENIA Status: Acute Current Visit: No (8) Peripheral edema SNOMED Code(s): 879308742 ICD Code: R60.9 - EDEMA, UNSPECIFIED Status: Acute Current Visit: No - Patient Instructions Diet: Heart Healthy Diet Activity: As Tolerated - Discharge Plan *PRESCRIPTION DRUG MONITORING PROGRAM REVIEWED*: Not Applicable *COPY OF PRESCRIPTION DRUG MONITORING REPORT IN PATIENT NARCISA: Not Applicable Prescriptions/Med Rec: Azithromycin 250 mg PO DAILY #3 tablet Albuterol/Ipratropium [DuoNeb 3.0-0.5 MG/3 ML] 3 ml NEB Q4H PRN #60 neb PRN Reason: sob Albuterol/Ipratropium [DuoNeb 3.0-0.5 MG/3 ML] 3 ml NEB TID 10 Days #30 neb guaiFENesin/Dextromethorphan [Mucus Rlf Dm ER 600-30 mg Tab] 1 each PO BID PRN #6 tab.er.12h PRN Reason: Cough predniSONE [Prednisone] 20 mg PO DAILY #11 tablet Budesonide [Pulmicort] 0.5 mg NEB BIDRT #60 neb metOLazone [Zaroxolyn] 2.5 mg PO DAILY@0830 #30 tablet Home Medications: Home Meds Cyclobenzaprine [Flexeril] 10 mg PO TID PRN 10/06/20 [History] Furosemide [Lasix] 40 mg PO TID 10/06/20 [History] Gabapentin [Neurontin] 100 mg PO TID 11/07/20 [History] Lactulose 30 ml PO BID 10/06/20 [History] Pantoprazole Sodium [Protonix] 40 mg PO DAILY 10/06/20 [History] Potassium Chloride [Klor-Con 10] 40 meq PO TID 10/06/20 [History] Spironolactone [Aldactone] 100 mg PO DAILY 10/06/20 [History] oxyCODONE 5 mg PO QID PRN 10/06/20 [History] Albuterol/Ipratropium [DuoNeb 3.0-0.5 MG/3 ML] 3 ml NEB Q4H PRN #60 neb 01/14/21 [Rx] Albuterol/Ipratropium [DuoNeb 3.0-0.5 MG/3 ML] 3 ml NEB TID 10 Days #30 neb 01/14/21 [Rx] Azithromycin 250 mg PO DAILY #3 tablet 01/14/21 [Rx] Budesonide [Pulmicort] 0.5 mg NEB BIDRT #60 neb 01/14/21 [Rx] Rifaximin [Xifaxan] 550 mg PO BID tablet 01/14/21 [Rx] guaiFENesin/Dextromethorphan [Mucus Rlf Dm ER 600-30 mg Tab] 1 each PO BID PRN #6 tab.er.12h 01/14/21 [Rx] metOLazone [Zaroxolyn] 2.5 mg PO DAILY@0830 #30 tablet 01/14/21 [Rx] predniSONE [Prednisone] 20 mg PO DAILY #11 tablet 01/14/21 [Rx] Oxygen Therapy Mode: Room Air Referrals: Miguel Chandra MD [Physician] - (in 2-3 days re: diuretics) - Discharge Summary/Plan Comment DC Time >30 min.: No - General Info Date of Service: 01/14/21 Functional Status: Reports: Pain Controlled, Tolerating Diet - Review of Systems General: Denies: Fever Pulmonary: Reports: Wheezing (less ). Denies: Shortness of Breath Cardiovascular: Denies: Chest Pain Gastrointestinal: Denies: Abdominal Pain Neurological: Reports: Confusion. Denies: Tremors Psychiatric: Denies: Confusion - Patient Data Vitals - Most Recent: Last Vital Signs Temp 99.2 F 01/14/21 08:00 Pulse 112 H 01/14/21 08:00 Resp 20 02/15/21 08:00 BP 137/65 01/14/21 08:00 Pulse Ox 97 01/14/21 08:00 Weight - Most Recent: 264 lb 6.4 oz I&O - Last 24 hours: Intake & Output 01/13/21 01/14/21 01/14/21 22:59 06:59 14:59 Intake Total 500 800 Balance 500 800 Lab Results - Last 24 hrs: Laboratory Results - last 24 hr 01/14/21 01/14/21 Range/Units 06:04 06:04 WBC 8.6 (5.0-10.0) 10^3/uL RBC 2.96 L (4.6-6.2) 10^6/uL Hgb 7.9 L (14.0-18.0) g/dL Hct 25.8 L (40.0-54.0) % MCV 87.2 (80-100) fL MCH 26.7 L (27.0-34.0) pg MCHC 30.6 L (33.0-35.0) g/dL Plt Count 48 L* (150-450) 10^3/uL Neut % (Auto) 87.7 H (42.2-75.2) % Lymph % (Auto) 5.1 L (20.5-50.1) % [place] % (Auto) 7.1 (2-8) % Eos % (Auto) 0.0 L (1.0-3.0) % Baso % (Auto) 0.1 (0.0-1.0) % Sodium 133 L (136-145) mmol/L Potassium 3.5 (3.5-5.1) mmol/L Chloride 98 (98-107) mmol/L Carbon Dioxide 29 (21-32) mmol/L Anion Gap 9.5 (7-13) mEq/L BUN 13 (7-18) mg/dL Creatinine 1.21 (0.70-1.30) mg/dL Est Cr Clr Drug Dosing 74.35 mL/min Estimated GFR (MDRD) > 60 Glucose 131 H (74-99) mg/dL Calcium 8.1 L (8.5-10.1) mg/dL Med Orders - Current: Current Medications Acetaminophen (Tylenol) 650 mg PO Q4H PRN PRN Reason: Pain (Mild 1-3)/fever Last Admin: 01/13/21 21:27 Dose: 650 mg Documented by: Hydrocodone Bitart/Acetaminophen ([place] 325-10 Mg) 1 tab PO Q4H PRN PRN Reason: Pain (moderate 4-6) Last Admin: 01/11/21 23:26 Dose: 1 tab Documented by: Albuterol/Ipratropium (Duoneb 3.0-0.5 Mg/3 Ml) 3 ml NEB Q2H PRN PRN Reason: sob Albuterol/Ipratropium (Duoneb 3.0-0.5 Mg/3 Ml) 3 ml NEB TID [facility] Last Admin: 01/14/21 09:18 Dose: 3 ml Documented by: Benzocaine/Menthol (Cepacol Sore Throat) 1 lozenge MUCMEM Q3H PRN PRN Reason: Sore Throat Last Admin: 01/14/21 08:57 Dose: 1 lozenge Documented by: Budesonide (Pulmicort) 0.5 mg NEB BIDRT [facility] Last Admin: 01/14/21 09:18 Dose: 0.5 mg Documented by: Cyclobenzaprine HCl (Flexeril) 10 mg PO TID PRN PRN Reason: Muscle Spasm Last Admin: 01/13/21 18:14 Dose: 10 mg Documented by: Furosemide (Lasix) 40 mg PO TID [facility] Last Admin: 01/14/21 09:32 Dose: 40 mg Documented by: Gabapentin (Neurontin) 100 mg PO TID [facility] Last Admin: 01/14/21 09:32 Dose: 100 mg Documented by: Guaifenesin/Phenylephrine HCl (Robitussin Dm) 5 ml PO Q4H PRN PRN Reason: Cough Last Admin: 01/13/21 21:28 Dose: 5 ml Documented by: Azithromycin 500 mg/ Sodium (Chloride) 250 mls @ 250 mls/hr IV Q24H [facility] Last Admin: 01/13/21 19:47 Dose: 250 mls/hr Documented by: Lactulose (Cephulac) 20 gm PO BID [facility] Last Admin: 01/14/21 09:31 Dose: 20 gm Documented by: Methylprednisolone Sodium Succinate (Solu-Medrol) 40 mg IVPUSH BID [facility] Last Admin: 01/14/21 09:34 Dose: 40 mg Documented by: Metolazone (Zaroxolyn) 2.5 mg PO DAILY@0830 [facility] Last Admin: 01/14/21 08:57 Dose: 2.5 mg Documented by: Ondansetron HCl (Zofran Odt) 4 mg PO Q6H PRN PRN Reason: nausea, able to take PO Oxycodone HCl (Oxycodone) 5 mg PO QID PRN PRN Reason: Pain (severe 7-10) Last Admin: 01/13/21 16:19 Dose: 5 mg Documented by: Pantoprazole Sodium (Protonix) 40 mg PO ACBREAKFAST [facility] Last Admin: 01/14/21 06:27 Dose: 40 mg Documented by: Potassium Chloride (Klor-Con 10) 40 meq PO TID [facility] Last Admin: 01/14/21 09:32 Dose: 40 meq Documented by: Rifaximin (Xifaxan) 550 mg PO BID [facility] Last Admin: 01/14/21 09:32 Dose: 550 mg Documented by: Sodium Chloride (Saline Flush) 10 ml FLUSH ASDIRECTED PRN PRN Reason: Keep Vein Open Last Admin: 01/11/21 16:34 Dose: 10 ml Documented by: Spironolactone (Aldactone) 100 mg PO DAILY [facility] Last Admin: 01/14/21 09:31 Dose: 100 mg Documented by: Temazepam (Restoril) 15 mg PO BEDTIME PRN PRN Reason: Sleep Last Admin: 01/12/21 21:15 Dose: 15 mg Documented by: Discontinued Medications Albuterol/Ipratropium (Duoneb 3.0-0.5 Mg/3 Ml) 3 ml NEB ONETIME ONE Stop: 01/11/21 16:28 Last Admin: 01/11/21 16:31 Dose: 3 ml Documented by: Albuterol/Ipratropium (Duoneb 3.0-0.5 Mg/3 Ml) 3 ml NEB Q6HRRT [facility] Last Admin: 01/13/21 07:12 Dose: 3 ml Documented by: Iopamidol (Isovue-300 (61%)) 100 ml IVPUSH ONETIME ONE Stop: 01/11/21 18:54 Last Admin: 01/12/21 07:34 Dose: Not Given Documented by: Iopamidol (Isovue-370 (76%)) 100 ml IVPUSH ONETIME ONE Stop: 01/11/21 19:02 Last Admin: 01/11/21 19:10 Dose: 100 ml Documented by: Methylprednisolone Sodium Succinate (Solu-Medrol) 125 mg IVPUSH ONETIME ONE Stop: 01/11/21 16:29 Last Admin: 01/11/21 16:34 Dose: 125 mg Documented by: Methylprednisolone Sodium Succinate (Solu-Medrol) 40 mg IVPUSH Q8H [facility] Last Admin: 01/13/21 10:11 Dose: 40 mg Documented by: Potassium Chloride (Klor-Con 10) 40 meq PO ONETIME ONE Stop: 01/11/21 18:55 Last Admin: 01/11/21 23:13 Dose: Not Given Documented by: - Exam General: Reports: Alert, Oriented Neck: Reports: Supple Lungs: Reports: Normal Respiratory Effort, Wheezing (mild b/l ) Cardiovascular: Reports: Regular Rate, Regular Rhythm GI/Abdominal Exam: Normal Bowel Sounds, Soft, Non-Tender, Other (obese / ascites) Extremities: Pedal Edema (trace to 1 +) Neurological: Reports: No New Focal Deficit Psy/Mental Status: Reports: Alert, Normal Affect, Normal Mood *Q Meaningful Use (DIS) - VTE *Q VTE Anticoagulation Contraindications: Medical/Procedure Contrai
[2021-01-14] MEDS: Acetaminophen/HYDROcodone 325-10 MG Tab PO PRN (11:44)
== END 2021-01-14 12:50 | disposition home or self-care (01) ==
LOC: DL.ED 14:51 → DL.MS 16:40 → DL.ED 16:43
PROVIDERS: ADMIT Internal Medicine; ATTEND Internal Medicine
DX: J96.01 Acute respiratory failure with hypoxia (principal); J44.1 Chronic obstructive pulmonary disease with (acute) exacerbation; I13.0 Hypertensive heart and chronic kidney disease with heart failure and stage 1 through stage 4 chronic kidney disease, or unspecified chronic kidney disease; I50.32 Chronic diastolic (congestive) heart failure; N18.9 Chronic kidney disease, unspecified; K76.6 Portal hypertension; I85.10 Secondary esophageal varices without bleeding; K70.31 Alcoholic cirrhosis of liver with ascites; G89.29 Other chronic pain; Z20.822 Contact with and (suspected) exposure to COVID-19; J45.901 Unspecified asthma with (acute) exacerbation; E87.6 Hypokalemia; D61.818 Other pancytopenia; L97.909 Non-pressure chronic ulcer of unspecified part of unspecified lower leg with unspecified severity; K21.9 Gastro-esophageal reflux disease without esophagitis; R16.1 Splenomegaly, not elsewhere classified; K22.8 Other specified diseases of esophagus; J20.9 Acute bronchitis, unspecified; E66.9 Obesity, unspecified; Z68.41 Body mass index [BMI] 40.0-44.9, adult; Z88.1 Allergy status to other antibiotic agents; Z88.8 Allergy status to other drugs, medicaments and biological substances; Z79.899 Other long term (current) drug therapy
CPT/HCPCS: 36415; 71046; 71260; 80048; 80053; 80076; 80307; 83880; 84145; 85025; 85610; 85730; 93005; 94640; 94760; 96365; 96366; 96375; 96376; 99285; A9270; G0378; J0456; J2920; J2930; J7050; Q9967; U0002; 93010; 96374; 99284; J7620-GY

== ENCOUNTER 2021-01-19 01:09 | Emergency (ER) | payer MEDICARE, OTHER ==
[2021-01-19 01:19] VITALS: BP 123/63; PULSE 108
--- NOTE | 2021-01-19 01:47 | EDM.PDOC ---
ED HPI GENERAL MEDICAL PROBLEM - General Chief Complaint: Respiratory Problem Stated Complaint: AMBULANCE Time Seen by Provider: 01/19/21 01:20 Source of Information: Reports: Patient, RN History Limitations: Reports: No Limitations - History of Present Illness INITIAL COMMENTS - FREE TEXT/NARRATIVE: ED with c/o SOB dizziness and fever 102 at home. Recent hospitalization d/c home on azithromycin and prednsione. Hx recent esophagela varice banding approximately 01/08. Breathing difficulty started after going out in cold to night . Throat Pain Score (Numeric/FACES): 8 - Related Data Allergies Allergy/AdvReac Type Severity Reaction Status Date / Time aspirin Allergy Cannot Verified 01/11/21 15:02 Remember cephalexin Allergy Rash Verified 01/11/21 15:02 clindamycin Allergy Cannot Verified 01/11/21 15:02 Remember Home Meds: Home Meds Cyclobenzaprine [Flexeril] 10 mg PO TID PRN 10/06/20 [History] Furosemide [Lasix] 40 mg PO TID 10/06/20 [History] Gabapentin [Neurontin] 100 mg PO TID 10/06/20 [History] Lactulose 30 ml PO BID 10/06/20 [History] Pantoprazole Sodium [Protonix] 40 mg PO DAILY 10/06/20 [History] Potassium Chloride [Klor-Con 10] 40 meq PO TID 10/06/20 [History] Spironolactone [Aldactone] 100 mg PO DAILY 10/06/20 [History] oxyCODONE 5 mg PO QID PRN 10/06/20 [History] Albuterol/Ipratropium [DuoNeb 3.0-0.5 MG/3 ML] 3 ml NEB Q4H PRN #60 neb 01/14/21 [Rx] Albuterol/Ipratropium [DuoNeb 3.0-0.5 MG/3 ML] 3 ml NEB TID 10 Days #30 neb [Rx] Azithromycin 250 mg PO DAILY #3 tablet 01/14/21 [Rx] Budesonide [Pulmicort] 0.5 mg NEB BIDRT #60 neb 01/14/21 [Rx] Rifaximin [Xifaxan] 550 mg PO BID tablet 01/14/21 [Rx] guaiFENesin/Dextromethorphan [Mucus Rlf Dm ER 600-30 mg Tab] 1 each PO BID PRN #6 tab.er.12h 01/14/21 [Rx] metOLazone [Zaroxolyn] 2.5 mg PO DAILY@0830 #30 tablet 01/14/21 [Rx] predniSONE [Prednisone] 20 mg PO DAILY #11 tablet 01/14/21 [Rx] Past Medical History - Past Health History Medical/Surgical History: Denies Medical/Surgical History HEENT History: Reports: Other (See Below) Other HEENT History: wears corrective lenses Cardiovascular History: Reports: Heart Failure, Hypertension Respiratory History: Reports: Asthma Gastrointestinal History: Reports: Cirrhosis, GERD, GI Bleed, Other (See Below) Other Gastrointestinal History: acities, esophageal varices Genitourinary History: Reports: Chronic Renal Insuffiency, Other (See Below) Other Genitourinary History: chronic kidney disease Musculoskeletal History: Reports: None Neurological History: Reports: None Psychiatric History: Reports: Addiction Endocrine/Metabolic History: Reports: Obesity/BMI 30+ Hematologic History: Reports: Anemia Immunologic History: Reports: None Oncologic (Cancer) History: Reports: None Dermatologic History: Reports: Cellulitis, Psoriasis - Infectious Disease History Infectious Disease History: Reports: None - Past Surgical History Head Surgeries/Procedures: Reports: None Cardiovascular Surgical History: Reports: Other (See Below) Other Cardiovascular Surgeries/Procedures: chronic edema with leg ulcers GI Surgical History: Reports: EGD, Other (See Below) Other GI Surgeries/Procedures: bands placed on varices Social & Family History - Family History Family Medical History: No Pertinent Family History - Tobacco Use Tobacco Use Status *Q: Never Tobacco User Second Hand Smoke Exposure: No - Caffeine Use Caffeine Use: Reports: Soda - Recreational Drug Use Recreational Drug Use: No - Living Situation & Occupation Living situation: Reports: with Family ED ROS GENERAL - Review of Systems Review Of Systems: Comprehensive ROS is negative, except as noted in HPI. Constitutional: Reports: Fever, Chills, Weakness Respiratory: Reports: Shortness of Breath, Cough, Sputum (white). Denies: Pleuritic Chest Pain Cardiovascular: Reports: Dyspnea on Exertion GI/Abdominal: Reports: Other (no noted increased girth with ascites) : Reports: No Symptoms Musculoskeletal: Reports: No Symptoms Skin: Reports: No Symptoms Neurological: Reports: Dizziness ED EXAM, GENERAL - Physical Exam Exam: See Below Exam Limited By: No Limitations General Appearance: Alert, No Apparent Distress Eye Exam: Bilateral Eye: EOMI, Other (icterus) Ears: Normal External Exam, Hearing Grossly Normal Throat/Mouth: Normal Voice Head: Atraumatic, Normocephalic Neck: Normal Inspection Respiratory/Chest: No Respiratory Distress, Lungs Clear Cardiovascular: Normal Peripheral Pulses, Regular Rate, Rhythm GI/Abdominal: Distended. No: Tender Extremities: Pedal Edema Neurological: Alert, Oriented, Normal Cognition Skin Exam: Warm, Dry, Other (dry flaky skin bilateral lower. ) Course - Vital Signs Last Recorded V/S: Last Vital Signs Temp 98.8 F 01/19/21 01:11 Pulse 108 H 01/19/21 01:11 Resp 24 H 01/19/21 01:11 BP 123/63 01/19/21 01:11 Pulse Ox 98 01/19/21 01:11 - Orders/Labs/Meds Orders: Active Orders 24 hr Category Date Time Status EKG Documentation Completion [RC] STAT Care 01/19/21 01:23 Active CULTURE BLOOD [BC] Stat Lab 01/19/21 01:35 Results Labs: Laboratory Tests 01/19/21 01/19/21 01/19/21 Range/Units 01:20 01:50 01:50 WBC 9.6 (5.0-10.0) 10^3/uL RBC 3.23 L (4.6-6.2) 10^6/uL Hgb 8.5 L (14.0-18.0) g/dL Hct 26.6 L (40.0-54.0) % MCV 82.4 D (80-100) fL MCH 26.3 L (27.0-34.0) pg MCHC 32.0 L (33.0-35.0) g/dL Plt Count 73 L (150-450) 10^3/uL Neut % (Auto) 78.0 H (42.2-75.2) % Lymph % (Auto) 6.8 L (20.5-50.1) % [place] % (Auto) 13.5 H (2-8) % Eos % (Auto) 1.5 (1.0-3.0) % Baso % (Auto) 0.2 (0.0-1.0) % PT Cancelled INR Cancelled D-Dimer, Quantitative 2840 H (0-400) ng/mL Sodium (136-145) mmol/L Potassium (3.5-5.1) mmol/L Chloride (98-107) mmol/L Carbon Dioxide (21-32) mmol/L Anion Gap (7-13) mEq/L BUN (7-18) mg/dL Creatinine (0.70-1.30) mg/dL Est Cr Clr Drug Dosing mL/min Estimated GFR (MDRD) BUN/Creatinine Ratio (No establ ref range) Glucose (74-99) mg/dL Lactic Acid (0.4-2.0) mmol/L Calcium (8.5-10.1) mg/dL Total Bilirubin (0.2-1.0) mg/dL AST (15-37) U/L ALT (16-63) U/L Alkaline Phosphatase (46-116) U/L Troponin I (0.000-0.056) ng/mL B-Natriuretic Peptide (0-100) pg/ml Total Protein (6.4-8.2) g/dL Albumin (3.4-5.0) g/dL Globulin Albumin/Globulin Ratio Amylase (25-115) U/L Lipase (73-393) U/L Influenza Type A RNA Negative (NEGATIVE) Influenza Type B RNA Negative (NEGATIVE) SARS-CoV-2 RNA (CYNTHIA) Negative (NEGATIVE) 01/19/21 01/19/21 01/19/21 Range/Units 01:50 01:50 03:10 WBC (5.0-10.0) 10^3/uL RBC (4.6-6.2) 10^6/uL Hgb (14.0-18.0) g/dL Hct (40.0-54.0) % MCV (80-100) fL MCH (27.0-34.0) pg MCHC (33.0-35.0) g/dL Plt Count (150-450) 10^3/uL Neut % (Auto) (42.2-75.2) % Lymph % (Auto) (20.5-50.1) % [place] % (Auto) (2-8) % Eos % (Auto) (1.0-3.0) % Baso % (Auto) (0.0-1.0) % PT 15.8 H INR 1.7 H D-Dimer, Quantitative (0-400) ng/mL Sodium 132 L (136-145) mmol/L Potassium 3.4 L (3.5-5.1) mmol/L Chloride 96 L (98-107) mmol/L Carbon Dioxide 25 (21-32) mmol/L Anion Gap 14.4 H (7-13) mEq/L BUN 11 (7-18) mg/dL Creatinine 1.03 (0.70-1.30) mg/dL Est Cr Clr Drug Dosing 87.35 mL/min Estimated GFR (MDRD) > 60 BUN/Creatinine Ratio 10.7 (No establ ref range) Glucose 104 H (74-99) mg/dL Lactic Acid 1.5 (0.4-2.0) mmol/L Calcium 7.7 L (8.5-10.1) mg/dL Total Bilirubin 5.9 H (0.2-1.0) mg/dL AST 39 H (15-37) U/L ALT 43 (16-63) U/L Alkaline Phosphatase 180 H (46-116) U/L Troponin I 0.027 (0.000-0.056) ng/mL B-Natriuretic Peptide 9 (0-100) pg/ml Total Protein 7.1 (6.4-8.2) g/dL Albumin 1.9 L (3.4-5.0) g/dL Globulin 5.2 Albumin/Globulin Ratio 0.37 Amylase 47 (25-115) U/L Lipase 120 (73-393) U/L Influenza Type A RNA (NEGATIVE) Influenza Type B RNA (NEGATIVE) SARS-CoV-2 RNA (CYNTHIA) (NEGATIVE) Meds: Medications Discontinued Medications Generic Name Dose Route Start Last Admin Trade Name Freq PRN Reason Stop Dose Admin Iopamidol 100 ml 01/19/21 02:39 Isovue-370 (76%) IVPUSH 01/19/21 02:40 ONETIME ONE Departure - Departure Time of Disposition: 04:52 Disposition: Home, Self-Care 01 Condition: Fair Clinical Impression: Elevated bilirubin, Ascites due to alcoholic cirrhosis Anemia Qualifiers: Anemia type: unspecified type Qualified Code(s): D64.9 - Anemia, unspecified - Discharge Information *PRESCRIPTION DRUG MONITORING PROGRAM REVIEWED*: No *COPY OF PRESCRIPTION DRUG MONITORING REPORT IN PATIENT NARCISA: No Instructions: Shortness of Breath, Adult, [id number], Cirrhosis Forms: ED Department Discharge Additional Instructions: use nebulizer every 4 hours as needed bland diet muccinex per label instructions tesselon 100mg one every 8 hours as needed for severe cough clinic follow up on 01/21 as sceduled Sepsis Event Note (ED) - Evaluation Sepsis Screening Result: No Definite Risk - Focused Exam Vital Signs: Vital Signs Temp Pulse Resp BP Pulse Ox 01/19/21 01:11 98.8 F 108 H 24 H 123/63 98 - My Orders Last 24 Hours: My Active Orders 01/19/21 01:23 EKG Documentation Completion [RC] STAT 01/19/21 01:35 CULTURE BLOOD [BC] Stat - Assessment/Plan Last 24 Hours: My Active Orders 01/19/21 01:23 EKG Documentation Completion [RC] STAT 01/19/21 01:35 CULTURE BLOOD [BC] Stat
--- NOTE | 2021-01-19 02:03 | CR ---
PROCEDURE INFORMATION: Exam: XR Chest, 1 View Exam date and time: 01/19/2021 1:57 AM Age: 40 years old Clinical indication: Shortness of breath; Additional info: Cough chest pain TECHNIQUE: Imaging protocol: XR of the chest Views: 1 view. COMPARISON: CT Chest w Cont 01/11/2021 7:40 PM FINDINGS: Lungs: Unremarkable. No consolidation. Pleural spaces: Unremarkable. No pleural effusion. No pneumothorax. Heart/Mediastinum: Unremarkable. No cardiomegaly. Bones/joints: Unremarkable. IMPRESSION: No acute findings.
[2021-01-19 02:29] LABS: ANION GAP 14.4 mEq/L (7-13); CHLORIDE,CL 96 mmol/L (98-107); SODIUM,NA 132 mmol/L (136-145)
[2021-01-19 02:33] LABS: CORONAVIRUS COVID-19 NAA NEGATIVE (NEGATIVE)
[2021-01-19] MEDS ORDERED: Iopamidol 755 Mg/ML 100 ML Bottle IVPUSH ONE (02:39)
--- NOTE | 2021-01-19 04:28 | CT ---
PROCEDURE INFORMATION: Exam: CT Chest With Contrast; Diagnostic Exam date and time: 01/19/2021 3:49 AM Age: 40 years old Clinical indication: Other: Pe study with abd--portal hypertension ascites; Cough and shortness of breath; Additional info: SOB cough, ddimer 2840 TECHNIQUE: Imaging protocol: Diagnostic computed tomography of the chest with contrast. Radiation optimization: All CT scans at this facility use at least one of these dose optimization techniques: automated exposure control; mA and/or kV adjustment per patient size (includes targeted exams where dose is matched to clinical indication); or iterative reconstruction. Contrast material: [id number]; Contrast volume: 100 ml; Contrast route: INTRAVENOUS (IV); COMPARISON: CT Chest w Cont 01/11/2021 7:40 PM FINDINGS: Lungs: Mild bibasilar atelectasis, worse on the right. Pleural spaces: Trace amount of right-sided pleural fluid. Heart: Mildly dilated left ventricle and left atrium. Mediastinal space: Paraesophageal varices. Aorta: Unremarkable. No aortic aneurysm. Lymph nodes: Unremarkable. No enlarged lymph nodes. Bones/joints: Unremarkable. No acute fracture. Soft tissues: Unremarkable. IMPRESSION: No significant pulmonary disease. PROCEDURE INFORMATION: Exam: CT Abdomen And Pelvis With Contrast Exam date and time: 01/19/2021 3:49 AM Age: 40 years old Clinical indication: Other: Pe study with abd--portal hypertension ascites; Cough and shortness of breath; Additional info: SOB cough, ddimer 2840 TECHNIQUE: Imaging protocol: Computed tomography of the abdomen and pelvis with contrast. Radiation optimization: All CT scans at this facility use at least one of these dose optimization techniques: automated exposure control; mA and/or kV adjustment per patient size (includes targeted exams where dose is matched to clinical indication); or iterative reconstruction. Contrast material: [id number]; Contrast volume: 100 ml; Contrast route: INTRAVENOUS (IV); COMPARISON: CT Chest w Cont 01/11/2021 7:40 PM FINDINGS: Mediastinal space: Mild distal esophageal thickening. Liver: Normal. No mass. Gallbladder and bile ducts: Normal. No calcified stones. No ductal dilation. Pancreas: Normal. No ductal dilation. Spleen: Splenomegaly. Adrenal glands: Normal. No mass. Kidneys and ureters: Normal. No hydronephrosis. Stomach and bowel: Scattered foci of bowel wall thickening likely related to the liver disease. Appendix: No evidence of appendicitis. Intraperitoneal space: Mild ascites. Moderate mesenteric edema. Vasculature: Cirrhotic liver with multiple varices, paraesophageal varices and anterior abdominal wall collaterals extending to the common femoral veins. Portal hypertension. Lymph nodes: Unremarkable. No enlarged lymph nodes. Urinary bladder: Unremarkable as visualized. Reproductive: Unremarkable as visualized. Bones/joints: Unremarkable. No acute fracture. Soft tissues: Mild anasarca. IMPRESSION: Scattered foci of bowel wall thickening likely related to the liver disease.
== END 2021-01-19 05:10 | disposition home or self-care (01) ==
LOC: DL.ED 01:09
DX: K70.31 Alcoholic cirrhosis of liver with ascites (principal); E80.6 Other disorders of bilirubin metabolism; I13.0 Hypertensive heart and chronic kidney disease with heart failure and stage 1 through stage 4 chronic kidney disease, or unspecified chronic kidney disease; N18.9 Chronic kidney disease, unspecified; I50.9 Heart failure, unspecified; D63.1 Anemia in chronic kidney disease; J45.909 Unspecified asthma, uncomplicated; K21.9 Gastro-esophageal reflux disease without esophagitis; E66.9 Obesity, unspecified; Z68.41 Body mass index [BMI] 40.0-44.9, adult; Z88.8 Allergy status to other drugs, medicaments and biological substances; Z88.1 Allergy status to other antibiotic agents; Z79.899 Other long term (current) drug therapy; Z20.822 Contact with and (suspected) exposure to COVID-19
CPT/HCPCS: 0240U; 36415; 71045; 71260; 74177; 80053; 81001; 82150; 83605; 83690; 83880; 84484; 85025; 85379; 85610; 87040; 87086; 93005; 99285; 99283; Q9967

== ENCOUNTER 2021-01-31 18:28 | Emergency (ER) | payer MEDICARE, OTHER ==
[2021-01-31 18:41] VITALS: BP 159/81; PULSE 114
--- NOTE | 2021-01-31 19:13 | EDM.PDOC ---
ED HPI GENERAL MEDICAL PROBLEM - General Chief Complaint: Respiratory Problem Stated Complaint: CANT BREATH SWOLLEN LEGS WEEZY Time Seen by Provider: 01/31/21 19:00 Source of Information: Reports: Patient History Limitations: Reports: No Limitations - History of Present Illness INITIAL COMMENTS - FREE TEXT/NARRATIVE: This 40 yo male patient reports to the ED due to increased difficulties breathing and abdominal distention. The patient reports a 30 pound weight gain in the past 3 days. The patient reports he has a history of liver failure. The patient reports he used to drink alcohol, but has quit now. The patient denies any drug use. The patient reports he has had his abdomen tapped about 1 month ago. Onset: Unknown/Unsure Duration: Day(s):, Constant, Getting Worse Location: Reports: Chest, Abdomen Quality: Reports: Other Severity: Moderate Improves with: Reports: None Worsens with: Reports: None Context: Reports: Other Associated Symptoms: Reports: No Other Symptoms Leg Pain Score (Numeric/FACES): 7 - Related Data Allergies Allergy/AdvReac Type Severity Reaction Status Date / Time aspirin Allergy Cannot Verified 01/31/21 18:41 Remember cephalexin Allergy Rash Verified 01/31/21 18:41 clindamycin Allergy Cannot Verified 01/31/21 18:41 Remember Home Meds: Home Meds Cyclobenzaprine [Flexeril] 10 mg PO TID PRN 10/06/20 [History] Furosemide [Lasix] 40 mg PO TID 10/06/20 [History] Gabapentin [Neurontin] 100 mg PO TID 10/06/20 [History] Lactulose 30 ml PO BID 10/06/20 [History] Pantoprazole Sodium [Protonix] 40 mg PO DAILY 10/06/20 [History] Potassium Chloride [Klor-Con 10] 40 meq PO TID 10/06/20 [History] Spironolactone [Aldactone] 100 mg PO DAILY 10/06/20 [History] oxyCODONE 5 mg PO QID PRN 10/06/20 [History] Albuterol/Ipratropium [DuoNeb 3.0-0.5 MG/3 ML] 3 ml NEB Q4H PRN #60 neb 01/14/21 [Rx] Albuterol/Ipratropium [DuoNeb 3.0-0.5 MG/3 ML] 3 ml NEB TID 10 Days #30 neb 01/14/21 [Rx] Azithromycin 250 mg PO DAILY #3 tablet 01/14/21 [Rx] Budesonide [Pulmicort] 0.5 mg NEB BIDRT #60 neb 01/14/21 [Rx] Rifaximin [Xifaxan] 550 mg PO BID tablet 01/14/21 [Rx] guaiFENesin/Dextromethorphan [Mucus Rlf Dm ER 600-30 mg Tab] 1 each PO BID PRN #6 tab.er.12h 01/14/21 [Rx] metOLazone [Zaroxolyn] 2.5 mg PO DAILY@0830 #30 tablet 01/14/21 [Rx] predniSONE [Prednisone] 20 mg PO DAILY #11 tablet 01/14/21 [Rx] Past Medical History - Past Health History Medical/Surgical History: Denies Medical/Surgical History HEENT History: Reports: Other (See Below) Other HEENT History: wears corrective lenses Cardiovascular History: Reports: Heart Failure, Hypertension Respiratory History: Reports: Asthma Gastrointestinal History: Reports: Cirrhosis, GERD, GI Bleed, Other (See Below) Other Gastrointestinal History: acities, esophageal varices Genitourinary History: Reports: Chronic Renal Insuffiency, Other (See Below) Other Genitourinary History: chronic kidney disease Musculoskeletal History: Reports: None Neurological History: Reports: None Psychiatric History: Reports: Addiction Endocrine/Metabolic History: Reports: Obesity/BMI 30+ Hematologic History: Reports: Anemia Immunologic History: Reports: None Oncologic (Cancer) History: Reports: None Dermatologic History: Reports: Cellulitis, Psoriasis - Infectious Disease History Infectious Disease History: Reports: None - Past Surgical History Head Surgeries/Procedures: Reports: None Cardiovascular Surgical History: Reports: Other (See Below) Other Cardiovascular Surgeries/Procedures: chronic edema with leg ulcers GI Surgical History: Reports: EGD, Other (See Below) Other GI Surgeries/Procedures: bands placed on varices Social & Family History - Family History Family Medical History: No Pertinent Family History - Tobacco Use Tobacco Use Status *Q: Former Tobacco User Years of Tobacco use: 22 Packs/Tins Daily: 1 Used Tobacco, but Quit: Yes Month/Year Tobacco Last Used: november Second Hand Smoke Exposure: No - Caffeine Use Caffeine Use: Reports: Soda - Recreational Drug Use Recreational Drug Use: No - Living Situation & Occupation Living situation: Reports: with Family ED ROS GENERAL - Review of Systems Review Of Systems: Comprehensive ROS is negative, except as noted in HPI. ED EXAM, GENERAL - Physical Exam Exam: See Below Exam Limited By: No Limitations General Appearance: Alert, WD/WN, Moderate Distress Eye Exam: Bilateral Eye: EOMI, Normal Inspection, PERRL Ears: Normal External Exam, Normal Canal, Hearing Grossly Normal, Normal TMs Nose: Normal Inspection, Normal Mucosa, No Blood Throat/Mouth: Normal Inspection, Normal Lips, Normal Teeth, Normal Gums, Normal Oropharynx, Normal Voice, No Airway Compromise Head: Atraumatic, Normocephalic Neck: Normal Inspection, Supple, Non-Tender, Full Range of Motion Respiratory/Chest: Decreased Breath Sounds, Rhonchi (diffuse) Cardiovascular: No Gallop, No JVD, No Murmur, No Rub, Tachycardia GI/Abdominal: Distended, Abnormal Bowel Sounds (Muffled) (Male) Exam: Deferred Rectal (Males) Exam: Deferred Back Exam: Normal Inspection, Full Range of Motion, NT Extremities: Pedal Edema Neurological: Alert, Oriented, CN II-XII Intact Psychiatric: Normal Affect, Normal Mood Lymphatic: No Adenopathy Course - Vital Signs Last Recorded V/S: Last Vital Signs Temp 36.9 C 01/31/21 18:35 Pulse 114 H 01/31/21 18:35 Resp 24 H 01/31/21 18:35 BP 159/81 H 01/31/21 18:35 Pulse Ox 100 01/31/21 18:35 - Orders/Labs/Meds Orders: Active Orders 24 hr Category Date Time Status CULTURE BLOOD [] Stat Lab 01/31/21 19:06 Ordered Labs: Laboratory Tests 01/31/21 01/31/21 01/31/21 Range/Units 19:25 19:25 19:25 WBC 5.2 (5.0-10.0) 10^3/uL RBC 3.10 L (4.6-6.2) 10^6/uL Hgb 8.4 L (14.0-18.0) g/dL Hct 26.9 L (40.0-54.0) % MCV 86.8 D (80-100) fL MCH 27.1 (27.0-34.0) pg MCHC 31.2 L (33.0-35.0) g/dL Plt Count 38 L* (150-450) 10^3/uL Neut % (Auto) 82.7 H (42.2-75.2) % Lymph % (Auto) 7.4 L (20.5-50.1) % [place] % (Auto) 8.5 H (2-8) % Eos % (Auto) 0.8 L (1.0-3.0) % Baso % (Auto) 0.6 (0.0-1.0) % Sodium 139 (136-145) mmol/L Potassium 3.4 L (3.5-5.1) mmol/L Chloride 101 (98-107) mmol/L Carbon Dioxide 25 (21-32) mmol/L Anion Gap 16.4 H (7-13) mEq/L BUN 11 (7-18) mg/dL Creatinine 1.28 (0.70-1.30) mg/dL Est Cr Clr Drug Dosing 70.29 mL/min Estimated GFR (MDRD) > 60 BUN/Creatinine Ratio 8.6 (No establ ref range) Glucose 127 H (74-99) mg/dL Lactic Acid (0.4-2.0) mmol/L Calcium 7.7 L (8.5-10.1) mg/dL Total Bilirubin 6.0 H (0.2-1.0) mg/dL AST 52 H (15-37) U/L ALT 45 (16-63) U/L Alkaline Phosphatase 180 H (46-116) U/L B-Natriuretic Peptide 33 (0-100) pg/ml Total Protein 7.3 (6.4-8.2) g/dL Albumin 2.2 L (3.4-5.0) g/dL Globulin 5.1 Albumin/Globulin Ratio 0.43 Urine Color (YELLOW) Urine Appearance (CLEAR) Urine pH (5.0-9.0) Ur Specific [place] (1.005-1.030) Urine Protein (NEGATIVE) Urine Glucose (UA) (NEGATIVE) Urine Ketones (NEGATIVE) Urine Occult Blood (NEGATIVE) Urine Nitrite (NEGATIVE) Urine Bilirubin (NEGATIVE) Urine Urobilinogen (0.2-1.0) mg/dL Ur Leukocyte Esterase (NEGATIVE) Urine RBC /HPF Urine WBC (0-5/HPF) /HPF Ur Epithelial Cells (NOT SEEN) /HPF Urine Bacteria (0-FEW/HPF) /HPF Urine Mucus (NOT SEEN) /LPF Salicylates < 2.8 L (2.8-20(Therapeutic)) mg/dL Urine Opiates Screen (NEGATIVE) Ur Oxycodone Screen (NEGATIVE) Urine Methadone Screen (NEGATIVE) Acetaminophen 0 L (10-30 (Therapeutic)) ug/mL Ur Barbiturates Screen (NEGATIVE) U Tricyclic Antidepress (NEGATIVE) Ur Phencyclidine Scrn (NEGATIVE) Ur Amphetamine Screen (NEGATIVE) U Methamphetamines Scrn (NEGATIVE) Urine MDMA Screen (NEGATIVE) U Benzodiazepines Scrn (NEGATIVE) Urine Cocaine Screen (NEGATIVE) U Marijuana (THC) Screen (NEGATIVE) Ethyl Alcohol 3 (0) mg/dL 01/31/21 01/31/21 01/31/21 Range/Units 19:25 20:59 20:59 WBC (5.0-10.0) 10^3/uL RBC (4.6-6.2) 10^6/uL Hgb (14.0-18.0) g/dL Hct (40.0-54.0) % MCV (80-100) fL MCH (27.0-34.0) pg MCHC (33.0-35.0) g/dL Plt Count (150-450) 10^3/uL Neut % (Auto) (42.2-75.2) % Lymph % (Auto) (20.5-50.1) % [place] % (Auto) (2-8) % Eos % (Auto) (1.0-3.0) % Baso % (Auto) (0.0-1.0) % Sodium (136-145) mmol/L Potassium (3.5-5.1) mmol/L Chloride (98-107) mmol/L Carbon Dioxide (21-32) mmol/L Anion Gap (7-13) mEq/L BUN (7-18) mg/dL Creatinine (0.70-1.30) mg/dL Est Cr Clr Drug Dosing mL/min Estimated GFR (MDRD) BUN/Creatinine Ratio (No establ ref range) Glucose (74-99) mg/dL Lactic Acid 3.7 H* (0.4-2.0) mmol/L Calcium (8.5-10.1) mg/dL Total Bilirubin (0.2-1.0) mg/dL AST (15-37) U/L ALT (16-63) U/L Alkaline Phosphatase (46-116) U/L B-Natriuretic Peptide (0-100) pg/ml Total Protein (6.4-8.2) g/dL Albumin (3.4-5.0) g/dL Globulin Albumin/Globulin Ratio Urine Color [place] (YELLOW) Urine Appearance Slightly cloudy (CLEAR) Urine pH 6.0 (5.0-9.0) Ur Specific [place] >= 1.030 (1.005-1.030) Urine Protein Negative (NEGATIVE) Urine Glucose (UA) Negative (NEGATIVE) Urine Ketones Negative (NEGATIVE) Urine Occult Blood Trace-intact H (NEGATIVE) Urine Nitrite Negative (NEGATIVE) Urine Bilirubin Small H (NEGATIVE) Urine Urobilinogen 1.0 (0.2-1.0) mg/dL Ur Leukocyte Esterase Negative (NEGATIVE) Urine RBC 5-10 H /HPF Urine WBC 5-10 H (0-5/HPF) /HPF Ur Epithelial Cells Moderate H (NOT SEEN) /HPF Urine Bacteria Moderate H (0-FEW/HPF) /HPF Urine Mucus Moderate H (NOT SEEN) /LPF Salicylates (2.8-20(Therapeutic)) mg/dL Urine Opiates Screen Negative (NEGATIVE) Ur Oxycodone Screen Positive H (NEGATIVE) Urine Methadone Screen Negative (NEGATIVE) Acetaminophen (10-30 (Therapeutic)) ug/mL Ur Barbiturates Screen Negative (NEGATIVE) U Tricyclic Antidepress Positive H (NEGATIVE) Ur Phencyclidine Scrn Negative (NEGATIVE) Ur Amphetamine Screen Negative (NEGATIVE) U Methamphetamines Scrn Negative (NEGATIVE) Urine MDMA Screen Negative (NEGATIVE) U Benzodiazepines Scrn Negative (NEGATIVE) Urine Cocaine Screen Negative (NEGATIVE) U Marijuana (THC) Screen Negative (NEGATIVE) Ethyl Alcohol (0) mg/dL Meds: Medications Discontinued Medications Generic Name Dose Route Start Last Admin Trade Name Freq PRN Reason Stop Dose Admin Furosemide 40 mg 01/31/21 21:37 Lasix IVPUSH 01/31/21 21:38 NOW ONE Iopamidol 100 ml 01/31/21 20:16 01/31/21 20:35 Isovue-300 (61%) IVPUSH 01/31/21 20:17 100 ml ONETIME ONE Administration Departure - Departure Time of Disposition: 21:39 Disposition: DC/Tfer to Acute Hospital 02 Condition: Poor Clinical Impression: Ascites Qualifiers: Ascites type: due to alcoholic cirrhosis Qualified Code(s): K70.31 - Alcoholic cirrhosis of liver with ascites Alcoholic cirrhosis of liver Qualifiers: Ascites presence: unspecified Qualified Code(s): K70.30 - Alcoholic cirrhosis of liver without ascites - Discharge Information *PRESCRIPTION DRUG MONITORING PROGRAM REVIEWED*: Not Applicable *COPY OF PRESCRIPTION DRUG MONITORING REPORT IN PATIENT NARCISA: Not Applicable Forms: Interfacility Transfer EMTALA Care Plan Goals: Discussed the patient's history, examination, lab and CT results with Dr. Gonzalez. Dr. Gonzalez accepted the patient for continued evaluation and management as an inpatient at [facility] in [place]. The patient will be transported by [facility]. Sepsis Event Note (ED) - Evaluation Sepsis Screening Result: No Definite Risk - Focused Exam Vital Signs: Vital Signs Temp Pulse Resp BP Pulse Ox 01/31/21 18:35 36.9 C 114 H 24 H 159/81 H 100 - My Orders Last 24 Hours: My Active Orders 01/31/21 19:06 CULTURE BLOOD [BC] Stat - Assessment/Plan Last 24 Hours: My Active Orders 01/31/21 19:06 CULTURE BLOOD [BC] Stat
[2021-01-31 20:01] LABS: ANION GAP 16.4 mEq/L (7-13); CHLORIDE,CL 101 mmol/L (98-107); SODIUM,NA 139 mmol/L (136-145)
[2021-01-31 20:02] LABS: ACETAMINOPHEN 0 ug/mL (10-30 (Therapeutic))
[2021-01-31] MEDS ORDERED: Iopamidol 612 MG/ML 100 ML Bottle IVPUSH ONE (20:16)
--- NOTE | 2021-01-31 21:16 | CT ---
PROCEDURE INFORMATION: Exam: CT Abdomen And Pelvis With Contrast Exam date and time: 01/31/2021 8:50 PM Age: 40 years old Clinical indication: Other: HX of liver failure and acites; Additional info: Abdominal distention TECHNIQUE: Imaging protocol: Computed tomography of the abdomen and pelvis with contrast. Radiation optimization: All CT scans at this facility use at least one of these dose optimization techniques: automated exposure control; mA and/or kV adjustment per patient size (includes targeted exams where dose is matched to clinical indication); or iterative reconstruction. Contrast material: [id number]; Contrast volume: 100 ml; Contrast route: INTRAVENOUS (IV); COMPARISON: CT Chest Abdomen Pelvis w Cont 01/19/2021 3:49 AM FINDINGS: Mediastinal space: Multiple distal esophageal varices. Liver: Findings of cirrhosis with a nodular peripheral hepatic contour and widening of the intrahepatic fissures. Gallbladder and bile ducts: Normal. No calcified stones. No ductal dilation. Pancreas: Normal. No ductal dilation. Spleen: Splenomegaly. Adrenal glands: Normal. No mass. Kidneys and ureters: Normal. No hydronephrosis. Stomach and bowel: Unremarkable. No obstruction. No mucosal thickening. Appendix: No evidence of appendicitis. Intraperitoneal space: Moderate amount of ascites. Left inguinal hernia containing ascites. Vasculature: Unremarkable. No abdominal aortic aneurysm. Lymph nodes: Mildly enlarged inguinal lymph nodes bilaterally. Urinary bladder: Unremarkable as visualized. Reproductive: Unremarkable as visualized. Bones/joints: Unremarkable. No acute fracture. Soft tissues: Moderate anasarca has progressed. Recanalization of the umbilical vein with multiple anterior abdominal wall varices which extend into the umbilicus. IMPRESSION: 1. Since 01/19/2021, there has been increased anasarca in the subcutaneous tissues which appears to be causing increasing abdominal distension. 2. Cirrhosis, ascites, portal hypertension with splenomegaly and distal esophageal and anterior abdominal wall varices.
[2021-01-31] MEDS ORDERED: Furosemide 40 MG/4 ML VIAL IVPUSH ONE (21:37)
== END 2021-01-31 22:00 ==
LOC: DL.ED 18:28
DX: K70.31 Alcoholic cirrhosis of liver with ascites (principal); I13.0 Hypertensive heart and chronic kidney disease with heart failure and stage 1 through stage 4 chronic kidney disease, or unspecified chronic kidney disease; I50.9 Heart failure, unspecified; J45.909 Unspecified asthma, uncomplicated; K21.9 Gastro-esophageal reflux disease without esophagitis; N18.9 Chronic kidney disease, unspecified; E66.9 Obesity, unspecified; Z68.42 Body mass index [BMI] 45.0-49.9, adult; Z88.6 Allergy status to analgesic agent; Z88.1 Allergy status to other antibiotic agents; Z79.899 Other long term (current) drug therapy; Z87.891 Personal history of nicotine dependence
CPT/HCPCS: 36415; 74177; 80053; 80143; 80179; 80305; 80307; 81001; 83605; 83880; 85025; 87040; 96374; 99285; J1940; Q9967; 99284

== ENCOUNTER 2021-02-04 21:19 | Emergency (ER) | payer MEDICARE, OTHER ==
--- NOTE | 2021-02-04 21:35 | EDM.PDOC ---
ED HPI GENERAL MEDICAL PROBLEM - General Chief Complaint: Cardiovascular Problem Stated Complaint: SWOLLEN LEGS CANT BREATH Time Seen by Provider: 02/04/21 21:35 Source of Information: Reports: Patient History Limitations: Reports: No Limitations - History of Present Illness INITIAL COMMENTS - FREE TEXT/NARRATIVE: ED with c/o bloating and SOB, D/C from [facility] yesterday, thinks started swelling and fluid in abdomen started last benny. Tried Neb but doesn't help. Abdomen tapped 2-3 days prior. Abdomen red but doesn't think changed in past couple days. No fever or chills. Occasional cough. Tried to get in to clinic today but unable. No nausea or vomiting. More difficult to lie flat. - Related Data Allergies Allergy/AdvReac Type Severity Reaction Status Date / Time aspirin Allergy Cannot Verified 01/31/21 18:41 Remember cephalexin Allergy Rash Verified 01/31/21 18:41 clindamycin Allergy Cannot Verified 01/31/21 18:41 Remember Home Meds: Home Meds Cyclobenzaprine [Flexeril] 10 mg PO TID PRN 10/06/20 [History] Furosemide [Lasix] 40 mg PO TID 10/06/20 [History] Gabapentin [Neurontin] 100 mg PO TID 10/06/20 [History] Lactulose 30 ml PO BID 10/06/20 [History] Pantoprazole Sodium [Protonix] 40 mg PO DAILY 10/06/20 [History] Potassium Chloride [Klor-Con 10] 40 meq PO TID 10/06/20 [History] Spironolactone [Aldactone] 100 mg PO DAILY 10/06/20 [History] oxyCODONE 5 mg PO QID PRN 10/06/20 [History] Albuterol/Ipratropium [DuoNeb 3.0-0.5 MG/3 ML] 3 ml NEB Q4H PRN #60 neb 01/14/21 [Rx] Albuterol/Ipratropium [DuoNeb 3.0-0.5 MG/3 ML] 3 ml NEB TID 10 Days #30 neb 01/14/21 [Rx] Azithromycin 250 mg PO DAILY #3 tablet 01/14/21 [Rx] Budesonide [Pulmicort] 0.5 mg NEB BIDRT #60 neb 01/14/21 [Rx] Rifaximin [Xifaxan] 550 mg PO BID tablet 01/14/21 [Rx] guaiFENesin/Dextromethorphan [Mucus Rlf Dm ER 600-30 mg Tab] 1 each PO BID PRN #6 tab.er.12h 01/14/21 [Rx] metOLazone [Zaroxolyn] 2.5 mg PO DAILY@0830 #30 tablet 01/14/21 [Rx] predniSONE [Prednisone] 20 mg PO DAILY #11 tablet 01/14/21 [Rx] Past Medical History - Past Health History Medical/Surgical History: Denies Medical/Surgical History HEENT History: Reports: Other (See Below) Other HEENT History: wears corrective lenses Cardiovascular History: Reports: Heart Failure, Hypertension Respiratory History: Reports: Asthma Gastrointestinal History: Reports: Cirrhosis, GERD, GI Bleed, Other (See Below) Other Gastrointestinal History: acities, esophageal varices Genitourinary History: Reports: Chronic Renal Insuffiency, Other (See Below) Other Genitourinary History: chronic kidney disease Musculoskeletal History: Reports: None Neurological History: Reports: None Psychiatric History: Reports: Addiction Endocrine/Metabolic History: Reports: Obesity/BMI 30+ Hematologic History: Reports: Anemia Immunologic History: Reports: None Oncologic (Cancer) History: Reports: None Dermatologic History: Reports: Cellulitis, Psoriasis - Infectious Disease History Infectious Disease History: Reports: None - Past Surgical History Head Surgeries/Procedures: Reports: None Cardiovascular Surgical History: Reports: Other (See Below) Other Cardiovascular Surgeries/Procedures: chronic edema with leg ulcers GI Surgical History: Reports: EGD, Other (See Below) Other GI Surgeries/Procedures: bands placed on varices Social & Family History - Family History Family Medical History: No Pertinent Family History - Caffeine Use Caffeine Use: Reports: Soda - Living Situation & Occupation Living situation: Reports: with Family ED ROS GENERAL - Review of Systems Review Of Systems: Comprehensive ROS is negative, except as noted in HPI. ED EXAM, GENERAL - Physical Exam Exam: See Below Exam Limited By: No Limitations General Appearance: Alert, Mild Distress, Obese Eye Exam: Bilateral Eye: PERRL, Other (icterus) Ears: Normal External Exam, Hearing Grossly Normal Nose: Normal Inspection Throat/Mouth: Normal Inspection Head: Atraumatic, Normocephalic Neck: Normal Inspection Respiratory/Chest: Decreased Breath Sounds, Crackles (bases) Cardiovascular: Normal Peripheral Pulses, Regular Rate, Rhythm GI/Abdominal: Normal Bowel Sounds, Distended, Tender, Other (panus red, indurated) Back Exam: Normal Inspection Extremities: Pedal Edema (3+) Neurological: Alert, Oriented, Normal Cognition Psychiatric: Normal Affect, Normal Mood Skin Exam: Warm, Dry, Erythema (abdomiinal panus), Jaundice #1 Interpretation EKG Date: 02/04/21 Time: 21:28 Rhythm: NSR Rate (Beats/Min): 86 [place]: Normal P-Wave: Present QRS: Normal ST-T: Normal Comparison: NA - No Prior EKG Course - Vital Signs Last Recorded V/S: Last Vital Signs Temp 98.1 F 02/04/21 21:35 Pulse 87 02/04/21 21:35 Resp 16 02/04/21 21:35 BP 117/64 02/04/21 21:35 Pulse Ox 98 02/04/21 21:35 - Orders/Labs/Meds Orders: Active Orders 24 hr Category Date Time Status CULTURE BLOOD [BC] Stat Lab 02/04/21 21:31 Received CULTURE BLOOD [BC] Stat Lab 02/04/21 22:29 Received Blood Culture x2 Reflex Set [OM.PC] Stat Oth 02/04/21 21:36 Ordered Labs: Laboratory Tests 02/04/21 02/04/21 02/04/21 Range/Units 21:31 21:31 21:31 WBC 3.5 L (5.0-10.0) 10^3/uL RBC 3.20 L (4.6-6.2) 10^6/uL Hgb 8.7 L (14.0-18.0) g/dL Hct 27.6 L (40.0-54.0) % MCV 86.3 (80-100) fL MCH 27.2 (27.0-34.0) pg MCHC 31.5 L (33.0-35.0) g/dL Plt Count 51 L (150-450) 10^3/uL Neut % (Auto) 59.2 (42.2-75.2) % Lymph % (Auto) 20.3 L (20.5-50.1) % [place] % (Auto) 14.8 H (2-8) % Eos % (Auto) 4.3 H (1.0-3.0) % Baso % (Auto) 1.4 H (0.0-1.0) % PT 15.0 H (9.0-12.0) SEC INR 1.6 H (0.9-1.2) Sodium 141 (136-145) mmol/L Potassium 3.0 L (3.5-5.1) mmol/L Chloride 103 (98-107) mmol/L Carbon Dioxide 30 (21-32) mmol/L Anion Gap 11.0 (7-13) mEq/L BUN 13 (7-18) mg/dL Creatinine 1.16 (0.70-1.30) mg/dL Est Cr Clr Drug Dosing TNP Estimated GFR (MDRD) > 60 BUN/Creatinine Ratio 11.2 (No establ ref range) Glucose 122 H (74-99) mg/dL Lactic Acid (0.4-2.0) mmol/L Calcium 8.4 L (8.5-10.1) mg/dL Total Bilirubin 4.1 H (0.2-1.0) mg/dL AST 40 H (15-37) U/L ALT 35 (16-63) U/L Alkaline Phosphatase 210 H (46-116) U/L Ammonia (11-32) umol/L Troponin I 0.044 (0.000-0.056) ng/mL B-Natriuretic Peptide 424 H (0-100) pg/ml Total Protein 6.8 (6.4-8.2) g/dL Albumin 2.0 L (3.4-5.0) g/dL Globulin 4.8 Albumin/Globulin Ratio 0.42 Amylase 34 (25-115) U/L Lipase 104 (73-393) U/L SARS CoV-2 RNA Rapid CYNTHIA (NEGATIVE) 02/04/21 02/04/21 02/04/21 Range/Units 21:31 21:31 23:14 WBC (5.0-10.0) 10^3/uL RBC (4.6-6.2) 10^6/uL Hgb (14.0-18.0) g/dL Hct (40.0-54.0) % MCV (80-100) fL MCH (27.0-34.0) pg MCHC (33.0-35.0) g/dL Plt Count (150-450) 10^3/uL Neut % (Auto) (42.2-75.2) % Lymph % (Auto) (20.5-50.1) % [place] % (Auto) (2-8) % Eos % (Auto) (1.0-3.0) % Baso % (Auto) (0.0-1.0) % PT (9.0-12.0) SEC INR (0.9-1.2) Sodium (136-145) mmol/L Potassium (3.5-5.1) mmol/L Chloride (98-107) mmol/L Carbon Dioxide (21-32) mmol/L Anion Gap (7-13) mEq/L BUN (7-18) mg/dL Creatinine (0.70-1.30) mg/dL Est Cr Clr Drug Dosing Estimated GFR (MDRD) BUN/Creatinine Ratio (No establ ref range) Glucose (74-99) mg/dL Lactic Acid 1.3 (0.4-2.0) mmol/L Calcium (8.5-10.1) mg/dL Total Bilirubin (0.2-1.0) mg/dL AST (15-37) U/L ALT (16-63) U/L Alkaline Phosphatase (46-116) U/L Ammonia 140 H (11-32) umol/L Troponin I (0.000-0.056) ng/mL B-Natriuretic Peptide (0-100) pg/ml Total Protein (6.4-8.2) g/dL Albumin (3.4-5.0) g/dL Globulin Albumin/Globulin Ratio Amylase (25-115) U/L Lipase (73-393) U/L SARS CoV-2 RNA Rapid CYNTHIA Negative (NEGATIVE) Meds: Medications Discontinued Medications Generic Name Dose Route Start Last Admin Trade Name Freq PRN Reason Stop Dose Admin Potassium Chloride 10 meq 02/04/21 23:07 02/04/21 23:11 Klor-Con 10 PO 02/04/21 23:08 10 meq ONETIME ONE Administration Departure - Departure Time of Disposition: 23:30 Disposition: DC/Tfer to [facility] 02 Reason for Transfer *Q: Other Condition: Fair Clinical Impression: Cirrhosis Qualifiers: Hepatic cirrhosis type: unspecified biliary cirrhosis Qualified Code(s): K74.5 - Biliary cirrhosis, unspecified Abdominal ascites Qualifiers: Ascites type: due to alcoholic cirrhosis Qualified Code(s): K70.31 - Alcoholic cirrhosis of liver with ascites Dyspnea Qualifiers: Dyspnea type: shortness of breath Qualified Code(s): R06.02 - Shortness of breath Anemia Qualifiers: Anemia type: unspecified type Qualified Code(s): D64.9 - Anemia, unspecified Referrals: PCP,Unobtain [Primary Care Provider] - Forms: ED Department Discharge Sepsis Event Note (ED) - Focused Exam Vital Signs: Vital Signs Temp Pulse Resp BP Pulse Ox 02/04/21 21:35 98.1 F 87 16 117/64 98 - My Orders Last 24 Hours: My Active Orders 02/04/21 21:31 CULTURE BLOOD [BC] Stat 02/04/21 21:36 Blood Culture x2 Reflex Set [OM.PC] Stat 02/04/21 22:29 CULTURE BLOOD [BC] Stat - Assessment/Plan Last 24 Hours: My Active Orders 02/04/21 21:31 CULTURE BLOOD [BC] Stat 02/04/21 21:36 Blood Culture x2 Reflex Set [OM.PC] Stat 02/04/21 22:29 CULTURE BLOOD [BC] Stat
[2021-02-04 21:46] VITALS: BP 117/64; PULSE 87
--- NOTE | 2021-02-04 21:54 | CR ---
PROCEDURE INFORMATION: Exam: XR Chest Exam date and time: 02/04/2021 9:33 PM Age: 40 years old Clinical indication: Chest pain; Additional info: SOB TECHNIQUE: Imaging protocol: XR of the chest Views: 1 view. Total images: 1 COMPARISON: CT Chest Abdomen Pelvis w Cont 01/19/2021 3:49 AM FINDINGS: Lungs: Unremarkable. No consolidation. Pleural spaces: Unremarkable. No pleural effusion. No pneumothorax. Heart/Mediastinum: Heart size upper limits of normal. Bones/joints: Unremarkable. IMPRESSION: No acute cardiopulmonary disease.
[2021-02-04 22:04] LABS: CHLORIDE,CL 103 mmol/L (98-107); SODIUM,NA 141 mmol/L (136-145)
[2021-02-04] MEDS ORDERED: Potassium Chloride 10 MEQ Tab.ER PO ONE (23:07)
== END 2021-02-04 23:29 ==
LOC: DL.ED 21:19
DX: K74.5 Biliary cirrhosis, unspecified (principal); I13.0 Hypertensive heart and chronic kidney disease with heart failure and stage 1 through stage 4 chronic kidney disease, or unspecified chronic kidney disease; N18.9 Chronic kidney disease, unspecified; I50.9 Heart failure, unspecified; D63.1 Anemia in chronic kidney disease; R06.02 Shortness of breath; J45.909 Unspecified asthma, uncomplicated; K21.9 Gastro-esophageal reflux disease without esophagitis; E66.9 Obesity, unspecified; Z88.8 Allergy status to other drugs, medicaments and biological substances; Z88.1 Allergy status to other antibiotic agents; Z79.899 Other long term (current) drug therapy; Z20.822 Contact with and (suspected) exposure to COVID-19
CPT/HCPCS: 36415; 71045; 80053; 82140; 82150; 83605; 83690; 83880; 84484; 85025; 85610; 87040; 93005; 99285; A9270; U0002; 99283

== ENCOUNTER 2021-03-04 21:51 | Emergency (ER) | payer MEDICARE, OTHER ==
[2021-03-04 23:36] VITALS: BP 121/61; PULSE 84
--- NOTE | 2021-03-05 00:05 | EDM.PDOC ---
ED HPI GENERAL MEDICAL PROBLEM - General Chief Complaint: Abdominal Pain Stated Complaint: SEVERE STOMACH PAIN AND THROAT Time Seen by Provider: 03/05/21 00:01 Source of Information: Reports: Patient, Old Records, RN, RN Notes Reviewed History Limitations: Reports: No Limitations - History of Present Illness INITIAL COMMENTS - FREE TEXT/NARRATIVE: Patient presents to the ED via personal vehicle with complaints of abdominal pain and shortness of breath. The patient reports a history of alcoholic cirrhosis with ascites and varices. He states he requires frequent paracentesis and was previously scheduled to undergo a tap on 03/07/21, but feels his abdominal pain and dyspnea have progressed too far. He denies recent illness, fever, shaking chills, chest pain, palpitations, dyspepsia, nausea, vomiting, hematemesis, diarrhea, melena, hematochezia, dysuria, or hematuria. The patient does report he has been scheduled to meet with gastroenterology/hepatology at [facility] in [place] on 03/07/21 to discuss hepatic transplant. The patient denies recent alcohol, tobacco, or recreational drug use. Abdomen Pain Score (Numeric/FACES): 8 - Related Data Allergies Allergy/AdvReac Type Severity Reaction Status Date / Time aspirin Allergy Cannot Verified 03/04/21 23:36 Remember cephalexin Allergy Rash Verified 03/04/21 23:36 clindamycin Allergy Cannot Verified 03/04/21 23:36 Remember Home Meds: Home Meds Cyclobenzaprine [Flexeril] 10 mg PO TID PRN 10/06/20 [History] Furosemide [Lasix] 40 mg PO TID 10/06/20 [History] Gabapentin [Neurontin] 100 mg PO TID 10/06/20 [History] Lactulose 30 ml PO BID 10/06/20 [History] Pantoprazole Sodium [Protonix] 40 mg PO DAILY 10/06/20 [History] Potassium Chloride [Klor-Con 10] 40 meq PO TID 10/06/20 [History] Spironolactone [Aldactone] 100 mg PO DAILY 10/06/20 [History] oxyCODONE 5 mg PO QID PRN 10/06/20 [History] Albuterol/Ipratropium [DuoNeb 3.0-0.5 MG/3 ML] 3 ml NEB Q4H PRN #60 neb 01/14/21 [Rx] Albuterol/Ipratropium [DuoNeb 3.0-0.5 MG/3 ML] 3 ml NEB TID 10 Days #30 neb 01/14/21 [Rx] Azithromycin 250 mg PO DAILY #3 tablet 01/14/21 [Rx] Budesonide [Pulmicort] 0.5 mg NEB BIDRT #60 neb 01/14/21 [Rx] Rifaximin [Xifaxan] 550 mg PO BID tablet 01/14/21 [Rx] guaiFENesin/Dextromethorphan [Mucus Rlf Dm ER 600-30 mg Tab] 1 each PO BID PRN #6 tab.er.12h 01/14/21 [Rx] metOLazone [Zaroxolyn] 2.5 mg PO DAILY@0830 #30 tablet 01/14/21 [Rx] predniSONE [Prednisone] 20 mg PO DAILY #11 tablet 01/14/21 [Rx] Past Medical History - Past Health History Medical/Surgical History: Denies Medical/Surgical History HEENT History: Reports: Other (See Below) Other HEENT History: wears corrective lenses Cardiovascular History: Reports: Heart Failure, Hypertension Respiratory History: Reports: Asthma Gastrointestinal History: Reports: Cirrhosis, GERD, GI Bleed, Other (See Below) Other Gastrointestinal History: acities, esophageal varices Genitourinary History: Reports: Chronic Renal Insuffiency, Other (See Below) Other Genitourinary History: chronic kidney disease Musculoskeletal History: Reports: None Neurological History: Reports: None Psychiatric History: Reports: Addiction Endocrine/Metabolic History: Reports: Obesity/BMI 30+ Hematologic History: Reports: Anemia Immunologic History: Reports: None Oncologic (Cancer) History: Reports: None Dermatologic History: Reports: Cellulitis, Psoriasis - Infectious Disease History Infectious Disease History: Reports: None - Past Surgical History Head Surgeries/Procedures: Reports: None Cardiovascular Surgical History: Reports: Other (See Below) Other Cardiovascular Surgeries/Procedures: chronic edema with leg ulcers GI Surgical History: Reports: EGD, Other (See Below) Other GI Surgeries/Procedures: bands placed on varices Social & Family History - Family History Family Medical History: No Pertinent Family History - Tobacco Use Tobacco Use Status *Q: Never Tobacco User Second Hand Smoke Exposure: No - Caffeine Use Caffeine Use: Reports: None - Recreational Drug Use Recreational Drug Use: No - Living Situation & Occupation Living situation: Reports: with Family ED ROS GENERAL - Review of Systems Review Of Systems: Comprehensive ROS is negative, except as noted in HPI. ED EXAM, GI/ABD - Physical Exam Exam: See Below Exam Limited By: No Limitations General Appearance: Alert, No Apparent Distress, Obese Eyes: Bilateral: EOMI (Scleral icterus) Nose: Normal Inspection, Normal Mucosa, No Blood Throat/Mouth: Normal Voice, No Airway Compromise. No: Normal Oropharynx (Dry mucous membranes) Head: Atraumatic, Normocephalic Neck: Normal Inspection, Supple, Non-Tender, Full Range of Motion Respiratory/Chest: No Respiratory Distress, No Accessory Muscle Use, Chest Non- Tender, Crackles (To bilateral lower bases). No: Rales, Rhonchi, Wheezing Cardiovascular: Normal Peripheral Pulses, Regular Rate, Rhythm, No Gallop, No JVD, No Murmur, No Rub GI/Abdominal Exam: No Abnormal Bruit, No Mass, Pelvis Stable, Distended, Tender (Diffuse to all quadrants). No: Abnormal Bowel Sounds (Hypoactive bowel sounds) (Male) Exam: Deferred Rectal (Males) Exam: Deferred Back Exam: Normal Inspection, Decreased Range of Motion. No: CVA Tenderness (L), CVA Tenderness (R) Extremities: Normal Range of Motion, Normal Capillary Refill, Pedal Edema (+3 pitting, bilaterally). No: Increased Warmth, Mottled, Pallor, Redness Neurological: Alert, Oriented, CN II-XII Intact, Normal Cognition, Normal Gait, No Motor/Sensory Deficits Psychiatric: Normal Mood Skin Exam: Warm, Dry, Intact, Normal Color, No Rash. No: Ecchymosis, Erythema, Jaundice, Mottled, Pallor, Petechiae #1 Interpretation EKG Date: 03/04/21 Time: 23:47 Rhythm: NSR Rate (Beats/Min): 75 [place]: Normal P-Wave: Present QRS: Normal ST-T: Normal QT: Normal TN/PQ Interval: 0.153 Comparison: No Change EKG Interpretation Comments: NSR; No evidence of acute myocardial ischemia Course - Vital Signs Last Recorded V/S: Last Vital Signs Temp 97.9 F 03/04/21 23:29 Pulse 84 03/04/21 23:29 Resp 18 03/04/21 23:29 BP 121/61 03/04/21 23:29 Pulse Ox 98 03/04/21 23:29 - Orders/Labs/Meds Labs: Laboratory Tests 03/04/21 03/04/21 03/04/21 Range/Units 23:46 23:46 23:46 WBC 2.8 L (5.0-10.0) 10^3/uL RBC 3.27 L (4.6-6.2) 10^6/uL Hgb 9.2 L (14.0-18.0) g/dL Hct 29.8 L (40.0-54.0) % MCV 91.1 D (80-100) fL MCH 28.1 (27.0-34.0) pg MCHC 30.9 L (33.0-35.0) g/dL Plt Count 44 L* (150-450) 10^3/uL Neut % (Auto) 43.7 (42.2-75.2) % Lymph % (Auto) 31.4 (20.5-50.1) % [place] % (Auto) 16.2 H (2-8) % Eos % (Auto) 7.6 H (1.0-3.0) % Baso % (Auto) 1.1 H (0.0-1.0) % PT 16.7 H (9.0-12.0) SEC INR 1.7 H (0.9-1.2) APTT 42.1 H (22.0-34.0) SEC Sodium 142 (136-145) mmol/L Potassium 3.6 (3.5-5.1) mmol/L Chloride 108 H (98-107) mmol/L Carbon Dioxide 25 (21-32) mmol/L Anion Gap 12.6 (7-13) mEq/L BUN 9 (7-18) mg/dL Creatinine 1.08 (0.70-1.30) mg/dL Est Cr Clr Drug Dosing 83.31 mL/min Estimated GFR (MDRD) > 60 BUN/Creatinine Ratio 8.3 (No establ ref range) Glucose 108 H (70-99) mg/dL Lactic Acid (0.4-2.0) mmol/L Calcium 7.9 L (8.5-10.1) mg/dL Magnesium 1.8 (1.8-2.4) mg/dL Total Bilirubin 4.1 H (0.2-1.0) mg/dL AST 41 H (15-37) U/L ALT 26 (16-63) U/L Alkaline Phosphatase 191 H (46-116) U/L Ammonia (11-32) umol/L Troponin I 0.027 (0.000-0.056) ng/mL C-Reactive Protein 0.3 (0.0-0.9) mg/dL B-Natriuretic Peptide 271 H (0-100) pg/ml Total Protein 6.6 (6.4-8.2) g/dL Albumin 1.8 L (3.4-5.0) g/dL Globulin 4.8 Albumin/Globulin Ratio 0.38 Urine Color (YELLOW) Urine Appearance (CLEAR) Urine pH (5.0-9.0) Ur Specific [place] (1.005-1.030) Urine Protein (NEGATIVE) Urine Glucose (UA) (NEGATIVE) Urine Ketones (NEGATIVE) Urine Occult Blood (NEGATIVE) Urine Nitrite (NEGATIVE) Urine Bilirubin (NEGATIVE) Urine Urobilinogen (0.2-1.0) mg/dL Ur Leukocyte Esterase (NEGATIVE) Urine RBC /HPF Urine WBC (0-5/HPF) /HPF Ur Epithelial Cells (NOT SEEN) /HPF Urine Bacteria (0-FEW/HPF) /HPF Urine Mucus (NOT SEEN) /LPF SARS-CoV-2 RNA (CYNTHIA) (NEGATIVE) 03/04/21 03/04/21 03/05/21 Range/Units 23:46 23:46 02:00 WBC (5.0-10.0) 10^3/uL RBC (4.6-6.2) 10^6/uL Hgb (14.0-18.0) g/dL Hct (40.0-54.0) % MCV (80-100) fL MCH (27.0-34.0) pg MCHC (33.0-35.0) g/dL Plt Count (150-450) 10^3/uL Neut % (Auto) (42.2-75.2) % Lymph % (Auto) (20.5-50.1) % [place] % (Auto) (2-8) % Eos % (Auto) (1.0-3.0) % Baso % (Auto) (0.0-1.0) % PT (9.0-12.0) SEC INR (0.9-1.2) APTT (22.0-34.0) SEC Sodium (136-145) mmol/L Potassium (3.5-5.1) mmol/L Chloride (98-107) mmol/L Carbon Dioxide (21-32) mmol/L Anion Gap (7-13) mEq/L BUN (7-18) mg/dL Creatinine (0.70-1.30) mg/dL Est Cr Clr Drug Dosing mL/min Estimated GFR (MDRD) BUN/Creatinine Ratio (No establ ref range) Glucose (70-99) mg/dL Lactic Acid 1.1 (0.4-2.0) mmol/L Calcium (8.5-10.1) mg/dL Magnesium (1.8-2.4) mg/dL Total Bilirubin (0.2-1.0) mg/dL AST (15-37) U/L ALT (16-63) U/L Alkaline Phosphatase (46-116) U/L Ammonia 173 H (11-32) umol/L Troponin I (0.000-0.056) ng/mL C-Reactive Protein (0.0-0.9) mg/dL B-Natriuretic Peptide (0-100) pg/ml Total Protein (6.4-8.2) g/dL Albumin (3.4-5.0) g/dL Globulin Albumin/Globulin Ratio Urine Color Dark yellow (YELLOW) Urine Appearance Slightly cloudy (CLEAR) Urine pH 7.5 (5.0-9.0) Ur Specific [place] 1.025 (1.005-1.030) Urine Protein Negative (NEGATIVE) Urine Glucose (UA) Negative (NEGATIVE) Urine Ketones Negative (NEGATIVE) Urine Occult Blood Trace-intact H (NEGATIVE) Urine Nitrite Negative (NEGATIVE) Urine Bilirubin Small H (NEGATIVE) Urine Urobilinogen >=8.0 H (0.2-1.0) mg/dL Ur Leukocyte Esterase Negative (NEGATIVE) Urine RBC 5-10 H /HPF Urine WBC 0-5 (0-5/HPF) /HPF Ur Epithelial Cells Rare (NOT SEEN) /HPF Urine Bacteria Rare (0-FEW/HPF) /HPF Urine Mucus Rare (NOT SEEN) /LPF SARS-CoV-2 RNA (CYNTHIA) (NEGATIVE) 03/05/21 Range/Units 02:00 WBC (5.0-10.0) 10^3/uL RBC (4.6-6.2) 10^6/uL Hgb (14.0-18.0) g/dL Hct (40.0-54.0) % MCV (80-100) fL MCH (27.0-34.0) pg MCHC (33.0-35.0) g/dL Plt Count (150-450) 10^3/uL Neut % (Auto) (42.2-75.2) % Lymph % (Auto) (20.5-50.1) % [place] % (Auto) (2-8) % Eos % (Auto) (1.0-3.0) % Baso % (Auto) (0.0-1.0) % PT (9.0-12.0) SEC INR (0.9-1.2) APTT (22.0-34.0) SEC Sodium (136-145) mmol/L Potassium (3.5-5.1) mmol/L Chloride (98-107) mmol/L Carbon Dioxide (21-32) mmol/L Anion Gap (7-13) mEq/L BUN (7-18) mg/dL Creatinine (0.70-1.30) mg/dL Est Cr Clr Drug Dosing mL/min Estimated GFR (MDRD) BUN/Creatinine Ratio (No establ ref range) Glucose (70-99) mg/dL Lactic Acid (0.4-2.0) mmol/L Calcium (8.5-10.1) mg/dL Magnesium (1.8-2.4) mg/dL Total Bilirubin (0.2-1.0) mg/dL AST (15-37) U/L ALT (16-63) U/L Alkaline Phosphatase (46-116) U/L Ammonia (11-32) umol/L Troponin I (0.000-0.056) ng/mL C-Reactive Protein (0.0-0.9) mg/dL B-Natriuretic Peptide (0-100) pg/ml Total Protein (6.4-8.2) g/dL Albumin (3.4-5.0) g/dL Globulin Albumin/Globulin Ratio Urine Color (YELLOW) Urine Appearance (CLEAR) Urine pH (5.0-9.0) Ur Specific [place] (1.005-1.030) Urine Protein (NEGATIVE) Urine Glucose (UA) (NEGATIVE) Urine Ketones (NEGATIVE) Urine Occult Blood (NEGATIVE) Urine Nitrite (NEGATIVE) Urine Bilirubin (NEGATIVE) Urine Urobilinogen (0.2-1.0) mg/dL Ur Leukocyte Esterase (NEGATIVE) Urine RBC /HPF Urine WBC (0-5/HPF) /HPF Ur Epithelial Cells (NOT SEEN) /HPF Urine Bacteria (0-FEW/HPF) /HPF Urine Mucus (NOT SEEN) /LPF SARS-CoV-2 RNA (CYNTHIA) Negative (NEGATIVE) - Re-Assessments/Exams Free Text/Narrative Re-Assessment/Exam: 03/05/21 CBC remarkable for Hgb 9.2 and Platelet 44; values are not out of patient's normal range. Electrolytes on CMP WNL, kidney function is appropriate, however liver functions are elevated. Total bili 4.1 Ammonia 173. Troponin WNL, BNP elevated for patient at 271. EKG revealed NSR. Findings of examination, blood work, and imaging reviewed with patient. Need for transfer for paracentesis discussed with patient who verbalized understanding and agreement with the plan of care. [facility] remains of diversion to all floors due to lack of beds. Case discussed with Dr. Davila at [facility] in [place] who kindly agreed to accept patient for transfer and inpatient admission. Plan of care reviewed with patient who verbalized understanding and agreement. Departure - Departure Time of Disposition: 05:13 Disposition: DC/Tfer to Acute Hospital 02 Condition: Good Clinical Impression: Ascites due to alcoholic cirrhosis, Peripheral edema, Elevated bilirubin, Thrombocytopenia Alcoholic cirrhosis of liver Qualifiers: Ascites presence: unspecified Qualified Code(s): K70.30 - Alcoholic cirrhosis of liver without ascites Anemia Qualifiers: Anemia type: unspecified type Qualified Code(s): D64.9 - Anemia, unspecified - Discharge Information Referrals: PCP,None [Primary Care Provider] - Forms: ED Department Discharge, Interfacility Transfer [facility] Sepsis Event Note (ED) - Evaluation Sepsis Screening Result: No Definite Risk - Focused Exam Vital Signs: Vital Signs Temp Pulse Resp BP Pulse Ox 03/04/21 23:29 97.9 F 84 18 121/61 98
[2021-03-05 00:08] LABS: PTT,PARTIAL THROMBOPLSTIN TIME 42.1 SEC (22.0-34.0)
[2021-03-05 00:13] LABS: ANION GAP 12.6 mEq/L (7-13); CHLORIDE,CL 108 mmol/L (98-107); SODIUM,NA 142 mmol/L (136-145)
--- NOTE | 2021-03-05 03:24 | CR ---
PROCEDURE INFORMATION: Exam: XR Chest Exam date and time: 03/05/2021 2:03 AM Age: 40 years old Clinical indication: Dyspnea; Patient HX: HX liver cirrhosis requiring frequent paracentesis; Additional info: Crackles to bilateral bases; Dyspnea with exertion TECHNIQUE: Imaging protocol: XR of the chest Views: 1 view. COMPARISON: CR Chest 1V Frontal 02/04/2021 9:33 PM FINDINGS: Lungs: Unremarkable. No consolidation. Pleural spaces: Unremarkable. No pleural effusion. No pneumothorax. Heart/Mediastinum: Unremarkable. No cardiomegaly. Bones/joints: Unremarkable. IMPRESSION: No acute findings.
== END 2021-03-05 05:13 ==
LOC: DL.ED 21:51
DX: K70.31 Alcoholic cirrhosis of liver with ascites (principal); R30.0 Dysuria; E80.6 Other disorders of bilirubin metabolism; D69.6 Thrombocytopenia, unspecified; J45.909 Unspecified asthma, uncomplicated; K21.9 Gastro-esophageal reflux disease without esophagitis; I13.0 Hypertensive heart and chronic kidney disease with heart failure and stage 1 through stage 4 chronic kidney disease, or unspecified chronic kidney disease; I50.9 Heart failure, unspecified; N18.9 Chronic kidney disease, unspecified; E66.9 Obesity, unspecified; Z68.41 Body mass index [BMI] 40.0-44.9, adult; Z88.6 Allergy status to analgesic agent; Z88.1 Allergy status to other antibiotic agents; Z20.822 Contact with and (suspected) exposure to COVID-19
CPT/HCPCS: 36415; 71045; 80053; 81001; 82140; 83605; 83735; 83880; 84484; 85025; 85610; 85730; 86140; 93005; 93010; 99284; 99285-25; U0002

== ENCOUNTER 2021-03-11 14:10 | Inpatient (IN) | payer MEDICARE, OTHER ==
--- NOTE | 2021-03-11 14:28 | EDM.PDOC ---
ED HPI GENERAL MEDICAL PROBLEM - General Chief Complaint: Skin Complaint Stated Complaint: LEFT LEG PAIN RED SORE THROBBING Time Seen by Provider: 03/11/21 14:27 Source of Information: Reports: Patient, Old Records, RN, RN Notes Reviewed History Limitations: Reports: No Limitations - History of Present Illness INITIAL COMMENTS - FREE TEXT/NARRATIVE: Pt to ER with redness, swelling, rash to his left upper thigh/groin area. States it started last night, feeling painful now. Pt states it feels similar to past cellulitis. Pt reports feeling subjective feverish feeling but did not measure his temperature. Pt noticed an area of redness that has been increasing in size. Pt has Hx of cellulitis, but is not aware if he has had MRSA or not. Onset: Gradual Onset Date: 03/10/21 Duration: Constant, Getting Worse Location: Reports: Lower Extremity, Left Quality: Reports: Ache, Burning Severity: Moderate Improves with: Reports: None Worsens with: Reports: None Associated Symptoms: Reports: No Other Symptoms Left Upper Thigh Pain Score (Numeric/FACES): 8 - Related Data Allergies Allergy/AdvReac Type Severity Reaction Status Date / Time aspirin Allergy Cannot Verified 03/11/21 14:28 Remember cephalexin Allergy Rash Verified 03/11/21 14:28 clindamycin Allergy Cannot Verified 03/11/21 14:28 Remember Home Meds: Home Meds Cyclobenzaprine [Flexeril] 10 mg PO TID PRN 10/06/20 [History] Furosemide [Lasix] 40 mg PO TID 10/06/20 [History] Gabapentin [Neurontin] 100 mg PO TID 10/06/20 [History] Lactulose 30 ml PO BID 10/06/20 [History] Pantoprazole Sodium [Protonix] 40 mg PO DAILY 10/06/20 [History] Potassium Chloride [Klor-Con 10] 40 meq PO TID 10/06/20 [History] Spironolactone [Aldactone] 100 mg PO DAILY 10/06/20 [History] oxyCODONE 5 mg PO QID PRN 10/06/20 [History] Albuterol/Ipratropium [DuoNeb 3.0-0.5 MG/3 ML] 3 ml NEB Q4H PRN #60 neb 01/14/21 [Rx] Albuterol/Ipratropium [DuoNeb 3.0-0.5 MG/3 ML] 3 ml NEB TID 10 Days #30 neb 01/14/21 [Rx] Budesonide [Pulmicort] 0.5 mg NEB BIDRT #60 neb 01/14/21 [Rx] Rifaximin [Xifaxan] 550 mg PO BID tablet 01/14/21 [Rx] guaiFENesin/Dextromethorphan [Mucus Rlf Dm ER 600-30 mg Tab] 1 each PO BID PRN #6 tab.er.12h 01/14/21 [Rx] metOLazone [Zaroxolyn] 2.5 mg PO DAILY@0830 #30 tablet 01/14/21 [Rx] predniSONE [Prednisone] 20 mg PO DAILY #11 tablet 01/14/21 [Rx] Past Medical History - Past Health History Medical/Surgical History: Denies Medical/Surgical History HEENT History: Reports: Other (See Below) Other HEENT History: wears corrective lenses Cardiovascular History: Reports: Heart Failure, Hypertension Respiratory History: Reports: Asthma Gastrointestinal History: Reports: Cirrhosis, GERD, GI Bleed, Other (See Below) Other Gastrointestinal History: acities, esophageal varices Genitourinary History: Reports: Chronic Renal Insuffiency, Other (See Below) Other Genitourinary History: chronic kidney disease Musculoskeletal History: Reports: None Neurological History: Reports: None Psychiatric History: Reports: Addiction Endocrine/Metabolic History: Reports: Obesity/BMI 30+ Hematologic History: Reports: Anemia Immunologic History: Reports: None Oncologic (Cancer) History: Reports: None Dermatologic History: Reports: Cellulitis, Psoriasis - Infectious Disease History Infectious Disease History: Reports: None - Past Surgical History Head Surgeries/Procedures: Reports: None Cardiovascular Surgical History: Reports: Other (See Below) Other Cardiovascular Surgeries/Procedures: chronic edema with leg ulcers GI Surgical History: Reports: EGD, Other (See Below) Other GI Surgeries/Procedures: bands placed on varices Social & Family History - Family History Family Medical History: No Pertinent Family History - Caffeine Use Caffeine Use: Reports: None - Living Situation & Occupation Living situation: Reports: with Family Review of Systems - Review of Systems Review Of Systems: Comprehensive ROS is negative, except as noted in HPI. ED EXAM, GENERAL - Physical Exam Exam: See Below Exam Limited By: No Limitations General Appearance: Alert, No Apparent Distress, Other (Chronically ill appearing) Nose: Normal Inspection Throat/Mouth: Normal Inspection, Normal Voice, No Airway Compromise Head: Atraumatic, Normocephalic Neck: Normal Inspection Respiratory/Chest: No Respiratory Distress, Lungs Clear, Normal Breath Sounds, No Accessory Muscle Use, Chest Non-Tender Cardiovascular: Regular Rate, Rhythm, Tachycardia GI/Abdominal: Normal Bowel Sounds, Soft, Non-Tender. No: Guarding, Rigid, Rebound Back Exam: Normal Inspection Extremities: Normal Range of Motion, No Pedal Edema, Normal Capillary Refill, Leg Pain (Left superior medial thigh is tender with increased warmth and erythema consistent with cellulitis 18cm x 15cm, no fluctuance or abscess). No: Joint Swelling, Maycol's Sign Neurological: Alert, Oriented, No Motor/Sensory Deficits Psychiatric: Normal Mood Skin Exam: Dry, Intact Course - Vital Signs Last Recorded V/S: Last Vital Signs Temp 98.9 F 03/11/21 14:24 Pulse 109 H 03/11/21 14:24 Resp 16 03/11/21 14:24 BP 109/53 L 03/11/21 14:24 Pulse Ox 100 03/11/21 14:24 - Orders/Labs/Meds Orders: Active Orders 24 hr Category Date Time Status Peripheral IV Care [RC] . DIRECTED Care 03/11/21 14:53 Active Venous Doppler Lwr Ext Lt [US] Stat Exams 03/11/21 16:24 Ordered CULTURE BLOOD [BC] Stat Lab 03/11/21 15:04 Received CULTURE BLOOD [BC] Stat Lab 03/11/21 15:14 Received Sodium Chloride 0.9% [Saline Flush] Med 03/11/21 14:52 Active 10 ml FLUSH ASDIRECTED PRN VANCOmycin 1.5 GM/300 ML 1.5 gm Med 03/11/21 16:11 Active Premix Bag 1 bag IV ONETIME Blood Culture x2 Reflex Set [OM.PC] Stat Oth 03/11/21 14:53 Ordered Peripheral IV Insertion Adult [OM.PC] Stat Oth 03/11/21 14:53 Ordered Medication Orders Vancomycin HCl 1.5 gm/ Premix 300 mls @ 200 mls/hr IV ONETIME ONE Stop: 03/11/21 17:40 Last Admin: 03/11/21 16:27 Dose: 200 mls/hr Documented by: Sodium Chloride (Sodium Chloride 0.9% 10 Ml Syringe) 10 ml FLUSH ASDIRECTED PRN PRN Reason: Keep Vein Open Last Admin: 03/11/21 16:21 Dose: 10 ml Documented by: TIA Labs: Laboratory Tests 03/11/21 03/11/21 03/11/21 Range/Units 15:04 15:04 15:04 WBC 6.0 (5.0-10.0) 10^3/uL RBC 3.56 L (4.6-6.2) 10^6/uL Hgb 10.2 L (14.0-18.0) g/dL Hct 32.4 L (40.0-54.0) % MCV 91.0 (80-100) fL MCH 28.7 (27.0-34.0) pg MCHC 31.5 L (33.0-35.0) g/dL Plt Count 37 L* (150-450) 10^3/uL Neut % (Auto) 77.0 H (42.2-75.2) % Lymph % (Auto) 7.0 L (20.5-50.1) % [place] % (Auto) 15.0 H (2-8) % Eos % (Auto) 0.7 L (1.0-3.0) % Baso % (Auto) 0.3 (0.0-1.0) % D-Dimer, Quantitative 1010 H (0-400) ng/mL Sodium 135 L (136-145) mmol/L Potassium 3.3 L (3.5-5.1) mmol/L Chloride 101 (98-107) mmol/L Carbon Dioxide 25 (21-32) mmol/L Anion Gap 12.3 (7-13) mEq/L BUN 8 (7-18) mg/dL Creatinine 1.25 (0.70-1.30) mg/dL Est Cr Clr Drug Dosing 71.98 mL/min Estimated GFR (MDRD) > 60 BUN/Creatinine Ratio 6.4 (No establ ref range) Glucose 118 H (70-99) mg/dL Lactic Acid (0.4-2.0) mmol/L Calcium 7.3 L (8.5-10.1) mg/dL Total Bilirubin 5.7 H (0.2-1.0) mg/dL AST 43 H (15-37) U/L ALT 22 (16-63) U/L Alkaline Phosphatase 132 H (46-116) U/L C-Reactive Protein 2.0 H (0.0-0.9) mg/dL Total Protein 7.1 (6.4-8.2) g/dL Albumin 2.0 L (3.4-5.0) g/dL Globulin 5.1 Albumin/Globulin Ratio 0.39 04/12/21 Range/Units 15:04 WBC (5.0-10.0) 10^3/uL RBC (4.6-6.2) 10^6/uL Hgb (14.0-18.0) g/dL Hct (40.0-54.0) % MCV (80-100) fL MCH (27.0-34.0) pg MCHC (33.0-35.0) g/dL Plt Count (150-450) 10^3/uL Neut % (Auto) (42.2-75.2) % Lymph % (Auto) (20.5-50.1) % [place] % (Auto) (2-8) % Eos % (Auto) (1.0-3.0) % Baso % (Auto) (0.0-1.0) % D-Dimer, Quantitative (0-400) ng/mL Sodium (136-145) mmol/L Potassium (3.5-5.1) mmol/L Chloride (98-107) mmol/L Carbon Dioxide (21-32) mmol/L Anion Gap (7-13) mEq/L BUN (7-18) mg/dL Creatinine (0.70-1.30) mg/dL Est Cr Clr Drug Dosing mL/min Estimated GFR (MDRD) BUN/Creatinine Ratio (No establ ref range) Glucose (70-99) mg/dL Lactic Acid 3.0 H* (0.4-2.0) mmol/L Calcium (8.5-10.1) mg/dL Total Bilirubin (0.2-1.0) mg/dL AST (15-37) U/L ALT (16-63) U/L Alkaline Phosphatase (46-116) U/L C-Reactive Protein (0.0-0.9) mg/dL Total Protein (6.4-8.2) g/dL Albumin (3.4-5.0) g/dL Globulin Albumin/Globulin Ratio Meds: Medications Generic Name Dose Route Start Last Admin Trade Name Freq PRN Reason Stop Dose Admin Vancomycin HCl 1.5 gm/ Premix 300 mls @ 200 mls/hr 03/11/21 16:11 03/11/21 16:27 IV 03/11/21 17:40 200 mls/hr ONETIME ONE Administration Sodium Chloride 10 ml 03/11/21 14:52 03/11/21 16:21 Sodium Chloride 0.9% 10 Ml Syringe FLUSH 10 ml ASDIRECTED PRN Administration Keep Vein Open Discontinued Medications Generic Name Dose Route Start Last Admin Trade Name Freq PRN Reason Stop Dose Admin Diphenhydramine HCl 25 mg 03/11/21 16:11 03/11/21 16:19 Diphenhydramine 50 Mg/Ml Sdv IVPUSH 03/11/21 16:12 25 mg ONETIME ONE Administration - Re-Assessments/Exams Free Text/Narrative Re-Assessment/Exam: 03/11/21 16:29 On reassessment the area of left thigh erythema at nearly doubled in size. Pt's lactic acid is elevated at 3.0. Plan to admit pt to hospitalist. Departure - Departure Time of Disposition: 16:38 (admitted to Dr. Gutierrez) Disposition: Admitted As Inpatient 66 Condition: Good Clinical Impression: Cellulitis of left lower extremity, History of cirrhosis, Thrombocytopenia - Discharge Information Forms: ED Department Discharge Sepsis Event Note (ED) - Evaluation Sepsis Screening Result: No Definite Risk - Focused Exam Vital Signs: Vital Signs Temp Pulse Resp BP Pulse Ox 03/11/21 14:24 98.9 F 109 H 16 109/53 L 100 - My Orders Last 24 Hours: My Active Orders 03/11/21 14:52 Sodium Chloride 0.9% [Saline Flush] 10 ml FLUSH ASDIRECTED PRN 03/11/21 14:53 Peripheral IV Care [RC] . DIRECTED Blood Culture x2 Reflex Set [OM.PC] Stat Peripheral IV Insertion Adult [OM.PC] Stat 03/11/21 15:04 CULTURE BLOOD [BC] Stat 03/11/21 15:14 CULTURE BLOOD [BC] Stat 03/11/21 16:11 VANCOmycin 1.5 GM/300 ML 1.5 gm Premix Bag 1 bag IV ONETIME 03/11/21 16:24 Venous Doppler Lwr Ext Lt [US] Stat - Assessment/Plan Last 24 Hours: My Active Orders 03/11/21 14:52 Sodium Chloride 0.9% [Saline Flush] 10 ml FLUSH ASDIRECTED PRN 03/11/21 14:53 Peripheral IV Care [RC] . DIRECTED Blood Culture x2 Reflex Set [OM.PC] Stat Peripheral IV Insertion Adult [OM.PC] Stat 03/11/21 15:04 CULTURE BLOOD [BC] Stat 03/11/21 15:14 CULTURE BLOOD [BC] Stat 03/11/21 16:11 VANCOmycin 1.5 GM/300 ML 1.5 gm Premix Bag 1 bag IV ONETIME 03/11/21 16:24 Venous Doppler Lwr Ext Lt [US] Stat
[2021-03-11] MEDS ORDERED: Sodium Chloride 0.9% 10 ML Syringe FLUSH PRN (14:52)
[2021-03-11 15:43] LABS: ANION GAP 12.3 mEq/L (7-13); CHLORIDE,CL 101 mmol/L (98-107); SODIUM,NA 135 mmol/L (136-145)
[2021-03-11] MEDS ORDERED: VANCOmycin 1.5 GM/300 ML 1.5 GM in Premix Bag 1 BAG IV ONE (16:11)
[2021-03-11] MEDS ORDERED: diphenhydrAMINE 50 MG/ML SDV IVPUSH ONE (16:11)
[2021-03-11] MEDS ORDERED: Ondansetron 4 MG/2 ML SDV IVPUSH PRN (16:55)
[2021-03-11] MEDS ORDERED: Acetaminophen 325 MG Tab PO PRN (16:55)
--- NOTE | 2021-03-11 17:08 | PCM.SN.2 ---
- Free Text/Narrative Note: START OF DOCTOR EMAMIS HISTORY AND PHYSICAL / CONSULTATION NOTE Chief Complaint: Swelling and pain of left thigh History of Present Illness: The patient is a 38-year-old male who presents to complain of left thigh pain. He states this started on 10/11/2020 1 at night. It was of gradual onset. He denies injury to the area or trauma. He denies any drainage from the area. He describes the pain as a stabbing sensation rating 8 out of 10 it has been constant if not worsening since the time of onset. The pain is located in the left medial proximal thigh and there is erythema present as well. He states that he not take any medication for the signs or symptoms at home. He admits to onset of fever and rigors. Denies nausea, vomiting, cough, wheeze, abdominal pain. The patient presents for further evaluation Surgical History: Cardiac surgery not otherwise specified as a child Family History: Cancer, stroke, diabetes, coronary disease, hypertension, hyperlipidemia Social History: Tobacco: Former smoker Alcohol: Denies however he has a remote history of alcohol use Caffeine: Coffee Drugs: Never Allergies: Aspirin, clindamycin, Keflex Code Status: Full code Pertinent Laboratory Results / Pertinent Radiology Results / Pertinent Diagnostic Results / Pertinent Vital Signs: Blood pressure 109/53, heart rate 109 bpm, respirations 16, temperature 98.8 degrees, 100% room air, potassium 3.3, alkaline phosphatase 132, AST 43, hemoglobin 10.2, platelet count 37,000 Physical Examination: General: -Alert -No acute distress -No dyspnea -No tachypnea -Obese Head: -Atraumatic -Normocephalic Eyes: -Pupils equally round and reactive to light and accommodation -Extraocular muscles intact Neurological: -Cranial nerves II-XII intact Neck: -No jugular venous distention -No thyromegaly -No cervical lymphadenopathy Heart: -Regular rate -Regular rhythm -No murmurs -No gallops -No rubs Lungs: -No wheeze -No rhonchi -No rales Abdomen: -Normal bowel sounds in all four quadrants -No rebound -No guarding -No tenderness Extremities: -2/4 pulse in all four extremities -No clubbing -No cyanosis -No edema -No calf tenderness present bilaterally -Negative Homans sign bilaterally -There is erythema and what appears to be papules of the left medial proximal thigh. There is no drainage present. The area is tender to palpation with minimal warmth Musculoskeletal: -5/5 bilateral upper extremity strength -5/5 bilateral lower extremity strength -Sensorium of bilateral upper extremities are equal and intact -Sensorium of bilateral lower extremities are equal and intact Additional Details / Additional Findings / Exceptions / Miscellaneous: Assessment / Plan: Left proximal medial thigh cellulitis. IV vancomycin to be dosed by pharmacy. We will demarcate and date the margin of erythema daily. If we see no improvement within 24 hours, I will consider initiating Zovirax as this may be shingles Asthma History of hyperammonemia Hypokalemia. Will monitor potassium levels intermittently and supplement as necessary Portal hypertension History of esophageal varices History of gastrointestinal bleed Cirrhosis Thrombocytopenia. Likely sequelae of cirrhosis. We will monitor platelet count intermittently Anemia. Will monitor hemoglobin level intermittently. Check serum ferritin, iron panel, fecal occult blood CHF GERD Hypertension Obesity. Patient be counseled regarding Jose modification Muscle spasm Neuropathy Chronic pain/opiate addiction Psoriasis DVT prophylaxis. Because of no SCD units are available, the patient will be started Lovenox 40 mg subcutaneously daily while closely monitoring his hemoglobin level given his history of gastrointestinal bleed and his thrombocytopenia Disposition: END OF DOCTOR EMAMIS HISTORY AND PHYSICAL / CONSULTATION NOTE
--- NOTE | 2021-03-11 17:20 | US ---
PROCEDURE INFORMATION: Exam: US Duplex Left Lower Extremity Veins, Limited Exam date and time: 03/11/2021 4:45 PM Age: 40 years old Clinical indication: Pain; Leg, lower; Left; Additional info: Left leg pain, elev. D-dimer >1000 TECHNIQUE: Imaging protocol: Real-time Duplex ultrasound of the Left Lower Extremity with 2-D anderson scale, color Doppler flow and spectral waveform analysis with image documentation. Limited exam focused on the left lower extremity veins. COMPARISON: US VL Duplex Lwr Ext Veins Ltd Lt 09/26/2015 9:33 AM FINDINGS: Left deep veins: Unremarkable. The common femoral, femoral, proximal profunda femoral and popliteal veins are patent without thrombus. Normal Doppler waveforms. Normal compressibility and/or augmentation response. Left superficial veins: Unremarkable. Saphenofemoral junction is patent without thrombus. Soft tissues: Diffuse subcutaneous edema. 2.6 cm by 0.9 cm x 0.7 cm anechoic ovoid collection in the left groin. Lymph nodes: Enlarged left inguinal lymph nodes are appreciated, however they demonstrate normal morphology. IMPRESSION: 1. 2.6 cm x 0.9 cm fluid collection in the left groin which is nonspecific. 2. Left inguinal adenopathy. 3. No evidence of DVT, with the caveat that the calf veins were not confidently visualized.
[2021-03-11] MEDS ORDERED: Potassium Chloride 10 MEQ Tab.ER PO ONE (17:30)
[2021-03-11 17:40] LABS: HEMOGLOBIN A1C 4.3 % (<5.7)
[2021-03-11 17:52] LABS: CORONAVIRUS COVID-19 NAA NEGATIVE (NEGATIVE)
[2021-03-11] MEDS ORDERED: Albuterol/Ipratropium 3.0-0.5 MG/3 ML Neb Soln NEB PRN (22:18)
[2021-03-11] MEDS: Lactulose Soln 10 GM/15 ML 30 ML UD Cup PO SCH (22:20)
[2021-03-11] MEDS: oxyCODONE 5 MG Tab PO PRN (22:37)
[2021-03-11] MEDS: Rifaximin 550 MG Tab PO SCH (22:37)
[2021-03-11] MEDS: Gabapentin 100 MG Cap PO SCH (22:40)
[2021-03-11] MEDS: Cyclobenzaprine 10 MG Tab PO PRN (22:40)
[2021-03-11] MEDS: Albuterol/Ipratropium 3.0-0.5 MG/3 ML Neb Soln NEB SCH (22:41)
[2021-03-11] MEDS: Piperacillin/Tazobactam 4.5 GM in Sodium Chloride 0.9% 100 ML IV SCH (23:55)
[2021-03-12] MEDS: Piperacillin/Tazobactam 4.5 GM in Sodium Chloride 0.9% 100 ML IV SCH ×4 (06:20→23:54)
[2021-03-12] MEDS ORDERED: Magnesium Sulfate/Water 2 GM/50 ML BAG IV ONE (07:20)
--- NOTE | 2021-03-12 07:30 | PCM.SN.2 ---
- Free Text/Narrative Note: START OF DOCTOR JOHN PROGRESS NOTE Subjective: Overnight the patient had fever and rigors. Currently he indicates that his proximal medial left thigh pain has improved. He denies nausea, vomiting, cough, wheeze, abdominal pain, chest pain, dyspnea, or any other constitutional complaints. I explained to the patient his current medical condition and plan of care and have answered all of his questions Objective: General: -Alert -No acute distress -No dyspnea -No tachypnea Heart: -iRegular rate -Regular rhythm -No murmurs -No gallops -No rubs Lungs: -No wheeze -No rhonchi -No rales Abdomen: -Normal bowel sounds in all four quadrants -No rebound -No guarding -No tenderness Extremities: -2/4 pulse in all four extremities -No clubbing -No cyanosis -No edema Additional Details / Additional Findings / Exceptions / Miscellaneous: The area of erythema over the left proximal medial thigh has receded. It is press tender star signal to palpation. There is no warmth noted Pertinent Laboratory Results / Pertinent Radiology Results / Pertinent Diagnostic Results / Pertinent Vital Signs: Temperature 101.5 degrees, heart rate 102 bpm, blood pressure 147/73, hemoglobin 8.5, platelet count 35,000, Agnesian 1.6 Assessment / Plan: Left proximal medial thigh cellulitis. IV vancomycin to be dosed by pharmacy plus Zosyn 4.5 g IV every 6 hours. We will demarcate and date the margin of erythema daily. If we see no improvement within 24 hours, I will consider initiating Zovirax as this may be shingles Asthma. DuoNeb every 8 hours plus budesonide 0.5 mg inhaled twice daily History of hyperammonemia. Lactulose 20 g p.o. twice daily plus Xifaxan 550 mg p.o. twice daily Hypokalemia. Will monitor potassium levels intermittently and supplement as necessary Portal hypertension History of esophageal varices History of gastrointestinal bleed Cirrhosis. Prednisone 20 mg p.o. daily plus Aldactone 100 mg p.o. daily plus Lasix 40 mg p.o. 3 times daily plus K. Dur 40 M EQ p.o. 3 times daily Thrombocytopenia. Likely sequelae of cirrhosis. We will monitor platelet count intermittently Iron deficiency anemia. Will monitor hemoglobin level intermittently. C ferrous sulfate 325 mg p.o. twice daily plus vitamin C 500 mg p.o. daily CHF. Zaroxolyn 2.5 mg p.o. daily plus Aldactone 100 mg p.o. daily plus Lasix 40 mg p.o. 3 times daily plus K. Dur 40 M EQ p.o. 3 times daily GERD. Protonix 40 mg p.o. daily Hypertension. Zaroxolyn 2.5 mg p.o. daily plus Aldactone 100 mg p.o. daily plus Lasix 40 mg p.o. 3 times daily plus K. Dur 40 M EQ p.o. 3 times daily Obesity. Patient be counseled regarding Jose modification Muscle spasm Neuropathy. Gabapentin 100 mg p.o. 3 times daily Hypomagnesemia. Will monitor magnesium levels intermittently and supplement as necessary Chronic pain/opiate addiction Psoriasis DVT prophylaxis. Bilateral CHRISTOPHER ortakarishma Disposition: Hopeful discharge within 48 to 72 hours END OF DOCTOR EMAMIS PROGRESS NOTE
[2021-03-12] MEDS: Albuterol/Ipratropium 3.0-0.5 MG/3 ML Neb Soln NEB SCH ×3 (07:45→23:56)
[2021-03-12] MEDS: Budesonide 0.5 MG/2 ML Neb Susp NEB SCH ×2 (08:06→18:41)
[2021-03-12] MEDS: Ferrous Sulfate 325 MG Tab PO SCH ×2 (08:30→18:31)
[2021-03-12] MEDS: Sodium Chloride 0.9% 10 ML Syringe FLUSH PRN ×2 (08:30→11:55)
[2021-03-12] MEDS: Lactulose Soln 10 GM/15 ML 30 ML UD Cup PO SCH ×2 (08:30→21:35)
[2021-03-12] MEDS: Furosemide 40 MG Tab PO SCH ×3 (08:31→21:36)
[2021-03-12] MEDS: Metolazone 2.5 MG Tab PO SCH (08:31)
[2021-03-12] MEDS: Pantoprazole 40 MG Tab.CR PO SCH (08:32)
[2021-03-12] MEDS: Ascorbic Acid 500 MG Tab PO SCH (08:32)
[2021-03-12] MEDS: Spironolactone 25 MG Tab PO SCH (08:32)
[2021-03-12] MEDS: Potassium Chloride 10 MEQ Tab.ER PO SCH ×3 (08:32→21:35)
[2021-03-12] MEDS: predniSONE 20 MG Tab PO SCH (08:32)
[2021-03-12] MEDS: Gabapentin 100 MG Cap PO SCH ×3 (08:57→21:35)
[2021-03-12] MEDS: oxyCODONE 5 MG Tab PO PRN ×3 (08:57→21:36)
[2021-03-12] MEDS: Rifaximin 550 MG Tab PO SCH ×2 (08:57→21:36)
[2021-03-12] MEDS ORDERED: Enoxaparin 40 MG/0.4 ML Syringe SUBCUT SCH ×2 (09:00)
[2021-03-12] MEDS: Cyclobenzaprine 10 MG Tab PO PRN (21:36)
[2021-03-13] MEDS: Piperacillin/Tazobactam 4.5 GM in Sodium Chloride 0.9% 100 ML IV SCH ×4 (05:05→23:22)
[2021-03-13] MEDS: Furosemide 40 MG Tab PO SCH ×3 (05:43→17:39)
[2021-03-13 07:05] LABS: ANION GAP 8.2 mEq/L (7-13); CHLORIDE,CL 97 mmol/L (98-107); SODIUM,NA 133 mmol/L (136-145)
[2021-03-13] MEDS ORDERED: Magnesium Sulfate/Water 2 GM/50 ML BAG IV ONE (07:42)
--- NOTE | 2021-03-13 07:49 | PCM.SN.2 ---
- Free Text/Narrative Note: START OF DOCTOR JOHN PROGRESS NOTE Subjective: The patient Devin that his left posterior medial thigh pain has greatly improved and has almost resolved. Overnight he denies fever although he had a temperature max of 100.6 degrees. He denies rigors, nausea, vomiting, cough, wheeze, abdominal pain, chest pain, dyspnea, or any other constitutional complaints. I explained to the patient his current medical condition and plan of care and I have answered all of his questions Objective: General: -Alert -No acute distress -No dyspnea -No tachypnea -Obese Heart: -iRegular rate -Regular rhythm -No murmurs -No gallops -No rubs Lungs: -No wheeze -No rhonchi -No rales Abdomen: -Normal bowel sounds in all four quadrants -No rebound -No guarding -No tenderness Extremities: -2/4 pulse in all four extremities -No clubbing -No cyanosis -No edema Additional Details / Additional Findings / Exceptions / Miscellaneous: The area of erythema over the left proximal medial thigh has receded. It is still not tender to palpation. There is no warmth noted Pertinent Laboratory Results / Pertinent Radiology Results / Pertinent Diagnostic Results / Pertinent Vital Signs: T heart rate 102 bpm, temperature max overnight 100.6 degrees, hemoglobin 8.4, white blood count 4.9, platelet count 44,000, potassium 2.2, sodium 133, magnesium 1.6 Assessment / Plan: Left proximal medial thigh cellulitis. IV vancomycin to be dosed by pharmacy plus Zosyn 4.5 g IV every 6 hours. We will demarcate and date the margin of erythema daily. If we see no improvement within 24 hours, I will consider initiating Zovirax as this may be shingles Asthma. DuoNeb every 8 hours plus budesonide 0.5 mg inhaled twice daily History of hyperammonemia. Lactulose 20 g p.o. twice daily plus Xifaxan 550 mg p.o. twice daily Hypokalemia. Will monitor potassium levels intermittently and supplement as necessary Portal hypertension History of esophageal varices History of gastrointestinal bleed Cirrhosis. Prednisone 20 mg p.o. daily plus Aldactone 100 mg p.o. daily plus Lasix 40 mg p.o. 3 times daily plus K. Dur 40 M EQ p.o. 3 times daily Thrombocytopenia. Likely sequelae of cirrhosis. We will monitor platelet count intermittently Iron deficiency anemia. Will monitor hemoglobin level intermittently. C ferrous sulfate 325 mg p.o. twice daily plus vitamin C 500 mg p.o. daily CHF. Zaroxolyn 2.5 mg p.o. daily plus Aldactone 100 mg p.o. daily plus Lasix 40 mg p.o. 3 times daily plus K. Dur 40 M EQ p.o. 3 times daily GERD. Protonix 40 mg p.o. daily Hypertension. Zaroxolyn 2.5 mg p.o. daily plus Aldactone 100 mg p.o. daily plus Lasix 40 mg p.o. 3 times daily plus K. Dur 40 M EQ p.o. 3 times daily Obesity. Patient be counseled regarding Jose modification Muscle spasm Neuropathy. Gabapentin 100 mg p.o. 3 times daily Hypomagnesemia. Will monitor magnesium levels intermittently and supplement as necessary Chronic pain/opiate addiction Psoriasis DVT prophylaxis. Bilateral CHRISTOPHER bradford Disposition: Anticipate discharge from March 14, 2021 END OF DOCTOR LOPEZ PROGRESS NOTE
[2021-03-13] MEDS: Albuterol/Ipratropium 3.0-0.5 MG/3 ML Neb Soln NEB SCH ×3 (08:29→23:21)
[2021-03-13] MEDS: Budesonide 0.5 MG/2 ML Neb Susp NEB SCH ×2 (08:30→17:00)
[2021-03-13] MEDS: Ferrous Sulfate 325 MG Tab PO SCH ×2 (10:31→17:39)
[2021-03-13] MEDS: predniSONE 20 MG Tab PO SCH (10:32)
[2021-03-13] MEDS: Metolazone 2.5 MG Tab PO SCH (10:32)
[2021-03-13] MEDS: Spironolactone 25 MG Tab PO SCH (10:33)
[2021-03-13] MEDS: Lactulose Soln 10 GM/15 ML 30 ML UD Cup PO SCH ×2 (10:34→21:04)
[2021-03-13] MEDS: Gabapentin 100 MG Cap PO SCH ×3 (10:35→21:03)
[2021-03-13] MEDS: Ascorbic Acid 500 MG Tab PO SCH (10:35)
[2021-03-13] MEDS: Rifaximin 550 MG Tab PO SCH ×2 (10:36→21:03)
[2021-03-13] MEDS: Potassium Chloride 10 MEQ Tab.ER PO SCH ×8 (10:46→23:21)
[2021-03-13] MEDS: Pantoprazole 40 MG Tab.CR PO SCH (10:46)
[2021-03-13] MEDS: oxyCODONE 5 MG Tab PO PRN ×2 (12:36→19:53)
[2021-03-13] MEDS: Cyclobenzaprine 10 MG Tab PO PRN (21:03)
[2021-03-14] MEDS: Piperacillin/Tazobactam 4.5 GM in Sodium Chloride 0.9% 100 ML IV SCH ×2 (05:45→12:47)
[2021-03-14] MEDS: Furosemide 40 MG Tab PO SCH ×2 (05:45→12:46)
[2021-03-14 06:52] LABS: CHLORIDE,CL 96 mmol/L (98-107); SODIUM,NA 136 mmol/L (136-145)
--- NOTE | 2021-03-14 07:45 | PCM.SN.2 ---
- Free Text/Narrative Note: START OF DOCTOR JOHN PROGRESS NOTE Subjective: The patient complains of mild soreness of his left proximal medial thigh. He does indicate that overall it has improved greatly compared with the pain he was experiencing when he first presented to the emergency department. Overnight he denies fever, rigors, nausea, vomiting, cough, wheeze, abdominal pain, chest pain, dyspnea, or any other constitutional complaints. I explained to the patient his current medical condition and plan of care and I have answered all of his questions Objective: General: -Alert -No acute distress -No dyspnea -No tachypnea -Obese Heart: -Regular rate -Regular rhythm -No murmurs -No gallops -No rubs Lungs: -No wheeze -No rhonchi -No rales Abdomen: -Normal bowel sounds in all four quadrants -No rebound -No guarding -No tenderness Extremities: -2/4 pulse in all four extremities -No clubbing -No cyanosis -No edema Additional Details / Additional Findings / Exceptions / Miscellaneous: The area of erythema over the left proximal medial thigh has receded. It is still not tender to palpation. There is no warmth noted Pertinent Laboratory Results / Pertinent Radiology Results / Pertinent Diagnostic Results / Pertinent Vital Signs: Vital signs stable, potassium 3 Assessment / Plan: Left proximal medial thigh cellulitis. IV vancomycin to be dosed by pharmacy plus Zosyn 4.5 g IV every 6 hours. We will demarcate and date the margin of erythema daily. If we see no improvement within 24 hours, I will consider initiating Zovirax as this may be shingles Staphylococcal bacteremia. Speciation and sensitivity pending. IV vancomycin to be dosed by pharmacy Asthma. DuoNeb every 8 hours plus budesonide 0.5 mg inhaled twice daily History of hyperammonemia. Lactulose 20 g p.o. twice daily plus Xifaxan 550 mg p.o. twice daily Hypokalemia. Will monitor potassium levels intermittently and supplement as necessary Portal hypertension History of esophageal varices History of gastrointestinal bleed Cirrhosis. Prednisone 20 mg p.o. daily plus Aldactone 100 mg p.o. daily plus Lasix 40 mg p.o. 3 times daily plus K. Dur 40 M EQ p.o. 3 times daily Thrombocytopenia. Likely sequelae of cirrhosis. We will monitor platelet count intermittently Iron deficiency anemia. Will monitor hemoglobin level intermittently. C ferrous sulfate 325 mg p.o. twice daily plus vitamin C 500 mg p.o. daily CHF. Zaroxolyn 2.5 mg p.o. daily plus Aldactone 100 mg p.o. daily plus Lasix 40 mg p.o. 3 times daily plus K. Dur 40 M EQ p.o. 3 times daily GERD. Protonix 40 mg p.o. daily Hypertension. Zaroxolyn 2.5 mg p.o. daily plus Aldactone 100 mg p.o. daily plus Lasix 40 mg p.o. 3 times daily plus K. Dur 40 M EQ p.o. 3 times daily Obesity. Patient be counseled regarding Jose modification Muscle spasm Neuropathy. Gabapentin 100 mg p.o. 3 times daily Hypomagnesemia. Will monitor magnesium levels intermittently and supplement as necessary Chronic pain/opiate addiction Psoriasis DVT prophylaxis. Bilateral CHRISTOPHER bradford Disposition: The patient will be a candidate for discharge once we have speciation of bacteremia and sensitivities END OF DOCTOR EMAMIS PROGRESS NOTE
[2021-03-14] MEDS: Albuterol/Ipratropium 3.0-0.5 MG/3 ML Neb Soln NEB SCH ×2 (07:51→15:42)
[2021-03-14] MEDS: Budesonide 0.5 MG/2 ML Neb Susp NEB SCH (07:52)
[2021-03-14] MEDS: Rifaximin 550 MG Tab PO SCH (08:32)
[2021-03-14] MEDS: Lactulose Soln 10 GM/15 ML 30 ML UD Cup PO SCH (08:32)
[2021-03-14] MEDS: Potassium Chloride 10 MEQ Tab.ER PO SCH ×5 (08:32→15:40)
[2021-03-14] MEDS: Metolazone 2.5 MG Tab PO SCH (08:34)
[2021-03-14] MEDS: Spironolactone 25 MG Tab PO SCH (08:34)
[2021-03-14] MEDS: Ferrous Sulfate 325 MG Tab PO SCH (08:34)
[2021-03-14] MEDS: predniSONE 20 MG Tab PO SCH (08:34)
[2021-03-14] MEDS: Pantoprazole 40 MG Tab.CR PO SCH (08:34)
[2021-03-14] MEDS: Ascorbic Acid 500 MG Tab PO SCH (08:34)
[2021-03-14] MEDS: Gabapentin 100 MG Cap PO SCH ×2 (08:35→13:37)
[2021-03-14] MEDS: oxyCODONE 5 MG Tab PO PRN ×2 (08:35→14:58)
[2021-03-14 15:59] VITALS: BP 131/73; PULSE 106
--- NOTE | 2021-03-20 09:01 | PCM.SN.2 ---
- Free Text/Narrative Note: START OF DOCTOR EMAMIS DISCHARGE SUMMARY Date of Admission: March 11, 2021 Date of Discharge: 9:12 AM on March 12, 2021 Primary Diagnosis: Left proximal medial thigh cellulitis Secondary Diagnosis: Staph aureus bacteremia Asthma History of hyperammonemia Hypokalemia Portal hypertension History of esophageal varices History of gastrointestinal bleed Cirrhosis Thrombocytopenia Iron deficiency anemia CHF GERD Hypertension Obesity Muscle spasm Neuropathy Hypomagnesemia Chronic pain/opiate addiction Psoriasis Consultations: None Disposition: The patient was advised to follow-up with his primary care physician or provider in 5 to 7 days post discharge Discharge Medications: Vitamin C 500 mg p.o. daily Ferrous sulfate 3 and 25 mg p.o. twice daily Lasix 40 mg p.o. 3 times daily Zaroxolyn 2.5 mg p.o. daily Protonix 40 mg p.o. daily Aldactone 100 mg p.o. daily DuoNeb every 4 hours inhaled as needed shortness of breath/wheeze Budesonide 0.5 mg inhaled twice daily Flexeril 10 mg p.o. 3 times daily as needed muscle spasm Gabapentin 100 mg p.o. 3 times daily Lactulose 20 g p.o. twice daily Oxycodone 5 mg p.o. 4 times daily as needed pain Prednisone 20 mg p.o. daily which is advised that the patient takes for his history of cirrhosis Xifaxan 550 mg p.o. twice daily Bactrim DS 1 tab p.o. twice daily. Quantity 7. 0 refill K. Dur 40 M EQ p.o. 3 times daily Condition on discharge: Good Disposition: Home END OF DOCTOR EMAMIS DISCHARGE SUMMARY
== END 2021-03-14 16:50 | disposition home or self-care (01) | DRG 872 ==
LOC: DL.ED 14:10 → DL.MS 16:55 → UNDOADMIN 16:59
PROVIDERS: ADMIT Internal Medicine; ATTEND Internal Medicine
DX: A41.01 Sepsis due to Methicillin susceptible Staphylococcus aureus (principal); L03.116 Cellulitis of left lower limb; F11.20 Opioid dependence, uncomplicated; K76.6 Portal hypertension; B95.61 Methicillin susceptible Staphylococcus aureus infection as the cause of diseases classified elsewhere; D69.6 Thrombocytopenia, unspecified; E87.6 Hypokalemia; H54.7 Unspecified visual loss; K74.60 Unspecified cirrhosis of liver; D50.9 Iron deficiency anemia, unspecified; I50.9 Heart failure, unspecified; J45.909 Unspecified asthma, uncomplicated; I11.0 Hypertensive heart disease with heart failure; I13.0 Hypertensive heart and chronic kidney disease with heart failure and stage 1 through stage 4 chronic kidney disease, or unspecified chronic kidney disease; K21.9 Gastro-esophageal reflux disease without esophagitis; G62.9 Polyneuropathy, unspecified; E83.42 Hypomagnesemia; G89.29 Other chronic pain; M62.838 Other muscle spasm; L40.9 Psoriasis, unspecified; Z87.891 Personal history of nicotine dependence; N18.9 Chronic kidney disease, unspecified; Z88.6 Allergy status to analgesic agent; Z28.82 Immunization not carried out because of caregiver refusal; D64.9 Anemia, unspecified; E66.9 Obesity, unspecified; Z88.8 Allergy status to other drugs, medicaments and biological substances; Z79.51 Long term (current) use of inhaled steroids; Z79.52 Long term (current) use of systemic steroids; Z79.899 Other long term (current) drug therapy; Z88.1 Allergy status to other antibiotic agents; Z20.822 Contact with and (suspected) exposure to COVID-19
CPT/HCPCS: 0240U; 36415; 80048; 80053; 80202; 82272; 82550; 82728; 82962; 83036; 83540; 83550; 83605; 83735; 84132; 85018; 85025; 85379; 86140; 87040; 87077; 87186; 93971; 94640; 96365; 96375; 99223; 99232; 99238; 99284; 99285-25; A9270-GY; J1200; J2543; J3370; J3475; J7050; J7512; J7620-GY

== ENCOUNTER 2021-04-16 06:13 | Emergency (ER) | payer MEDICARE, OTHER ==
[2021-04-16] MEDS ORDERED: LORazepam 2 MG/ML SDV ONE (06:42)
[2021-04-16] MEDS ORDERED: Acetaminophen 650 MG Supp ONE (06:44)
[2021-04-16] MEDS ORDERED: LORazepam 2 MG/ML SDV IVPUSH ONE (06:46)
[2021-04-16] MEDS ORDERED: Acetaminophen 650 MG Supp RECTAL STA (06:46)
[2021-04-16] MEDS ORDERED: Furosemide 40 MG/4 ML VIAL IVPUSH ONE (06:51)
[2021-04-16 06:52] VITALS: BP 98/85; PULSE 111
--- NOTE | 2021-04-16 07:07 | EDM.PDOC ---
<Brittany Way - Last Filed: 04/16/21 07:09> ED HPI GENERAL MEDICAL PROBLEM - General Chief Complaint: General Stated Complaint: FEVER,CHILLS,FEELS COLD Time Seen by Provider: 04/16/21 06:45 Source of Information: Reports: Patient History Limitations: Reports: Respiratory Distress - History of Present Illness INITIAL COMMENTS - FREE TEXT/NARRATIVE: ED with c/o SOB past 2-3 days. Chest Pain Score (Numeric/FACES): 1 - Related Data Allergies Allergy/AdvReac Type Severity Reaction Status Date / Time aspirin Allergy Cannot Verified 04/16/21 06:53 Remember cephalexin Allergy Rash Verified 04/16/21 06:53 clindamycin Allergy Cannot Verified 04/16/21 06:53 Remember Home Meds: Home Meds Cyclobenzaprine [Flexeril] 10 mg PO TID PRN 10/06/20 [History] Furosemide [Lasix] 40 mg PO TID 10/06/20 [History] Gabapentin [Neurontin] 100 mg PO TID 10/06/20 [History] Lactulose 30 ml PO BID 10/06/20 [History] Pantoprazole Sodium [Protonix] 40 mg PO DAILY 10/06/20 [History] oxyCODONE 5 mg PO QID PRN 10/06/20 [History] Albuterol/Ipratropium [DuoNeb 3.0-0.5 MG/3 ML] 3 ml NEB Q4H PRN #60 neb 01/14/21 [Rx] Budesonide [Pulmicort] 0.5 mg NEB BIDRT #60 neb 01/14/21 [Rx] Rifaximin [Xifaxan] 550 mg PO BID tablet 01/14/21 [Rx] metOLazone [Zaroxolyn] 2.5 mg PO DAILY@0830 #30 tablet 01/14/21 [Rx] predniSONE [Prednisone] 20 mg PO DAILY #11 tablet 01/14/21 [Rx] Ascorbic Acid [Vitamin C] 500 mg PO DAILY 30 Days #30 tablet 03/14/21 [Rx] Ferrous Sulfate 325 mg PO BIDMEALS 30 Days #60 tablet 03/14/21 [Rx] Potassium Chloride 40 meq PO TID 30 Days #180 tablet.er 03/14/21 [Rx] Spironolactone [Aldactone] 100 mg PO DAILY tablet 03/14/21 [Rx] Sulfamethoxazole/Trimethoprim [Bactrim Ds Tablet] 1 each PO BID #14 tablet 03/14/21 [Rx] Past Medical History - Past Health History Medical/Surgical History: Denies Medical/Surgical History HEENT History: Reports: Other (See Below) Other HEENT History: wears corrective lenses Cardiovascular History: Reports: Heart Failure, Hypertension Respiratory History: Reports: Asthma Gastrointestinal History: Reports: Cirrhosis, GERD, GI Bleed, Other (See Below) Other Gastrointestinal History: acities, esophageal varices Genitourinary History: Reports: Chronic Renal Insuffiency, Other (See Below) Other Genitourinary History: chronic kidney disease Musculoskeletal History: Reports: None Neurological History: Reports: None Psychiatric History: Reports: Addiction Endocrine/Metabolic History: Reports: Obesity/BMI 30+ Hematologic History: Reports: Anemia Immunologic History: Reports: None Oncologic (Cancer) History: Reports: None Dermatologic History: Reports: Cellulitis, Psoriasis - Infectious Disease History Infectious Disease History: Reports: None - Past Surgical History Head Surgeries/Procedures: Reports: None Cardiovascular Surgical History: Reports: Other (See Below) Other Cardiovascular Surgeries/Procedures: chronic edema with leg ulcers GI Surgical History: Reports: EGD, Other (See Below) Other GI Surgeries/Procedures: bands placed on varices Social & Family History - Family History Family Medical History: No Pertinent Family History - Caffeine Use Caffeine Use: Reports: Coffee - Recreational Drug Use Recreational Drug Use: No - Living Situation & Occupation Living situation: Reports: with Family ED ROS GENERAL - Review of Systems Review Of Systems: Unable To Obtain ED EXAM, GENERAL - Physical Exam Exam: See Below Exam Limited By: Respiratory Distress General Appearance: Alert, Moderate Distress Eye Exam: Bilateral Eye: EOMI Ears: Hearing Grossly Normal Nose: Normal Inspection Throat/Mouth: Normal Inspection Head: Atraumatic, Normocephalic Respiratory/Chest: Decreased Breath Sounds, Wheezing (audible ), Other (1-2 word responses) Cardiovascular: Normal Peripheral Pulses, Regular Rate, Rhythm, Tachycardia. No: No Edema (3+ bilateral mid fuchs) GI/Abdominal: Distended, Abnormal Bowel Sounds Extremities: Pedal Edema (3+). No: No Pedal Edema Neurological: Alert, Slow to Respond, Other (carpal pedla spasms bilaterallly ) Psychiatric: Anxious Skin Exam: Rash (scaly crusted patches scattered lower legs) Course - Re-Assessments/Exams Free Text/Narrative Re-Assessment/Exam: 04/16/21 07:09 0700 Care transfer to Edmond Balderrama PA-c with shift change Departure - Departure Disposition: DC/Tfer to [facility] 02 Clinical Impression: Increased ammonia level Sepsis Qualifiers: Sepsis type: sepsis due to unspecified organism Sepsis acute organ dysfunction status: unspecified Qualified Code(s): A41.9 - Sepsis, unspecified organism Hypotension Qualifiers: Hypotension type: unspecified hypotension type Qualified Code(s): I95.9 - Hypotension, unspecified - Discharge Information Care Plan Goals: Discussed the patient's history, examination, lab results and treatments with Dr. Van (Hospitalist with [facility] in [place]). Dr. Van accepted the patient for continued evaluation and management. The patient will be transported by [facility]. Sepsis Event Note (ED) - Evaluation Sepsis Screening Result: Possible Severe Sepsis Risk <Yann Balderrama - Last Filed: 04/16/21 09:23> #1 Interpretation EKG Date: 04/16/21 Time: 06:45 Rhythm: Other (Sinus Tach) [place]: Normal P-Wave: Present QRS: Normal ST-T: Normal QT: Normal Comparison: No Change Course - Vital Signs Last Recorded V/S: Last Vital Signs Temp 38.8 C H 04/16/21 07:21 Pulse 111 H 04/16/21 06:49 Resp 32 H 04/16/21 06:49 BP 98/85 04/16/21 06:49 Pulse Ox 91 L 04/16/21 06:49 - Orders/Labs/Meds Orders: Active Orders 24 hr Category Date Time Status Blood Glucose Check, Bedside [RC] ONETIME Care 04/16/21 06:21 Active EKG 12 Lead [EKG Documentation Completion] [RC] URGENT Care 04/16/21 06:53 Active Insert [place]inn Catheter [Insert Urinary Catheter] [OM.PC] Care 04/16/21 09:15 Ordered Q24H Urinary Catheter Assessment [RC] ASDIRECTED Care 04/16/21 09:02 Active Abdomen Pelvis wo Cont [CT] Urgent Exams 04/16/21 07:49 Ordered BLOOD GAS VENOUS [BG] Stat Lab 04/16/21 07:53 Ordered CULTURE BLOOD [BC] Stat Lab 04/16/21 06:37 Results CULTURE BLOOD [BC] Stat Lab 04/16/21 06:46 Results Norepinephrine [Levophed] 4 mg Med 04/16/21 08:45 Active Dextrose 5% in Water 246 ml IV TITRATE Sodium Chloride 0.9% [Normal Saline] 1,000 ml Med 04/16/21 08:19 Active IV .BOLUS Sulfamethoxazole/Trimethoprim [Septra IV] 10 ml Med 04/16/21 09:04 Ordered Dextrose 5% in Water 250 ml IV Q8H Blood Culture x2 Reflex Set [OM.PC] Stat Oth 04/16/21 06:23 Ordered Medication Orders Sodium Chloride (Normal Saline) 1,000 mls @ 999 mls/hr IV .BOLUS ONE Stop: 04/16/21 09:19 Last Admin: 04/16/21 08:24 Dose: 999 mls/hr Documented by: NEVIN Norepinephrine Bitartrate 4 mg (/ Dextrose/Water) 250 mls @ 7.5 mls/hr IV TITRATE AMIE; Protocol Last Admin: 04/16/21 08:38 Dose: 2 mcg/min, 7.5 mls/hr Documented by: DELGADO Trimethoprim/Sulfamethoxazole (10 ml/ Dextrose/Water) 260 mls @ 167 mls/hr IV Q8H AMIE Labs: Laboratory Tests 04/16/21 04/16/21 04/16/21 Range/Units 06:33 06:37 06:37 WBC 6.1 (5.0-10.0) 10^3/uL RBC 3.65 L (4.6-6.2) 10^6/uL Hgb 10.9 L D (14.0-18.0) g/dL Hct 34.3 L (40.0-54.0) % MCV 94.0 D (80-100) fL MCH 29.9 (27.0-34.0) pg MCHC 31.8 L (33.0-35.0) g/dL Plt Count 55 L (150-450) 10^3/uL Neut % (Auto) 90.6 H (42.2-75.2) % Lymph % (Auto) 6.1 L (20.5-50.1) % [place] % (Auto) 1.7 L (2-8) % Eos % (Auto) 1.3 (1.0-3.0) % Baso % (Auto) 0.3 (0.0-1.0) % PT (9.0-12.0) SEC INR (0.9-1.2) D-Dimer, Quantitative 792 H (0-400) ng/mL Sodium (136-145) mmol/L Potassium (3.5-5.1) mmol/L Chloride (98-107) mmol/L Carbon Dioxide (21-32) mmol/L Anion Gap (7-13) mEq/L BUN (7-18) mg/dL Creatinine (0.70-1.30) mg/dL Est Cr Clr Drug Dosing mL/min Estimated GFR (MDRD) BUN/Creatinine Ratio (No establ ref range) Glucose (70-99) mg/dL POC Glucose 75 (70-99) mg/dL Lactic Acid (0.4-2.0) mmol/L Calcium (8.5-10.1) mg/dL Magnesium (1.8-2.4) mg/dL Total Bilirubin (0.2-1.0) mg/dL AST (15-37) U/L ALT (16-63) U/L Alkaline Phosphatase (46-116) U/L Ammonia (11-32) umol/L Troponin I (0.000-0.056) ng/mL B-Natriuretic Peptide (0-100) pg/ml Total Protein (6.4-8.2) g/dL Albumin (3.4-5.0) g/dL Globulin Albumin/Globulin Ratio Urine Color (YELLOW) Urine Appearance (CLEAR) Urine pH (5.0-9.0) Ur Specific [place] (1.005-1.030) Urine Protein (NEGATIVE) Urine Glucose (UA) (NEGATIVE) Urine Ketones (NEGATIVE) Urine Occult Blood (NEGATIVE) Urine Nitrite (NEGATIVE) Urine Bilirubin (NEGATIVE) Urine Urobilinogen (0.2-1.0) mg/dL Ur Leukocyte Esterase (NEGATIVE) U Hyaline Cast (Auto) Urine RBC /HPF Urine WBC (0-5/HPF) /HPF Ur Epithelial Cells (NOT SEEN) /HPF Urine Bacteria (0-FEW/HPF) /HPF Urine Mucus (NOT SEEN) /LPF Salicylates (2.8-20(Therapeutic)) mg/dL Urine Opiates Screen (NEGATIVE) Ur Oxycodone Screen (NEGATIVE) Urine Methadone Screen (NEGATIVE) Acetaminophen (10-30 (Therapeutic)) ug/mL Ur Barbiturates Screen (NEGATIVE) U Tricyclic Antidepress (NEGATIVE) Ur Phencyclidine Scrn (NEGATIVE) Ur Amphetamine Screen (NEGATIVE) U Methamphetamines Scrn (NEGATIVE) Urine MDMA Screen (NEGATIVE) U Benzodiazepines Scrn (NEGATIVE) Urine Cocaine Screen (NEGATIVE) U Marijuana (THC) Screen (NEGATIVE) Ethyl Alcohol (0) mg/dL SARS-CoV-2 RNA (CYNTHIA) (NEGATIVE) 04/16/21 04/16/21 04/16/21 Range/Units 06:37 06:37 06:37 WBC (5.0-10.0) 10^3/uL RBC (4.6-6.2) 10^6/uL Hgb (14.0-18.0) g/dL Hct (40.0-54.0) % MCV (80-100) fL MCH (27.0-34.0) pg MCHC (33.0-35.0) g/dL Plt Count (150-450) 10^3/uL Neut % (Auto) (42.2-75.2) % Lymph % (Auto) (20.5-50.1) % [place] % (Auto) (2-8) % Eos % (Auto) (1.0-3.0) % Baso % (Auto) (0.0-1.0) % PT (9.0-12.0) SEC INR (0.9-1.2) D-Dimer, Quantitative (0-400) ng/mL Sodium 136 (136-145) mmol/L Potassium 4.3 (3.5-5.1) mmol/L Chloride 105 (98-107) mmol/L Carbon Dioxide 23 D (21-32) mmol/L Anion Gap 12.3 (7-13) mEq/L BUN 9 (7-18) mg/dL Creatinine 1.27 (0.70-1.30) mg/dL Est Cr Clr Drug Dosing 73.31 mL/min Estimated GFR (MDRD) > 60 BUN/Creatinine Ratio 7.1 (No establ ref range) Glucose 79 (70-99) mg/dL POC Glucose (70-99) mg/dL Lactic Acid 3.5 H* (0.4-2.0) mmol/L Calcium 7.6 L (8.5-10.1) mg/dL Magnesium (1.8-2.4) mg/dL Total Bilirubin 4.2 H (0.2-1.0) mg/dL AST 52 H (15-37) U/L ALT 23 (16-63) U/L Alkaline Phosphatase 176 H (46-116) U/L Ammonia 167 H (11-32) umol/L Troponin I < 0.017 (0.000-0.056) ng/mL B-Natriuretic Peptide 284 H (0-100) pg/ml Total Protein 7.4 (6.4-8.2) g/dL Albumin 1.9 L (3.4-5.0) g/dL Globulin 5.5 Albumin/Globulin Ratio 0.35 Urine Color (YELLOW) Urine Appearance (CLEAR) Urine pH (5.0-9.0) Ur Specific [place] (1.005-1.030) Urine Protein (NEGATIVE) Urine Glucose (UA) (NEGATIVE) Urine Ketones (NEGATIVE) Urine Occult Blood (NEGATIVE) Urine Nitrite (NEGATIVE) Urine Bilirubin (NEGATIVE) Urine Urobilinogen (0.2-1.0) mg/dL Ur Leukocyte Esterase (NEGATIVE) U Hyaline Cast (Auto) Urine RBC /HPF Urine WBC (0-5/HPF) /HPF Ur Epithelial Cells (NOT SEEN) /HPF Urine Bacteria (0-FEW/HPF) /HPF Urine Mucus (NOT SEEN) /LPF Salicylates (2.8-20(Therapeutic)) mg/dL Urine Opiates Screen (NEGATIVE) Ur Oxycodone Screen (NEGATIVE) Urine Methadone Screen (NEGATIVE) Acetaminophen (10-30 (Therapeutic)) ug/mL Ur Barbiturates Screen (NEGATIVE) U Tricyclic Antidepress (NEGATIVE) Ur Phencyclidine Scrn (NEGATIVE) Ur Amphetamine Screen (NEGATIVE) U Methamphetamines Scrn (NEGATIVE) Urine MDMA Screen (NEGATIVE) U Benzodiazepines Scrn (NEGATIVE) Urine Cocaine Screen (NEGATIVE) U Marijuana (THC) Screen (NEGATIVE) Ethyl Alcohol (0) mg/dL SARS-CoV-2 RNA (CYNTHIA) (NEGATIVE) 04/16/21 04/16/21 04/16/21 Range/Units 06:37 06:37 06:43 WBC (5.0-10.0) 10^3/uL RBC (4.6-6.2) 10^6/uL Hgb (14.0-18.0) g/dL Hct (40.0-54.0) % MCV (80-100) fL MCH (27.0-34.0) pg MCHC (33.0-35.0) g/dL Plt Count (150-450) 10^3/uL Neut % (Auto) (42.2-75.2) % Lymph % (Auto) (20.5-50.1) % [place] % (Auto) (2-8) % Eos % (Auto) (1.0-3.0) % Baso % (Auto) (0.0-1.0) % PT (9.0-12.0) SEC INR (0.9-1.2) D-Dimer, Quantitative (0-400) ng/mL Sodium (136-145) mmol/L Potassium (3.5-5.1) mmol/L Chloride (98-107) mmol/L Carbon Dioxide (21-32) mmol/L Anion Gap (7-13) mEq/L BUN (7-18) mg/dL Creatinine (0.70-1.30) mg/dL Est Cr Clr Drug Dosing mL/min Estimated GFR (MDRD) BUN/Creatinine Ratio (No establ ref range) Glucose (70-99) mg/dL POC Glucose (70-99) mg/dL Lactic Acid (0.4-2.0) mmol/L Calcium (8.5-10.1) mg/dL Magnesium 1.5 L (1.8-2.4) mg/dL Total Bilirubin (0.2-1.0) mg/dL AST (15-37) U/L ALT (16-63) U/L Alkaline Phosphatase (46-116) U/L Ammonia (11-32) umol/L Troponin I (0.000-0.056) ng/mL B-Natriuretic Peptide (0-100) pg/ml Total Protein (6.4-8.2) g/dL Albumin (3.4-5.0) g/dL Globulin Albumin/Globulin Ratio Urine Color (YELLOW) Urine Appearance (CLEAR) Urine pH (5.0-9.0) Ur Specific [place] (1.005-1.030) Urine Protein (NEGATIVE) Urine Glucose (UA) (NEGATIVE) Urine Ketones (NEGATIVE) Urine Occult Blood (NEGATIVE) Urine Nitrite (NEGATIVE) Urine Bilirubin (NEGATIVE) Urine Urobilinogen (0.2-1.0) mg/dL Ur Leukocyte Esterase (NEGATIVE) U Hyaline Cast (Auto) Urine RBC /HPF Urine WBC (0-5/HPF) /HPF Ur Epithelial Cells (NOT SEEN) /HPF Urine Bacteria (0-FEW/HPF) /HPF Urine Mucus (NOT SEEN) /LPF Salicylates (2.8-20(Therapeutic)) mg/dL Urine Opiates Screen (NEGATIVE) Ur Oxycodone Screen (NEGATIVE) Urine Methadone Screen (NEGATIVE) Acetaminophen 0 L (10-30 (Therapeutic)) ug/mL Ur Barbiturates Screen (NEGATIVE) U Tricyclic Antidepress (NEGATIVE) Ur Phencyclidine Scrn (NEGATIVE) Ur Amphetamine Screen (NEGATIVE) U Methamphetamines Scrn (NEGATIVE) Urine MDMA Screen (NEGATIVE) U Benzodiazepines Scrn (NEGATIVE) Urine Cocaine Screen (NEGATIVE) U Marijuana (THC) Screen (NEGATIVE) Ethyl Alcohol < 3 (0) mg/dL SARS-CoV-2 RNA (CYNTHIA) Negative (NEGATIVE) 04/16/21 04/16/21 04/16/21 Range/Units 06:46 07:40 08:57 WBC (5.0-10.0) 10^3/uL RBC (4.6-6.2) 10^6/uL Hgb (14.0-18.0) g/dL Hct (40.0-54.0) % MCV (80-100) fL MCH (27.0-34.0) pg MCHC (33.0-35.0) g/dL Plt Count (150-450) 10^3/uL Neut % (Auto) (42.2-75.2) % Lymph % (Auto) (20.5-50.1) % [place] % (Auto) (2-8) % Eos % (Auto) (1.0-3.0) % Baso % (Auto) (0.0-1.0) % PT 16.3 H (9.0-12.0) SEC INR 1.6 H (0.9-1.2) D-Dimer, Quantitative (0-400) ng/mL Sodium (136-145) mmol/L Potassium (3.5-5.1) mmol/L Chloride (98-107) mmol/L Carbon Dioxide (21-32) mmol/L Anion Gap (7-13) mEq/L BUN (7-18) mg/dL Creatinine (0.70-1.30) mg/dL Est Cr Clr Drug Dosing mL/min Estimated GFR (MDRD) BUN/Creatinine Ratio (No establ ref range) Glucose (70-99) mg/dL POC Glucose (70-99) mg/dL Lactic Acid (0.4-2.0) mmol/L Calcium (8.5-10.1) mg/dL Magnesium (1.8-2.4) mg/dL Total Bilirubin (0.2-1.0) mg/dL AST (15-37) U/L ALT (16-63) U/L Alkaline Phosphatase (46-116) U/L Ammonia (11-32) umol/L Troponin I (0.000-0.056) ng/mL B-Natriuretic Peptide (0-100) pg/ml Total Protein (6.4-8.2) g/dL Albumin (3.4-5.0) g/dL Globulin Albumin/Globulin Ratio Urine Color Yellow (YELLOW) Urine Appearance Clear (CLEAR) Urine pH 5.5 (5.0-9.0) Ur Specific [place] 1.020 (1.005-1.030) Urine Protein Negative (NEGATIVE) Urine Glucose (UA) Negative (NEGATIVE) Urine Ketones Negative (NEGATIVE) Urine Occult Blood Moderate H (NEGATIVE) Urine Nitrite Negative (NEGATIVE) Urine Bilirubin Negative (NEGATIVE) Urine Urobilinogen 0.2 (0.2-1.0) mg/dL Ur Leukocyte Esterase Negative (NEGATIVE) U Hyaline Cast (Auto) Occasional Urine RBC 0-5 /HPF Urine WBC Not seen (0-5/HPF) /HPF Ur Epithelial Cells Rare (NOT SEEN) /HPF Urine Bacteria Not seen (0-FEW/HPF) /HPF Urine Mucus Many H (NOT SEEN) /LPF Salicylates < 2.8 L (2.8-20(Therapeutic)) mg/dL Urine Opiates Screen (NEGATIVE) Ur Oxycodone Screen (NEGATIVE) Urine Methadone Screen (NEGATIVE) Acetaminophen (10-30 (Therapeutic)) ug/mL Ur Barbiturates Screen (NEGATIVE) U Tricyclic Antidepress (NEGATIVE) Ur Phencyclidine Scrn (NEGATIVE) Ur Amphetamine Screen (NEGATIVE) U Methamphetamines Scrn (NEGATIVE) Urine MDMA Screen (NEGATIVE) U Benzodiazepines Scrn (NEGATIVE) Urine Cocaine Screen (NEGATIVE) U Marijuana (THC) Screen (NEGATIVE) Ethyl Alcohol (0) mg/dL SARS-CoV-2 RNA (CYNTHIA) (NEGATIVE) 04/16/21 Range/Units 08:57 WBC (5.0-10.0) 10^3/uL RBC (4.6-6.2) 10^6/uL Hgb (14.0-18.0) g/dL Hct (40.0-54.0) % MCV (80-100) fL MCH (27.0-34.0) pg MCHC (33.0-35.0) g/dL Plt Count (150-450) 10^3/uL Neut % (Auto) (42.2-75.2) % Lymph % (Auto) (20.5-50.1) % [place] % (Auto) (2-8) % Eos % (Auto) (1.0-3.0) % Baso % (Auto) (0.0-1.0) % PT (9.0-12.0) SEC INR (0.9-1.2) D-Dimer, Quantitative (0-400) ng/mL Sodium (136-145) mmol/L Potassium (3.5-5.1) mmol/L Chloride (98-107) mmol/L Carbon Dioxide (21-32) mmol/L Anion Gap (7-13) mEq/L BUN (7-18) mg/dL Creatinine (0.70-1.30) mg/dL Est Cr Clr Drug Dosing mL/min Estimated GFR (MDRD) BUN/Creatinine Ratio (No establ ref range) Glucose (70-99) mg/dL POC Glucose (70-99) mg/dL Lactic Acid (0.4-2.0) mmol/L Calcium (8.5-10.1) mg/dL Magnesium (1.8-2.4) mg/dL Total Bilirubin (0.2-1.0) mg/dL AST (15-37) U/L ALT (16-63) U/L Alkaline Phosphatase (46-116) U/L Ammonia (11-32) umol/L Troponin I (0.000-0.056) ng/mL B-Natriuretic Peptide (0-100) pg/ml Total Protein (6.4-8.2) g/dL Albumin (3.4-5.0) g/dL Globulin Albumin/Globulin Ratio Urine Color (YELLOW) Urine Appearance (CLEAR) Urine pH (5.0-9.0) Ur Specific [place] (1.005-1.030) Urine Protein (NEGATIVE) Urine Glucose (UA) (NEGATIVE) Urine Ketones (NEGATIVE) Urine Occult Blood (NEGATIVE) Urine Nitrite (NEGATIVE) Urine Bilirubin (NEGATIVE) Urine Urobilinogen (0.2-1.0) mg/dL Ur Leukocyte Esterase (NEGATIVE) U Hyaline Cast (Auto) Urine RBC /HPF Urine WBC (0-5/HPF) /HPF Ur Epithelial Cells (NOT SEEN) /HPF Urine Bacteria (0-FEW/HPF) /HPF Urine Mucus (NOT SEEN) /LPF Salicylates (2.8-20(Therapeutic)) mg/dL Urine Opiates Screen Negative (NEGATIVE) Ur Oxycodone Screen Positive H (NEGATIVE) Urine Methadone Screen Negative (NEGATIVE) Acetaminophen (10-30 (Therapeutic)) ug/mL Ur Barbiturates Screen Negative (NEGATIVE) U Tricyclic Antidepress Negative (NEGATIVE) Ur Phencyclidine Scrn Negative (NEGATIVE) Ur Amphetamine Screen Negative (NEGATIVE) U Methamphetamines Scrn Negative (NEGATIVE) Urine MDMA Screen Negative (NEGATIVE) U Benzodiazepines Scrn Negative (NEGATIVE) Urine Cocaine Screen Negative (NEGATIVE) U Marijuana (THC) Screen Negative (NEGATIVE) Ethyl Alcohol (0) mg/dL SARS-CoV-2 RNA (CYNTHIA) (NEGATIVE) Meds: Medications Generic Name Dose Route Start Last Admin Trade Name Zeynep PRN Reason Stop Dose Admin Sodium Chloride 1,000 mls @ 999 mls/hr 04/16/21 08:19 04/16/21 08:24 Normal Saline IV 04/16/21 09:19 999 mls/hr .BOLUS ONE Administration Norepinephrine Bitartrate 4 mg 250 mls @ 7.5 mls/hr 04/16/21 08:45 04/16/21 08:38 / Dextrose/Water IV 2 mcg/min TITRATE AMIE 7.5 mls/hr Administration Protocol 2 MCG/MIN Trimethoprim/Sulfamethoxazole 260 mls @ 167 mls/hr 04/16/21 09:04 10 ml/ Dextrose/Water IV Q8H AMIE Discontinued Medications Generic Name Dose Route Start Last Admin Trade Name Zeynep PRN Reason Stop Dose Admin Acetaminophen Confirm 04/16/21 06:44 04/16/21 07:07 Acetaminophen 650 Mg Supp Administered 04/16/21 06:45 Not Given Dose 650 mg .ROUTE .STK-MED ONE Acetaminophen 650 mg 04/16/21 06:46 04/16/21 07:07 Acetaminophen 650 Mg Supp RECTAL 04/16/21 06:47 650 mg NOW STA Administration Furosemide 40 mg 04/16/21 06:51 04/16/21 07:16 Furosemide 40 Mg/4 Ml Vial IVPUSH 04/16/21 06:52 40 mg NOW ONE Administration Lorazepam Confirm 04/16/21 06:42 04/16/21 07:07 Lorazepam 2 Mg/Ml Sdv Administered 04/16/21 06:43 Not Given Dose 2 mg .ROUTE .STK-MED ONE Lorazepam 0.5 mg 04/16/21 06:46 04/16/21 07:07 Lorazepam 2 Mg/Ml Sdv IVPUSH 04/16/21 06:47 0.5 mg ONETIME ONE Administration - Re-Assessments/Exams Free Text/Narrative Re-Assessment/Exam: 04/16/21 09:16 The patient was sent to CT for a head CT and abdomen CT. The patient's blood pressure dropped after the CT of his head to 67/25. No further scanning was done. Departure - Departure Time of Disposition: 09:18 Condition: Serious - Discharge Information *PRESCRIPTION DRUG MONITORING PROGRAM REVIEWED*: Not Applicable *COPY OF PRESCRIPTION DRUG MONITORING REPORT IN PATIENT NARCISA: Not Applicable Sepsis Event Note (ED) - Focused Exam Vital Signs: Vital Signs Temp Temp Pulse Resp BP Pulse Ox 04/16/21 07:21 38.8 C H 04/16/21 07:07 39.4 C H 04/16/21 06:49 39.5 C H 111 H 32 H 98/85 91 L - My Orders Last 24 Hours: My Active Orders 04/16/21 07:49 Abdomen Pelvis wo Cont [CT] Urgent 04/16/21 08:19 Sodium Chloride 0.9% [Normal Saline] 1,000 ml IV .BOLUS 04/16/21 08:45 Norepinephrine [Levophed] 4 mg Dextrose 5% in Water 246 ml IV TITRATE 04/16/21 09:02 Urinary Catheter Assessment [RC] ASDIRECTED 04/16/21 09:04 Sulfamethoxazole/Trimethoprim [Septra IV] 10 ml Dextrose 5% in Water 250 ml IV Q8H 04/16/21 09:15 Insert [place] Catheter [Insert Urinary Catheter] [OM.PC] Q24H - Assessment/Plan Last 24 Hours: My Active Orders 04/16/21 07:49 Abdomen Pelvis wo Cont [CT] Urgent 04/16/21 08:19 Sodium Chloride 0.9% [Normal Saline] 1,000 ml IV .BOLUS 04/16/21 08:45 Norepinephrine [Levophed] 4 mg Dextrose 5% in Water 246 ml IV TITRATE 04/16/21 09:02 Urinary Catheter Assessment [RC] ASDIRECTED 04/16/21 09:04 Sulfamethoxazole/Trimethoprim [Septra IV] 10 ml Dextrose 5% in Water 250 ml IV Q8H 04/16/21 09:15 Insert [place] Catheter [Insert Urinary Catheter] [OM.PC] Q24H
[2021-04-16 07:19] LABS: ANION GAP 12.3 mEq/L (7-13); CHLORIDE,CL 105 mmol/L (98-107); SODIUM,NA 136 mmol/L (136-145)
--- NOTE | 2021-04-16 07:35 | CR ---
PROCEDURE INFORMATION: Exam: XR Chest Exam date and time: 04/16/2021 7:23 AM Age: 40 years old Clinical indication: Shortness of breath; Additional info: Dyspnea TECHNIQUE: Imaging protocol: XR of the chest. Views: 1 view. COMPARISON: CR Chest 1V Frontal 03/05/2021 2:03 AM FINDINGS: Lungs: Unremarkable. No consolidation. Pleural spaces: Unremarkable. No pleural effusion. No pneumothorax. Heart/Mediastinum: The cardiomediastinal silhouette is stable in appearance allowing for differences in positioning. Bones/joints: Unremarkable. IMPRESSION: No evidence for acute pulmonary disease.
[2021-04-16 08:10] LABS: ACETAMINOPHEN 0 ug/mL (10-30 (Therapeutic))
[2021-04-16] MEDS ORDERED: Sodium Chloride 0.9% 1,000 ML IV ONE (08:19)
--- NOTE | 2021-04-16 08:36 | CT ---
PROCEDURE INFORMATION: Exam: CT Head Without Contrast Exam date and time: 04/16/2021 8:22 AM Age: 40 years old Clinical indication: Altered mental status/memory loss; Additional info: Altered mentation TECHNIQUE: Imaging protocol: Computed tomography of the head without contrast. Radiation optimization: All CT scans at this facility use at least one of these dose optimization techniques: automated exposure control; mA and/or kV adjustment per patient size (includes targeted exams where dose is matched to clinical indication); or iterative reconstruction. COMPARISON: No relevant prior studies available. FINDINGS: Brain: Patchy lucencies in the white matter are nonspecific but most suggestive of chronic microvascular ischemic disease. There is no evidence for large acute cortical infarct. No intracranial hemorrhage or extraaxial collection is identified. There is no significant intracranial mass effect. Cerebral ventricles: No ventriculomegaly. Bones/joints: Unremarkable. No acute fracture. Paranasal sinuses: Visualized sinuses are unremarkable. No fluid levels. Mastoid air cells: Visualized mastoid air cells are well aerated. Soft tissues: Unremarkable. IMPRESSION: No CT evidence for acute intracranial abnormality.
[2021-04-16] MEDS ORDERED: Norepinephrine 4 MG in Dextrose 5% in Water 246 ML IV SCH ×2 (08:45)
[2021-04-16] MEDS ORDERED: Sulfamethoxazole/Trimethoprim 10 ML in Dextrose 5% in Water 250 ML IV SCH ×4 (09:04→09:30)
[2021-04-16 13:31] LABS: BASE EXCESS VENOUS -0.7 mmol/l ((-2)-(+3)); BICARBONATE,VENOUS 24 mmol/l (19-25); O2 DELIVERY DEVICE NASAL CANNULA; PCO2 VENOUS 44 mmHg (41-51); PH,VENOUS 7.36 (7.31-7.41); PO2 VENOUS 25 mmHg (35-42)
== END 2021-04-16 09:45 ==
LOC: DL.ED 06:13
DX: A41.9 Sepsis, unspecified organism (principal); I95.9 Hypotension, unspecified; E72.20 Disorder of urea cycle metabolism, unspecified; J45.909 Unspecified asthma, uncomplicated; K21.9 Gastro-esophageal reflux disease without esophagitis; I13.0 Hypertensive heart and chronic kidney disease with heart failure and stage 1 through stage 4 chronic kidney disease, or unspecified chronic kidney disease; I50.9 Heart failure, unspecified; N18.9 Chronic kidney disease, unspecified; E66.9 Obesity, unspecified; Z68.38 Body mass index [BMI] 38.0-38.9, adult; Z20.822 Contact with and (suspected) exposure to COVID-19; Z88.6 Allergy status to analgesic agent; Z88.1 Allergy status to other antibiotic agents
CPT/HCPCS: 36415; 51702; 70450; 71045; 80053; 80143; 80179; 80305-QW; 80307; 81001; 82140; 82803; 82947; 83605; 83735; 83880; 84484; 85025; 85379; 85610; 87040; 87077; 87186; 93005; 93010; 96365; 96368; 96375; 99283; 99285-25; A9270-GY; J1940; J2060; J3490; J7030; J7060; U0002

== ENCOUNTER 2021-07-04 07:13 | Emergency (ER) | payer MEDICARE, OTHER ==
--- NOTE | 2021-07-04 07:19 | EDM.PDOC ---
ED HPI GENERAL MEDICAL PROBLEM - General Chief Complaint: Possible Sepsis Stated Complaint: Cough, abdominal bloating, confusion, positive blood cultures from [facility] ER Time Seen by Provider: 07/04/21 07:13 Source of Information: Reports: Patient, EMS, Old Records, RN, RN Notes Reviewed, Other ([facility], Dr. Hammonds) History Limitations: Reports: No Limitations - History of Present Illness INITIAL COMMENTS - FREE TEXT/NARRATIVE: Pt arrives from home by [facility] preceded by a phone call from [facility], and ER staff reporting that the pt was in [facility] ER yesterday. After the pt left [facility] ER for home he was found to have positive blood cultures. [facility] states they made repeated attempts all night to call the pt to return to their ER. Finally they made contact this morning, but the pt did not have transportation back to [facility] so he called the ambulance. The ambulance was required to transport him to the nearest facility ([facility]). It is agreed with Dr. Hammonds that if the pt arrives to [facility] for transfer that he will accept the pt as a direct transfer to [facility] ER without further diagnostic work up. Pt arrives to this ER awake, alert, and hemodynamically stable. Pt wishes to be transferred immediately without further work up at this facility. Pt report cough, abdomen "filled with fluid" from liver disease, and passing blood clots with BMs. Denies chest pain, fever, or shortness of breath. Onset: Unknown/Unsure Duration: Constant - Related Data Allergies Allergy/AdvReac Type Severity Reaction Status Date / Time aspirin Allergy Cannot Verified 05/02/21 10:07 Remember cephalexin Allergy Rash Verified 05/02/21 10:07 clindamycin Allergy Cannot Verified 05/02/21 10:07 Remember Home Meds: Home Meds Cyclobenzaprine [Flexeril] 10 mg PO TID PRN 10/06/20 [History] Furosemide [Lasix] 40 mg PO TID 10/06/20 [History] Gabapentin [Neurontin] 300 mg PO TID 10/06/20 [History] Lactulose 40 ml PO TID 10/06/20 [History] Pantoprazole Sodium [Protonix] 40 mg PO DAILY 10/06/20 [History] oxyCODONE 5 mg PO QID PRN 10/06/20 [History] Albuterol/Ipratropium [DuoNeb 3.0-0.5 MG/3 ML] 3 ml NEB Q4H PRN #60 neb 01/14/21 [Rx] Budesonide [Pulmicort] 0.5 mg NEB BIDRT #60 neb 01/14/21 [Rx] Rifaximin [Xifaxan] 550 mg PO BID tablet 01/14/21 [Rx] metOLazone [Zaroxolyn] 2.5 mg PO DAILY@0830 #30 tablet 01/14/21 [Rx] Ascorbic Acid [Vitamin C] 500 mg PO DAILY 30 Days #30 tablet 03/14/21 [Rx] Ferrous Sulfate 325 mg PO BIDMEALS 30 Days #60 tablet 03/14/21 [Rx] Potassium Chloride 40 meq PO TID 30 Days #180 tablet.er 03/14/21 [Rx] Spironolactone [Aldactone] 100 mg PO DAILY tablet 03/14/21 [Rx] Bacitracin [Bacitracin Oint] 1 squirt TOP ASDIRECTED PRN 04/24/21 [History] Past Medical History - Past Health History Medical/Surgical History: Denies Medical/Surgical History HEENT History: Reports: Other (See Below) Other HEENT History: wears corrective lenses. Sore to lips from MRSA. Cardiovascular History: Reports: Heart Failure, Hypertension, Other (See Below) Other Cardiovascular History: Hypotension. Respiratory History: Reports: Asthma Gastrointestinal History: Reports: Cirrhosis, GERD, GI Bleed, Other (See Below) Other Gastrointestinal History: acities, esophageal varices Genitourinary History: Reports: Chronic Renal Insuffiency, Other (See Below) Other Genitourinary History: chronic kidney disease Musculoskeletal History: Reports: None Neurological History: Reports: None Psychiatric History: Reports: Addiction Endocrine/Metabolic History: Reports: Obesity/BMI 30+ Hematologic History: Reports: Anemia Immunologic History: Reports: None Oncologic (Cancer) History: Reports: None Dermatologic History: Reports: Cellulitis, Psoriasis - Infectious Disease History Infectious Disease History: Reports: MRSA - Past Surgical History Head Surgeries/Procedures: Reports: None Cardiovascular Surgical History: Reports: Other (See Below) Other Cardiovascular Surgeries/Procedures: chronic edema with leg ulcers GI Surgical History: Reports: EGD, Other (See Below) Other GI Surgeries/Procedures: bands placed on varices Social & Family History - Family History Family Medical History: No Pertinent Family History - Caffeine Use Caffeine Use: Reports: Coffee, Soda, Tea - Living Situation & Occupation Living situation: Reports: with Family ED ROS GENERAL - Review of Systems Review Of Systems: Comprehensive ROS is negative, except as noted in HPI. ED EXAM, GENERAL - Physical Exam Exam: See Below Exam Limited By: No Limitations General Appearance: Alert, No Apparent Distress, Other (Ill but non-toxic appearing) Eye Exam: Bilateral Eye: Normal Inspection Nose: Normal Inspection Throat/Mouth: Normal Voice, No Airway Compromise Head: Atraumatic, Normocephalic Respiratory/Chest: Other (Frequent dry cough) Cardiovascular: Tachycardia GI/Abdominal: Soft, Non-Tender, Other (Abdominal fullness with likely ascites) Neurological: Alert Psychiatric: Normal Mood Skin Exam: Warm, Dry Course - Re-Assessments/Exams Free Text/Narrative Re-Assessment/Exam: 07/04/21 07:14 Pt accepted as ALS ground ambulance transfer to [facility] by Dr. Hammonds. Departure - Departure Time of Disposition: 07:28 Disposition: DC/Tfer to Acute Hospital 02 Condition: Undetermined Clinical Impression: Positive blood cultures, Cough, Ascites due to alcoholic cirrhosis - Discharge Information *PRESCRIPTION DRUG MONITORING PROGRAM REVIEWED*: Not Applicable *COPY OF PRESCRIPTION DRUG MONITORING REPORT IN PATIENT NARCISA: Not Applicable Forms: ED Department Discharge, Interfacility Transfer [facility]
[2021-07-04 07:41] VITALS: BP 112/67; PULSE 123
== END 2021-07-04 07:18 ==
LOC: DL.ED 07:13
DX: K70.31 Alcoholic cirrhosis of liver with ascites (principal); R05 Cough; R89.5 Abnormal microbiological findings in specimens from other organs, systems and tissues; I11.0 Hypertensive heart disease with heart failure; I50.9 Heart failure, unspecified; K21.9 Gastro-esophageal reflux disease without esophagitis; E66.9 Obesity, unspecified; Z68.30 Body mass index [BMI] 30.0-30.9, adult; Z79.899 Other long term (current) drug therapy; Z88.1 Allergy status to other antibiotic agents; Z88.8 Allergy status to other drugs, medicaments and biological substances
CPT/HCPCS: 99284; 99285

== ENCOUNTER 2021-07-16 20:40 | Inpatient (IN) | payer MEDICARE, OTHER ==
[2021-07-16 21:01] LABS: ANION GAP 10.8 mEq/L (7-13); CHLORIDE,CL 103 mmol/L (98-107); SODIUM,NA 140 mmol/L (136-145)
[2021-07-16] MEDS ORDERED: Sodium Chloride 0.9% 1,000 ML IV ONE (21:12)
--- NOTE | 2021-07-16 21:12 | EDM.PDOC ---
ED HPI GENERAL MEDICAL PROBLEM - General Chief Complaint: Fever Stated Complaint: SENT FROM NURSE'S STATION Time Seen by Provider: 07/16/21 21:12 Source of Information: Reports: Patient, RN, RN Notes Reviewed History Limitations: Reports: No Limitations - History of Present Illness INITIAL COMMENTS - FREE TEXT/NARRATIVE: Patient is a 41-year-old male who presents to ER with complaint of fever. Patient was recently discharged from [facility] with bacteremia with unknown source, MSSA. Patient is receiving daptomycin as an outpatient on the medical floor. Patient arrived this evening to receive his medication and had a fever of 102.2. Patient states fever began yesterday. Admits to fever and shaking chills. Denies any nausea, vomiting, diarrhea, chest pains, shortness of breath. Patient states he has never had COVID-19, and has not been vaccinated for COVID- 19. Patient states he does have liver failure, is on a liver transplant list. States he has had problems in the past with his ammonia being elevated and causing some confusion. Nursing staff states the patient seems to be confused from time to time. Onset: Gradual - Related Data Allergies Allergy/AdvReac Type Severity Reaction Status Date / Time aspirin Allergy Cannot Verified 05/02/21 10:07 Remember cephalexin Allergy Rash Verified 05/02/21 10:07 clindamycin Allergy Cannot Verified 05/02/21 10:07 Remember acetaminophen [From Tylenol] AdvReac Other Verified 07/17/21 00:36 ibuprofen AdvReac Other Verified 07/17/21 00:36 Home Meds: Home Meds Cyclobenzaprine [Flexeril] 10 mg PO TID PRN 10/06/20 [History] Furosemide [Lasix] 40 mg PO TID 10/06/20 [History] Lactulose 40 ml PO TID 10/06/20 [History] Pantoprazole Sodium [Protonix] 40 mg PO DAILY 10/06/20 [History] Albuterol/Ipratropium [DuoNeb 3.0-0.5 MG/3 ML] 3 ml NEB Q4H PRN #60 neb 01/14/21 [Rx] Ascorbic Acid [Vitamin C] 500 mg PO DAILY 30 Days #30 tablet 03/14/21 [Rx] Ferrous Sulfate 325 mg PO BIDMEALS 30 Days #60 tablet 03/14/21 [Rx] Albuterol Sulfate [Albuterol Sulfate HFA] ASDIRECTED 07/17/21 [History] Albuterol [Proventil Neb Soln] ASDIRECTED 07/17/21 [History] DAPTOmycin [Daptomycin] 750 mg IV Q24H 07/17/21 [History] Folic Acid 1 mg PO ASDIRECTED 07/17/21 [History] Multivitamin ASDIRECTED 07/17/21 [History] Mupirocin Cream [Bactroban Crm] ASDIRECTED 07/17/21 [History] Potassium Chloride 20 meq PO ASDIRECTED 07/17/21 [History] Propranolol HCl [Inderal LA] 80 mg PO ASDIRECTED 07/17/21 [History] Rifaximin [Xifaxan] 550 mg PO ASDIRECTED 07/17/21 [History] Silver Sulfadiazine [Silvadene 1% Cream 20 GM] 20 gm .XX ASDIRECTED 07/17/21 [History] Triamcinolone Acetonide [Triamcinolone Acetonide 0.1% Crm] ASDIRECTED 07/17/21 [History] oxyCODONE HCl [Oxycodone HCL] ASDIRECTED 07/17/21 [History] Past Medical History - Past Health History Medical/Surgical History: Denies Medical/Surgical History HEENT History: Reports: Other (See Below) Other HEENT History: wears corrective lenses. Sore to lips from MRSA. Cardiovascular History: Reports: Heart Failure, Hypertension, Other (See Below) Other Cardiovascular History: Hypotension. Respiratory History: Reports: Asthma Gastrointestinal History: Reports: Cirrhosis, GERD, GI Bleed, Other (See Below) Other Gastrointestinal History: acities, esophageal varices Genitourinary History: Reports: Chronic Renal Insuffiency, Other (See Below) Other Genitourinary History: chronic kidney disease Musculoskeletal History: Reports: None Neurological History: Reports: None Psychiatric History: Reports: Addiction Endocrine/Metabolic History: Reports: Obesity/BMI 30+ Hematologic History: Reports: Anemia Immunologic History: Reports: None Oncologic (Cancer) History: Reports: None Dermatologic History: Reports: Cellulitis, Psoriasis - Infectious Disease History Infectious Disease History: Reports: MRSA - Past Surgical History Head Surgeries/Procedures: Reports: None Cardiovascular Surgical History: Reports: Other (See Below) Other Cardiovascular Surgeries/Procedures: chronic edema with leg ulcers GI Surgical History: Reports: EGD, Other (See Below) Other GI Surgeries/Procedures: bands placed on varices Social & Family History - Family History Family Medical History: No Pertinent Family History - Caffeine Use Caffeine Use: Reports: Coffee, Soda, Tea - Living Situation & Occupation Living situation: Reports: with Family ED ROS GENERAL - Review of Systems Review Of Systems: Comprehensive ROS is negative, except as noted in HPI. ED EXAM, SEPSIS - Physical Exam Exam: See Below Exam Limited By: No Limitations General Appearance: Alert, WD/WN, Mild Distress Eye Exam: Bilateral Eye: EOMI, Normal Inspection Ears: Normal External Exam, Hearing Grossly Normal Nose: Normal Inspection Throat/Mouth: Normal Inspection, Normal Voice, No Airway Compromise Head: Atraumatic, Normocephalic Neck: Normal Inspection, Supple, Non-Tender, Full Range of Motion Respiratory/Chest: Decreased Breath Sounds, Crackles (throughout), Wheezing (expiratory throughout) Cardiovascular: Normal Peripheral Pulses, Regular Rate, Rhythm, No Edema, No Gallop, No JVD, No Murmur, No Rub, Tachycardia Peripheral Pulses: 2+: Radial (L), Radial (R) GI/Abdominal Exam: Normal Bowel Sounds, Soft, Non-Tender (Male) Exam: Deferred Rectal (Males) Exam: Deferred Back: Normal Inspection, Full Range of Motion, NT Extremities: Normal Inspection, Normal Range of Motion, Non-Tender, No Pedal Edema, Normal Capillary Refill Neurological: Alert, Oriented, Normal Cognition, No Motor/Sensory Deficits Psychiatric: Normal Affect, Normal Mood Skin: Warm, Dry, Intact, Normal Color, No Rash Lymphatic: Bilateral: No Adenopathy Course - Vital Signs Last Recorded V/S: Last Vital Signs Temp 103.5 F H 07/16/21 23:16 Pulse 103 H 07/16/21 23:16 Resp 20 07/16/21 23:16 BP 122/58 L 07/16/21 23:16 Pulse Ox 93 L 07/16/21 23:16 - Orders/Labs/Meds Orders: Active Orders 24 hr Category Date Time Status Admission Diagnosis [ADT] Stat ADT 07/17/21 01:15 Ordered Admission Status [Patient Status] [ADT] Routine ADT 07/17/21 01:15 Ordered CULTURE BLOOD [BC] Stat Lab 07/16/21 20:30 Received CULTURE BLOOD [BC] Stat Lab 07/16/21 20:33 Received Sodium Chloride 0.9% [Normal Saline] 1,000 ml Med 07/17/21 00:42 Active IV .BOLUS Blood Culture x2 Reflex Set [OM.PC] Stat Oth 07/16/21 20:10 Ordered Medication Orders Sodium Chloride (Normal Saline) 1,000 mls @ 999 mls/hr IV .BOLUS ONE Stop: 07/17/21 01:42 Last Admin: 07/17/21 00:50 Dose: 999 mls/hr Documented by: FREEMAN Labs: Laboratory Tests 07/16/21 07/16/21 07/16/21 Range/Units 20:33 20:33 20:33 WBC 10.2 H (5.0-10.0) 10^3/uL RBC 3.05 L (4.6-6.2) 10^6/uL Hgb 9.5 L (14.0-18.0) g/dL Hct 29.6 L (40.0-54.0) % MCV 97.0 D (80-100) fL MCH 31.1 (27.0-34.0) pg MCHC 32.1 L (33.0-35.0) g/dL Plt Count 44 L* (150-450) 10^3/uL Neut % (Auto) 88.3 H (42.2-75.2) % Lymph % (Auto) 3.3 L (20.5-50.1) % [place] % (Auto) 7.1 (2-8) % Eos % (Auto) 1.0 (1.0-3.0) % Baso % (Auto) 0.3 (0.0-1.0) % Sodium 140 (136-145) mmol/L Potassium 3.8 (3.5-5.1) mmol/L Chloride 103 (98-107) mmol/L Carbon Dioxide 30 (21-32) mmol/L Anion Gap 10.8 (7-13) mEq/L BUN 10 (7-18) mg/dL Creatinine 1.25 (0.70-1.30) mg/dL Est Cr Clr Drug Dosing TNP Estimated GFR (MDRD) > 60 BUN/Creatinine Ratio 8.0 (No establ ref range) Glucose 141 H (70-99) mg/dL Lactic Acid 1.4 (0.4-2.0) mmol/L Calcium 7.9 L (8.5-10.1) mg/dL Total Bilirubin 4.6 H (0.2-1.0) mg/dL AST 34 (15-37) U/L ALT 31 (16-63) U/L Alkaline Phosphatase 168 H (46-116) U/L Ammonia (11-32) umol/L C-Reactive Protein 0.4 (0.0-0.9) mg/dL Total Protein 6.0 L (6.4-8.2) g/dL Albumin 2.6 L (3.4-5.0) g/dL Globulin 3.4 Albumin/Globulin Ratio 0.76 Urine Color (YELLOW) Urine Appearance (CLEAR) Urine pH (5.0-9.0) Ur Specific [place] (1.005-1.030) Urine Protein (NEGATIVE) Urine Glucose (UA) (NEGATIVE) Urine Ketones (NEGATIVE) Urine Occult Blood (NEGATIVE) Urine Nitrite (NEGATIVE) Urine Bilirubin (NEGATIVE) Urine Urobilinogen (0.2-1.0) mg/dL Ur Leukocyte Esterase (NEGATIVE) Urine RBC (0-5) /HPF Urine WBC (0-5/HPF) /HPF Ur Epithelial Cells (NOT SEEN) /HPF Amorphous Sediment (NOT SEEN) /HPF Urine Bacteria (0-FEW/HPF) /HPF Urine Mucus (NOT SEEN) /LPF Influenza Type A RNA (NEGATIVE) Influenza Type B RNA (NEGATIVE) SARS-CoV-2 RNA (CYNTHIA) (NEGATIVE) 07/16/21 07/16/21 07/16/21 Range/Units 20:35 22:09 23:53 WBC (5.0-10.0) 10^3/uL RBC (4.6-6.2) 10^6/uL Hgb (14.0-18.0) g/dL Hct (40.0-54.0) % MCV (80-100) fL MCH (27.0-34.0) pg MCHC (33.0-35.0) g/dL Plt Count (150-450) 10^3/uL Neut % (Auto) (42.2-75.2) % Lymph % (Auto) (20.5-50.1) % [place] % (Auto) (2-8) % Eos % (Auto) (1.0-3.0) % Baso % (Auto) (0.0-1.0) % Sodium (136-145) mmol/L Potassium (3.5-5.1) mmol/L Chloride (98-107) mmol/L Carbon Dioxide (21-32) mmol/L Anion Gap (7-13) mEq/L BUN (7-18) mg/dL Creatinine (0.70-1.30) mg/dL Est Cr Clr Drug Dosing Estimated GFR (MDRD) BUN/Creatinine Ratio (No establ ref range) Glucose (70-99) mg/dL Lactic Acid (0.4-2.0) mmol/L Calcium (8.5-10.1) mg/dL Total Bilirubin (0.2-1.0) mg/dL AST (15-37) U/L ALT (16-63) U/L Alkaline Phosphatase (46-116) U/L Ammonia 118 H (11-32) umol/L C-Reactive Protein (0.0-0.9) mg/dL Total Protein (6.4-8.2) g/dL Albumin (3.4-5.0) g/dL Globulin Albumin/Globulin Ratio Urine Color Dark yellow (YELLOW) Urine Appearance Clear (CLEAR) Urine pH 7.0 (5.0-9.0) Ur Specific [place] 1.020 (1.005-1.030) Urine Protein Negative (NEGATIVE) Urine Glucose (UA) Negative (NEGATIVE) Urine Ketones Negative (NEGATIVE) Urine Occult Blood Large H (NEGATIVE) Urine Nitrite Negative (NEGATIVE) Urine Bilirubin Negative (NEGATIVE) Urine Urobilinogen 0.2 (0.2-1.0) mg/dL Ur Leukocyte Esterase Negative (NEGATIVE) Urine RBC 75-100 H (0-5) /HPF Urine WBC 0-5 (0-5/HPF) /HPF Ur Epithelial Cells Rare (NOT SEEN) /HPF Amorphous Sediment Rare (NOT SEEN) /HPF Urine Bacteria Rare (0-FEW/HPF) /HPF Urine Mucus Rare (NOT SEEN) /LPF Influenza Type A RNA Negative (NEGATIVE) Influenza Type B RNA Negative (NEGATIVE) SARS-CoV-2 RNA (CYNTHIA) Negative (NEGATIVE) Meds: Medications Generic Name Dose Route Start Last Admin Trade Name Freq PRN Reason Stop Dose Admin Sodium Chloride 1,000 mls @ 999 mls/hr 07/17/21 00:42 07/17/21 00:50 Normal Saline IV 07/17/21 01:42 999 mls/hr .BOLUS ONE Administration Discontinued Medications Generic Name Dose Route Start Last Admin Trade Name Zeynep PRN Reason Stop Dose Admin Sodium Chloride 1,000 mls @ 999 mls/hr 07/16/21 21:12 07/16/21 21:35 Normal Saline IV 07/16/21 22:12 999 mls/hr .BOLUS ONE Administration Iopamidol 50 ml 07/16/21 23:25 07/17/21 00:19 Iopamidol 612 Mg/Ml 50 Ml Sdv IVPUSH 07/16/21 23:26 25 ml ONETIME ONE Administration Iopamidol 100 ml 07/16/21 23:25 07/17/21 00:19 Iopamidol 612 Mg/Ml 100 Ml Bottle IVPUSH 07/16/21 23:26 100 ml ONETIME ONE Administration - Radiology Interpretation Free Text/Narrative:: Chest/Abdomen/Pelvis CT with contrast: PROCEDURE INFORMATION: Exam: CT Chest With Contrast; Diagnostic Exam date and time: 07/16/2021 11:35 PM Age: 41 years old Clinical indication: Fever; Additional info: Fever of unknown origin TECHNIQUE: Imaging protocol: Diagnostic computed tomography of the chest with contrast. Radiation optimization: All CT scans at this facility use at least one of these dose optimization techniques: automated exposure control; mA and/or kV adjustment per patient size (includes targeted exams where dose is matched to clinical indication); or iterative reconstruction. Contrast material: ISOVUE 300; Contrast volume: 125 ml; Contrast route: INTRAVENOUS (IV); COMPARISON: CR Chest 2V 05/21/2020 6:04 PM FINDINGS: Lungs: Unremarkable. No consolidation. No masses. Pleural spaces: No acute infiltrate or effusion. Heart: Unremarkable. No cardiomegaly. No pericardial effusion. Mediastinal space: Moderate sized hiatal hernia with large esophageal varices. Aorta: Unremarkable. No aortic aneurysm. Lymph nodes: Unremarkable. No enlarged lymph nodes. Bones/joints: Unremarkable. No acute fracture. Soft tissues: Unremarkable. IMPRESSION: 1. Moderate sized hiatal hernia with large esophageal varices. 2. No acute infiltrate or effusion. PROCEDURE INFORMATION: Exam: CT Abdomen And Pelvis With Contrast Exam date and time: 07/16/2021 11:35 PM Age: 41 years old Clinical indication: Fever; Additional info: Fever of unknown origin TECHNIQUE: Imaging protocol: Computed tomography of the abdomen and pelvis with contrast. Radiation optimization: All CT scans at this facility use at least one of these dose optimization techniques: automated exposure control; mA and/or kV adjustment per patient size (includes targeted exams where dose is matched to clinical indication); or iterative reconstruction. Contrast material: ISOVUE 300; Contrast volume: 125 ml; Contrast route: INTRAVENOUS (IV); COMPARISON: CR Chest 2V 05/21/2020 6:04 PM FINDINGS: Liver: Cirrhosis of the liver but no mass is identified. Gallbladder and bile ducts: Normal. No calcified stones. No ductal dilation. Pancreas: Normal. No ductal dilation. Spleen: Splenomegaly with large gastric and esophageal varices consistent with portal hypertension. Adrenal glands: Normal. No mass. Kidneys and ureters: Normal. No hydronephrosis. Stomach and bowel: Unremarkable. No obstruction. No mucosal thickening. Appendix: Normal appendix right lower quadrant. Intraperitoneal space: Small amount of abdominal and pelvic ascites noted. Vasculature: Unremarkable. No abdominal aortic aneurysm. Lymph nodes: Unremarkable. No enlarged lymph nodes. Urinary bladder: Unremarkable as visualized. Reproductive: Unremarkable as visualized. Bones/joints: Unremarkable. No acute fracture. Soft tissues: Large umbilical hernia containing a large recanalized umbilical vein. IMPRESSION: 1. Cirrhosis of the liver but no mass is identified. 2. Splenomegaly with large gastric and esophageal varices consistent with portal hypertension. 3. Normal appendix right lower quadrant. 4. Small amount of abdominal and pelvic ascites noted. 5. Large umbilical hernia containing a large recanalized umbilical vein. 6. Subcutaneous edema consistent with anasarca Thank you for allowing us to participate in the care of your patient. Dictated and Authenticated by: Feliz Medina MD 07/17/2021 12:43 AM Central Time ([place] & [place]) See rad report - Re-Assessments/Exams Free Text/Narrative Re-Assessment/Exam: 07/16/21 23:53 Patient temperature continues to run 103-103.5. Patient is very lethargic. Discussed patient case with Dr. Gutierrez who requested a chest abdomen pelvis CT with contrast as well as urinalysis prior to admission. After testing completed, discussed patient case with Dr. Gutierrez who agreed to accept the patient for inpatient admission. 07/17/21 01:17 Departure - Departure Time of Disposition: :17 Disposition: Admitted As Inpatient 64 Condition: Fair Clinical Impression: Hepatic encephalopathy Alcoholic cirrhosis of liver Qualifiers: Ascites presence: unspecified Qualified Code(s): K70.30 - Alcoholic cirrhosis of liver without ascites Fever Qualifiers: Fever type: unspecified Qualified Code(s): R50.9 - Fever, unspecified - Discharge Information *PRESCRIPTION DRUG MONITORING PROGRAM REVIEWED*: No *COPY OF PRESCRIPTION DRUG MONITORING REPORT IN PATIENT NARCISA: No Forms: ED Department Discharge Sepsis Event Note (ED) - Focused Exam Vital Signs: Vital Signs Temp Pulse Resp BP Pulse Ox 07/16/21 23:16 103.5 F H 103 H 20 122/58 L 93 L 07/16/21 20:40 102.2 F H 98 20 131/67 0 L - My Orders Last 24 Hours: My Active Orders 07/16/21 20:10 Blood Culture x2 Reflex Set [OM.PC] Stat 07/16/21 20:30 CULTURE BLOOD [BC] Stat 07/16/21 20:33 CULTURE BLOOD [BC] Stat 07/17/21 00:42 Sodium Chloride 0.9% [Normal Saline] 1,000 ml IV .BOLUS 07/17/21 01:15 Admission Diagnosis [ADT] Stat Admission Status [Patient Status] [ADT] Routine - Assessment/Plan Last 24 Hours: My Active Orders 07/16/21 20:10 Blood Culture x2 Reflex Set [OM.PC] Stat 07/16/21 20:30 CULTURE BLOOD [BC] Stat 07/16/21 20:33 CULTURE BLOOD [BC] Stat 07/17/21 00:42 Sodium Chloride 0.9% [Normal Saline] 1,000 ml IV .BOLUS 07/17/21 01:15 Admission Diagnosis [ADT] Stat Admission Status [Patient Status] [ADT] Routine
[2021-07-16 21:31] LABS: CORONAVIRUS COVID-19 NAA NEGATIVE (NEGATIVE)
[2021-07-16] MEDS ORDERED: Iopamidol 612 MG/ML 100 ML Bottle IVPUSH ONE (23:25)
[2021-07-16] MEDS ORDERED: Iopamidol 612 MG/ML 50 ML SDV IVPUSH ONE (23:25)
[2021-07-17] MEDS ORDERED: Sodium Chloride 0.9% 1,000 ML IV ONE (00:42)
--- NOTE | 2021-07-17 00:44 | CT ---
PROCEDURE INFORMATION: Exam: CT Chest With Contrast; Diagnostic Exam date and time: 07/16/2021 11:35 PM Age: 41 years old Clinical indication: Fever; Additional info: Fever of unknown origin TECHNIQUE: Imaging protocol: Diagnostic computed tomography of the chest with contrast. Radiation optimization: All CT scans at this facility use at least one of these dose optimization techniques: automated exposure control; mA and/or kV adjustment per patient size (includes targeted exams where dose is matched to clinical indication); or iterative reconstruction. Contrast material: ISOVUE 300; Contrast volume: 125 ml; Contrast route: INTRAVENOUS (IV); COMPARISON: CR Chest 2V 05/21/2020 6:04 PM FINDINGS: Lungs: Unremarkable. No consolidation. No masses. Pleural spaces: No acute infiltrate or effusion. Heart: Unremarkable. No cardiomegaly. No pericardial effusion. Mediastinal space: Moderate sized hiatal hernia with large esophageal varices. Aorta: Unremarkable. No aortic aneurysm. Lymph nodes: Unremarkable. No enlarged lymph nodes. Bones/joints: Unremarkable. No acute fracture. Soft tissues: Unremarkable. IMPRESSION: 1. Moderate sized hiatal hernia with large esophageal varices. 2. No acute infiltrate or effusion. PROCEDURE INFORMATION: Exam: CT Abdomen And Pelvis With Contrast Exam date and time: 07/16/2021 11:35 PM Age: 41 years old Clinical indication: Fever; Additional info: Fever of unknown origin TECHNIQUE: Imaging protocol: Computed tomography of the abdomen and pelvis with contrast. Radiation optimization: All CT scans at this facility use at least one of these dose optimization techniques: automated exposure control; mA and/or kV adjustment per patient size (includes targeted exams where dose is matched to clinical indication); or iterative reconstruction. Contrast material: ISOVUE 300; Contrast volume: 125 ml; Contrast route: INTRAVENOUS (IV); COMPARISON: CR Chest 2V 05/21/2020 6:04 PM FINDINGS: Liver: Cirrhosis of the liver but no mass is identified. Gallbladder and bile ducts: Normal. No calcified stones. No ductal dilation. Pancreas: Normal. No ductal dilation. Spleen: Splenomegaly with large gastric and esophageal varices consistent with portal hypertension. Adrenal glands: Normal. No mass. Kidneys and ureters: Normal. No hydronephrosis. Stomach and bowel: Unremarkable. No obstruction. No mucosal thickening. Appendix: Normal appendix right lower quadrant. Intraperitoneal space: Small amount of abdominal and pelvic ascites noted. Vasculature: Unremarkable. No abdominal aortic aneurysm. Lymph nodes: Unremarkable. No enlarged lymph nodes. Urinary bladder: Unremarkable as visualized. Reproductive: Unremarkable as visualized. Bones/joints: Unremarkable. No acute fracture. Soft tissues: Large umbilical hernia containing a large recanalized umbilical vein. IMPRESSION: 1. Cirrhosis of the liver but no mass is identified. 2. Splenomegaly with large gastric and esophageal varices consistent with portal hypertension. 3. Normal appendix right lower quadrant. 4. Small amount of abdominal and pelvic ascites noted. 5. Large umbilical hernia containing a large recanalized umbilical vein. 6. Subcutaneous edema consistent with anasarca
[2021-07-17] MEDS ORDERED: Ondansetron 4 MG/2 ML SDV IVPUSH PRN (02:23)
[2021-07-17] MEDS ORDERED: Sodium Chloride 0.9% 10 ML Syringe FLUSH PRN (02:23)
--- NOTE | 2021-07-17 02:34 | PCM.SN.2 ---
- Free Text/Narrative Note: START OF DOCTOR TRAYMIAna HISTORY AND PHYSICAL / CONSULTATION NOTE Chief Complaint: Fever History of Present Illness: The patient is a 41-year-old male who was transferred to the emergency department due to chief complaint of fever. The patient initially presented to this hospital on an outpatient basis for IV daptomycin for febrile illness/fever of uncertain etiology. The patient is a poor historian and he indicates that he was recently hospitalized and all true for fever and I believe the patient was evaluated by infectious disease and he today would have been his first dose of IV daptomycin. The patient admits to fever however he denies rigors, nausea, vomiting, cough, wheeze, abdominal pain, diarrhea, myalgia, dysuria, chest pain, dyspnea, or any other constitutional complaints. He presents for further evaluation Surgical History: As a child: Cardiac surgerynot otherwise specified. History of variceal banding Family History: Cancer, stroke, diabetes, coronary artery disease, hypertension, hyperlipidemia Social History: Tobacco: Former smoker Alcohol: Currently none however patient has remote history of alcohol abuse Caffeine: Coffee Drugs: Past marijuana use. Denies any other drug use past or present Allergies: Aspirin, clindamycin, Keflex, Tylenol, ibuprofen Code Status: Full Pertinent Laboratory Results / Pertinent Radiology Results / Pertinent Diagnostic Results / Pertinent Vital Signs: Blood pressure 130/93, pulse 95, respiration 18, temperature 98.5 degrees, 95% room air, alkaline phosphatase 168, total bili was 4.6, ammonia 118, white blood cell count 10.2, hemoglobin 9.5, platelet count 44,000 Physical Examination: General: -Alert -No acute distress -No dyspnea -No tachypnea -Obese Head: -Atraumatic -Normocephalic Eyes: -Pupils equally round and reactive to light and accommodation -Extraocular muscles intact -Scleral icterus present Neurological: -Cranial nerves II-XII intact Neck: -No jugular venous distention -No thyromegaly -No cervical lymphadenopathy Heart: -Regular rate -Regular rhythm -No murmurs -No gallops -No rubs Lungs: -No wheeze -No rhonchi -No rales Abdomen: -Normal bowel sounds in all four quadrants -No rebound -No guarding -No tenderness Extremities: -2/4 pulse in all four extremities -No clubbing -No cyanosis -3+ bipedal pitting edema present -No calf tenderness present bilaterally -Negative Homans sign bilaterally Musculoskeletal: -5/5 bilateral upper extremity strength -5/5 bilateral lower extremity strength -Sensorium of bilateral upper extremities are equal and intact -Sensorium of bilateral lower extremities are equal and intact Additional Details / Additional Findings / Exceptions / Miscellaneous: Assessment / Plan: Febrile illness/fever of uncertain etiology. Blood culture x2 drawn the emergency department. Urinalysis unremarkable. CT chest, abdomen, and pelvis overall unremarkable. Hepatitis panel pending. HIV pending. Echocardiogram pending to rule out vegetation. Empiric treatment with IV vancomycin to be dosed by pharmacy plus Zosyn 3.275 g IV every 6 hours plus doxycycline 100 mg IV every 12 hours Asthma Hyperammonemia. Will monitor ammonia levels intermittently. Lactulose 30 g p.o. 4 times daily Portal hypertension History of esophageal varices, status post banding Cirrhosis. Patient indicates that she had he is on transplant list. Outpatient follow-up with hepatology/transplant team upon discharge Muscle spasm Neuropathy Chronic pain/opioid addiction Chronic anemia/iron deficiency anemia. Will monitor hemoglobin level intermittently CHF GERD Hypertension Obesity. Patient will be counseled on lifestyle modification Psoriasis History of gastrointestinal bleed Thrombocytopenia, chronic. Likely sequelae of history of cirrhosis. Monitor platelet count intermittently Microscopic hematuria. Outpatient follow-up with urology upon discharge DVT prophylaxis. Bilateral CD Disposition: Anticipate discharge within 72 hours. At the time of admission, the patient's home medications were pending input to the EMR/DHR system. Once their input, they will be reviewed and reconciled END OF DOCTOR EMAMIS HISTORY AND PHYSICAL / CONSULTATION NOTE
[2021-07-17] MEDS: Piperacillin/Tazobactam 3.375 GM in Sodium Chloride 0.9% 100 ML IV SCH ×4 (02:53→20:12)
[2021-07-17 07:28] LABS: ANION GAP 13.1 mEq/L (7-13); CHLORIDE,CL 105 mmol/L (98-107); SODIUM,NA 140 mmol/L (136-145)
--- NOTE | 2021-07-17 07:43 | PCM.SN.2 ---
- Free Text/Narrative Note: START OF DOCTOR JOHN PROGRESS NOTE Subjective: The patient endorses no complaints at this time. He denies fever although there is documented temperature of 100.5 degrees overnight. He denies rigors, nausea, vomiting, cough, wheeze, abdominal pain, chest pain, dyspnea, or any other constitutional complaints. I explained to the patient his current medical condition and plan of care and have answered all of his questions Objective: General: -Alert -No acute distress -No dyspnea -No tachypnea Obese- Heart: -Regular rate -Regular rhythm -No murmurs -No gallops -No rubs Lungs: -No wheeze -No rhonchi -No rales Abdomen: -Normal bowel sounds in all four quadrants -No rebound -No guarding -No tenderness -Fluid wave present Extremities: -2/4 pulse in all four extremities -No clubbing -No cyanosis -3+ bipedal pitting edema present Additional Details / Additional Findings / Exceptions / Miscellaneous: There are lesions of the bilateral lower extremities present which seem to resemble nummular eczema Pertinent Laboratory Results / Pertinent Radiology Results / Pertinent Diagnostic Results / Pertinent Vital Signs: Temperature 100.5 degrees, white blood count 13.8, hemoglobin 8.5, platelet count 42,000, INR 1.8, ammonia 65. CMP pending Assessment / Plan: Febrile illness/fever of uncertain etiology. Blood culture x2 drawn the emergency department. Urinalysis unremarkable. CT chest, abdomen, and pelvis overall unremarkable. Hepatitis panel pending. HIV negative. RPR pending. Echocardiogram to rule out cardiac vegetation not available at this time. Empiric treatment with IV vancomycin to be dosed by pharmacy plus Zosyn 3.275 g IV every 6 hours plus doxycycline 100 mg IV every 12 hours Asthma Hyperammonemia. Will monitor ammonia levels intermittently. Lactulose 30 g p.o. 4 times daily Portal hypertension History of esophageal varices, status post banding Cirrhosis. Patient indicates that she had he is on transplant list. Outpatient follow-up with hepatology/transplant team upon discharge Muscle spasm Neuropathy Chronic pain/opioid addiction Chronic anemia/iron deficiency anemia. Will monitor hemoglobin level intermittently CHF GERD Hypertension Obesity. Patient will be counseled on lifestyle modification Psoriasis History of gastrointestinal bleed Thrombocytopenia, chronic. Likely sequelae of history of cirrhosis. Monitor platelet count intermittently Microscopic hematuria. Outpatient follow-up with urology upon discharge Coagulopathy. Will monitor PT/INR periodically. This likely sequelae of patient's history of cirrhosis DVT prophylaxis. Bilateral CD Disposition: We will continue treating the patient with IV antibiotics and monitoring for fever. The patient may require transfer to tertiary care center so that he may undergo transthoracic echocardiogram or transesophageal echocardiogram to rule out cardiac vegetation as a source of his bacteremia END OF DOCTOR EMAMIS PROGRESS NOTE
[2021-07-17] MEDS ORDERED: Doxycycline 100 MG in Sodium Chloride 0.9% 100 ML IV SCH (09:00)
[2021-07-17] MEDS: Lactulose Soln 10 GM/15 ML 30 ML UD Cup PO SCH ×4 (09:04→20:27)
[2021-07-17 14:42] LABS: AMPHETAMINES,URINE NEGATIVE (NEGATIVE); BARBITURATES,URINE NEGATIVE (NEGATIVE); BENZODIAZEPINE,URINE NEGATIVE (NEGATIVE); MDMA (ECSTASY), URINE NEGATIVE (NEGATIVE); METHADONE,URINE NEGATIVE (NEGATIVE); METHAMPHETAMINES,URINE NEGATIVE (NEGATIVE); OPIATES,URINE NEGATIVE (NEGATIVE); OXYCODONE,URINE POSITIVE (NEGATIVE); PHENCYCLIDINE,URINE NEGATIVE (NEGATIVE); TCA,URINE NEGATIVE (NEGATIVE)
[2021-07-18] MEDS: Piperacillin/Tazobactam 3.375 GM in Sodium Chloride 0.9% 100 ML IV SCH ×2 (02:10→08:42)
[2021-07-18 07:04] LABS: CHLORIDE,CL 107 mmol/L (98-107); SODIUM,NA 141 mmol/L (136-145)
[2021-07-18] MEDS ORDERED: diphenhydrAMINE 50 MG/ML SDV IV ONE ×2 (07:26→10:15)
--- NOTE | 2021-07-18 07:38 | PCM.SN.2 ---
- Free Text/Narrative Note: START OF DOCTOR EMAMIS PROGRESS NOTE Subjective: The patient offers no complaints at the time. He denies fever, rigors, nausea, vomiting, cough, wheeze, abdominal pain, chest pain, dyspnea, lightheadedness, dizziness. Upon further questioning he indicates that he had an episode of melena on this morning of July 18, 2021. I explained to the patient his current medical condition and plan of care and I have answered all of his questions Objective: General: -Alert -No acute distress -No dyspnea -No tachypnea -Obese Heart: -Regular rate -Regular rhythm -No murmurs -No gallops -No rubs Lungs: -No wheeze -Scant bilateral rhonchi -No rales Abdomen: -Normal bowel sounds in all four quadrants -No rebound -No guarding -No tenderness -Fluid wave present Extremities: -2/4 pulse in all four extremities -No clubbing -No cyanosis -3+ bipedal pitting edema present Additional Details / Additional Findings / Exceptions / Miscellaneous: There are lesions of the bilateral lower extremities present which seem to resemble nummular eczema Pertinent Laboratory Results / Pertinent Radiology Results / Pertinent Diagnostic Results / Pertinent Vital Signs: Vital signs stable. Total bilirubin 4.2, ammonia 59, hemoglobin 6.1, platelet count 64,000 Assessment / Plan: Fever secondary to gram-negative felice bacteremia, speciation pending. I discussed the patient case with infectious disease on July 17, 2021 and it is believed that the patient's fever may stem from infected tunnel catheter. Urinalysis unremarkable. CT chest, abdomen, and pelvis overall unremarkable. Hepatitis panel pending. HIV negative. RPR pending. Previous echocardiogram from outside facility unremarkable. Patient not a candidate for transesophageal echocardiogram due to history of esophageal varices. Zosyn 3.375 g IV every 6 hours. Ankylosing spondylitis Asthma Hyperammonemia. Will monitor ammonia levels intermittently. Lactulose 30 g p.o. 4 times daily plus Xifaxan 550 mg p.o. twice daily Portal hypertension History of esophageal varices, status post banding Cirrhosis. Patient indicates that she had he is on transplant list. Outpatient follow-up with hepatology/transplant team upon discharge Muscle spasm Neuropathy Chronic pain/opioid addiction Chronic anemia/iron deficiency anemia. Will monitor hemoglobin level intermittently. Patient received 2 units packed red blood cells July 18, 2021 CHF GERD Hypertension Obesity. Patient will be counseled on lifestyle modification Psoriasis History of gastrointestinal bleed Thrombocytopenia, chronic. Likely sequelae of history of cirrhosis. Monitor platelet count intermittently Microscopic hematuria. Outpatient follow-up with urology upon discharge Coagulopathy. Will monitor PT/INR periodically. This likely sequelae of patient's history of cirrhosis DVT prophylaxis. Bilateral CD Disposition: We are awaiting bed availability for transfer for evaluation by infectious disease and continued IV antibiotic therapy END OF DOCTOR EMAMIS PROGRESS NOTE
[2021-07-18] MEDS: Lactulose Soln 10 GM/15 ML 30 ML UD Cup PO SCH (08:47)
[2021-07-18] MEDS ORDERED: Rifaximin 550 MG Tab PO SCH (09:00)
[2021-07-18] MEDS: Octreotide 100 MCG in Sodium Chloride 0.9% 99 ML IV SCH ×2 (09:52→12:30)
[2021-07-18] MEDS ORDERED: Pantoprazole 40 MG in Sodium Chloride 0.9% 100 ML IV SCH ×4 (10:00)
[2021-07-18] MEDS ORDERED: Sucralfate 1 GM Tab PO SCH (10:15)
[2021-07-18] MEDS ORDERED: Famotidine 20 MG/2 ML SDV IVPUSH SCH (10:15)
[2021-07-18] MEDS ORDERED: Phytonadione 5 MG in Sodium Chloride 0.9% 50 ML IV ONE (11:17)
--- NOTE | 2021-07-18 11:28 | PCM.SN.2 ---
- Free Text/Narrative Note: START OF DOCTOR EMAMIS DISCHARGE SUMMARY Date of Admission: July 17, 2020 with Date of Discharge: 11:23 AM on July 18, 2021 Primary Diagnosis: Acute anemia with hematemesis for which 4 units of blood were ordered/in the process of being administered on the morning of July 18, 2021 while arranging for transfer Secondary Diagnosis: Chronic anemia/iron deficiency anemia Gram-negative felice bacteremia, speciation pending, source unknown despite check of CT chest, abdomen, pelvis. There is concern for infection of tunnel catheter for which I discussed the case with infectious disease on July 17, 2021 who indicated if blood cultures are positive for Pseudomonas, tunneled cath will need to be removed otherwise only IV antibiotic therapy will suffice if other bacteria are positive Asthma Hyperammonemia Hypertension History of esophageal varices, status post banding Cirrhosis, secondary to remote history of alcohol use Muscle spasm Neuropathy Chronic pain/opioid addiction CHF GERD Hypertension Obesity Psoriasis History of gastrointestinal bleed Thrombocytopenia, chronic, likely sequelae of history of cirrhosis Microscopic hematuria for which patient will require outpatient follow-up with urology upon discharge Coagulopathy, likely sequelae of history of cirrhosis Ankylosing spondylitis Consultations: None Condition on Discharge: Guarded Disposition: The patient will be transferred to [facility] in [facility] care of Dr. Shin, Fitness Director via [employer]. Upon arrival at hospital, the patient will require evaluation by gastroenterology for diagnosis of acute anemia and hematemesis Upon discharge from receiving hospital, the patient will need to follow-up with transplant team for his history of cirrhosis Upon discharge from receiving hospital, the patient will need to follow-up with urology for diagnosis of microscopic hematuria Discharge Medications: Lactulose 30 g p.o. 4 times daily Gabapentin 3 mg p.o. 3 times daily Ferrous sulfate 305 mg p.o. twice daily Flexeril 10 mg p.o. 3 times daily as needed muscle spasm Silvadene 1% cream to be applied to affected area daily Multivitamin 1 tab p.o. daily DuoNeb every 4 hours as needed shortness breath/wheeze Pepcid 20 mg IV twice daily Xifaxan 550 mg p.o. twice daily Sucralfate 1 g p.o. 4 times daily IV octreotide drip at 50 mcg/h IV Protonix drip at 8 mg/h Zosyn 3.375 g IV every 6 hours started on July 17, 2021 END OF DOCTOR EMAMIS DISCHARGE SUMMARY
[2021-07-18 12:09] VITALS: BP 123/80; PULSE 90
== END 2021-07-18 12:00 | DRG 314 ==
LOC: DL.ED 20:40 → EEVIPCON 07-17 01:15 → DL.MS 07-17 01:15
PROVIDERS: ADMIT Internal Medicine; ATTEND Internal Medicine
PROC: 30233N1 Transfusion of Nonautologous Red Blood Cells into Peripheral Vein, Percutaneous Approach (ICD-10-PCS; principal; 2021-07-17)
DX: T80.211A Bloodstream infection due to central venous catheter, initial encounter (principal); A41.9 Sepsis, unspecified organism; R50.9 Fever, unspecified; E72.20 Disorder of urea cycle metabolism, unspecified; K76.6 Portal hypertension; F11.20 Opioid dependence, uncomplicated; K92.0 Hematemesis; I13.0 Hypertensive heart and chronic kidney disease with heart failure and stage 1 through stage 4 chronic kidney disease, or unspecified chronic kidney disease; Z20.822 Contact with and (suspected) exposure to COVID-19; D64.9 Anemia, unspecified; J45.909 Unspecified asthma, uncomplicated; B96.5 Pseudomonas (aeruginosa) (mallei) (pseudomallei) as the cause of diseases classified elsewhere; G62.9 Polyneuropathy, unspecified; M62.838 Other muscle spasm; D50.9 Iron deficiency anemia, unspecified; K21.9 Gastro-esophageal reflux disease without esophagitis; E66.9 Obesity, unspecified; L40.9 Psoriasis, unspecified; G89.29 Other chronic pain; D69.6 Thrombocytopenia, unspecified; R31.29 Other microscopic hematuria; M45.9 Ankylosing spondylitis of unspecified sites in spine; K70.40 Alcoholic hepatic failure without coma; K70.31 Alcoholic cirrhosis of liver with ascites; H54.7 Unspecified visual loss; I50.9 Heart failure, unspecified; N18.9 Chronic kidney disease, unspecified; Z87.891 Personal history of nicotine dependence; Z88.1 Allergy status to other antibiotic agents; Z88.6 Allergy status to analgesic agent; Z88.5 Allergy status to narcotic agent; Z68.39 Body mass index [BMI] 39.0-39.9, adult; Z86.14 Personal history of Methicillin resistant Staphylococcus aureus infection; Z88.8 Allergy status to other drugs, medicaments and biological substances; Z79.899 Other long term (current) drug therapy
CPT/HCPCS: 0240U; 36415; 36430; 71260; 74177; 80053; 80074; 80305; 81001; 82140; 83605; 85018; 85025; 85610; 86140; 86592; 86850; 86900; 86901; 86920; 86922; 87040; 87389; 87077; 87186; 99284; 99285-25; A9270-GY; C9113; J1200; J2354-JA; J2543; J3370; J3430; J3490; J7030; J7050; P9016; Q9967

== ENCOUNTER 2021-09-12 20:13 | Emergency (ER) | payer MEDICARE, OTHER ==
[2021-09-12 20:21] VITALS: BP 153/86; PULSE 95
--- NOTE | 2021-09-12 20:38 | EDM.PDOC ---
ED HPI GENERAL MEDICAL PROBLEM - General Chief Complaint: General Stated Complaint: [facility] Time Seen by Provider: 09/12/21 20:20 Source of Information: Reports: Patient History Limitations: Reports: No Limitations - History of Present Illness INITIAL COMMENTS - FREE TEXT/NARRATIVE: This 41 yo male patient was brought to the ED by [facility] due to memory difficulties. 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 The patient reports he quit drinking 2 years ago and is on the transplant list. The patient reports he was at the grocery store when he could not remember if he had given his the car keys. The patient reports he has memory difficulties when his ammonia level is elevated. The patient's called EMS to have him transported to check his labs. The patient reports he has been taking all medication as prescribed (including his lactulose). Onset: Today Duration: Improving Location: Reports: Other Quality: Reports: Other Severity: Mild Improves with: Reports: None Worsens with: Reports: None Context: Reports: Other Associated Symptoms: Reports: No Other Symptoms - Related Data Allergies Allergy/AdvReac Type Severity Reaction Status Date / Time aspirin Allergy Cannot Verified 09/12/21 20:15 Remember cephalexin Allergy Rash Verified 09/12/21 20:15 clindamycin Allergy Cannot Verified 09/12/21 20:15 Remember acetaminophen [From Tylenol] AdvReac Other Verified 09/12/21 20:15 ibuprofen AdvReac Other Verified 09/12/21 20:15 Home Meds: Home Meds Cyclobenzaprine [Flexeril] 10 mg PO TID PRN 10/06/20 [History] Lactulose 45 ml PO QID 10/06/20 [History] Albuterol/Ipratropium [DuoNeb 3.0-0.5 MG/3 ML] 3 ml NEB Q4H PRN 07/17/21 [History] Ferrous Sulfate 325 mg PO BID 07/17/21 [History] Gabapentin [Neurontin] 300 mg PO TID 07/17/21 [History] Rifaximin [Xifaxan] 550 mg PO BID 07/17/21 [History] Silver Sulfadiazine [Silvadene 1% Cream 20 GM] 1 applic TOP DAILY 07/17/21 [History] Famotidine [Pepcid] 20 mg IVPUSH BID sdv 07/18/21 [Rx] Octreotide [SandoSTATIN] 100 mcg IV Q1H sdv 07/18/21 [Rx] Piperacillin/Tazobactam [Zosyn] 3.375 gm IV Q6H vial 07/18/21 [Rx] Sucralfate [Carafate] 1 gm PO QID tablet 07/18/21 [Rx] Pantoprazole [ProTONIX IV] 40 mg PO BID 09/12/21 [History] Secukinumab [Cosentyx Pen (2 Pens)] 0 mg SQ ASDIRECTED 09/12/21 [History] oxyCODONE HCl [Oxycodone HCL] 10 mg PO Q6HR PRN 09/12/21 [History] Past Medical History - Past Health History Medical/Surgical History: Denies Medical/Surgical History HEENT History: Reports: Other (See Below) Other HEENT History: wears corrective lenses. Sore to lips from MRSA. Cardiovascular History: Reports: Heart Failure, Hypertension, Other (See Below) Other Cardiovascular History: Hypotension. septic shock Respiratory History: Reports: Asthma Gastrointestinal History: Reports: Cirrhosis, GERD, GI Bleed, Other (See Below) Other Gastrointestinal History: ascites, esophageal varices. chronic liver failure Genitourinary History: Reports: Chronic Renal Insuffiency, Other (See Below) Other Genitourinary History: chronic kidney disease Musculoskeletal History: Reports: None Other Musculoskeletal History: venous ulcers Neurological History: Reports: None Psychiatric History: Reports: Addiction Endocrine/Metabolic History: Reports: Obesity/BMI 30+ Hematologic History: Reports: Anemia, Iron Deficiency Other Hematologic History: hepatic encephalopathy. lactic acidosis. thrombocytopenia. coagulopathy Immunologic History: Reports: None Other Immunologic History: septic shock Oncologic (Cancer) History: Reports: None Dermatologic History: Reports: Cellulitis, Psoriasis, Other (See Below) Other Dermatologic History: venous leg ulcers - Infectious Disease History Infectious Disease History: Reports: MRSA Other Infectious Disease History: bacteremia - Past Surgical History Head Surgeries/Procedures: Reports: None Cardiovascular Surgical History: Reports: Other (See Below) Other Cardiovascular Surgeries/Procedures: chronic edema with leg ulcers GI Surgical History: Reports: EGD, Other (See Below) Other GI Surgeries/Procedures: bands placed on varices Social & Family History - Family History Family Medical History: No Pertinent Family History - Tobacco Use Tobacco Use Status *Q: Never Tobacco User - Caffeine Use Caffeine Use: Reports: None - Recreational Drug Use Recreational Drug Use: No - Living Situation & Occupation Living situation: Reports: with Family ED ROS GENERAL - Review of Systems Review Of Systems: Comprehensive ROS is negative, except as noted in HPI. ED EXAM, GENERAL - Physical Exam Exam: See Below Exam Limited By: No Limitations General Appearance: Alert, WD/WN, No Apparent Distress Eye Exam: Bilateral Eye: EOMI, Normal Inspection, PERRL Ears: Normal External Exam, Normal Canal, Hearing Grossly Normal, Normal TMs Nose: Normal Inspection, Normal Mucosa, No Blood Throat/Mouth: Normal Inspection, Normal Lips, Normal Teeth, Normal Gums, Normal Oropharynx, Normal Voice, No Airway Compromise Head: Atraumatic, Normocephalic Neck: Normal Inspection, Supple, Non-Tender, Full Range of Motion Respiratory/Chest: No Respiratory Distress, Lungs Clear, Normal Breath Sounds, No Accessory Muscle Use, Chest Non-Tender Cardiovascular: Normal Peripheral Pulses, Regular Rate, Rhythm, No Gallop, No J VD, No Murmur, No Rub GI/Abdominal: Normal Bowel Sounds, Soft, Non-Tender, No Organomegaly, No Distention, No Abnormal Bruit, No Mass (Male) Exam: Deferred Rectal (Males) Exam: Deferred Back Exam: Normal Inspection, Full Range of Motion, NT Extremities: Pedal Edema (2+ bilateral) Neurological: Alert, Oriented, CN II-XII Intact, Normal Cognition, Normal Gait, Normal Reflexes, No Motor/Sensory Deficits Psychiatric: Normal Affect, Normal Mood Skin Exam: Warm, Dry, Intact, Normal Color, No Rash Lymphatic: No Adenopathy #1 Interpretation EKG Date: 09/12/21 Time: 20:38 Rhythm: NSR Rate (Beats/Min): 90 [place]: Normal P-Wave: Present QRS: Normal ST-T: Normal QT: Normal Comparison: NA - No Prior EKG Course - Vital Signs Last Recorded V/S: Last Vital Signs Temp 98.6 F 09/12/21 20:16 Pulse 95 09/12/21 20:16 Resp 20 09/12/21 20:16 BP 153/86 H 09/12/21 20:16 Pulse Ox 99 09/12/21 20:16 - Orders/Labs/Meds Orders: Active Orders 24 hr Category Date Time Status CULTURE BLOOD [BC] Stat Lab 09/12/21 20:45 Results UA W/MICROSCOPIC [URIN] Urgent Lab 09/12/21 20:35 Results Labs: Laboratory Tests 09/12/21 09/12/21 09/12/21 Range/Units 20:35 20:35 20:45 WBC 3.1 L (5.0-10.0) 10^3/uL RBC 3.64 L (4.6-6.2) 10^6/uL Hgb 10.7 L D (14.0-18.0) g/dL Hct 32.7 L (40.0-54.0) % MCV 89.8 D (80-100) fL MCH 29.4 (27.0-34.0) pg MCHC 32.7 L (33.0-35.0) g/dL Plt Count 47 L* (150-450) 10^3/uL Neut % (Auto) 64.1 (42.2-75.2) % Lymph % (Auto) 17.1 L (20.5-50.1) % [place] % (Auto) 13.9 H (2-8) % Eos % (Auto) 3.9 H (1.0-3.0) % Baso % (Auto) 1.0 (0.0-1.0) % Sodium (136-145) mmol/L Potassium (3.5-5.1) mmol/L Chloride (98-107) mmol/L Carbon Dioxide (21-32) mmol/L Anion Gap (7-13) mEq/L BUN (7-18) mg/dL Creatinine (0.70-1.30) mg/dL Est Cr Clr Drug Dosing mL/min Estimated GFR (MDRD) BUN/Creatinine Ratio (No establ ref range) Glucose (70-99) mg/dL Lactic Acid (0.4-2.0) mmol/L Calcium (8.5-10.1) mg/dL Total Bilirubin (0.2-1.0) mg/dL AST (15-37) U/L ALT (16-63) U/L Alkaline Phosphatase (46-116) U/L Ammonia (11-32) umol/L Total Protein (6.4-8.2) g/dL Albumin (3.4-5.0) g/dL Globulin Albumin/Globulin Ratio Urine Color Yellow (YELLOW) Urine Appearance Slightly cloudy (CLEAR) Urine pH 6.0 (5.0-9.0) Ur Specific [place] >= 1.030 (1.005-1.030) Urine Protein Negative (NEGATIVE) Urine Glucose (UA) Negative (NEGATIVE) Urine Ketones Negative (NEGATIVE) Urine Occult Blood Large H (NEGATIVE) Urine Nitrite Negative (NEGATIVE) Urine Bilirubin Negative (NEGATIVE) Urine Urobilinogen 0.2 (0.2-1.0) mg/dL Ur Leukocyte Esterase Negative (NEGATIVE) Urine Opiates Screen Negative (NEGATIVE) Ur Oxycodone Screen Positive H (NEGATIVE) Urine Methadone Screen Negative (NEGATIVE) Ur Barbiturates Screen Negative (NEGATIVE) U Tricyclic Antidepress Negative (NEGATIVE) Ur Phencyclidine Scrn Negative (NEGATIVE) Ur Amphetamine Screen Negative (NEGATIVE) U Methamphetamines Scrn Negative (NEGATIVE) Urine MDMA Screen Negative (NEGATIVE) U Benzodiazepines Scrn Negative (NEGATIVE) Urine Cocaine Screen Negative (NEGATIVE) U Marijuana (THC) Screen Negative (NEGATIVE) Ethyl Alcohol (0) mg/dL 09/12/21 09/12/21 09/12/21 Range/Units 20:45 20:45 20:45 WBC (5.0-10.0) 10^3/uL RBC (4.6-6.2) 10^6/uL Hgb (14.0-18.0) g/dL Hct (40.0-54.0) % MCV (80-100) fL MCH (27.0-34.0) pg MCHC (33.0-35.0) g/dL Plt Count (150-450) 10^3/uL Neut % (Auto) (42.2-75.2) % Lymph % (Auto) (20.5-50.1) % [place] % (Auto) (2-8) % Eos % (Auto) (1.0-3.0) % Baso % (Auto) (0.0-1.0) % Sodium 137 (136-145) mmol/L Potassium 3.3 L (3.5-5.1) mmol/L Chloride 101 (98-107) mmol/L Carbon Dioxide 24 (21-32) mmol/L Anion Gap 15.3 H (7-13) mEq/L BUN 7 (7-18) mg/dL Creatinine 1.31 H (0.70-1.30) mg/dL Est Cr Clr Drug Dosing 67.98 mL/min Estimated GFR (MDRD) 60 BUN/Creatinine Ratio 5.3 (No establ ref range) Glucose 113 H (70-99) mg/dL Lactic Acid 1.5 (0.4-2.0) mmol/L Calcium 8.3 L (8.5-10.1) mg/dL Total Bilirubin 2.7 H (0.2-1.0) mg/dL AST 43 H (15-37) U/L ALT 25 (16-63) U/L Alkaline Phosphatase 163 H (46-116) U/L Ammonia 26 (11-32) umol/L Total Protein 8.0 (6.4-8.2) g/dL Albumin 2.5 L (3.4-5.0) g/dL Globulin 5.5 Albumin/Globulin Ratio 0.45 Urine Color (YELLOW) Urine Appearance (CLEAR) Urine pH (5.0-9.0) Ur Specific [place] (1.005-1.030) Urine Protein (NEGATIVE) Urine Glucose (UA) (NEGATIVE) Urine Ketones (NEGATIVE) Urine Occult Blood (NEGATIVE) Urine Nitrite (NEGATIVE) Urine Bilirubin (NEGATIVE) Urine Urobilinogen (0.2-1.0) mg/dL Ur Leukocyte Esterase (NEGATIVE) Urine Opiates Screen (NEGATIVE) Ur Oxycodone Screen (NEGATIVE) Urine Methadone Screen (NEGATIVE) Ur Barbiturates Screen (NEGATIVE) U Tricyclic Antidepress (NEGATIVE) Ur Phencyclidine Scrn (NEGATIVE) Ur Amphetamine Screen (NEGATIVE) U Methamphetamines Scrn (NEGATIVE) Urine MDMA Screen (NEGATIVE) U Benzodiazepines Scrn (NEGATIVE) Urine Cocaine Screen (NEGATIVE) U Marijuana (THC) Screen (NEGATIVE) Ethyl Alcohol < 3 (0) mg/dL Departure - Departure Time of Disposition: 21:24 Disposition: Home, Self-Care 01 Condition: Fair Clinical Impression: Intermittent confusion - Discharge Information *PRESCRIPTION DRUG MONITORING PROGRAM REVIEWED*: Not Applicable *COPY OF PRESCRIPTION DRUG MONITORING REPORT IN PATIENT NARCISA: Not Applicable Forms: ED Department Discharge Care Plan Goals: The patient was advised of the examination, EKG and lab results during the visit. The patient was encouraged to continue to take his medications as prescribed. The patient should follow-up with his primary care facility for continued evaluation and management. If the patient has any additional symptoms or concerns, the patient should either return to the emergency department or visit his primary care facility. Sepsis Event Note (ED) - Evaluation Sepsis Screening Result: No Definite Risk - Focused Exam Vital Signs: Vital Signs Temp Pulse Resp BP Pulse Ox 09/12/21 20:16 98.6 F 95 20 153/86 H 99 - My Orders Last 24 Hours: My Active Orders 09/12/21 20:35 UA W/MICROSCOPIC [URIN] Urgent 09/12/21 20:45 CULTURE BLOOD [BC] Stat - Assessment/Plan Last 24 Hours: My Active Orders 09/12/21 20:35 UA W/MICROSCOPIC [URIN] Urgent 09/12/21 20:45 CULTURE BLOOD [BC] Stat
[2021-09-12 21:01] LABS: AMPHETAMINES,URINE NEGATIVE (NEGATIVE); BARBITURATES,URINE NEGATIVE (NEGATIVE); BENZODIAZEPINE,URINE NEGATIVE (NEGATIVE); MDMA (ECSTASY), URINE NEGATIVE (NEGATIVE); METHADONE,URINE NEGATIVE (NEGATIVE); METHAMPHETAMINES,URINE NEGATIVE (NEGATIVE); OPIATES,URINE NEGATIVE (NEGATIVE); OXYCODONE,URINE POSITIVE (NEGATIVE); PHENCYCLIDINE,URINE NEGATIVE (NEGATIVE); TCA,URINE NEGATIVE (NEGATIVE)
[2021-09-12 21:21] LABS: ANION GAP 15.3 mEq/L (7-13); CHLORIDE,CL 101 mmol/L (98-107); SODIUM,NA 137 mmol/L (136-145)
== END 2021-09-12 21:30 | disposition home or self-care (01) ==
LOC: DL.ED 20:13
DX: R41.0 Disorientation, unspecified (principal); I13.0 Hypertensive heart and chronic kidney disease with heart failure and stage 1 through stage 4 chronic kidney disease, or unspecified chronic kidney disease; N18.9 Chronic kidney disease, unspecified; I50.9 Heart failure, unspecified; J45.909 Unspecified asthma, uncomplicated; E66.9 Obesity, unspecified; Z68.36 Body mass index [BMI] 36.0-36.9, adult; Z79.899 Other long term (current) drug therapy; Z88.1 Allergy status to other antibiotic agents; Z88.8 Allergy status to other drugs, medicaments and biological substances
CPT/HCPCS: 36415; 80053; 80305-QW; 80307; 81001; 82140; 83605; 85025; 87040; 93005; 99285-25

== ENCOUNTER 2021-10-02 16:23 | Emergency (ER) | payer MEDICARE, OTHER ==
[2021-10-02 17:29] LABS: CORONAVIRUS COVID-19 NAA NEGATIVE (NEGATIVE)
--- NOTE | 2021-10-02 18:12 | EDM.PDOC ---
<Leila Salamanca - Last Filed: 10/02/21 22:37> ED HPI GENERAL MEDICAL PROBLEM - General Chief Complaint: Respiratory Problem Stated Complaint: FEVER, FREEZING, CAN'T BREATHE Time Seen by Provider: 10/02/21 18:04 Source of Information: Reports: Patient, Family (Identifes as Corrina ) - History of Present Illness INITIAL COMMENTS - FREE TEXT/NARRATIVE: Per Paloma (Vaishnavi) Report - Patient had sudden onset of cough and fever while driving in car. He turned car heat on high and covered in coats. PMHx of liver failure on lasix TID, Spironolactone, propranolol, and 4x daily Lactuose. He has been out of Lactuose for 3 days, and out entirely today of others. Corrina has more medications at home, they have recently returned from a trip to [place]. COVID and Influenza are negative at time of interview. Patient speech is slow, oriented x4. He localizes pain to site of healing ulcer on left lateral ankle, denies chest pain or cough. Temp 102.8F when roomed in ER. Blood cultures and lactic acid STAT added to orders. 19:24PM HR 115, Temp 104F. Received ketoralac 30mg IV after refusing Ibuprofen. K+ replacement for K3.3. Lactulose given. CXR reviewed, no focal consolidations or changes compared to prior. 19:40PM Temp 105F temporal. 2nd IV Line being placed. Attempting to find open bed for admission. CRP and serum ketones ordered. WBC wnl. Platelets 50. Patient more confused, speech becomes more tangential when trying to recite Paloma's phone number. Zosyn started. Oral Tylenol administered. 20:08 Temp 103F Temporal. UA collected, Patient denies illicit drug use. Repeat BP 125/74 HR 115. 21:45PM Temp 102.6F Temporal. HR 108. BP 134/71. RR 15. SPO2 97% on RA. Patient confirms home medications, includes Rifaximin. Denies dysuria and abdominal pain. Onset: Sudden Location: Reports: Chest - Related Data Allergies Allergy/AdvReac Type Severity Reaction Status Date / Time aspirin Allergy Cannot Verified 10/02/21 20:38 Remember cephalexin Allergy Rash Verified 10/02/21 20:38 clindamycin Allergy Cannot Verified 10/02/21 20:38 Remember acetaminophen [From Tylenol] AdvReac Other Verified 10/02/21 20:38 ibuprofen AdvReac Other Verified 10/02/21 20:38 Home Meds: Home Meds Cyclobenzaprine [Flexeril] 10 mg PO TID PRN 10/06/20 [History] Lactulose 45 ml PO QID 10/06/20 [History] Albuterol/Ipratropium [DuoNeb 3.0-0.5 MG/3 ML] 3 ml NEB Q4H PRN 07/17/21 [History] Ferrous Sulfate 325 mg PO BID 07/17/21 [History] Gabapentin [Neurontin] 300 mg PO TID 07/17/21 [History] Rifaximin [Xifaxan] 550 mg PO BID 07/17/21 [History] Silver Sulfadiazine [Silvadene 1% Cream 20 GM] 1 applic TOP DAILY 07/17/21 [History] Famotidine [Pepcid] 20 mg IVPUSH BID sdv 07/18/21 [Rx] Octreotide [SandoSTATIN] 100 mcg IV Q1H sdv 07/18/21 [Rx] Piperacillin/Tazobactam [Zosyn] 3.375 gm IV Q6H vial 07/18/21 [Rx] Sucralfate [Carafate] 1 gm PO QID tablet 07/18/21 [Rx] Pantoprazole [ProTONIX IV] 40 mg PO BID 09/12/21 [History] Secukinumab [Cosentyx Pen (2 Pens)] 0 mg SQ ASDIRECTED 09/12/21 [History] oxyCODONE HCl [Oxycodone HCL] 10 mg PO Q6HR PRN 09/12/21 [History] Past Medical History - Past Health History Medical/Surgical History: Denies Medical/Surgical History (Liver failure, unstaged) HEENT History: Reports: Other (See Below) Other HEENT History: wears corrective lenses. Sore to lips from MRSA. Cardiovascular History: Reports: Heart Failure, Hypertension, Other (See Below) Other Cardiovascular History: Hypotension. septic shock Respiratory History: Reports: Asthma Gastrointestinal History: Reports: Cirrhosis, GERD, GI Bleed, Other (See Below) Other Gastrointestinal History: ascites, esophageal varices. chronic liver failure Genitourinary History: Reports: Chronic Renal Insuffiency, Other (See Below) Other Genitourinary History: chronic kidney disease Musculoskeletal History: Reports: None Other Musculoskeletal History: venous ulcers Neurological History: Reports: None Psychiatric History: Reports: Addiction Endocrine/Metabolic History: Reports: Obesity/BMI 30+ Hematologic History: Reports: Anemia, Iron Deficiency Other Hematologic History: hepatic encephalopathy. lactic acidosis. thrombocytopenia. coagulopathy Immunologic History: Reports: None Other Immunologic History: septic shock Oncologic (Cancer) History: Reports: None Dermatologic History: Reports: Cellulitis, Psoriasis, Other (See Below) Other Dermatologic History: venous leg ulcers - Infectious Disease History Infectious Disease History: Reports: MRSA Other Infectious Disease History: bacteremia - Past Surgical History Head Surgeries/Procedures: Reports: None Cardiovascular Surgical History: Reports: Other (See Below) Other Cardiovascular Surgeries/Procedures: chronic edema with leg ulcers GI Surgical History: Reports: EGD, Other (See Below) Other GI Surgeries/Procedures: bands placed on varices Social & Family History - Family History Family Medical History: No Pertinent Family History - Tobacco Use Tobacco Use Status *Q: Never Tobacco User - Caffeine Use Caffeine Use: Reports: None - Recreational Drug Use Recreational Drug Use: No - Living Situation & Occupation Living situation: Reports: with Family ED ROS GENERAL - Review of Systems Review Of Systems: Comprehensive ROS is negative, except as noted in HPI. Constitutional: Reports: Chills. Denies: Fever Respiratory: Reports: Cough. Denies: Shortness of Breath Cardiovascular: Denies: Chest Pain GI/Abdominal: Denies: Abdominal Pain, Bloody Stool, Nausea, Vomiting : Denies: Dysuria, Incontinence ED EXAM, GENERAL - Physical Exam Exam: See Below General Appearance: Alert, Lethargic, Obese Ears: Normal External Exam Throat/Mouth: Normal Gums, No Airway Compromise, Other (Three teeth with black core. No local gingival irritation around the teeth. No sinus tenderness. No rhinorrhea. ) Head: Atraumatic Neck: Supple, Non-Tender Respiratory/Chest: No Respiratory Distress, No Accessory Muscle Use, Crackles, Rhonchi (Right lung apices and bases ). No: Stridor, Retractions Cardiovascular: Regular Rate, Rhythm. No: Tachycardia, Gallop/S3, Gallop/S4 Peripheral Pulses: 2+: Radial (L), Radial (R), Popliteal (L), Popliteal (R) GI/Abdominal: Normal Bowel Sounds, Soft, Non-Tender, No Mass. No: Distended (No fluid wave), Rigid, Rebound Extremities: Normal Inspection, Pedal Edema (Left foot +2), Leg Pain (Left lateral leg immediately superior to malleolus - 2x 3cm diameter shallow bleeding wound. Surrounded by dark indurated skin ). No: Mottled, Pallor, Redness Neurological: Oriented, Slow to Respond Psychiatric: Other (Orientened x4, speech slow to respond to questions. ) Skin Exam: Warm, Increased Warmth (+2 pitting edema in left leg. ), Jaundice. No: Ecchymosis, Mottled, Pallor, Petechiae Course - Vital Signs Text/Narrative:: Temp 101.6F one hour after Tylenol. Heart rate remains tachycardic at 112. Second Liter of NS is running. UA straight cath positive for bacteria. Zosyn dose completed. Looking for available in-patient bed in [place]. Departure - Departure Time of Disposition: 22:30 Disposition: DC/Tfer to Acute Hospital 02 Condition: Fair Clinical Impression: Complicated UTI (urinary tract infection), Increased ammonia level, Intermittent confusion, Hepatic encephalopathy Cirrhosis Qualifiers: Hepatic cirrhosis type: unspecified biliary cirrhosis Qualified Code(s): K74.5 - Biliary cirrhosis, unspecified - Discharge Information *PRESCRIPTION DRUG MONITORING PROGRAM REVIEWED*: Not Applicable *COPY OF PRESCRIPTION DRUG MONITORING REPORT IN PATIENT NARCISA: Not Applicable Instructions: Urinary Tract Infection, Adult, [id number] Referrals: Bren Saravia NP [Ordering Only Provider] - Forms: ED Department Discharge, Interfacility Transfer [facility] Sepsis Event Note (ED) - Evaluation Sepsis Screening Result: No Definite Risk <Corina Melgar - Last Filed: 10/03/21 03:06> Course - Vital Signs Last Recorded V/S: Last Vital Signs Temp 100.1 F 10/02/21 21:32 Pulse 112 H 10/02/21 21:20 Resp 18 10/02/21 21:20 BP 116/57 L 10/02/21 21:20 Pulse Ox 96 10/02/21 21:20 - Orders/Labs/Meds Orders: Active Orders 24 hr Category Date Time Status CULTURE BLOOD [BC] Stat Lab 10/02/21 18:18 Received CULTURE BLOOD [BC] Stat Lab 10/02/21 19:03 Received Blood Culture x2 Reflex Set [OM.PC] Stat Oth 10/02/21 18:20 Ordered Labs: Laboratory Tests 10/02/21 10/02/21 10/02/21 Range/Units 16:30 18:18 18:18 WBC 9.6 (5.0-10.0) 10^3/uL RBC 4.37 L (4.6-6.2) 10^6/uL Hgb 12.2 L D (14.0-18.0) g/dL Hct 37.6 L (40.0-54.0) % MCV 86.0 D (80-100) fL MCH 27.9 (27.0-34.0) pg MCHC 32.4 L (33.0-35.0) g/dL Plt Count 50 L (150-450) 10^3/uL Neut % (Auto) 88.7 H (42.2-75.2) % Lymph % (Auto) 3.3 L (20.5-50.1) % [place] % (Auto) 7.1 (2-8) % Eos % (Auto) 0.7 L (1.0-3.0) % Baso % (Auto) 0.2 (0.0-1.0) % Sodium 139 (136-145) mmol/L Potassium 3.3 L (3.5-5.1) mmol/L Chloride 105 (98-107) mmol/L Carbon Dioxide 26 (21-32) mmol/L Anion Gap 11.3 (7-13) mEq/L BUN 9 (7-18) mg/dL Creatinine 1.27 (0.70-1.30) mg/dL Est Cr Clr Drug Dosing 72.56 mL/min Estimated GFR (MDRD) > 60 BUN/Creatinine Ratio 7.1 (No establ ref range) Glucose 132 H (70-99) mg/dL Lactic Acid (0.4-2.0) mmol/L Calcium 8.5 (8.5-10.1) mg/dL Total Bilirubin 3.5 H (0.2-1.0) mg/dL AST 39 H (15-37) U/L ALT 24 (16-63) U/L Alkaline Phosphatase 228 H (46-116) U/L Ammonia (11-32) umol/L C-Reactive Protein (0.0-0.9) mg/dL B-Natriuretic Peptide (0-100) pg/ml Total Protein 8.5 H (6.4-8.2) g/dL Albumin 2.6 L (3.4-5.0) g/dL Globulin 5.9 Albumin/Globulin Ratio 0.44 Urine Color (YELLOW) Urine Appearance (CLEAR) Urine pH (5.0-9.0) Ur Specific [place] (1.005-1.030) Urine Protein (NEGATIVE) Urine Glucose (UA) (NEGATIVE) Urine Ketones (NEGATIVE) Urine Occult Blood (NEGATIVE) Urine Nitrite (NEGATIVE) Urine Bilirubin (NEGATIVE) Urine Urobilinogen (0.2-1.0) mg/dL Ur Leukocyte Esterase (NEGATIVE) U Hyaline Cast (Auto) Urine RBC (0-5) /HPF Urine WBC (0-5/HPF) /HPF Ur Epithelial Cells (NOT SEEN) /HPF Calcium Oxalate Crystal (NOT SEEN) /HPF Urine Bacteria (0-FEW/HPF) /HPF Urine Mucus (NOT SEEN) /LPF Urine Opiates Screen (NEGATIVE) Ur Oxycodone Screen (NEGATIVE) Urine Methadone Screen (NEGATIVE) Ur Barbiturates Screen (NEGATIVE) U Tricyclic Antidepress (NEGATIVE) Ur Phencyclidine Scrn (NEGATIVE) Ur Amphetamine Screen (NEGATIVE) U Methamphetamines Scrn (NEGATIVE) Urine MDMA Screen (NEGATIVE) U Benzodiazepines Scrn (NEGATIVE) Urine Cocaine Screen (NEGATIVE) U Marijuana (THC) Screen (NEGATIVE) Ketones Influenza Type A RNA Negative (NEGATIVE) Influenza Type B RNA Negative (NEGATIVE) SARS-CoV-2 RNA (CYNTHIA) Negative (NEGATIVE) 10/02/21 10/02/21 10/02/21 Range/Units 18:18 18:18 18:18 WBC (5.0-10.0) 10^3/uL RBC (4.6-6.2) 10^6/uL Hgb (14.0-18.0) g/dL Hct (40.0-54.0) % MCV (80-100) fL MCH (27.0-34.0) pg MCHC (33.0-35.0) g/dL Plt Count (150-450) 10^3/uL Neut % (Auto) (42.2-75.2) % Lymph % (Auto) (20.5-50.1) % [place] % (Auto) (2-8) % Eos % (Auto) (1.0-3.0) % Baso % (Auto) (0.0-1.0) % Sodium (136-145) mmol/L Potassium (3.5-5.1) mmol/L Chloride (98-107) mmol/L Carbon Dioxide (21-32) mmol/L Anion Gap (7-13) mEq/L BUN (7-18) mg/dL Creatinine (0.70-1.30) mg/dL Est Cr Clr Drug Dosing mL/min Estimated GFR (MDRD) BUN/Creatinine Ratio (No establ ref range) Glucose (70-99) mg/dL Lactic Acid 1.8 (0.4-2.0) mmol/L Calcium (8.5-10.1) mg/dL Total Bilirubin (0.2-1.0) mg/dL AST (15-37) U/L ALT (16-63) U/L Alkaline Phosphatase (46-116) U/L Ammonia 112 H (11-32) umol/L C-Reactive Protein (0.0-0.9) mg/dL B-Natriuretic Peptide 59 (0-100) pg/ml Total Protein (6.4-8.2) g/dL Albumin (3.4-5.0) g/dL Globulin Albumin/Globulin Ratio Urine Color (YELLOW) Urine Appearance (CLEAR) Urine pH (5.0-9.0) Ur Specific [place] (1.005-1.030) Urine Protein (NEGATIVE) Urine Glucose (UA) (NEGATIVE) Urine Ketones (NEGATIVE) Urine Occult Blood (NEGATIVE) Urine Nitrite (NEGATIVE) Urine Bilirubin (NEGATIVE) Urine Urobilinogen (0.2-1.0) mg/dL Ur Leukocyte Esterase (NEGATIVE) U Hyaline Cast (Auto) Urine RBC (0-5) /HPF Urine WBC (0-5/HPF) /HPF Ur Epithelial Cells (NOT SEEN) /HPF Calcium Oxalate Crystal (NOT SEEN) /HPF Urine Bacteria (0-FEW/HPF) /HPF Urine Mucus (NOT SEEN) /LPF Urine Opiates Screen (NEGATIVE) Ur Oxycodone Screen (NEGATIVE) Urine Methadone Screen (NEGATIVE) Ur Barbiturates Screen (NEGATIVE) U Tricyclic Antidepress (NEGATIVE) Ur Phencyclidine Scrn (NEGATIVE) Ur Amphetamine Screen (NEGATIVE) U Methamphetamines Scrn (NEGATIVE) Urine MDMA Screen (NEGATIVE) U Benzodiazepines Scrn (NEGATIVE) Urine Cocaine Screen (NEGATIVE) U Marijuana (THC) Screen (NEGATIVE) Ketones Influenza Type A RNA (NEGATIVE) Influenza Type B RNA (NEGATIVE) SARS-CoV-2 RNA (CYNTHIA) (NEGATIVE) 10/02/21 10/02/21 10/02/21 Range/Units 18:18 20:34 20:34 WBC (5.0-10.0) 10^3/uL RBC (4.6-6.2) 10^6/uL Hgb (14.0-18.0) g/dL Hct (40.0-54.0) % MCV (80-100) fL MCH (27.0-34.0) pg MCHC (33.0-35.0) g/dL Plt Count (150-450) 10^3/uL Neut % (Auto) (42.2-75.2) % Lymph % (Auto) (20.5-50.1) % [place] % (Auto) (2-8) % Eos % (Auto) (1.0-3.0) % Baso % (Auto) (0.0-1.0) % Sodium (136-145) mmol/L Potassium (3.5-5.1) mmol/L Chloride (98-107) mmol/L Carbon Dioxide (21-32) mmol/L Anion Gap (7-13) mEq/L BUN (7-18) mg/dL Creatinine (0.70-1.30) mg/dL Est Cr Clr Drug Dosing mL/min Estimated GFR (MDRD) BUN/Creatinine Ratio (No establ ref range) Glucose (70-99) mg/dL Lactic Acid (0.4-2.0) mmol/L Calcium (8.5-10.1) mg/dL Total Bilirubin (0.2-1.0) mg/dL AST (15-37) U/L ALT (16-63) U/L Alkaline Phosphatase (46-116) U/L Ammonia (11-32) umol/L C-Reactive Protein < 0.2 (0.0-0.9) mg/dL B-Natriuretic Peptide (0-100) pg/ml Total Protein (6.4-8.2) g/dL Albumin (3.4-5.0) g/dL Globulin Albumin/Globulin Ratio Urine Color Dark yellow (YELLOW) Urine Appearance Clear (CLEAR) Urine pH 6.0 (5.0-9.0) Ur Specific [place] >= 1.030 (1.005-1.030) Urine Protein 30 H (NEGATIVE) Urine Glucose (UA) Negative (NEGATIVE) Urine Ketones Negative (NEGATIVE) Urine Occult Blood Moderate H (NEGATIVE) Urine Nitrite Negative (NEGATIVE) Urine Bilirubin Small H (NEGATIVE) Urine Urobilinogen 0.2 (0.2-1.0) mg/dL Ur Leukocyte Esterase Negative (NEGATIVE) U Hyaline Cast (Auto) Few Urine RBC 50-75 H (0-5) /HPF Urine WBC 0-5 (0-5/HPF) /HPF Ur Epithelial Cells Few (NOT SEEN) /HPF Calcium Oxalate Crystal Few H (NOT SEEN) /HPF Urine Bacteria Moderate H (0-FEW/HPF) /HPF Urine Mucus Moderate H (NOT SEEN) /LPF Urine Opiates Screen Negative (NEGATIVE) Ur Oxycodone Screen Positive H (NEGATIVE) Urine Methadone Screen Negative (NEGATIVE) Ur Barbiturates Screen Negative (NEGATIVE) U Tricyclic Antidepress Negative (NEGATIVE) Ur Phencyclidine Scrn Negative (NEGATIVE) Ur Amphetamine Screen Negative (NEGATIVE) U Methamphetamines Scrn Negative (NEGATIVE) Urine MDMA Screen Negative (NEGATIVE) U Benzodiazepines Scrn Negative (NEGATIVE) Urine Cocaine Screen Negative (NEGATIVE) U Marijuana (THC) Screen Negative (NEGATIVE) Ketones Negative Influenza Type A RNA (NEGATIVE) Influenza Type B RNA (NEGATIVE) SARS-CoV-2 RNA (CYNTHIA) (NEGATIVE) Meds: Medications Discontinued Medications Generic Name Dose Route Start Last Admin Trade Name Zeynep PRN Reason Stop Dose Admin Acetaminophen 500 mg 10/02/21 19:37 10/02/21 19:50 Acetaminophen 500 Mg Tab PO 10/02/21 19:38 500 mg ONETIME ONE Administration Acetaminophen 650 mg 10/02/21 19:50 10/02/21 19:50 Acetaminophen 650 Mg Supp RECTAL 10/02/21 19:51 Not Given NOW STA Acetaminophen 500 mg 10/02/21 21:27 10/02/21 21:32 Acetaminophen 500 Mg Tab PO 10/02/21 21:28 500 mg ONETIME ONE Administration Potassium Chloride 20 meq/ 100 mls @ 50 mls/hr 10/02/21 19:06 10/02/21 19:24 Premix IV 10/02/21 21:05 50 mls/hr ONETIME ONE Infusion Piperacillin Sod/Tazobactam 100 mls @ 200 mls/hr 10/02/21 19:54 10/02/21 20:11 Sod 4.5 gm/ Sodium Chloride IV 10/02/21 20:23 200 mls/hr ONETIME ONE Administration Sodium Chloride 1,000 mls @ 999 mls/hr 10/02/21 20:02 10/02/21 20:11 Normal Saline IV 10/02/21 21:02 999 mls/hr .BOLUS ONE Administration Protocol Ibuprofen 800 mg 10/02/21 18:46 10/02/21 19:03 Ibuprofen 800 Mg Tab PO 10/02/21 18:47 Not Given ONETIME ONE Ketorolac Tromethamine 30 mg 10/02/21 19:06 10/02/21 19:12 Ketorolac 30 Mg/Ml Sdv IVPUSH 10/02/21 19:07 30 mg ONETIME ONE Administration Lactulose 40 gm 10/02/21 18:57 10/02/21 19:12 Lactulose Soln 10 Gm/15 Ml 30 Ml Ud Cup PO 10/02/21 18:58 40 gm ONETIME ONE Administration - Radiology Interpretation Free Text/Narrative:: [facility] Final Radiology Report Call: [phone] assistance Online chat: [email or web address] Name: MALKA DANG Age: 41Years M Date: 10/02/2021 SSN: -- : [id number] Study: CR CHEST 2V Requesting Physician: Leila Salamanca Images: 2 Addl Studies: Provided Clinical History: Chills, unilateral rhonchi Contrast: Contrast Medium: Contrast Amount: Contrast Method: CONFIDENTIALITY STATEMENT This report is intended only for use by the referring physician, and only in acc ordance with law. If you received this in error, call [phone]. Page 1 of 1 PROCEDURE INFORMATION: Exam: XR Chest Exam date and time: 10/02/2021 6:21 PM Age: 41 years old Clinical indication: Other: Chills, unilateral rhonchi TECHNIQUE: Imaging protocol: XR of the chest. Views: 2 views. COMPARISON: CT Chest 1V Frontal 04/16/2021 7:23 AM FINDINGS: Lungs: Unremarkable. No consolidation. Pleural spaces: Unremarkable. No pleural effusion. No pneumothorax. Heart/Mediastinum: Unremarkable. No cardiomegaly. Bones/joints: No evidence of acute osseous abnormality. IMPRESSION: No radiographically apparent acute abnormality in the chest. No significant change from prior. Thank you for allowing us to participate in the care of your patient. Dictated and Authenticated by: Boone Green MD 10/02/2021 6:49 PM Central Time ([place] & [place]) - Re-Assessments/Exams Free Text/Narrative Re-Assessment/Exam: 10/02/21 Case discussed with aSsha Morales, [facility], and [facility] who have no general medical beds available. Case discussed with Dr Ponce, hospitalist at [facility] who kindly accepted patient for transfer for UTI and hepatic encephalopathy. Findings of examination, lab work, imaging, and conversation with Dr. Ponce reviewed with patient. Patient verbalized understanding and agreement with the plan of care. I saw and evaluated the patient. Discussed with resident and agree with residents findings and plan as documented in the residents note. Sepsis Event Note (ED) - Focused Exam Vital Signs: Vital Signs Temp Temp Pulse Resp BP Pulse Ox 10/02/21 21:32 100.1 F 10/02/21 21:20 101.6 F H 112 H 18 116/57 L 96 10/02/21 19:50 105 F H 10/02/21 16:59 98.9 F 89 16 142/66 H 99
[2021-10-02] MEDS ORDERED: Ibuprofen 800 MG Tab PO ONE (18:46)
[2021-10-02 18:49] LABS: ANION GAP 11.3 mEq/L (7-13); CHLORIDE,CL 105 mmol/L (98-107); SODIUM,NA 139 mmol/L (136-145)
--- NOTE | 2021-10-02 18:50 | CR ---
PROCEDURE INFORMATION: Exam: XR Chest Exam date and time: 10/02/2021 6:21 PM Age: 41 years old Clinical indication: Other: Chills, unilateral rhonchi TECHNIQUE: Imaging protocol: XR of the chest. Views: 2 views. COMPARISON: CT Chest 1V Frontal 04/16/2021 7:23 AM FINDINGS: Lungs: Unremarkable. No consolidation. Pleural spaces: Unremarkable. No pleural effusion. No pneumothorax. Heart/Mediastinum: Unremarkable. No cardiomegaly. Bones/joints: No evidence of acute osseous abnormality. IMPRESSION: No radiographically apparent acute abnormality in the chest. No significant change from prior.
[2021-10-02] MEDS ORDERED: Lactulose Soln 10 GM/15 ML 30 ML UD Cup PO ONE (18:57)
[2021-10-02] MEDS ORDERED: Ketorolac 30 MG/ML SDV IVPUSH ONE (19:06)
[2021-10-02] MEDS ORDERED: Potassium Chloride 20 MEQ in Premix Bag 1 BAG IV ONE (19:06)
[2021-10-02] MEDS ORDERED: Acetaminophen 500 MG Tab PO ONE ×2 (19:37→21:27)
[2021-10-02] MEDS ORDERED: Acetaminophen 650 MG Supp RECTAL STA (19:50)
[2021-10-02] MEDS ORDERED: Piperacillin/Tazobactam 4.5 GM in Sodium Chloride 0.9% 100 ML IV ONE (19:54)
[2021-10-02] MEDS ORDERED: Sodium Chloride 0.9% 1,000 ML IV ONE (20:02)
[2021-10-02 20:45] LABS: AMPHETAMINES,URINE NEGATIVE (NEGATIVE); BARBITURATES,URINE NEGATIVE (NEGATIVE); BENZODIAZEPINE,URINE NEGATIVE (NEGATIVE); MDMA (ECSTASY), URINE NEGATIVE (NEGATIVE); METHADONE,URINE NEGATIVE (NEGATIVE); METHAMPHETAMINES,URINE NEGATIVE (NEGATIVE); OPIATES,URINE NEGATIVE (NEGATIVE); OXYCODONE,URINE POSITIVE (NEGATIVE); PHENCYCLIDINE,URINE NEGATIVE (NEGATIVE); TCA,URINE NEGATIVE (NEGATIVE)
[2021-10-02 21:29] VITALS: BP 116/57; PULSE 112
== END 2021-10-02 23:03 ==
LOC: DL.ED 16:23
DX: K74.5 Biliary cirrhosis, unspecified (principal); N39.0 Urinary tract infection, site not specified; K72.90 Hepatic failure, unspecified without coma; E72.20 Disorder of urea cycle metabolism, unspecified; R41.0 Disorientation, unspecified; I11.0 Hypertensive heart disease with heart failure; I50.9 Heart failure, unspecified; E66.9 Obesity, unspecified; Z79.899 Other long term (current) drug therapy; Z88.8 Allergy status to other drugs, medicaments and biological substances; Z88.1 Allergy status to other antibiotic agents; Z68.41 Body mass index [BMI] 40.0-44.9, adult; Z20.822 Contact with and (suspected) exposure to COVID-19
CPT/HCPCS: 0240U; 36415; 71046; 80053; 80305; 81001; 82009; 82140; 83605; 83880; 85025; 86140; 87040; 96365; 96366; 96368; 96375; 99285; A9270; J1885; J2543; J3480; J7030; 87077

== ENCOUNTER 2022-01-20 00:24 | Emergency (ER) | payer MEDICARE, OTHER ==
[2022-01-20 01:52] LABS: ANION GAP 9.1 mEq/L (7-13); CHLORIDE,CL 103 mmol/L (98-107); SODIUM,NA 137 mmol/L (136-145)
[2022-01-20 02:08] VITALS: BP 114/62; PULSE 88
== END 2022-01-20 02:15 | disposition home or self-care (01) ==
LOC: DL.ED 00:24
DX: R45.82 Worries (principal); Z71.1 Person with feared health complaint in whom no diagnosis is made
CPT/HCPCS: 36415; 80053; 83605; 85025; 99283

== ENCOUNTER 2022-04-08 14:16 | Emergency (ER) | payer MEDICARE, OTHER ==
[2022-04-08 15:10] VITALS: BP 129/67; PULSE 92
[2022-04-08] MEDS ORDERED: Sodium Chloride 0.9% 10 ML Syringe FLUSH PRN (15:27)
[2022-04-08 16:10] LABS: ANION GAP 11.4 mEq/L (7-13); CHLORIDE,CL 103 mmol/L (98-107); SODIUM,NA 136 mmol/L (136-145)
[2022-04-08] MEDS ORDERED: Lactulose Soln 10 GM/15 ML 30 ML UD Cup PO ONE (16:15)
== END 2022-04-08 16:43 | disposition home or self-care (01) ==
LOC: DL.ED 14:16
DX: E72.20 Disorder of urea cycle metabolism, unspecified (principal); I11.0 Hypertensive heart disease with heart failure; I50.9 Heart failure, unspecified; K21.9 Gastro-esophageal reflux disease without esophagitis; E66.9 Obesity, unspecified; Z88.8 Allergy status to other drugs, medicaments and biological substances; Z88.1 Allergy status to other antibiotic agents; Z68.39 Body mass index [BMI] 39.0-39.9, adult
CPT/HCPCS: 36415; 80053; 80307; 82140; 83605; 83735; 85025; 85610; 86140; 99282; 99284; A9270-GY

== ENCOUNTER 2022-05-01 15:21 | Emergency (ER) | payer MEDICARE ==
[2022-05-01 16:12] VITALS: BP 126/69; PULSE 85
[2022-05-01 17:22] LABS: AMPHETAMINES,URINE NEGATIVE (NEGATIVE); BARBITURATES,URINE NEGATIVE (NEGATIVE); BENZODIAZEPINE,URINE NEGATIVE (NEGATIVE); MDMA (ECSTASY), URINE NEGATIVE (NEGATIVE); METHADONE,URINE NEGATIVE (NEGATIVE); METHAMPHETAMINES,URINE NEGATIVE (NEGATIVE); OPIATES,URINE NEGATIVE (NEGATIVE); OXYCODONE,URINE POSITIVE (NEGATIVE); PHENCYCLIDINE,URINE NEGATIVE (NEGATIVE); TCA,URINE NEGATIVE (NEGATIVE)
[2022-05-01 17:36] LABS: ANION GAP 9.9 mEq/L (7-13); CHLORIDE,CL 108 mmol/L (98-107); SODIUM,NA 140 mmol/L (136-145)
[2022-05-01] MEDS ORDERED: Potassium Chloride 20 MEQ in Premix Bag 1 BAG IV ONE (18:03)
[2022-05-01 18:12] LABS: CORONAVIRUS COVID-19 NAA NEGATIVE (NEGATIVE)
== END 2022-05-01 20:23 | disposition home or self-care (01) ==
LOC: DL.ED 15:21
DX: R07.89 Other chest pain (principal); E87.6 Hypokalemia; I11.0 Hypertensive heart disease with heart failure; I50.9 Heart failure, unspecified; J45.909 Unspecified asthma, uncomplicated; E66.9 Obesity, unspecified; Z68.30 Body mass index [BMI] 30.0-30.9, adult; Z79.899 Other long term (current) drug therapy; Z88.6 Allergy status to analgesic agent; Z88.1 Allergy status to other antibiotic agents; Z20.822 Contact with and (suspected) exposure to COVID-19
CPT/HCPCS: 0240U; 36415; 71045; 80053; 80305; 81001; 82150; 83605; 83690; 84484; 85025; 86140; 93005; 96365; 96366; 99285; J3480

== ENCOUNTER 2022-06-10 15:40 | Emergency (ER) | payer MEDICARE, OTHER ==
[2022-06-10] MEDS ORDERED: Ondansetron 4 MG Tab.DIS PO ONE (15:41)
[2022-06-10] MEDS ORDERED: LORazepam 1 MG Tab PO ONE (15:41)
[2022-06-10] MEDS ORDERED: Sodium Chloride 0.9% 10 ML Syringe FLUSH PRN (16:13)
[2022-06-10 17:10] LABS: ANION GAP 13.4 mEq/L (7-13); CHLORIDE,CL 109 mmol/L (98-107); SODIUM,NA 142 mmol/L (136-145)
[2022-06-10 17:11] LABS: ESTIMATED GFR 76 mL/min (>=60)
[2022-06-10] MEDS ORDERED: MVI, Adult with Vitamin K 10 ML, Folic Acid 1 MG, Thiamine 100 MG in Lactated Ringers 1... IV ONE ×4 (17:20)
[2022-06-10] MEDS ORDERED: Magnesium Sulfate/Water 2 GM in Premix Bag 1 BAG IV ONE ×2 (17:36→17:37)
[2022-06-10 19:16] VITALS: BP 137/71; PULSE 78
[2022-06-10] MEDS ORDERED: LORazepam 1 MG Tab ONE (19:36)
[2022-06-10] MEDS ORDERED: Ondansetron 4 MG Tab.DIS ONE (19:36)
== END 2022-06-10 19:15 | disposition home or self-care (01) ==
LOC: DL.ED 15:40
DX: F10.130 Alcohol abuse with withdrawal, uncomplicated (principal); L97.929 Non-pressure chronic ulcer of unspecified part of left lower leg with unspecified severity; I13.0 Hypertensive heart and chronic kidney disease with heart failure and stage 1 through stage 4 chronic kidney disease, or unspecified chronic kidney disease; N18.9 Chronic kidney disease, unspecified; I50.9 Heart failure, unspecified; D63.1 Anemia in chronic kidney disease; K21.9 Gastro-esophageal reflux disease without esophagitis; E66.9 Obesity, unspecified; Z88.1 Allergy status to other antibiotic agents; Z88.8 Allergy status to other drugs, medicaments and biological substances; Z79.899 Other long term (current) drug therapy; Z68.39 Body mass index [BMI] 39.0-39.9, adult
CPT/HCPCS: 36415; 80053; 80307; 82150; 83605; 83690; 83735; 84145; 84484; 85025; 93005; 93010; 96365; 96375; 96376; 99284; 99285-25; A9270-GY; J3411; J3475; J3490; J7120

== ENCOUNTER 2022-07-13 12:09 | Inpatient (IN) | payer MEDICARE ==
[2022-07-13 12:59] LABS: ANION GAP 22.5 mEq/L (7-13); CHLORIDE,CL 107 mmol/L (98-107); SODIUM,NA 141 mmol/L (136-145)
[2022-07-13 13:03] LABS: ACETAMINOPHEN 0 ug/mL (10-30 (Therapeutic)); ESTIMATED GFR 43 mL/min (>=60)
[2022-07-13] MEDS ORDERED: Sodium Chloride 0.9% 1,000 ML IV ONE (13:11)
[2022-07-13] MEDS ORDERED: Docusate Sodium 100 MG Cap PO PRN (15:49)
[2022-07-13] MEDS ORDERED: Ondansetron 4 MG/2 ML SDV IVPUSH PRN (15:49)
[2022-07-13] MEDS ORDERED: Acetaminophen 325 MG Tab PO PRN (15:49)
[2022-07-13] MEDS ORDERED: Piperacillin/Tazobactam 2.25 GM in Sodium Chloride 0.9% 50 ML IV SCH (16:00)
[2022-07-13] MEDS ORDERED: Sodium Chloride 0.9% 10 ML Syringe FLUSH PRN (16:00)
[2022-07-13] MEDS ORDERED: LORazepam 0.5 MG Tab PO PRN (16:07)
[2022-07-13] MEDS: Sodium Chloride 0.9% 1,000 ML IV SCH (16:30)
[2022-07-13 16:36] LABS: AMPHETAMINES,URINE NEGATIVE (NEGATIVE); BARBITURATES,URINE NEGATIVE (NEGATIVE); BENZODIAZEPINE,URINE NEGATIVE (NEGATIVE); MDMA (ECSTASY), URINE NEGATIVE (NEGATIVE); METHADONE,URINE NEGATIVE (NEGATIVE); METHAMPHETAMINES,URINE NEGATIVE (NEGATIVE); OPIATES,URINE NEGATIVE (NEGATIVE); OXYCODONE,URINE POSITIVE (NEGATIVE); PHENCYCLIDINE,URINE NEGATIVE (NEGATIVE); TCA,URINE POSITIVE (NEGATIVE)
[2022-07-13] MEDS: Piperacillin/Tazobactam 4.5 GM in Sodium Chloride 0.9% 100 ML IV SCH (16:58)
[2022-07-13] MEDS: Lactulose Soln 10 GM/15 ML 30 ML UD Cup PO SCH ×2 (17:14→22:21)
[2022-07-13] MEDS: Rifaximin 550 MG Tab PO SCH (20:32)
[2022-07-13] MEDS: Sodium Chloride 0.9% 10 ML Syringe FLUSH SCH (22:21)
[2022-07-13] MEDS: Albuterol/Ipratropium 3.0-0.5 MG/3 ML Neb Soln NEB PRN (23:21)
[2022-07-14] MEDS: Sodium Chloride 0.9% 1,000 ML IV SCH ×2 (00:31→11:46)
[2022-07-14] MEDS: Piperacillin/Tazobactam 4.5 GM in Sodium Chloride 0.9% 100 ML IV SCH ×5 (00:32→23:50)
[2022-07-14] MEDS: Lactulose Soln 10 GM/15 ML 30 ML UD Cup PO SCH ×5 (04:18→20:06)
[2022-07-14] MEDS ORDERED: Pantoprazole 40 MG Tab.CR PO SCH (06:00)
[2022-07-14] MEDS: Multivitamin Tab PO SCH (08:35)
[2022-07-14] MEDS: Thiamine 100 MG Tab PO SCH (08:35)
[2022-07-14] MEDS: Rifaximin 550 MG Tab PO SCH ×2 (08:35→20:04)
[2022-07-14] MEDS: Sodium Chloride 0.9% 10 ML Syringe FLUSH SCH ×2 (08:36→20:23)
[2022-07-14] MEDS ORDERED: Enoxaparin 40 MG/0.4 ML Syringe SUBCUT SCH (09:00)
[2022-07-14 11:19] LABS: ANION GAP 15.8 mEq/L (7-13)
[2022-07-14] MEDS ORDERED: VANCOmycin 1.5 GM/300 ML 1.5 GM in Premix Bag 1 BAG IV SCH (13:00)
[2022-07-14] MEDS: oxyCODONE 5 MG Tab PO PRN ×2 (14:00→20:04)
[2022-07-14] MEDS: Pantoprazole 40 MG Tab.CR PO SCH (20:04)
[2022-07-14] MEDS: Albuterol/Ipratropium 3.0-0.5 MG/3 ML Neb Soln NEB PRN ×2 (20:07→23:50)
[2022-07-14] MEDS: Acetaminophen/HYDROcodone 325-10 MG Tab PO PRN (23:21)
[2022-07-15] MEDS: Sodium Chloride 0.9% 1,000 ML IV SCH ×2 (01:39→20:07)
[2022-07-15] MEDS: oxyCODONE 5 MG Tab PO PRN ×3 (03:07→20:52)
[2022-07-15] MEDS: Piperacillin/Tazobactam 4.5 GM in Sodium Chloride 0.9% 100 ML IV SCH ×3 (05:35→17:59)
[2022-07-15 06:51] LABS: ANION GAP 13.9 mEq/L (7-13)
[2022-07-15] MEDS ORDERED: Vancomycin 2 GM in Sodium Chloride 0.9% 500 ML IV SCH (08:00)
[2022-07-15] MEDS: VANCOmycin 1.5 GM/300 ML 1.5 GM in Premix Bag 1 BAG IV SCH ×2 (08:21→20:11)
[2022-07-15] MEDS: Potassium Chloride 10 MEQ Tab.ER PO SCH ×2 (08:30→18:00)
[2022-07-15] MEDS: Multivitamin Tab PO SCH (08:30)
[2022-07-15] MEDS: Thiamine 100 MG Tab PO SCH (08:30)
[2022-07-15] MEDS: Pantoprazole 40 MG Tab.CR PO SCH ×2 (08:30→20:54)
[2022-07-15] MEDS: Lactulose Soln 10 GM/15 ML 30 ML UD Cup PO SCH ×4 (08:31→20:55)
[2022-07-15] MEDS: Rifaximin 550 MG Tab PO SCH (08:31)
[2022-07-15] MEDS: Sodium Chloride 0.9% 10 ML Syringe FLUSH SCH ×2 (08:38→22:55)
[2022-07-15] MEDS ORDERED: Non-Formulary Medication 1 Each (Potassium Chloride [Klor-Con M20] 20 MEQ Tab.Er) PO SCH (09:00)
[2022-07-15] MEDS ORDERED: Furosemide 40 MG Tab PO SCH (09:00)
[2022-07-15] MEDS: Acetaminophen/HYDROcodone 325-10 MG Tab PO PRN (15:59)
[2022-07-16] MEDS: Piperacillin/Tazobactam 4.5 GM in Sodium Chloride 0.9% 100 ML IV SCH ×3 (01:12→13:37)
[2022-07-16] MEDS: Acetaminophen/HYDROcodone 325-10 MG Tab PO PRN ×3 (01:44→17:17)
[2022-07-16] MEDS: oxyCODONE 5 MG Tab PO PRN ×3 (05:31→21:09)
[2022-07-16] MEDS: Potassium Chloride 10 MEQ Tab.ER PO SCH ×2 (05:33→17:17)
[2022-07-16 06:49] LABS: ANION GAP 11.8 mEq/L (7-13)
[2022-07-16 07:22] LABS: HEMOGLOBIN A1C 5.5 % (<5.7)
[2022-07-16] MEDS ORDERED: Potassium Chloride 10 MEQ Tab.ER PO SCH (08:00)
[2022-07-16] MEDS: VANCOmycin 1.5 GM/300 ML 1.5 GM in Premix Bag 1 BAG IV SCH ×2 (08:57→20:47)
[2022-07-16] MEDS: Thiamine 100 MG Tab PO SCH (09:00)
[2022-07-16] MEDS: Furosemide 40 MG Tab PO SCH (09:00)
[2022-07-16] MEDS: Multivitamin Tab PO SCH (09:00)
[2022-07-16] MEDS: Lactulose Soln 10 GM/15 ML 30 ML UD Cup PO SCH ×4 (09:01→20:56)
[2022-07-16] MEDS: Pantoprazole 40 MG Tab.CR PO SCH ×2 (09:02→20:55)
[2022-07-16] MEDS: Sodium Chloride 0.9% 10 ML Syringe FLUSH SCH (09:04)
[2022-07-16] MEDS: Sodium Chloride 0.9% 1,000 ML IV SCH (10:37)
[2022-07-17] MEDS: Sodium Chloride 0.9% 10 ML Syringe FLUSH SCH ×4 (00:01→21:25)
[2022-07-17] MEDS: Acetaminophen/HYDROcodone 325-10 MG Tab PO PRN ×4 (00:10→20:00)
[2022-07-17] MEDS: oxyCODONE 5 MG Tab PO PRN ×4 (03:17→23:21)
[2022-07-17] MEDS: Potassium Chloride 10 MEQ Tab.ER PO SCH ×2 (06:05→17:16)
[2022-07-17 07:25] LABS: ANION GAP 8.5 mEq/L (7-13)
[2022-07-17] MEDS: VANCOmycin 1.5 GM/300 ML 1.5 GM in Premix Bag 1 BAG IV SCH (08:20)
[2022-07-17] MEDS: Lactulose Soln 10 GM/15 ML 30 ML UD Cup PO SCH ×4 (08:22→21:21)
[2022-07-17] MEDS: Multivitamin Tab PO SCH (08:23)
[2022-07-17] MEDS: Furosemide 40 MG Tab PO SCH ×2 (08:23→15:27)
[2022-07-17] MEDS: Pantoprazole 40 MG Tab.CR PO SCH ×2 (08:23→21:21)
[2022-07-17] MEDS: Thiamine 100 MG Tab PO SCH (08:23)
[2022-07-17] MEDS: Losartan 25 MG Tab PO SCH (08:33)
[2022-07-18] MEDS: oxyCODONE 5 MG Tab PO PRN ×3 (05:55→18:30)
[2022-07-18 07:26] LABS: ANION GAP 8.7 mEq/L (7-13)
[2022-07-18] MEDS: Potassium Chloride 10 MEQ Tab.ER PO SCH ×2 (07:46→17:12)
[2022-07-18] MEDS: Furosemide 40 MG Tab PO SCH ×2 (07:46→13:08)
[2022-07-18] MEDS: Lactulose Soln 10 GM/15 ML 30 ML UD Cup PO SCH ×4 (08:29→20:35)
[2022-07-18] MEDS: Multivitamin Tab PO SCH (08:32)
[2022-07-18] MEDS: Thiamine 100 MG Tab PO SCH (08:32)
[2022-07-18] MEDS ORDERED: predniSONE 20 MG Tab PO ONE ×2 (08:32)
[2022-07-18] MEDS: Losartan 25 MG Tab PO SCH (08:32)
[2022-07-18] MEDS: Pantoprazole 40 MG Tab.CR PO SCH ×2 (08:33→20:36)
[2022-07-18] MEDS: Sodium Chloride 0.9% 10 ML Syringe FLUSH SCH ×2 (08:35→20:47)
[2022-07-18] MEDS ORDERED: Dexamethasone 4 MG Tab PO SCH (09:00)
[2022-07-18] MEDS: Triamcinolone Acetonide 0.1% Crm 15 GM Tube TOP SCH ×2 (09:55→20:36)
[2022-07-18] MEDS: Acetaminophen/HYDROcodone 325-10 MG Tab PO PRN ×2 (10:14→16:42)
[2022-07-19] MEDS: Acetaminophen/HYDROcodone 325-10 MG Tab PO PRN ×2 (00:42→09:08)
[2022-07-19] MEDS: oxyCODONE 5 MG Tab PO PRN ×2 (03:30→12:58)
[2022-07-19 07:26] LABS: ANION GAP 11.3 mEq/L (7-13)
[2022-07-19] MEDS ORDERED: predniSONE 20 MG Tab PO SCH ×2 (08:00)
[2022-07-19] MEDS: Lactulose Soln 10 GM/15 ML 30 ML UD Cup PO SCH ×2 (09:05→13:13)
[2022-07-19] MEDS: Furosemide 40 MG Tab PO SCH (09:05)
[2022-07-19] MEDS: Multivitamin Tab PO SCH (09:06)
[2022-07-19] MEDS: Thiamine 100 MG Tab PO SCH (09:06)
[2022-07-19] MEDS: Losartan 25 MG Tab PO SCH (09:07)
[2022-07-19] MEDS: Potassium Chloride 10 MEQ Tab.ER PO SCH (09:07)
[2022-07-19] MEDS: Pantoprazole 40 MG Tab.CR PO SCH (09:08)
[2022-07-19] MEDS: Sodium Chloride 0.9% 10 ML Syringe FLUSH SCH (09:09)
[2022-07-19] MEDS: Triamcinolone Acetonide 0.1% Crm 15 GM Tube TOP SCH (09:10)
[2022-07-19 11:59] VITALS: BP 106/63; PULSE 84
== END 2022-07-19 13:00 | disposition home or self-care (01) | DRG 871 ==
LOC: DL.ED 12:09 → UNDOADMIN 13:37 → DL.MS 13:37
PROVIDERS: ADMIT Internal Medicine; ATTEND Internal Medicine
DX: A41.9 Sepsis, unspecified organism (principal); A41.1 Sepsis due to other specified staphylococcus; E72.20 Disorder of urea cycle metabolism, unspecified; I50.9 Heart failure, unspecified; J45.909 Unspecified asthma, uncomplicated; G93.41 Metabolic encephalopathy; L03.115 Cellulitis of right lower limb; N18.9 Chronic kidney disease, unspecified; K74.60 Unspecified cirrhosis of liver; E87.2 Acidosis; Z88.8 Allergy status to other drugs, medicaments and biological substances; Z79.01 Long term (current) use of anticoagulants; N17.9 Acute kidney failure, unspecified; F10.288 Alcohol dependence with other alcohol-induced disorder; I50.32 Chronic diastolic (congestive) heart failure; I13.0 Hypertensive heart and chronic kidney disease with heart failure and stage 1 through stage 4 chronic kidney disease, or unspecified chronic kidney disease; Z68.41 Body mass index [BMI] 40.0-44.9, adult; Z20.822 Contact with and (suspected) exposure to COVID-19; L40.9 Psoriasis, unspecified; E88.09 Other disorders of plasma-protein metabolism, not elsewhere classified; L60.3 Nail dystrophy; R73.9 Hyperglycemia, unspecified; K72.90 Hepatic failure, unspecified without coma; E87.6 Hypokalemia; N18.2 Chronic kidney disease, stage 2 (mild); K70.31 Alcoholic cirrhosis of liver with ascites; D63.1 Anemia in chronic kidney disease; K21.9 Gastro-esophageal reflux disease without esophagitis; E66.01 Morbid (severe) obesity due to excess calories; Z88.1 Allergy status to other antibiotic agents; Z88.6 Allergy status to analgesic agent; Z79.899 Other long term (current) drug therapy
CPT/HCPCS: 36415; 51702; 71045; 76705; 80053; 80143; 80202; 80305-QW; 80307; 81001; 82140; 82150; 82947; 83036; 83605; 83690; 83735; 83880; 84484; 85025; 85610; 86140; 87040; 87070; 87077; 87186; 93005; 93010; 97161-GP; 97165-GO; 99285; A9270-GY; J2543; J3370; J3490; J7030; J7040; J7050; J7512; J7620-GY; U0002

== ENCOUNTER 2022-10-13 23:15 | Emergency (ER) | payer MEDICARE, OTHER ==
[2022-10-13 22:22] VITALS: BP 135/72; PULSE 114
[~2022-10-13 23:15] MED LIST changes: +Levofloxacin/Dextrose 5%-Water 500 MG in Premix Bag 1 BAG IV ONE; +Sodium Chloride 0.9% 1,000 ML IV ONE; -Sodium Chloride 0.9% 10 ML Syringe FLUSH PRN
[2022-10-13 23:52] LABS: CHLORIDE,CL 100 mmol/L (98-107); SODIUM,NA 135 mmol/L (136-145)
[2022-10-13 23:59] LABS: CORONAVIRUS COVID-19 NAA NEGATIVE (NEGATIVE)
[2022-10-14 00:12] LABS: ESTIMATED GFR 52 mL/min (>=60)
[2022-10-14] MEDS ORDERED: Acetaminophen 325 MG Tab PO ONE (00:12)
[2022-10-14] MEDS ORDERED: Potassium Chloride Riders 10 MEQ in Premix Bag 1 BAG IV ONE (00:13)
[2022-10-14] MEDS ORDERED: Sodium Chloride 0.9% 1,000 ML IV ONE (00:47)
== END 2022-10-14 04:15 | disposition home or self-care (01) ==
LOC: DL.ED 23:15
DX: J40 Bronchitis, not specified as acute or chronic (principal); D72.825 Bandemia; I11.0 Hypertensive heart disease with heart failure; I50.9 Heart failure, unspecified; F17.210 Nicotine dependence, cigarettes, uncomplicated; E66.9 Obesity, unspecified; Z68.30 Body mass index [BMI] 30.0-30.9, adult; Z88.6 Allergy status to analgesic agent; Z88.1 Allergy status to other antibiotic agents; Z79.899 Other long term (current) drug therapy; Z20.822 Contact with and (suspected) exposure to COVID-19
CPT/HCPCS: 0240U; 36415; 71046; 80053; 83605; 84145; 84484; 85025; 87040; 93005; 96361; 96365; 96367; 99284; A9270; J1956; J3480; J7030

== ENCOUNTER 2022-12-21 18:52 | Emergency (ER) | payer MEDICARE, OTHER ==
[2022-12-21 18:35] VITALS: BP 122/65; PULSE 95
[~2022-12-21 18:52] MED LIST changes: -Levofloxacin/Dextrose 5%-Water 500 MG in Premix Bag 1 BAG IV ONE; -Sodium Chloride 0.9% 1,000 ML IV ONE; +Sodium Chloride 0.9% 10 ML Syringe FLUSH PRN
[2022-12-21 19:34] LABS: ANION GAP 7.2 mEq/L (7-13)
== END 2022-12-21 20:47 | disposition home or self-care (01) ==
LOC: DL.ED 18:52
DX: L03.116 Cellulitis of left lower limb (principal); I11.0 Hypertensive heart disease with heart failure; I50.9 Heart failure, unspecified; E66.9 Obesity, unspecified; Z68.41 Body mass index [BMI] 40.0-44.9, adult; Z88.6 Allergy status to analgesic agent; Z88.1 Allergy status to other antibiotic agents; Z79.899 Other long term (current) drug therapy
CPT/HCPCS: 36415; 71045; 80053; 83880; 84484; 85025; 85610; 87040; 93005; 96365; 99284; J3370; J3490; J7050

== ENCOUNTER 2023-02-13 21:49 | Observation (INO) | payer MEDICARE, OTHER ==
[2023-02-13 22:55] LABS: ANION GAP 8.4 mEq/L (7-13); CHLORIDE,CL 107 mmol/L (98-107); SODIUM,NA 140 mmol/L (136-145)
[2023-02-13 23:07] LABS: PTT,PARTIAL THROMBOPLSTIN TIME 36.1 SEC (22.0-34.0)
[2023-02-13 23:22] LABS: CORONAVIRUS COVID-19 NAA NEGATIVE (NEGATIVE); RESPIRATORY SYNCYTIAL VIR NAA NEGATIVE (NEGATIVE)
[2023-02-13 23:30] LABS: ESTIMATED GFR 69 mL/min (>=60)
[2023-02-14] MEDS ORDERED: Ondansetron 4 MG/2 ML SDV IVPUSH PRN (01:28)
[2023-02-14] MEDS ORDERED: Sodium Chloride 0.9% 10 ML Syringe FLUSH PRN (01:28)
[2023-02-14] MEDS ORDERED: Albuterol/Ipratropium 3.0-0.5 MG/3 ML Neb Soln NEB PRN (01:28)
[2023-02-14] MEDS ORDERED: Naloxone 2 MG/2 ML Syringe IVPUSH ONE (01:28)
[2023-02-14] MEDS ORDERED: Pantoprazole 40 MG Vial IVPUSH ONE (01:33)
[2023-02-14] MEDS ORDERED: Ketorolac 30 MG/ML SDV IVPUSH PRN (01:35)
[2023-02-14] MEDS ORDERED: MVI, Adult with Vitamin K 10 ML, Folic Acid 1 MG, Thiamine 100 MG in Lactated Ringers 1... IV ONE ×4 (01:39)
[2023-02-14] MEDS ORDERED: Ziprasidone Mesylate 20 MG Vial IM PRN (01:40)
[2023-02-14] MEDS ORDERED: Famotidine 20 MG/2 ML SDV IVPUSH ONE (01:46)
[2023-02-14] MEDS ORDERED: Metoprolol Tartrate 5 MG/5 ML SDV IVPUSH PRN (01:48)
[2023-02-14] MEDS ORDERED: hydrALAZINE 20 MG/ML SDV IVPUSH PRN (01:48)
[2023-02-14] MEDS: Rifaximin 550 MG Tab PO ONE ×2 (03:08→03:30)
[2023-02-14] MEDS: Lactulose Soln 10 GM/15 ML 30 ML UD Cup PO SCH ×5 (03:08→20:30)
[2023-02-14 03:14] LABS: AMPHETAMINES,URINE NEGATIVE (NEGATIVE); BARBITURATES,URINE NEGATIVE (NEGATIVE); BENZODIAZEPINE,URINE NEGATIVE (NEGATIVE); MDMA (ECSTASY), URINE NEGATIVE (NEGATIVE); METHADONE,URINE NEGATIVE (NEGATIVE); METHAMPHETAMINES,URINE NEGATIVE (NEGATIVE); OPIATES,URINE NEGATIVE (NEGATIVE); OXYCODONE,URINE POSITIVE (NEGATIVE); PHENCYCLIDINE,URINE NEGATIVE (NEGATIVE); TCA,URINE NEGATIVE (NEGATIVE)
[2023-02-14 07:01] LABS: ANION GAP 12.9 mEq/L (7-13)
[2023-02-14] MEDS: Pantoprazole 40 MG Vial IVPUSH SCH ×2 (09:24→20:30)
[2023-02-14] MEDS: Sodium Chloride 0.9% 10 ML Syringe FLUSH SCH ×2 (09:25→20:34)
[2023-02-14] MEDS: Rifaximin 550 MG Tab PO SCH ×2 (09:26→20:30)
[2023-02-14] MEDS ORDERED: Magnesium Sulfate/Water 2 GM in Premix Bag 1 BAG IV ONE (10:06)
[2023-02-15] MEDS: Lactulose Soln 10 GM/15 ML 30 ML UD Cup PO SCH ×2 (04:59→08:47)
[2023-02-15 07:59] VITALS: BP 156/58; PULSE 71
[2023-02-15] MEDS ORDERED: Magnesium Sulfate/Water 2 GM in Premix Bag 1 BAG IV ONE (08:17)
[2023-02-15] MEDS: Rifaximin 550 MG Tab PO SCH (08:48)
[2023-02-15] MEDS: Pantoprazole 40 MG Vial IVPUSH SCH (08:48)
[2023-02-15] MEDS: Sodium Chloride 0.9% 10 ML Syringe FLUSH SCH (08:49)
[2023-02-15] MEDS ORDERED: Silver Sulfadiazine 1% Crm 400 GM Jar TOP SCH (09:00)
== END 2023-02-15 09:15 | disposition home or self-care (01) ==
LOC: DL.ED 21:49 → DL.MS 02-14 01:08 → UNDOADMOB 02-14 01:08
PROVIDERS: ADMIT Internal Medicine; ATTEND Internal Medicine
DX: K76.82 Hepatic encephalopathy (principal); K70.9 Alcoholic liver disease, unspecified; E72.20 Disorder of urea cycle metabolism, unspecified; D72.819 Decreased white blood cell count, unspecified; D69.6 Thrombocytopenia, unspecified; D68.4 Acquired coagulation factor deficiency; R74.8 Abnormal levels of other serum enzymes; J45.909 Unspecified asthma, uncomplicated; E88.09 Other disorders of plasma-protein metabolism, not elsewhere classified; K21.9 Gastro-esophageal reflux disease without esophagitis; I13.0 Hypertensive heart and chronic kidney disease with heart failure and stage 1 through stage 4 chronic kidney disease, or unspecified chronic kidney disease; I50.30 Unspecified diastolic (congestive) heart failure; N18.2 Chronic kidney disease, stage 2 (mild); Z20.822 Contact with and (suspected) exposure to COVID-19; R73.9 Hyperglycemia, unspecified; E66.9 Obesity, unspecified; Z88.1 Allergy status to other antibiotic agents; Z88.8 Allergy status to other drugs, medicaments and biological substances; Z79.899 Other long term (current) drug therapy; Z68.42 Body mass index [BMI] 45.0-49.9, adult
CPT/HCPCS: 0241U; 36415; 80053; 80305-QW; 80307; 81001; 82140; 83605; 83735; 83880; 85025; 85610; 85730; 86140; 87040; 93005; 99223; 99238; A9270-GY; C9113; J2310; J3411; J3475; J3490; J7120; J7620-GY

== ENCOUNTER 2023-12-12 21:28 | Inpatient (IN) | payer MEDICARE, OTHER ==
[2023-12-12 21:56] LABS: BASOPHILS PERCENT AUTO 0.4 % (0.0-1.0); EOSINOPHILS PERCENT AUTO 2.2 % (1.0-3.0); HEMATOCRIT 41.4 % (40.0-54.0); HEMOGLOBIN 13.5 g/dL (14.0-18.0); LYMPHOCYTES PERCENT AUTO 12.9 % (20.5-50.1); MEAN CORPUSCULAR HEMOGLOBIN 27.8 pg (27.0-34.0); MEAN CORPUSCULAR HGB CONC 32.6 g/dL (33.0-35.0); MEAN CORPUSCULAR VOLUME 85.4 fL (80-100); MONOCYTES PERCENT AUTO 13.1 % (2-8); NEUTROPHILS PERCENT AUTO 71.4 % (42.2-75.2); PLATELET COUNT,PLT 77 10^3/uL (150-450); RED BLOOD CELL COUNT 4.85 10^6/uL (4.6-6.2); WHITE BLOOD CELL COUNT,WBC 7.3 10^3/uL (5.0-10.0)
[2023-12-12 22:18] LABS: A/G RATIO 0.52; ALBUMIN 2.8 g/dL (3.4-5.0); ANION GAP 12.5 mEq/L (7-13); BILIRUBIN TOTAL 2.9 mg/dL (0.2-1.0); BUN/CREATININE RATIO 5.3 (No establ ref range); CALCIUM 8.1 mg/dL (8.5-10.1); CREATININE 1.31 mg/dL (0.70-1.30); EST CRCL DRUG DOSING (CG) 66.58 mL/min; POTASSIUM,K 3.5 mmol/L (3.5-5.1); PROTEIN TOTAL,TP 8.2 g/dL (6.4-8.2)
[2023-12-12] MEDS ORDERED: Iopamidol 612 MG/ML 100 ML Bottle IVPUSH ONE (22:35)
[2023-12-12] MEDS ORDERED: Sodium Chloride 0.9% 2,500 ML IV ONE (22:40)
[2023-12-12] MEDS ORDERED: Vancomycin 2 GM in Sodium Chloride 0.9% 500 ML IV ONE (22:43)
[2023-12-12] MEDS ORDERED: Piperacillin/Tazobactam 4.5 GM in Sodium Chloride 0.9% 100 ML IV ONE (22:44)
[2023-12-12 22:53] LABS: SEDIMENTATION RATE MANUAL 23 mm/hr (0-15)
[2023-12-12] MEDS ORDERED: HYDROmorphone 0.5 MG/0.5 ML Syringe IVPUSH ONE (23:03)
[2023-12-12] MEDS ORDERED: Naloxone 2 MG/2 ML Syringe IVPUSH PRN (23:03)
[2023-12-13] MEDS ORDERED: Piperacillin/Tazobactam 4.5 GM in Sodium Chloride 0.9% 100 ML IV ONE (00:29)
[2023-12-13] MEDS ORDERED: OXYCODONE 10 MG PO PRN (00:30)
[2023-12-13] MEDS ORDERED: Ondansetron 4 MG/2 ML SDV IVPUSH PRN (00:36)
[2023-12-13] MEDS ORDERED: Sodium Chloride 0.9% 10 ML Syringe FLUSH PRN (00:36)
[2023-12-13] MEDS ORDERED: Albuterol/Ipratropium 3.0-0.5 MG/3 ML Neb Soln NEB PRN (00:36)
[2023-12-13] MEDS ORDERED: Acetaminophen 325 MG Tab PO PRN (00:36)
[2023-12-13] MEDS ORDERED: Metoprolol Tartrate 5 MG/5 ML SDV IVPUSH PRN (00:41)
[2023-12-13] MEDS ORDERED: hydrALAZINE 20 MG/ML SDV IVPUSH PRN (00:41)
[2023-12-13] MEDS ORDERED: Midodrine 5 MG Tab PO PRN (00:42)
[2023-12-13 01:13] LABS: INR 1.3 (0.9-1.2); PROTHROMBIN TIME 12.8 SEC (9.0-12.0); PTT,PARTIAL THROMBOPLSTIN TIME 30.1 SEC (22.0-34.0)
[2023-12-13] MEDS ORDERED: Lactated Ringers 1,000 ML IV SCH (02:15)
[2023-12-13] MEDS: HYDROmorphone 0.5 MG/0.5 ML Syringe IVPUSH PRN ×3 (04:09→16:31)
[2023-12-13] MEDS ORDERED: Heparin Sodium 5,000 Units/ML Vial SUBCUT SCH (06:00)
[2023-12-13] MEDS: Piperacillin/Tazobactam 4.5 GM in Sodium Chloride 0.9% 100 ML IV SCH ×3 (06:03→22:03)
[2023-12-13 06:32] LABS: BASOPHILS PERCENT AUTO 0.8 % (0.0-1.0); EOSINOPHILS PERCENT AUTO 3.8 % (1.0-3.0); HEMATOCRIT 37.5 % (40.0-54.0); HEMOGLOBIN 12.1 g/dL (14.0-18.0); LYMPHOCYTES PERCENT AUTO 12.1 % (20.5-50.1); MEAN CORPUSCULAR HEMOGLOBIN 27.9 pg (27.0-34.0); MEAN CORPUSCULAR HGB CONC 32.3 g/dL (33.0-35.0); MEAN CORPUSCULAR VOLUME 86.6 fL (80-100); MONOCYTES PERCENT AUTO 14.1 % (2-8); NEUTROPHILS PERCENT AUTO 69.2 % (42.2-75.2); PLATELET COUNT,PLT 74 10^3/uL (150-450); RED BLOOD CELL COUNT 4.33 10^6/uL (4.6-6.2)
[2023-12-13 06:59] LABS: ALANINE AMINOTRANSFERASE,ALT 31 U/L (16-63); ALBUMIN 2.2 g/dL (3.4-5.0); ALKALINE PHOSPHATASE 190 U/L (46-116); ANION GAP 12.3 mEq/L (7-13); ASPARTATE AMNIOTRANSFERASE,AST 46 U/L (15-37); BILIRUBIN TOTAL 2.4 mg/dL (0.2-1.0); BLOOD UREA NITROGEN,BUN 8 mg/dL (7-18); BUN/CREATININE RATIO 7.1 (No establ ref range); CALCIUM 7.2 mg/dL (8.5-10.1); CARBON DIOXIDE,CO2 26 mmol/L (21-32); CHLORIDE,CL 108 mmol/L (98-107); CREATININE 1.13 mg/dL (0.70-1.30); EST CRCL DRUG DOSING (CG) 90.61 mL/min; GLUCOSE RANDOM 148 mg/dL (70-99); MAGNESIUM 1.6 mg/dL (1.8-2.4); POTASSIUM,K 3.3 mmol/L (3.5-5.1); PROTEIN TOTAL,TP 6.9 g/dL (6.4-8.2); SODIUM,NA 143 mmol/L (136-145)
[2023-12-13 07:07] LABS: A/G RATIO 0.47; C-REACTIVE PROTEIN < 0.50 ng/dL (<=0.50); ESTIMATED GFR 82 mL/min (>=60)
[2023-12-13] MEDS: Furosemide 40 MG Tab PO SCH ×2 (08:43→16:16)
[2023-12-13] MEDS: Lactulose Soln 10 GM/15 ML 30 ML UD Cup PO SCH ×2 (08:59→20:38)
[2023-12-13] MEDS: Pantoprazole 40 MG Tab.CR PO SCH ×2 (09:00→20:39)
[2023-12-13] MEDS: Saccharomyces Boulardii (Probiotic) 250 MG Cap PO SCH ×2 (09:01→20:40)
[2023-12-13] MEDS: Gabapentin 300 MG Cap PO SCH ×3 (09:01→20:39)
[2023-12-13] MEDS: Spironolactone 25 MG Tab PO SCH ×2 (09:01→20:39)
[2023-12-13] MEDS: Rifaximin 550 MG Tab PO SCH ×2 (09:01→20:40)
[2023-12-13] MEDS: Potassium Chloride 10 MEQ Tab.ER PO SCH ×2 (09:01→20:39)
[2023-12-13] MEDS ORDERED: Magnesium Sulfate/Water 2 GM in Premix Bag 1 BAG IV ONE ×2 (09:23→17:00)
[2023-12-13] MEDS ORDERED: Phytonadione 5 MG Tab PO ONE (10:30)
[2023-12-13] MEDS: Sodium Chloride 0.9% 10 ML Syringe FLUSH SCH ×2 (11:53→21:44)
[2023-12-13] MEDS: VANCOmycin 1.5 GM/300 ML 1.5 GM in Premix Bag 1 BAG IV SCH (13:03)
[2023-12-13] MEDS: oxyCODONE 5 MG Tab PO PRN (19:43)
[2023-12-14] MEDS: VANCOmycin 1.5 GM/300 ML 1.5 GM in Premix Bag 1 BAG IV SCH ×3 (00:11→23:35)
[2023-12-14] MEDS: oxyCODONE 5 MG Tab PO PRN ×4 (03:45→23:32)
[2023-12-14] MEDS: Piperacillin/Tazobactam 4.5 GM in Sodium Chloride 0.9% 100 ML IV SCH ×3 (05:40→22:02)
[2023-12-14] MEDS: Lactulose Soln 10 GM/15 ML 30 ML UD Cup PO SCH ×2 (08:07→21:59)
[2023-12-14] MEDS: Furosemide 40 MG Tab PO SCH ×2 (08:07→14:48)
[2023-12-14] MEDS: Spironolactone 25 MG Tab PO SCH ×2 (08:08→22:00)
[2023-12-14] MEDS: Pantoprazole 40 MG Tab.CR PO SCH ×2 (08:08→22:00)
[2023-12-14] MEDS: Saccharomyces Boulardii (Probiotic) 250 MG Cap PO SCH ×2 (08:08→21:59)
[2023-12-14] MEDS: Potassium Chloride 10 MEQ Tab.ER PO SCH ×2 (08:08→21:59)
[2023-12-14] MEDS: Rifaximin 550 MG Tab PO SCH ×2 (08:08→21:59)
[2023-12-14] MEDS: Phytonadione 5 MG Tab PO SCH (08:09)
[2023-12-14] MEDS: Gabapentin 300 MG Cap PO SCH ×3 (08:09→22:00)
[2023-12-14] MEDS: Sodium Chloride 0.9% 10 ML Syringe FLUSH SCH ×3 (08:09→22:03)
[2023-12-14 08:33] LABS: BASOPHILS PERCENT AUTO 0.5 % (0.0-1.0); EOSINOPHILS PERCENT AUTO 4.6 % (1.0-3.0); HEMOGLOBIN 12.2 g/dL (14.0-18.0); LYMPHOCYTES PERCENT AUTO 16.1 % (20.5-50.1); MEAN CORPUSCULAR HEMOGLOBIN 27.6 pg (27.0-34.0); MEAN CORPUSCULAR HGB CONC 31.3 g/dL (33.0-35.0); MEAN CORPUSCULAR VOLUME 88.2 fL (80-100); MONOCYTES PERCENT AUTO 13.2 % (2-8); NEUTROPHILS PERCENT AUTO 65.6 % (42.2-75.2); PLATELET COUNT,PLT 77 10^3/uL (150-450); RED BLOOD CELL COUNT 4.42 10^6/uL (4.6-6.2); WHITE BLOOD CELL COUNT,WBC 4.2 10^3/uL (5.0-10.0)
[2023-12-14 08:51] LABS: ALBUMIN 2.5 g/dL (3.4-5.0); ANION GAP 9.8 mEq/L (7-13); BILIRUBIN TOTAL 3.2 mg/dL (0.2-1.0); BUN/CREATININE RATIO 5.5 (No establ ref range); CALCIUM 7.7 mg/dL (8.5-10.1); CREATININE 1.27 mg/dL (0.70-1.30); EST CRCL DRUG DOSING (CG) 80.62 mL/min; MAGNESIUM 2.1 mg/dL (1.8-2.4); POTASSIUM,K 3.8 mmol/L (3.5-5.1); PROTEIN TOTAL,TP 7.4 g/dL (6.4-8.2)
[2023-12-14 08:57] LABS: A/G RATIO 0.51
[2023-12-15] MEDS: oxyCODONE 5 MG Tab PO PRN (05:49)
[2023-12-15] MEDS: Piperacillin/Tazobactam 4.5 GM in Sodium Chloride 0.9% 100 ML IV SCH (05:52)
[2023-12-15 06:40] LABS: BASOPHILS PERCENT AUTO 0.6 % (0.0-1.0); HEMATOCRIT 39.5 % (40.0-54.0); HEMOGLOBIN 12.5 g/dL (14.0-18.0); LYMPHOCYTES PERCENT AUTO 15.6 % (20.5-50.1); MEAN CORPUSCULAR HEMOGLOBIN 27.7 pg (27.0-34.0); MEAN CORPUSCULAR HGB CONC 31.6 g/dL (33.0-35.0); MEAN CORPUSCULAR VOLUME 87.6 fL (80-100); MONOCYTES PERCENT AUTO 12.1 % (2-8); NEUTROPHILS PERCENT AUTO 65.7 % (42.2-75.2); PLATELET COUNT,PLT 74 10^3/uL (150-450); RED BLOOD CELL COUNT 4.51 10^6/uL (4.6-6.2); WHITE BLOOD CELL COUNT,WBC 4.8 10^3/uL (5.0-10.0)
[2023-12-15 06:55] LABS: A/G RATIO 0.47; ALBUMIN 2.4 g/dL (3.4-5.0); ANION GAP 10.4 mEq/L (7-13); BILIRUBIN TOTAL 2.4 mg/dL (0.2-1.0); BUN/CREATININE RATIO 4.9 (No establ ref range); CALCIUM 7.9 mg/dL (8.5-10.1); CREATININE 1.44 mg/dL (0.70-1.30); EST CRCL DRUG DOSING (CG) 71.1 mL/min; MAGNESIUM 1.8 mg/dL (1.8-2.4); POTASSIUM,K 3.4 mmol/L (3.5-5.1); PROTEIN TOTAL,TP 7.5 g/dL (6.4-8.2)
[2023-12-15] MEDS: Lactulose Soln 10 GM/15 ML 30 ML UD Cup PO SCH (08:07)
[2023-12-15] MEDS: Furosemide 40 MG Tab PO SCH (08:08)
[2023-12-15] MEDS: Potassium Chloride 10 MEQ Tab.ER PO SCH (08:08)
[2023-12-15] MEDS: Gabapentin 300 MG Cap PO SCH (08:08)
[2023-12-15] MEDS: Pantoprazole 40 MG Tab.CR PO SCH (08:08)
[2023-12-15] MEDS: Rifaximin 550 MG Tab PO SCH (08:08)
[2023-12-15] MEDS: Saccharomyces Boulardii (Probiotic) 250 MG Cap PO SCH (08:08)
[2023-12-15] MEDS: Spironolactone 25 MG Tab PO SCH (08:08)
[2023-12-15 08:13] VITALS: BP 129/74; PULSE 85
[2023-12-15] MEDS: Sodium Chloride 0.9% 10 ML Syringe FLUSH SCH (08:13)
[2023-12-15] MEDS: Phytonadione 5 MG Tab PO SCH (08:16)
== END 2023-12-15 11:15 | disposition home or self-care (01) | DRG 871 ==
LOC: DL.ED 21:28 → DL.MS 12-13 00:07
PROVIDERS: ADMIT Internal Medicine; ATTEND Internal Medicine
DX: A41.52 Sepsis due to Pseudomonas (principal); J45.909 Unspecified asthma, uncomplicated; L89.894 Pressure ulcer of other site, stage 4; I50.32 Chronic diastolic (congestive) heart failure; E87.20 Acidosis, unspecified; D68.9 Coagulation defect, unspecified; I13.0 Hypertensive heart and chronic kidney disease with heart failure and stage 1 through stage 4 chronic kidney disease, or unspecified chronic kidney disease; R65.20 Severe sepsis without septic shock; K70.30 Alcoholic cirrhosis of liver without ascites; K21.9 Gastro-esophageal reflux disease without esophagitis; D63.1 Anemia in chronic kidney disease; N18.32 Chronic kidney disease, stage 3b; D50.9 Iron deficiency anemia, unspecified; D69.6 Thrombocytopenia, unspecified; K76.89 Other specified diseases of liver; E88.09 Other disorders of plasma-protein metabolism, not elsewhere classified; B96.5 Pseudomonas (aeruginosa) (mallei) (pseudomallei) as the cause of diseases classified elsewhere; R73.9 Hyperglycemia, unspecified; E83.42 Hypomagnesemia; I95.9 Hypotension, unspecified; A40.1 Sepsis due to streptococcus, group B; A41.4 Sepsis due to anaerobes; E66.9 Obesity, unspecified; L40.9 Psoriasis, unspecified; N18.9 Chronic kidney disease, unspecified; G89.29 Other chronic pain; G62.9 Polyneuropathy, unspecified; J44.9 Chronic obstructive pulmonary disease, unspecified; Z98.890 Other specified postprocedural states; Z68.38 Body mass index [BMI] 38.0-38.9, adult; Z88.8 Allergy status to other drugs, medicaments and biological substances; Z88.1 Allergy status to other antibiotic agents; Z86.718 Personal history of other venous thrombosis and embolism; Z88.6 Allergy status to analgesic agent; Z79.899 Other long term (current) drug therapy
CPT/HCPCS: 36415; 73701-LT; 80053; 80202; 82140; 82947; 83605; 83735; 85025; 85610; 85651; 85730; 86140; 87040; 87070; 87077; 87186; 99223; 99233; 99238; 99285; A9270-GY; J1170; J2543; J3370; J3475; J3490; J7030; J7040; J7120; J7620-GY; Q9967

== ENCOUNTER 2024-01-10 03:46 | Emergency (ER) | payer OTHER, MEDICARE ==
[2024-01-10 04:40] LABS: BASOPHILS PERCENT AUTO 0.4 % (0.0-1.0); EOSINOPHILS PERCENT AUTO 0.5 % (1.0-3.0); HEMOGLOBIN 13.2 g/dL (14.0-18.0); LYMPHOCYTES PERCENT AUTO 9.5 % (20.5-50.1); MEAN CORPUSCULAR HEMOGLOBIN 27.9 pg (27.0-34.0); MEAN CORPUSCULAR VOLUME 84.6 fL (80-100); MONOCYTES PERCENT AUTO 15.6 % (2-8); PLATELET COUNT,PLT 44 10^3/uL (150-450); RED BLOOD CELL COUNT 4.73 10^6/uL (4.6-6.2); WHITE BLOOD CELL COUNT,WBC 5.5 10^3/uL (5.0-10.0)
[2024-01-10 05:00] LABS: ALBUMIN 2.4 g/dL (3.4-5.0); ANION GAP 10.2 mEq/L (7-13); BILIRUBIN TOTAL 2.6 mg/dL (0.2-1.0); BUN/CREATININE RATIO 5.7 (No establ ref range); CALCIUM 7.6 mg/dL (8.5-10.1); CREATININE 1.22 mg/dL (0.70-1.30); EST CRCL DRUG DOSING (CG) 71.49 mL/min; POTASSIUM,K 3.2 mmol/L (3.5-5.1); PROTEIN TOTAL,TP 7.4 g/dL (6.4-8.2)
[2024-01-10 05:01] LABS: A/G RATIO 0.48
[2024-01-10 05:03] LABS: LACTIC ACID 1.4 mmol/L (0.4-2.0)
[2024-01-10] MEDS: diphenhydrAMINE 25 MG Tab PO ONE (06:31)
[2024-01-10] MEDS: cefTRIAXone 1 GM Vial IVPUSH ONE (06:31)
[2024-01-10] MEDS: Potassium Chloride 10 MEQ Tab.ER PO ONE (07:51)
[2024-01-10] MEDS: Vancomycin 2 GM in Sodium Chloride 0.9% 500 ML IV ONE (07:51)
[2024-01-10] MEDS: Sodium Chloride 0.9% 1,000 ML IV SCH (07:52)
[2024-01-10 08:46] VITALS: BP 135/56; PULSE 70
[2024-01-10] MEDS: diphenhydrAMINE 50 MG/ML SDV IVPUSH ONE ×2 (09:01→09:15)
== END 2024-01-10 11:40 | disposition home or self-care (01) ==
LOC: DL.ED 03:46
DX: L03.115 Cellulitis of right lower limb (principal); L40.0 Psoriasis vulgaris; I10 Essential (primary) hypertension; K21.9 Gastro-esophageal reflux disease without esophagitis; J45.909 Unspecified asthma, uncomplicated; E66.9 Obesity, unspecified; Z88.8 Allergy status to other drugs, medicaments and biological substances; Z88.5 Allergy status to narcotic agent; Z79.899 Other long term (current) drug therapy; Z68.42 Body mass index [BMI] 45.0-49.9, adult
CPT/HCPCS: 36415; 73620-LT; 73620-RT; 80053; 80307; 83605; 85025; 96365; 96366; 96375; 99284; 99284-25; A9270-GY; J0696; J1200; J3370; J7030; J7040

== ENCOUNTER 2024-01-26 10:28 | Emergency (ER) | payer OTHER, MEDICARE ==
[2024-01-26] MEDS: Gabapentin 400 MG Cap PO ONE (11:06)
[2024-01-26] MEDS: oxyCODONE 5 MG Tab PO ONE (11:06)
[2024-01-26 13:13] VITALS: BP 158/94; PULSE 87
== END 2024-01-26 13:25 | disposition home or self-care (01) ==
LOC: DL.ED 10:28
DX: M79.605 Pain in left leg (principal)
CPT/HCPCS: 99284; A9270

== ENCOUNTER 2024-07-17 17:51 | Emergency (ER) | payer MEDICARE ==
[2024-07-17] MEDS: Acetaminophen 650 MG Supp RECTAL STA (17:54)
[2024-07-17] MEDS: Sodium Chloride 0.9% 1,000 ML IV SCH (17:55)
[2024-07-17 18:05] LABS: BASOPHILS PERCENT AUTO 0.2 % (0.0-1.0); EOSINOPHILS PERCENT AUTO 0.3 % (1.0-3.0); HEMOGLOBIN 13.2 g/dL (14.0-18.0); LYMPHOCYTES PERCENT AUTO 5.8 % (20.5-50.1); MEAN CORPUSCULAR HEMOGLOBIN 29.3 pg (27.0-34.0); MEAN CORPUSCULAR VOLUME 88.7 fL (80-100); MONOCYTES PERCENT AUTO 2.8 % (2-8); NEUTROPHILS PERCENT AUTO 90.9 % (42.2-75.2); PLATELET COUNT,PLT 44 10^3/uL (150-450); RED BLOOD CELL COUNT 4.51 10^6/uL (4.6-6.2); WHITE BLOOD CELL COUNT,WBC 6.1 10^3/uL (5.0-10.0)
[2024-07-17] MEDS: Levofloxacin/Dextrose 5%-Water 750 MG in Premix Bag 1 BAG IV ONE (18:25)
[2024-07-17 18:28] LABS: ALBUMIN 2.2 g/dL (3.4-5.0); ANION GAP 12.7 mEq/L (7-13); BILIRUBIN TOTAL 2.6 mg/dL (0.2-1.0); BUN/CREATININE RATIO 7.2 (No establ ref range); CREATININE 1.25 mg/dL (0.70-1.30); EST CRCL DRUG DOSING (CG) 76.24 mL/min; POTASSIUM,K 3.7 mmol/L (3.5-5.1); PROTEIN TOTAL,TP 7.2 g/dL (6.4-8.2)
[2024-07-17 18:29] LABS: A/G RATIO 0.44
[2024-07-17 18:34] LABS: APPEARANCE,URINE CLEAR (CLEAR); BILIRUBIN,URINE NEGATIVE (NEGATIVE); COLOR,URINE YELLOW (YELLOW); GLUCOSE,URINE NEGATIVE (NEGATIVE); KETONES,URINE NEGATIVE (NEGATIVE); LEUKOCYTE ESTERASE,URINE NEGATIVE (NEGATIVE); NITRITE,URINE NEGATIVE (NEGATIVE); OCCULT BLOOD,URINE TRACE-LYSED (NEGATIVE); PROTEIN,URINE 30 (NEGATIVE)
[2024-07-17 18:41] LABS: LACTIC ACID 2.4 mmol/L (0.4-2.0)
[2024-07-17 19:15] LABS: BACTERIA,URINE FEW /HPF (0-FEW/HPF); EPITHELIAL CELLS,URINE FEW /HPF (NOT SEEN); MUCUS,URINE FEW /LPF (NOT SEEN); RBC,URINE 0-5 /HPF (0-5); WBC,URINE 0-5 /HPF (0-5/HPF)
[2024-07-17] MEDS ORDERED: Naloxone 2 MG/2 ML Syringe IVPUSH PRN (19:50)
[2024-07-17] MEDS: Ondansetron 4 MG/2 ML SDV IVPUSH ONE (20:00)
[2024-07-17] MEDS: Morphine 4 MG/ML Syringe IVPUSH ONE (20:04)
[2024-07-17] MEDS: Albuterol/Ipratropium 3.0-0.5 MG/3 ML Neb Soln NEB ONE ×2 (20:28→23:32)
[2024-07-17] MEDS: Budesonide 0.5 MG/2 ML Neb Susp NEB ONE ×2 (20:28→23:32)
[2024-07-17] MEDS: Dexamethasone 4 MG/ML SDV IVPUSH ONE (20:28)
[2024-07-17 21:13] VITALS: BP 115/86; PULSE 126
[2024-07-17] MEDS: Take Home: Albuterol 0.083% 2.5 MG/3 ML Neb Soln, 5 Neb Pack NEB ONE (23:30)
[2024-07-17] MEDS: Take Home: Levofloxacin 500 MG Tab, 3 Tab Pack PO ONE (23:30)
[2024-07-17] MEDS: Albuterol 6.7 GM Inhaler INH ONE (23:32)
== END 2024-07-18 00:06 | disposition home or self-care (01) ==
LOC: DL.ED 17:51
DX: J45.901 Unspecified asthma with (acute) exacerbation (principal); J18.9 Pneumonia, unspecified organism; I12.9 Hypertensive chronic kidney disease with stage 1 through stage 4 chronic kidney disease, or unspecified chronic kidney disease; N18.9 Chronic kidney disease, unspecified; E66.9 Obesity, unspecified; Z68.38 Body mass index [BMI] 38.0-38.9, adult; Z79.891 Long term (current) use of opiate analgesic; Z79.899 Other long term (current) drug therapy; Z88.8 Allergy status to other drugs, medicaments and biological substances; Z88.1 Allergy status to other antibiotic agents
CPT/HCPCS: 36415; 51702; 71045; 80053; 81001; 82947; 83605; 84145; 85025; 87040; 87070; 87077; 87081; 87186; 87205; 87430; 87804; 93005; 93010; 94640; 96365; 96375; 99284; 99285-25; A9270-GY; J1100; J1956; J2270; J2405; J3490; J7030; J7620-GY; U0002

== ENCOUNTER 2024-07-22 10:49 | Inpatient (IN) | payer MEDICARE ==
[2024-07-22 11:22] LABS: HEMATOCRIT 39.9 % (40.0-54.0); HEMOGLOBIN 13.3 g/dL (14.0-18.0); MEAN CORPUSCULAR HEMOGLOBIN 28.7 pg (27.0-34.0); MEAN CORPUSCULAR HGB CONC 33.3 g/dL (33.0-35.0); MEAN CORPUSCULAR VOLUME 86.2 fL (80-100); PLATELET COUNT,PLT 68 10^3/uL (150-450); RED BLOOD CELL COUNT 4.63 10^6/uL (4.6-6.2); WHITE BLOOD CELL COUNT,WBC 5.8 10^3/uL (5.0-10.0)
[2024-07-22 11:28] LABS: BASOPHILS PERCENT AUTO 0.2 % (0.0-1.0); EOSINOPHILS PERCENT AUTO 1.7 % (1.0-3.0); LYMPHOCYTES PERCENT AUTO 14.7 % (20.5-50.1); MONOCYTES PERCENT AUTO 15.9 % (2-8); NEUTROPHILS PERCENT AUTO 67.5 % (42.2-75.2)
[2024-07-22 11:29] LABS: ALBUMIN 2.2 g/dL (3.4-5.0); ANION GAP 10.2 mEq/L (7-13); BILIRUBIN TOTAL 2.8 mg/dL (0.2-1.0); BUN/CREATININE RATIO 10.9 (No establ ref range); C-REACTIVE PROTEIN 2.39 ng/dL (<=0.50); CALCIUM 8.1 mg/dL (8.5-10.1); CREATININE 1.28 mg/dL (0.70-1.30); EST CRCL DRUG DOSING (CG) 67.42 mL/min; MAGNESIUM 1.4 mg/dL (1.8-2.4); POTASSIUM,K 3.2 mmol/L (3.5-5.1); PROTEIN TOTAL,TP 7.4 g/dL (6.4-8.2)
[2024-07-22] MEDS ORDERED: Naloxone 2 MG/2 ML Syringe IVPUSH PRN (11:29)
[2024-07-22 11:32] LABS: A/G RATIO 0.42
[2024-07-22 11:35] LABS: LACTIC ACID 1.7 mmol/L (0.4-2.0)
[2024-07-22] MEDS: Ondansetron 4 MG/2 ML SDV IVPUSH ONE (11:37)
[2024-07-22] MEDS: Morphine 4 MG/ML Syringe IVPUSH ONE ×2 (11:39→14:16)
[2024-07-22] MEDS: Vancomycin 2 GM in Sodium Chloride 0.9% 500 ML IV ONE (11:51)
[2024-07-22] MEDS: Vancomycin 750 MG SDV ONE (11:51)
[2024-07-22] MEDS: Albuterol/Ipratropium 3.0-0.5 MG/3 ML Neb Soln NEB ONE (11:52)
[2024-07-22] MEDS: Budesonide 0.5 MG/2 ML Neb Susp NEB ONE (11:52)
[2024-07-22 12:02] LABS: BAND PERCENT MAN 2 %; EOSINOPHILS PERCENT MAN 2 % (1-3); LYMPHOCYTES PERCENT MAN 14 % (20-50); MONOCYTES PERCENT MAN 13 % (2-8); SEG NEUTROPHILS PERCENT MAN 69 % (42-75)
[2024-07-22] MEDS: Potassium Chloride 10 MEQ Tab.ER PO ONE (12:13)
[2024-07-22] MEDS: Furosemide 40 MG/4 ML VIAL IVPUSH ONE ×2 (12:26→20:16)
[2024-07-22 12:44] LABS: APPEARANCE,URINE CLEAR (CLEAR); BILIRUBIN,URINE SMALL (NEGATIVE); COLOR,URINE DARK YELLOW (YELLOW); GLUCOSE,URINE 100 (NEGATIVE); KETONES,URINE NEGATIVE (NEGATIVE); LEUKOCYTE ESTERASE,URINE NEGATIVE (NEGATIVE); NITRITE,URINE NEGATIVE (NEGATIVE); OCCULT BLOOD,URINE SMALL (NEGATIVE); PH,URINE 6.5 (5.0-9.0); PROTEIN,URINE TRACE (NEGATIVE); UROBILINOGEN,URINE >=8.0 mg/dL (0.2-1.0)
[2024-07-22 12:55] LABS: AMORPHOUS SEDIMENT,URINE FEW /HPF (NOT SEEN); BACTERIA,URINE FEW /HPF (0-FEW/HPF); EPITHELIAL CELLS,URINE FEW /HPF (NOT SEEN); MUCUS,URINE MODERATE /LPF (NOT SEEN); WBC,URINE 0-5 /HPF (0-5/HPF)
[2024-07-22] MEDS: Magnesium Sulfate/Water 2 GM in Premix Bag 1 BAG IV ONE (13:36)
[2024-07-22] MEDS: Iopamidol 755 Mg/ML 100 ML Bottle IVPUSH ONE ×2 (14:14→14:15)
[2024-07-22] MEDS ORDERED: Ondansetron 4 MG/2 ML SDV IVPUSH PRN (16:29)
[2024-07-22] MEDS ORDERED: OXYCODONE 10 MG PO PRN (16:54)
[2024-07-22] MEDS: Pantoprazole 40 MG Tab.CR PO SCH (17:21)
[2024-07-22] MEDS: Lactulose Soln 10 GM/15 ML 30 ML UD Cup PO SCH (17:35)
[2024-07-22] MEDS: Potassium Chloride 10 MEQ Tab.ER PO SCH (17:36)
[2024-07-22] MEDS: Rifaximin 550 MG Tab PO SCH (17:36)
[2024-07-22] MEDS: Propranolol 80 MG Cap.ER PO SCH (17:36)
[2024-07-22] MEDS: Spironolactone 25 MG Tab PO SCH (17:36)
[2024-07-22] MEDS: Piperacillin/Tazobactam 4.5 GM in Sodium Chloride 0.9% 100 ML IV ONE (17:42)
[2024-07-22] MEDS: oxyCODONE 5 MG Tab PO PRN (17:44)
[2024-07-22] MEDS ORDERED: Piperacillin/Tazobactam 3.375 GM in Sodium Chloride 0.9% 100 ML IV SCH (18:00)
[2024-07-22] MEDS: Piperacillin/Tazobactam 4.5 GM in Sodium Chloride 0.9% 100 ML IV SCH (20:18)
[2024-07-22] MEDS: Gabapentin 400 MG Cap PO SCH (20:29)
[2024-07-22] MEDS: Sodium Chloride 0.9% 10 ML Syringe FLUSH SCH (20:29)
[2024-07-23] MEDS: Albuterol 0.083% 2.5 MG/3 ML Neb Soln NEB PRN (03:50)
[2024-07-23 06:23] LABS: HEMATOCRIT 39.3 % (40.0-54.0); HEMOGLOBIN 12.9 g/dL (14.0-18.0); MEAN CORPUSCULAR HEMOGLOBIN 28.7 pg (27.0-34.0); MEAN CORPUSCULAR HGB CONC 32.8 g/dL (33.0-35.0); MEAN CORPUSCULAR VOLUME 87.5 fL (80-100); PLATELET COUNT,PLT 73 10^3/uL (150-450); RED BLOOD CELL COUNT 4.49 10^6/uL (4.6-6.2); WHITE BLOOD CELL COUNT,WBC 5.9 10^3/uL (5.0-10.0)
[2024-07-23 06:26] LABS: BASOPHILS PERCENT AUTO 0.5 % (0.0-1.0); EOSINOPHILS PERCENT AUTO 2.4 % (1.0-3.0); LYMPHOCYTES PERCENT AUTO 15.2 % (20.5-50.1); MONOCYTES PERCENT AUTO 19.1 % (2-8); NEUTROPHILS PERCENT AUTO 62.8 % (42.2-75.2)
[2024-07-23 06:51] LABS: EOSINOPHILS PERCENT MAN 2 % (1-3); LYMPHOCYTES % ATYPICAL MANUAL 3 %; LYMPHOCYTES PERCENT MAN 10 % (20-50); MONOCYTES PERCENT MAN 19 % (2-8); SEG NEUTROPHILS PERCENT MAN 64 % (42-75)
[2024-07-23 06:52] LABS: BAND PERCENT MAN 2 %
[2024-07-23 07:23] LABS: A/G RATIO 0.4; ALBUMIN 2.1 g/dL (3.4-5.0); ANION GAP 8.9 mEq/L (7-13); BILIRUBIN TOTAL 2.9 mg/dL (0.2-1.0); BUN/CREATININE RATIO 9.7 (No establ ref range); CALCIUM 8.4 mg/dL (8.5-10.1); CREATININE 1.34 mg/dL (0.70-1.30); EST CRCL DRUG DOSING (CG) 64.4 mL/min; MAGNESIUM 1.8 mg/dL (1.8-2.4); POTASSIUM,K 3.9 mmol/L (3.5-5.1); PROTEIN TOTAL,TP 7.4 g/dL (6.4-8.2)
[2024-07-23] MEDS: Vitamin B Complex Cap PO SCH (08:17)
[2024-07-23] MEDS: Multivitamin Tab PO SCH (08:17)
[2024-07-23] MEDS: Furosemide 40 MG/4 ML VIAL IVPUSH SCH (08:18)
[2024-07-23] MEDS ORDERED: Multivitamin Tab PO SCH (09:00)
[2024-07-23] MEDS: oxyCODONE 5 MG Tab ONE (15:28)
[2024-07-23] MEDS: MAG OXIDE PO SCH (15:58)
[2024-07-23] MEDS: [UNRECOGNIZED DRUG - OTHER] PO SCH (15:58)
[2024-07-23] MEDS: TURMERIC RT XT PO SCH (15:58)
[2024-07-23] MEDS: D3 PO SCH (15:58)
[2024-07-23] MEDS: oxyCODONE 5 MG Tab PO PRN (20:37)
[2024-07-24] MEDS: Cholecalciferol (Vitamin D3) 10 MCG Tab PO SCH (08:07)
[2024-07-24] MEDS: Magnesium Oxide 400 MG Tab PO SCH (08:09)
[2024-07-24 16:00] LABS: ANION GAP 8.9 mEq/L (7-13); CALCIUM 9.2 mg/dL (8.5-10.1); CREATININE 1.63 mg/dL (0.70-1.30); EST CRCL DRUG DOSING (CG) 52.94 mL/min; POTASSIUM,K 3.9 mmol/L (3.5-5.1)
[2024-07-25 08:07] LABS: ANION GAP 5.9 mEq/L (7-13); CALCIUM 8.5 mg/dL (8.5-10.1); CREATININE 1.49 mg/dL (0.70-1.30); EST CRCL DRUG DOSING (CG) 57.92 mL/min; POTASSIUM,K 3.9 mmol/L (3.5-5.1)
[2024-07-25] MEDS: Silver Sulfadiazine 1% Crm 400 GM Jar TOP SCH (10:03)
[2024-07-25] MEDS: Fluconazole/Normal Saline 200 MG in Premix Bag 1 BAG IV SCH (11:55)
[2024-07-25] MEDS: Furosemide 20 MG/2 ML VIAL IVPUSH ONE (11:58)
[2024-07-25] MEDS: Iopamidol 612 MG/ML 100 ML Bottle IVPUSH ONE (15:05)
[2024-07-25] MEDS: predniSONE 20 MG Tab PO ONE (20:34)
[2024-07-25] MEDS: oxyCODONE 5 MG Tab PO PRN (22:33)
[2024-07-25 23:42] LABS: RHEUMATOID FACTOR 10 IU/mL (0-14)
[2024-07-26 06:35] LABS: ANION GAP 11.2 mEq/L (7-13); CREATININE 1.6 mg/dL (0.70-1.30); EST CRCL DRUG DOSING (CG) 53.94 mL/min; POTASSIUM,K 5.2 mmol/L (3.5-5.1)
[2024-07-26] MEDS: Levofloxacin/Dextrose 5%-Water 150 ML IV SCH (09:15)
[2024-07-26] MEDS: Albuterol/Ipratropium 3.0-0.5 MG/3 ML Neb Soln NEB PRN (12:47)
[2024-07-27] MEDS: VANCOmycin 1.5 GM/300 ML 300 ML IV SCH (00:56)
[2024-07-27 06:48] LABS: CALCIUM 8.5 mg/dL (8.5-10.1); CREATININE 1.42 mg/dL (0.70-1.30); EST CRCL DRUG DOSING (CG) 60.77 mL/min
[2024-07-27] MEDS: diphenhydrAMINE 25 MG Tab PO ONE (20:52)
[2024-07-27 22:46] LABS: HAV AB IGM Negative (Negative); HBC IGM Negative (Negative); HEP B SURG AG Negative (Negative); HEP C AB BY CIA Negative (Negative); HEP C AB BY CIA INDEX 0.11 IV
[2024-07-28] MEDS: Sodium Chloride 0.9% 10 ML Syringe FLUSH PRN (01:24)
[2024-07-28 05:46] LABS: ANA BY ELISA, IGG W/RFLX IFA None Detected (None Detected)
[2024-07-28 06:41] LABS: CALCIUM 8.9 mg/dL (8.5-10.1); CREATININE 1.42 mg/dL (0.70-1.30); EST CRCL DRUG DOSING (CG) 60.77 mL/min; VANCOMYCIN RANDOM 23.2 ug/mL (No Normal Range)
[2024-07-28 12:50] VITALS: BP 104/62; PULSE 93
[2024-07-28] MEDS ORDERED: VANCOmycin 1.5 GM/300 ML 300 ML IV SCH (22:00)
[2024-07-29 13:47] LABS: COMPLEMENT ACTIVITY, TOTAL <12.8 U/mL (38.7-89.9)
== END 2024-07-28 13:07 | disposition swing bed (61) | DRG 603 ==
LOC: DL.ED 10:49 → DL.MS 15:49 → UNDOADMIN 15:49
PROVIDERS: ADMIT Internal Medicine; ATTEND Internal Medicine
DX: T81.49XA Infection following a procedure, other surgical site, initial encounter (principal); L03.115 Cellulitis of right lower limb; J45.909 Unspecified asthma, uncomplicated; Z68.41 Body mass index [BMI] 40.0-44.9, adult; J45.901 Unspecified asthma with (acute) exacerbation; F10.10 Alcohol abuse, uncomplicated; Z88.1 Allergy status to other antibiotic agents; F41.9 Anxiety disorder, unspecified; Z88.8 Allergy status to other drugs, medicaments and biological substances; F32.A Depression, unspecified; I12.9 Hypertensive chronic kidney disease with stage 1 through stage 4 chronic kidney disease, or unspecified chronic kidney disease; N18.9 Chronic kidney disease, unspecified; E66.9 Obesity, unspecified; K74.60 Unspecified cirrhosis of liver; I83.009 Varicose veins of unspecified lower extremity with ulcer of unspecified site; D50.9 Iron deficiency anemia, unspecified; I73.9 Peripheral vascular disease, unspecified; G62.9 Polyneuropathy, unspecified; Z88.6 Allergy status to analgesic agent; Z88.0 Allergy status to penicillin; Z79.899 Other long term (current) drug therapy; Z91.148 Patient's other noncompliance with medication regimen for other reason; Z87.891 Personal history of nicotine dependence
CPT/HCPCS: 36415; 71275; 80053; 81001; 83605; 83735; 83880; 85025; 86140; 87040 ×2; 93970; 96365; 96366; 96368; 96375; 96376; 99285 ×2; A9270; J1940; J2270 ×2; J2405; J3370; J3475; J7040; Q9967 ×2; U0002; 73701; 80048; 80074; 80202; 86038; 86160; 86162; 86256; 86431; 87389; 94640; 99223; 99232; 99239; J1450; J1956; J2543; J3372; J3490; J7050; J7512; J7613-GY; J7620-GY

== ENCOUNTER 2024-07-28 10:03 | Inpatient (IN) | payer MEDICARE ==
[2024-07-28] MEDS ORDERED: Albuterol 0.083% 2.5 MG/3 ML Neb Soln NEB PRN (12:01)
[2024-07-28] MEDS ORDERED: Ondansetron 4 MG/2 ML SDV IVPUSH PRN (12:01)
[2024-07-28] MEDS ORDERED: Albuterol/Ipratropium 3.0-0.5 MG/3 ML Neb Soln NEB PRN (12:01)
[2024-07-28] MEDS ORDERED: Sodium Chloride 0.9% 10 ML Syringe FLUSH PRN (12:01)
[2024-07-28] MEDS ORDERED: Naloxone 2 MG/2 ML Syringe IVPUSH PRN (12:01)
[2024-07-28] MEDS: oxyCODONE 5 MG Tab PO PRN (15:57)
[2024-07-28] MEDS: Spironolactone 25 MG Tab PO SCH (15:58)
[2024-07-28] MEDS: Gabapentin 400 MG Cap PO SCH (15:59)
[2024-07-28] MEDS: Lactulose Soln 10 GM/15 ML 30 ML UD Cup PO SCH (16:00)
[2024-07-28] MEDS: Pantoprazole 40 MG Tab.CR PO SCH (16:04)
[2024-07-28] MEDS: Rifaximin 550 MG Tab PO SCH (21:44)
[2024-07-28] MEDS: Sodium Chloride 0.9% 10 ML Syringe FLUSH SCH (21:45)
[2024-07-28] MEDS: VANCOmycin 1.5 GM/300 ML 300 ML IV SCH (21:53)
[2024-07-28] MEDS: diphenhydrAMINE 25 MG Tab PO ONE (23:10)
[2024-07-28] MEDS: diphenhydrAMINE 50 MG Cap PO ONE (23:12)
[2024-07-29 06:28] LABS: CALCIUM 8.8 mg/dL (8.5-10.1); CREATININE 1.39 mg/dL (0.70-1.30); EST CRCL DRUG DOSING (CG) 62.08 mL/min
[2024-07-29] MEDS: Magnesium Oxide 400 MG Tab PO SCH (09:15)
[2024-07-29] MEDS: Propranolol 80 MG Cap.ER PO SCH (09:15)
[2024-07-29] MEDS: Cholecalciferol (Vitamin D3) 10 MCG Tab PO SCH (09:16)
[2024-07-29] MEDS: Multivitamin Tab PO SCH (09:16)
[2024-07-29] MEDS: Vitamin B Complex Cap PO SCH (09:16)
[2024-07-29] MEDS: diphenhydrAMINE 25 MG Tab PO ONE (09:23)
[2024-07-29] MEDS: Levofloxacin/Dextrose 5%-Water 150 ML IV SCH (10:29)
[2024-07-29] MEDS: Fluconazole/Normal Saline 200 MG in Premix Bag 1 BAG IV SCH (12:28)
[2024-07-30] MEDS: oxyCODONE 5 MG Tab PO PRN (09:08)
[2024-07-30] MEDS: Furosemide 40 MG/4 ML VIAL IVPUSH SCH (17:15)
[2024-08-01] MEDS: Silver Sulfadiazine 1% Crm 400 GM Jar TOP SCH (14:37)
[2024-08-02 12:17] VITALS: BP 118/70; PULSE 60
== END 2024-08-02 12:05 | disposition home or self-care (01) | DRG 603 ==
LOC: DL.MS 14:41
PROVIDERS: ADMIT Internal Medicine; ATTEND Internal Medicine
DX: L03.115 Cellulitis of right lower limb (principal); Z68.41 Body mass index [BMI] 40.0-44.9, adult; J45.901 Unspecified asthma with (acute) exacerbation; L03.116 Cellulitis of left lower limb; I10 Essential (primary) hypertension; F41.9 Anxiety disorder, unspecified; F32.A Depression, unspecified; F10.10 Alcohol abuse, uncomplicated; E66.9 Obesity, unspecified; H54.7 Unspecified visual loss; G62.9 Polyneuropathy, unspecified; Z88.1 Allergy status to other antibiotic agents; Z88.8 Allergy status to other drugs, medicaments and biological substances; Z79.899 Other long term (current) drug therapy; Z79.51 Long term (current) use of inhaled steroids
CPT/HCPCS: 36415; 80048; 82947; 99305; 99308; 99316; A9270-GY; J1450; J1940; J1956; J3372; J3490

== ENCOUNTER 2024-11-27 05:30 | Emergency (ER) | payer MEDICARE ==
[2024-11-27 05:51] LABS: HEMATOCRIT 27.3 % (40.0-54.0); HEMOGLOBIN 8.9 g/dL (14.0-18.0); MEAN CORPUSCULAR HEMOGLOBIN 29.3 pg (27.0-34.0); MEAN CORPUSCULAR HGB CONC 32.6 g/dL (33.0-35.0); MEAN CORPUSCULAR VOLUME 89.8 fL (80-100); RED BLOOD CELL COUNT 3.04 10^6/uL (4.6-6.2)
[2024-11-27 05:58] LABS: PLATELET COUNT,PLT 21 10^3/uL (150-450); WHITE BLOOD CELL COUNT,WBC 1.4 10^3/uL (5.0-10.0)
[2024-11-27 05:59] LABS: BASOPHILS PERCENT AUTO 0.7 % (0.0-1.0); LYMPHOCYTES PERCENT AUTO 13.8 % (20.5-50.1); MONOCYTES PERCENT AUTO 18.8 % (2-8); NEUTROPHILS PERCENT AUTO 66.7 % (42.2-75.2)
[2024-11-27 06:07] LABS: PROTHROMBIN TIME 19.5 SEC (9.0-12.0)
[2024-11-27 06:16] LABS: LACTIC ACID 2.2 mmol/L (0.4-2.0)
[2024-11-27 06:17] LABS: ALANINE AMINOTRANSFERASE,ALT 17 U/L (16-63); ALBUMIN 1.6 g/dL (3.4-5.0); ALKALINE PHOSPHATASE 84 U/L (46-116); ANION GAP 14.2 mEq/L (7-13); ASPARTATE AMNIOTRANSFERASE,AST 44 U/L (15-37); BILIRUBIN TOTAL 1.9 mg/dL (0.2-1.0); BLOOD UREA NITROGEN,BUN 5 mg/dL (7-18); BUN/CREATININE RATIO 6.7 (No establ ref range); CARBON DIOXIDE,CO2 20 mmol/L (21-32); CHLORIDE,CL 114 mmol/L (98-107); CREATININE 0.75 mg/dL (0.70-1.30); ETHANOL BLOOD MEDICAL 6 mg/dL (0); GLUCOSE RANDOM 88 mg/dL (70-99); SODIUM,NA 146 mmol/L (136-145)
[2024-11-27 06:18] LABS: A/G RATIO 0.47; C-REACTIVE PROTEIN < 0.50 ng/dL (<=0.50); ESTIMATED GFR 113 mL/min (>=60)
[2024-11-27 06:20] LABS: CALCIUM 5.5 mg/dL (8.5-10.1); POTASSIUM,K 2.2 mmol/L (3.5-5.1)
[2024-11-27 06:24] LABS: BAND PERCENT MAN 1 %; LYMPHOCYTES PERCENT MAN 13 % (20-50); SEG NEUTROPHILS PERCENT MAN 68 % (42-75)
[2024-11-27 06:25] LABS: METAMYELOCYTE PERCENT MAN 3; MONOCYTES PERCENT MAN 15 % (2-8)
[2024-11-27] MEDS: Doxycycline 100 MG in Sodium Chloride 0.9% 100 ML IV ONE (06:55)
[2024-11-27] MEDS: Magnesium Sulfate/Water Premix 4 GM in Premix Bag 1 BAG IV ONE (07:04)
[2024-11-27] MEDS: Potassium Chloride 20 MEQ in Premix Bag 1 BAG IV ONE ×2 (07:10→09:49)
[2024-11-27] MEDS: Iopamidol 612 MG/ML 100 ML Bottle IVPUSH ONE (07:22)
[2024-11-27] MEDS ORDERED: Lactated Ringers 1,000 ML IV SCH (07:30)
[2024-11-27] MEDS: Calcium Chloride 10% 1 GM/10 ML Syringe IVPUSH ONE (07:38)
[2024-11-27] MEDS: Potassium Chloride 10 MEQ Tab.ER PO ONE (07:38)
[2024-11-27] MEDS: Albuterol/Ipratropium 3.0-0.5 MG/3 ML Neb Soln NEB ONE (07:38)
[2024-11-27] MEDS: Lactulose Soln 10 GM/15 ML 30 ML UD Cup PO ONE (07:38)
[2024-11-27] MEDS: Acetaminophen 325 MG Tab PO ONE (07:38)
[2024-11-27] MEDS ORDERED: LINEZOLID IV SCH (08:00)
[2024-11-27] MEDS: Linezolid 600 MG/300 ML 600 MG in Premix Bag 1 BAG IV ONE (08:53)
[2024-11-27 10:06] LABS: O2 DELIVERY DEVICE NASAL CANNULA
[2024-11-27 10:13] LABS: BASE EXCESS VENOUS 0.4 mmol/l ((-2)-(+3)); BICARBONATE,VENOUS 25 mmol/l (19-25); PCO2 VENOUS 40 mmHg (41-51); PH,VENOUS 7.41 (7.31-7.41); PO2 VENOUS 70 mmHg (35-42)
[2024-11-27 10:14] LABS: O2 SATURATION VENOUS 92.4 % (60-80)
[2024-11-27 10:51] LABS: APPEARANCE,URINE CLEAR (CLEAR); BILIRUBIN,URINE SMALL (NEGATIVE); COLOR,URINE DARK YELLOW (YELLOW); GLUCOSE,URINE 100 (NEGATIVE); KETONES,URINE NEGATIVE (NEGATIVE); LEUKOCYTE ESTERASE,URINE NEGATIVE (NEGATIVE); NITRITE,URINE NEGATIVE (NEGATIVE); OCCULT BLOOD,URINE TRACE-INTACT (NEGATIVE); PH,URINE 7.5 (5.0-9.0); PROTEIN,URINE 30 (NEGATIVE); UROBILINOGEN,URINE >=8.0 mg/dL (0.2-1.0)
[2024-11-27 10:55] LABS: AMPHETAMINES,URINE NEGATIVE (NEGATIVE); BARBITURATES,URINE NEGATIVE (NEGATIVE); BENZODIAZEPINE,URINE NEGATIVE (NEGATIVE); MDMA (ECSTASY), URINE NEGATIVE (NEGATIVE); METHADONE,URINE NEGATIVE (NEGATIVE); METHAMPHETAMINES,URINE NEGATIVE (NEGATIVE); OPIATES,URINE NEGATIVE (NEGATIVE); OXYCODONE,URINE POSITIVE (NEGATIVE); PHENCYCLIDINE,URINE NEGATIVE (NEGATIVE); TCA,URINE NEGATIVE (NEGATIVE)
[2024-11-27 11:01] LABS: BACTERIA,URINE FEW /HPF (0-FEW/HPF); EPITHELIAL CELLS,URINE RARE /HPF (NOT SEEN); MUCUS,URINE OCCASIONAL /LPF (NOT SEEN); RBC,URINE 0-5 /HPF (0-5); WBC,URINE NOT SEEN /HPF (0-5/HPF)
[2024-11-27 12:33] VITALS: BP 128/78; PULSE 69
== END 2024-11-27 11:30 | disposition other institution (70) ==
LOC: DL.ED 05:30
DX: A41.9 Sepsis, unspecified organism (principal); K70.30 Alcoholic cirrhosis of liver without ascites; L03.116 Cellulitis of left lower limb; D61.818 Other pancytopenia; K76.82 Hepatic encephalopathy; E87.6 Hypokalemia; E83.42 Hypomagnesemia; E83.51 Hypocalcemia; I12.9 Hypertensive chronic kidney disease with stage 1 through stage 4 chronic kidney disease, or unspecified chronic kidney disease; N18.9 Chronic kidney disease, unspecified; E66.9 Obesity, unspecified; J45.909 Unspecified asthma, uncomplicated; Z79.899 Other long term (current) drug therapy; F17.210 Nicotine dependence, cigarettes, uncomplicated; Z79.891 Long term (current) use of opiate analgesic; Z88.8 Allergy status to other drugs, medicaments and biological substances; Z88.1 Allergy status to other antibiotic agents
CPT/HCPCS: 36415; 70450; 71045; 73590; 73701; 80053; 80305; 80307; 81001; 82140; 82803; 83605; 83735; 84484; 85025; 85610; 86140; 87040; 87070; 87077; 87186; 87205; 87428; 93005; 93010; 96365; 96366; 96367; 96368; 96375; 99285; A9270; J2020; J3475; J3480; J3490; Q9967; J7620-GY

== ENCOUNTER 2025-02-04 18:37 | Emergency (ER) | payer MEDICARE ==
[2025-02-04 18:50] LABS: EOSINOPHILS PERCENT AUTO 3.8 % (1.0-3.0); HEMATOCRIT 36.7 % (40.0-54.0); HEMOGLOBIN 11.7 g/dL (14.0-18.0); LYMPHOCYTES PERCENT AUTO 24.5 % (20.5-50.1); MEAN CORPUSCULAR HEMOGLOBIN 28.3 pg (27.0-34.0); MEAN CORPUSCULAR HGB CONC 31.9 g/dL (33.0-35.0); MEAN CORPUSCULAR VOLUME 88.6 fL (80-100); MONOCYTES PERCENT AUTO 13.1 % (2-8); NEUTROPHILS PERCENT AUTO 57.6 % (42.2-75.2); PLATELET COUNT,PLT 49 10^3/uL (150-450); RED BLOOD CELL COUNT 4.14 10^6/uL (4.6-6.2); WHITE BLOOD CELL COUNT,WBC 3.1 10^3/uL (5.0-10.0)
[2025-02-04 19:14] LABS: INR 1.2 (0.9-1.2); PROTHROMBIN TIME 12.6 SEC (9.0-12.0)
[2025-02-04 19:23] LABS: ALANINE AMINOTRANSFERASE,ALT 44 U/L (16-63); ALBUMIN 2.4 g/dL (3.4-5.0); ALKALINE PHOSPHATASE 168 U/L (46-116); ANION GAP 15.2 mEq/L (7-13); ASPARTATE AMNIOTRANSFERASE,AST 85 U/L (15-37); BILIRUBIN TOTAL 3.1 mg/dL (0.2-1.0); BLOOD UREA NITROGEN,BUN 6 mg/dL (7-18); BUN/CREATININE RATIO 5.6 (No establ ref range); CARBON DIOXIDE,CO2 24 mmol/L (21-32); CHLORIDE,CL 109 mmol/L (98-107); CREATININE 1.07 mg/dL (0.70-1.30); GLUCOSE RANDOM 128 mg/dL (70-99); LIPASE 24 U/L (16-77); MAGNESIUM 1.7 mg/dL (1.8-2.4); POTASSIUM,K 3.2 mmol/L (3.5-5.1); PROTEIN TOTAL,TP 7.8 g/dL (6.4-8.2); SODIUM,NA 145 mmol/L (136-145)
[2025-02-04 19:27] LABS: A/G RATIO 0.44; C-REACTIVE PROTEIN < 0.50 ng/dL (<=0.50); ESTIMATED GFR 87 mL/min (>=60); LACTIC ACID 2.4 mmol/L (0.4-2.0)
[2025-02-04] MEDS: Iopamidol 612 MG/ML 100 ML Bottle IVPUSH ONE (19:43)
[2025-02-04] MEDS: Potassium Chloride 10 MEQ Tab.ER PO ONE (19:46)
[2025-02-04] MEDS: Ketorolac 30 MG/ML SDV IVPUSH ONE (20:14)
[2025-02-04 20:50] VITALS: BP 137/53; PULSE 84
== END 2025-02-04 20:15 | disposition home or self-care (01) ==
LOC: DL.ED 18:37
DX: L97.929 Non-pressure chronic ulcer of unspecified part of left lower leg with unspecified severity (principal); I12.9 Hypertensive chronic kidney disease with stage 1 through stage 4 chronic kidney disease, or unspecified chronic kidney disease; N18.9 Chronic kidney disease, unspecified; J45.909 Unspecified asthma, uncomplicated; E66.9 Obesity, unspecified; Z88.1 Allergy status to other antibiotic agents; Z88.6 Allergy status to analgesic agent; Z88.8 Allergy status to other drugs, medicaments and biological substances; Z79.51 Long term (current) use of inhaled steroids; Z79.899 Other long term (current) drug therapy
CPT/HCPCS: 36415; 80053; 82140; 83605; 83690; 83735; 85025; 85610; 86140; 87040; 96374; 99282; 99284; A9270; J1885; Q9967

== ENCOUNTER 2025-03-12 10:37 | Inpatient (IN) | payer MEDICARE ==
[2025-03-12 10:29] LABS: BASOPHILS PERCENT AUTO 0.2 % (0.0-1.0); EOSINOPHILS PERCENT AUTO 1.3 % (1.0-3.0); HEMATOCRIT 35.4 % (40.0-54.0); HEMOGLOBIN 11.9 g/dL (14.0-18.0); LYMPHOCYTES PERCENT AUTO 6.1 % (20.5-50.1); MEAN CORPUSCULAR HEMOGLOBIN 28.6 pg (27.0-34.0); MEAN CORPUSCULAR HGB CONC 33.6 g/dL (33.0-35.0); MEAN CORPUSCULAR VOLUME 85.1 fL (80-100); NEUTROPHILS PERCENT AUTO 82.4 % (42.2-75.2); PLATELET COUNT,PLT 54 10^3/uL (150-450); RED BLOOD CELL COUNT 4.16 10^6/uL (4.6-6.2); WHITE BLOOD CELL COUNT,WBC 8.2 10^3/uL (5.0-10.0)
[2025-03-12 10:41] LABS: A/G RATIO 0.37; ALANINE AMINOTRANSFERASE,ALT 30 U/L (16-63); ALBUMIN 2.2 g/dL (3.4-5.0); ALKALINE PHOSPHATASE 156 U/L (46-116); ANION GAP 18.3 mEq/L (7-13); ASPARTATE AMNIOTRANSFERASE,AST 81 U/L (15-37); BILIRUBIN DIRECT 5.3 mg/dL (0.0-0.2); BILIRUBIN INDIRECT 2.1; BILIRUBIN TOTAL 7.4 mg/dL (0.2-1.0); BLOOD UREA NITROGEN,BUN 10 mg/dL (7-18); CALCIUM 8.2 mg/dL (8.5-10.1); CARBON DIOXIDE,CO2 22 mmol/L (21-32); CHLORIDE,CL 100 mmol/L (98-107); CREATININE 1.38 mg/dL (0.70-1.30); ESTIMATED GFR 64 mL/min (>=60); GLUCOSE RANDOM 127 mg/dL (70-99); POTASSIUM,K 3.3 mmol/L (3.5-5.1); PROTEIN TOTAL,TP 8.2 g/dL (6.4-8.2); SODIUM,NA 137 mmol/L (136-145)
[2025-03-12 10:43] LABS: LACTIC ACID 4.7 mmol/L (0.4-2.0)
[2025-03-12 10:50] LABS: B-TYPE NATRIURETIC PEPTIDE,BNP 35 pg/ml (0-100)
[2025-03-12] MEDS: Iopamidol 612 MG/ML 100 ML Bottle IVPUSH ONE (11:11)
[2025-03-12] MEDS: Piperacillin/Tazobactam 3.375 GM in Sodium Chloride 0.9% 100 ML IV ONE (11:16)
[2025-03-12] MEDS: methylPREDNISolone Sodium Succinate 125 MG/2 ML SDV IVPUSH ONE (11:21)
[2025-03-12] MEDS: Albuterol/Ipratropium 3.0-0.5 MG/3 ML Neb Soln NEB ONE (11:43)
[2025-03-12] MEDS: Sodium Chloride 0.9% 3,000 ML IV SCH (11:43)
[2025-03-12] MEDS: VANCOmycin 2 GM in Sodium Chloride 0.9% 500 ML IV ONE (11:43)
[2025-03-12] MEDS: Morphine 4 MG/ML Syringe IVPUSH ONE (12:56)
[2025-03-12] MEDS: Iopamidol 755 Mg/ML 100 ML Bottle IVPUSH ONE (13:08)
[2025-03-12 13:40] LABS: CORONAVIRUS COVID-19 NAA NEGATIVE (NEGATIVE); INFLUENZA A NAA NEGATIVE (NEGATIVE); INFLUENZA B NAA NEGATIVE (NEGATIVE); RESPIRATORY SYNCYTIAL VIR NAA NEGATIVE (NEGATIVE)
[2025-03-12 14:48] LABS: O2 DELIVERY DEVICE NASAL CANNULA
[2025-03-12 14:49] LABS: PCO2 ARTERIAL 33 mmHg (35-45)
[2025-03-12 14:50] LABS: ALLEN TEST NOT PERFORMED; BASE EXCESS ARTERIAL -4 mmol/L ((-2)-(+3)); BICARBONATE,ARTERIAL 19.7 mmol/L (22-26); O2 SATURATION ARTERIAL 88 % (95-100); PO2 ARTERIAL 59 mmHg (70-100)
[2025-03-12] MEDS: Heparin Sodium 5,000 Units/ML Vial IV ONE (16:35)
[2025-03-12] MEDS: Heparin Sodium/0.45% NaCl 25,000 UNITS/500 ML BAG IV SCH (16:41)
[2025-03-12 17:37] VITALS: BP 125/68; PULSE 97
== END 2025-03-12 17:25 | DRG 176 ==
LOC: DL.ED 10:37 → DL.MS 14:00
PROVIDERS: ADMIT Internal Medicine; ATTEND Internal Medicine
PROC: 4A033R1 Measurement of Arterial Saturation, Peripheral, Percutaneous Approach (ICD-10-PCS; principal; 2025-03-12)
DX: A41.9 Sepsis, unspecified organism (principal); J40 Bronchitis, not specified as acute or chronic; I26.99 Other pulmonary embolism without acute cor pulmonale; I10 Essential (primary) hypertension; E66.9 Obesity, unspecified; Z68.42 Body mass index [BMI] 45.0-49.9, adult; Z88.5 Allergy status to narcotic agent; E87.20 Acidosis, unspecified; Z88.6 Allergy status to analgesic agent; I85.10 Secondary esophageal varices without bleeding; I13.0 Hypertensive heart and chronic kidney disease with heart failure and stage 1 through stage 4 chronic kidney disease, or unspecified chronic kidney disease; K76.6 Portal hypertension; I82.402 Acute embolism and thrombosis of unspecified deep veins of left lower extremity; H54.7 Unspecified visual loss; N18.9 Chronic kidney disease, unspecified; G62.9 Polyneuropathy, unspecified; R74.01 Elevation of levels of liver transaminase levels; J44.9 Chronic obstructive pulmonary disease, unspecified; L40.9 Psoriasis, unspecified; K70.30 Alcoholic cirrhosis of liver without ascites; F10.20 Alcohol dependence, uncomplicated; D69.59 Other secondary thrombocytopenia; I50.9 Heart failure, unspecified; R16.1 Splenomegaly, not elsewhere classified; E66.01 Morbid (severe) obesity due to excess calories; G47.33 Obstructive sleep apnea (adult) (pediatric); L30.9 Dermatitis, unspecified; Z88.8 Allergy status to other drugs, medicaments and biological substances; Z88.1 Allergy status to other antibiotic agents; Z79.899 Other long term (current) drug therapy; Z79.01 Long term (current) use of anticoagulants; Z79.51 Long term (current) use of inhaled steroids; Z79.2 Long term (current) use of antibiotics; Z86.16 Personal history of COVID-19; Z87.891 Personal history of nicotine dependence
CPT/HCPCS: 0241U; 36415; 36600; 71045; 71275; 74177; 80048; 80076; 80307; 82803; 83605; 83880; 84145; 84484; 85025; 85730; 87040; 87428; 93005; 96365; 96367; 96375; 99285; A9270-GY; J1644; J2270; J2543; J2919; J7030; J7040; Q9967

== ENCOUNTER 2025-08-29 03:19 | Emergency (ER) | payer MEDICARE ==
[2025-08-29 03:25] VITALS: BP 117/81; PULSE 101
[2025-08-29 03:46] LABS: BASOPHILS PERCENT AUTO 0.3 % (0.0-1.0); EOSINOPHILS PERCENT AUTO 3.1 % (1.0-3.0); LYMPHOCYTES PERCENT AUTO 26.5 % (20.5-50.1); MONOCYTES PERCENT AUTO 14.6 % (2-8); NEUTROPHILS PERCENT AUTO 55.5 % (42.2-75.2); PLATELET COUNT,PLT 53 10^3/uL (150-450); RED BLOOD CELL COUNT 4.30 10^6/uL (4.6-6.2); WHITE BLOOD CELL COUNT,WBC 2.9 10^3/uL (5.0-10.0)
[2025-08-29 04:12] LABS: A/G RATIO 0.45; ALANINE AMINOTRANSFERASE,ALT 17 U/L (16-63); ASPARTATE AMNIOTRANSFERASE,AST 26 U/L (15-37); BILIRUBIN TOTAL 2.2 mg/dL (0.2-1.0); BLOOD UREA NITROGEN,BUN 6 mg/dL (7-18); CARBON DIOXIDE,CO2 28 mmol/L (21-32); CHLORIDE,CL 105 mmol/L (98-107); CREATININE 1.28 mg/dL (0.70-1.30); EST CRCL DRUG DOSING (CG) 69.02 mL/min; ESTIMATED GFR 69 mL/min (>=60); GLUCOSE RANDOM 140 mg/dL (70-99); POTASSIUM,K 2.9 mmol/L (3.5-5.1); PROTEIN TOTAL,TP 7.1 g/dL (6.4-8.2); SODIUM,NA 139 mmol/L (136-145)
[2025-08-29] MEDS: Potassium Chloride 10 MEQ Tab.ER PO ONE (04:39)
== END 2025-08-29 05:02 | disposition home or self-care (01) ==
LOC: DL.ED 03:19
DX: L97.329 Non-pressure chronic ulcer of left ankle with unspecified severity (principal); E87.6 Hypokalemia; E83.42 Hypomagnesemia; J44.89 Other specified chronic obstructive pulmonary disease; I12.9 Hypertensive chronic kidney disease with stage 1 through stage 4 chronic kidney disease, or unspecified chronic kidney disease; N18.9 Chronic kidney disease, unspecified; Z86.16 Personal history of COVID-19; Z88.6 Allergy status to analgesic agent; Z88.1 Allergy status to other antibiotic agents; Z88.8 Allergy status to other drugs, medicaments and biological substances; Z79.899 Other long term (current) drug therapy
CPT/HCPCS: 36415; 80053; 83735; 85025; 86140; 99283; 99284; A9270

== ENCOUNTER 2025-10-28 21:21 | Emergency (ER) | payer MEDICARE ==
[2025-10-28] MEDS ORDERED: Sodium Chloride 0.9% 10 ML Syringe FLUSH PRN (21:42)
[2025-10-28 21:58] LABS: BASOPHILS PERCENT AUTO 0.8 % (0.0-1.0); EOSINOPHILS PERCENT AUTO 1.6 % (1.0-3.0); LYMPHOCYTES PERCENT AUTO 15.5 % (20.5-50.1); MONOCYTES PERCENT AUTO 10.1 % (2-8); NEUTROPHILS PERCENT AUTO 72.0 % (42.2-75.2); PLATELET COUNT,PLT 53 10^3/uL (150-450); RED BLOOD CELL COUNT 4.87 10^6/uL (4.6-6.2); WHITE BLOOD CELL COUNT,WBC 3.8 10^3/uL (5.0-10.0)
[2025-10-28 22:13] LABS: ALANINE AMINOTRANSFERASE,ALT 33.0 U/L (16-63); ASPARTATE AMNIOTRANSFERASE,AST 59.0 U/L (15-37); BILIRUBIN TOTAL 4.0 mg/dL (0.2-1.0); BLOOD UREA NITROGEN,BUN 3.0 mg/dL (7-18); CARBON DIOXIDE,CO2 25.0 mmol/L (21-32); CHLORIDE,CL 105.0 mmol/L (98-107); CREATININE 1.35 mg/dL (0.70-1.30); EST CRCL DRUG DOSING (CG) 56.64 mL/min; GLUCOSE RANDOM 113.0 mg/dL (70-99); INR 1.5 (0.9-1.2); POTASSIUM,K 3.2 mmol/L (3.5-5.1); PROTEIN TOTAL,TP 8.3 g/dL (6.4-8.2); SODIUM,NA 139.0 mmol/L (136-145)
[2025-10-28 22:16] LABS: A/G RATIO 0.43; ESTIMATED GFR 65.0 mL/min (>=60)
[2025-10-28 22:53] LABS: GLUCOSE,URINE NEGATIVE (NEGATIVE); OCCULT BLOOD,URINE TRACE-INTACT (NEGATIVE)
[2025-10-28 22:55] LABS: APPEARANCE,URINE CLEAR (CLEAR)
[2025-10-28 23:02] LABS: EPITHELIAL CELLS,URINE RARE /HPF (NOT SEEN)
[2025-10-28] MEDS: Potassium Chloride 10 MEQ Tab.ER PO ONE (23:06)
[2025-10-28 23:18] VITALS: BP 130/64; PULSE 94
== END 2025-10-28 23:44 ==
LOC: DL.ED 21:21
DX: K62.5 Hemorrhage of anus and rectum (principal); E87.6 Hypokalemia; J44.89 Other specified chronic obstructive pulmonary disease; I12.9 Hypertensive chronic kidney disease with stage 1 through stage 4 chronic kidney disease, or unspecified chronic kidney disease; N18.9 Chronic kidney disease, unspecified; Z86.16 Personal history of COVID-19; Z88.6 Allergy status to analgesic agent; Z88.1 Allergy status to other antibiotic agents; Z88.8 Allergy status to other drugs, medicaments and biological substances; Z79.899 Other long term (current) drug therapy
CPT/HCPCS: 36415; 80053; 81001; 82272; 83690; 85025; 85610; 96374; 99285; A9270; J1171; 99284